=== PATIENT | male | born 1955 | race Caucasian/White ===

== ENCOUNTER 2016-10-01 12:36 | Inpatient (IN) | payer SELFPAY ==
--- NOTE | 2016-10-01 13:09 | ER Document Report ---
ED Medical Screen (RME) - General Stated Complaint: DIFFICULTY BREATHING Notes: 60 yo male c/o shortness of breath and weakness x 4-5 days. + cough, cold s/s. denies any PMHx. former smoker, quit last week. 1ppd x 30 years. Sat 90%. HR 120. + chest pain, anterior chest hurts with breathing - Related Data Allergies/Adverse Reactions: No Known Allergies Allergy (Verified 02/04/14 21:56) Past Medical History Past Surgical History: Comment Only: Hx Cholecystectomy - gallstone - Immunizations Hx Diphtheria, Pertussis, Tetanus Vaccination: - unknown
[2016-10-01 13:49] LABS: ABSOLUTE BASOPHILS # (AUTO) 0.1 10^3/uL (0.0-0.2); ABSOLUTE EOSINOPHILS # (AUTO) 0.2 10^3/uL (0.0-0.6); ABSOLUTE MONOCYTES (AUTO) 0.7 10^3/uL (0.1-1.4); ABSOLUTE NEUT (AUTO) 9.8 10^3/uL (1.7-8.2); BASOPHILS % (AUTO) 0.6 % (0-2); EOSINOPHILS % (AUTO) 1.7 % (0-6); HEMATOCRIT 47.9 % (37.9-51.0); HGB HCT DIFFERENCE 0.1; LYMPHOCYTES % (AUTO) 15.5 % (13-45); MEAN CORPUSCULAR HEMOGLOBIN 29.1 pg (27.0-33.4); MEAN CORPUSCULAR HGB CONC 33.5 g/dL (32.0-36.0); MEAN CORPUSCULAR VOLUME 87 fl (80-97); MONOCYTES % (AUTO) 5.3 % (3-13); RED BLOOD COUNT 5.51 10^6/uL (4.35-5.55); RED CELL DISTRIBUTION WIDTH 13.5 % (11.5-14.0); SEGMENTED NEUTROPHILS % (AUTO) 76.9 % (42-78); WHITE BLOOD COUNT 12.7 10^3/uL (4.0-10.5)
[2016-10-01 14:04] LABS: ALANINE AMINOTRANSFERASE 35 U/L (21-72); ALBUMIN 3.8 g/dL (3.5-5.0); ALKALINE PHOSPHATASE 148 U/L (38-126); ANION GAP 13 (5-19); ASPARTATE AMINO TRANSFERASE 27 U/L (17-59); BILIRUBIN,TOTAL 1.3 mg/dL (0.2-1.3); BLOOD UREA NITROGEN 25 mg/dL (7-20); CALCIUM 9.4 mg/dL (8.4-10.2); CARBON DIOXIDE 28 mmol/L (22-30); CHLORIDE 97 mmol/L (98-107); CREATINE KINASE 181 U/L (55-170); CREATININE RESULT 1.17 mg/dL (0.52-1.25); GLUCOSE 109 mg/dL (75-110); POTASSIUM 4.1 mmol/L (3.6-5.0); SODIUM 137.6 mmol/L (137-145); TOTAL PROTEIN 7.1 g/dL (6.3-8.2)
[2016-10-01 14:16] LABS: CREATINE KINASE MB 3.82 ng/mL (<4.55)
[2016-10-01 14:18] LABS: TROPONIN I 0.074 ng/mL
[2016-10-01] MEDS ORDERED: IPRATROPIUM/ALBUTEROL 0.5-2.5 MG/3 ML AMPUL NEB ONE ×3 (14:20→15:03)
[2016-10-01] MEDS ORDERED: NORMAL SALINE 1000 ML 1,000 ML IV ONE (14:21)
[2016-10-01] MEDS ORDERED: LEVOFLOXACIN 750 MG/D5W RTU 150 ML IV ONE (14:21)
--- NOTE | 2016-10-01 14:58 | EKG REPORT ---
SEVERITY:- ABNORMAL ECG - SINUS TACHYCARDIA PROBABLE LEFT ATRIAL ABNORMALITY ABNORMAL T, CONSIDER ISCHEMIA, DIFFUSE LEADS : Confirmed by: Batool Hawley MD 01-Oct-2016 14:56:49
--- NOTE | 2016-10-01 15:09 | ER Document Report ---
ED General - General Chief Complaint: Shortness Of Breath Stated Complaint: DIFFICULTY BREATHING Mode of Arrival: Ambulatory Information source: Patient Notes: 60-year-old male presents with complaints of productive cough shortness of breath of one week duration associated with fevers. Patient admits that he has not seen a PCP in many years. TRAVEL OUTSIDE OF THE [place] IN LAST 30 DAYS: No - HPI Onset: Last week Onset/Duration: Persistent Quality of pain: No pain Severity: Mild Pain Level: Denies Associated symptoms: Shortness of breath Exacerbated by: Denies Relieved by: Denies - Related Data Allergies/Adverse Reactions: No Known Allergies Allergy (Verified 10/01/16 13:05) Past Medical History - Social History Smoking Status: Former Smoker Cigarette use (# per day): No Chew tobacco use (# tins/day): No Smoking Education Provided: No Frequency of alcohol use: None Drug Abuse: None Family History: Reviewed & Not Pertinent Patient has suicidal ideation: No Patient has homicidal ideation: No Renal/ Medical History: Denies: Hx Peritoneal Dialysis Past Surgical History: Comment Only: Hx Cholecystectomy - gallstone - Immunizations Hx Diphtheria, Pertussis, Tetanus Vaccination: - unknown Review of Systems - Review of Systems Notes: REVIEW OF SYSTEMS: CONSTITUTIONAL : Denies fever, chills, or sweats. Denies recent illness. EENT: Denies eye, ear, throat, or mouth pain or symptoms. Denies nasal or sinus congestion or discharge. Denies throat, tongue, or mouth swelling or difficulty swallowing. CARDIOVASCULAR: Denies chest pain. Denies palpitations or racing or irregular heart beat. Denies ankle edema. RESPIRATORY: Admits shortness breath difficult to breathing productive cough GASTROINTESTINAL: Denies abdominal pain or distention. Denies nausea, vomiting , or diarrhea. Denies blood in vomitus, stools, or per rectum. Denies black, tarry stools. Denies constipation. GENITOURINARY: Denies difficulty urinating, painful urination, burning, frequency, blood in urine, or discharge. MUSCULOSKELETAL: Denies back or neck pain or stiffness. Denies joint pain or swelling. SKIN: Denies rash, lesions or sores. HEMATOLOGIC : Denies easy bruising or bleeding. LYMPHATIC: Denies swollen, enlarged glands. NEUROLOGICAL: Denies confusion or altered mental status. Denies passing out or loss of consciousness. Denies dizziness or lightheadedness. Denies headache. Denies weakness or paralysis or loss of use of either side. Denies problems with gait or speech. Denies sensory loss, numbness, or tingling. Denies seizures. PSYCHIATRIC: Denies anxiety or stress. Denies depression, suicidal ideation, or homicidal ideation. ALL OTHER SYSTEMS REVIEWED AND NEGATIVE. Dictation was performed using [email or web address] voice recognition software PHYSICAL EXAMINATION: GENERAL: Well-appearing, well-nourished and in moderate respiratory distress. HEAD: Atraumatic, normocephalic. EYES: Pupils equal round and reactive to light, extraocular movements intact, sclera anicteric, conjunctiva are normal. ENT: Nares patent, oropharynx clear without exudates. Moist mucous membranes. NECK: Normal range of motion, supple without lymphadenopathy LUNGS: Crackles at the bases bilateral tachypneic HEART: Tachycardic ABDOMEN: Soft, nontender, nondistended abdomen. No guarding, no rebound. No masses appreciated. Musculoskeletal: Normal range of motion, no pitting or edema. No cyanosis. NEUROLOGICAL: Cranial nerves grossly intact. Normal speech, normal gait. Normal sensory, motor exams PSYCH: Normal mood, normal affect. SKIN: Warm, Dry, normal turgor, no rashes or lesions noted. Physical Exam - Vital signs Vitals: Temp Pulse Resp BP Pulse Ox 97.8 F 119 H 16 167/116 H 96 10/01/16 13:10 10/01/16 13:10 10/01/16 13:10 10/01/16 13:10 10/01/16 13:10 Course - Re-evaluation Re-evalutation: 10/01/16 16:52 Obvious concerns for sepsis on arrival, antibiotics ordered immediately when x- ray was consistent with pneumonia. Patient was given IV fluids. Venous blood gas and lactic acid pending, patient was admitted to hospital service for further evaluation and care - Vital Signs Vital signs: Temp Pulse Resp BP Pulse Ox 98.2 F 119 H 18 162/119 H 97 10/01/16 14:00 10/01/16 13:10 10/01/16 15:01 10/01/16 15:00 10/01/16 15:01 - Laboratory Result Diagrams: 10/01/16 13:25 10/01/16 13:25 Laboratory results interpreted by me: 10/01/16 10/01/16 13:25 13:25 WBC 12.7 H Absolute Neutrophils 9.8 H Chloride 97 L BUN 25 H Alkaline Phosphatase 148 H Creatine Kinase 181 H - Diagnostic Test Radiology reviewed: Image reviewed, Reports reviewed Critical Care Note - Critical Care Note Total time excluding time spent on procedures (mins): 37 Comments: 37 minutes of critical care time spent in direct contact evaluating and reevaluating the patient, treating symptoms, reviewing labs and studies and speaking with family and consultants excluding any procedures Discharge - Discharge Clinical Impression: Tachycardia, Tachypnea Pneumonia Qualifiers: Pneumonia type: due to unspecified organism Laterality: bilateral Lung location : lower lobe of lung Qualified Code(s): J18.9 - Pneumonia, unspecified organism Sepsis Qualifiers: Sepsis type: sepsis due to unspecified organism Qualified Code(s): A41.9 - Sepsis, unspecified organism Condition: Stable Disposition: ADMITTED INPATIENT Admitting Provider: Hospitalist Unit Admitted: Telemetry
[2016-10-01 16:59] LABS: VENOUS BLOOD BASE EXCESS 2.4 mmol/L; VENOUS BLOOD HCO3 27.4 mmol/L (20-32); VENOUS BLOOD PCO2 43.3 mmHg (35-63); VENOUS BLOOD PH 7.42 (7.30-7.42)
--- NOTE | 2016-10-01 17:12 | PDOC H&P ---
History of Present Illness Admission Date/PCP: None Patient complains of: shortness of breath History of Present Illness: TEVIN SPENCER is a 60 year old male with one-week history of cough, shortness of breath, sinus symptoms. Patient denies definite fevers or chills. He is a former smoker but has no diagnosed chronic lung disease. His blood pressure is very elevated the emergency department be has never been formally diagnosed with hypertension. Past Medical History Cardiac Medical History: Reports: None Pulmonary Medical History: Reports: None Endocrine Medical History: Reports: None Malignancy Medical History: Reports: None GI Medical History: Reports: None Psychiatric Medical History: Reports: None Past Surgical History Past Surgical History: Reports: None Comment Only: Cholecystectomy - gallstone Social History Information Source: Patient Lives with: Alone Smoking Status: Former Smoker Frequency of Alcohol Use: None Hx Recreational Drug Use: No Hx Prescription Drug Abuse: No - Advance Directive Resuscitation Status: Full Code Family History Family History: Malignancy - Father with unknown cancer. Parental Family History Reviewed: Yes Children Family History Reviewed: Yes Sibling(s) Family History Reviewed.: Yes Medication/Allergy Home Medications: Hydrocodone/Acetaminophen [Vicodin 5-300 mg Tablet] 1 - 2 tab PO ASDIR PRN #30 tab 02/04/14 Allergies/Adverse Reactions: No Known Allergies Allergy (Verified 10/01/16 13:05) Review of Systems Constitutional: ABSENT: chills, fever(s), headache(s), weight gain, weight loss Eyes: ABSENT: visual disturbances Ears: ABSENT: hearing changes Cardiovascular: ABSENT: chest pain, dyspnea on exertion, edema, orthropnea, palpitations Respiratory: PRESENT: cough, dyspnea, sputum. ABSENT: hemoptysis Gastrointestinal: ABSENT: abdominal pain, constipation, diarrhea, hematemesis, hematochezia, nausea, vomiting Genitourinary: ABSENT: dysuria, hematuria Musculoskeletal: ABSENT: joint swelling Integumentary: ABSENT: rash, wounds Neurological: ABSENT: abnormal gait, abnormal speech, confusion, dizziness, focal weakness, syncope Psychiatric: ABSENT: anxiety, depression, homidical ideation, suicidal ideation Endocrine: ABSENT: cold intolerance, heat intolerance, polydipsia, polyuria Hematologic/Lymphatic: ABSENT: easy bleeding, easy bruising Physical Exam Vital Signs: Temp Pulse Resp BP Pulse Ox 98.2 F 119 H 18 162/119 H 97 10/01/16 14:00 10/01/16 13:10 10/01/16 15:01 10/01/16 15:00 10/01/16 15:01 Intake & Output 09/30/16 10/01/16 10/02/16 06:59 06:59 06:59 Intake Total 1000 Balance 1000 PHYSICAL EXAM: GENERAL: Appears well, no acute distress HEENT: Normocephalic, no scleral icterus, conjunctiva clear, EOEM intact, PERRLA , dry mucous membranes NECK: trachea midline, no thyromegally RESPIRATORY: Bilateral rhonchi, good air movement, normal respiratory rate, no accessory muscle use CARDIAC: Regular rate and rhythm, no murmur/asif/rub ABDOMEN: Soft, no distension, no tenderness, no guarding, normal bowel sounds, negative Sandoval sign RECTAL: deferred : deferred EXTREMITIES: No edema, cyanosis, clubbing MUSCULOSKELETAL: No joint swelling or deformity VASCULAR: normal peripheral pulses NEUROLOGIC: Alert, oriented to person/place/time, normal speech, cranial nerves grossly intact, 5/5 strength in all extremities, tactile sensation intact in all extremities SKIN: No rash, no wounds, no worrisome skin lesions PSYCHIATRIC: Normal mood, normal affect Results Laboratory Results: 10/01/16 13:25 10/01/16 13:25 10/01/16 10/01/16 10/01/16 13:25 13:25 15:30 WBC 12.7 H RBC 5.51 Hgb 16.0 Hct 47.9 MCV 87 MCH 29.1 MCHC 33.5 RDW 13.5 Plt Count 311 Seg Neutrophils % 76.9 Lymphocytes % 15.5 Monocytes % 5.3 Eosinophils % 1.7 Basophils % 0.6 Absolute Neutrophils 9.8 H Absolute Lymphocytes 2.0 Absolute Monocytes 0.7 Absolute Eosinophils 0.2 Absolute Basophils 0.1 VBG pH VBG pCO2 VBG HCO3 VBG Base Excess Sodium 137.6 Potassium 4.1 Chloride 97 L Carbon Dioxide 28 Anion Gap 13 BUN 25 H Creatinine 1.17 Est GFR ( Amer) > 60 Est GFR (Non-Af Amer) > 60 Glucose 109 Lactic Acid 0.9 Calcium 9.4 Total Bilirubin 1.3 AST 27 ALT 35 Alkaline Phosphatase 148 H Total Protein 7.1 Albumin 3.8 10/01/16 16:33 WBC RBC Hgb Hct MCV MCH MCHC RDW Plt Count Seg Neutrophils % Lymphocytes % Monocytes % Eosinophils % Basophils % Absolute Neutrophils Absolute Lymphocytes Absolute Monocytes Absolute Eosinophils Absolute Basophils VBG pH 7.42 VBG pCO2 43.3 VBG HCO3 27.4 VBG Base Excess 2.4 Sodium Potassium Chloride Carbon Dioxide Anion Gap BUN Creatinine Est GFR ( Amer) Est GFR (Non-Af Amer) Glucose Lactic Acid Calcium Total Bilirubin AST ALT Alkaline Phosphatase Total Protein Albumin 10/01/16 10/01/16 13:25 13:25 Creatine Kinase 181 H CK-MB (CK-2) 3.82 Troponin I 0.074 EKG Comments: Sinus tachycardia, left atrial abnormality Impressions: Chest X-Ray 10/01/16 13:09 IMPRESSION: Diffuse prominence of the pulmonary vasculature and interstitium which could be suggestive underlying edema or atypical infection. There is a hazy opacities noted both lung bases, right greater the left could represent edema and/or infiltrate. Small bilateral pleural effusions. Assessment & Plan - Diagnosis (1) Systemic inflammatory response syndrome (SIRS) Is this a current diagnosis for this admission?: YesPlan: Secondary to pneumonia. (2) Pneumonia Qualifiers: Pneumonia type: due to unspecified organism Laterality: bilateral Lung location: lower lobe of lung Qualified Code(s): J18.9 - Pneumonia, unspecified organism Is this a current diagnosis for this admission?: YesPlan: Patient has bilateral pneumonia on imaging. Likely bacterial. Start patient on IV Rocephin and IV Levaquin pending blood and sputum cultures. (3) Elevated blood pressure reading Is this a current diagnosis for this admission?: YesPlan: Patient has no formal diagnosis of hypertension. I will order when necessary IV Lopressor for now. If patient has consistently elevated blood pressures we will start chronic antihypertensive medication. (4) Sinus tachycardia Is this a current diagnosis for this admission?: YesPlan: Treat infection and mild dehydration. - Time Time Spent: Greater than 70 Minutes Anticipated discharge: Home Within: within 72 hours - Inpatient Certification Medical Necessity: Need For Continuous Telemetry Monitoring, Need for IV Antibiotics
[2016-10-01] MEDS: ALBUTEROL SULFATE 0.083% NEB 2.5 MG/3 ML AMPUL NEB PRN (20:22)
[2016-10-01] MEDS ORDERED: ENOXAPARIN SODIUM INJ 40 MG/0.4 ML DISP.SYRIN SUBCUT ONE (21:00)
[2016-10-01] MEDS: METOPROLOL TARTRATE PF/INJ 5 MG/5 ML SDV IV PRN (21:25)
[2016-10-01] MEDS: CEFTRIAXONE 1 GM/D5W RTU 1 GM/50 ML RTUPB IV SCH (22:31)
[2016-10-01] MEDS: GUAIFENESIN 600 MG TABLET.SA PO SCH (22:35)
[2016-10-01] MEDS: NORMAL SALINE 1000 ML 1,000 ML IV PRN (23:58)
[2016-10-02] MEDS: ALBUTEROL SULFATE 0.083% NEB 2.5 MG/3 ML AMPUL NEB PRN ×3 (00:26→21:23)
[2016-10-02] MEDS: ENALAPRILAT DIHYDRATE INJ/PF 1.25 MG/1 ML SDV IV PRN ×2 (02:23→08:36)
[2016-10-02] MEDS: NORMAL SALINE 1000 ML 1,000 ML IV PRN (05:36)
[2016-10-02 05:56] LABS: ABSOLUTE LYMPHOCYTES (AUTO) 1.4 10^3/uL (0.5-4.7); ABSOLUTE MONOCYTES (AUTO) 0.5 10^3/uL (0.1-1.4); ABSOLUTE NEUT (AUTO) 8.6 10^3/uL (1.7-8.2); BASOPHILS % (AUTO) 0.4 % (0-2); EOSINOPHILS % (AUTO) 0.2 % (0-6); HEMATOCRIT 43.5 % (37.9-51.0); HGB HCT DIFFERENCE -0.9; MEAN CORPUSCULAR HEMOGLOBIN 28.9 pg (27.0-33.4); MEAN CORPUSCULAR HGB CONC 32.6 g/dL (32.0-36.0); MEAN CORPUSCULAR VOLUME 89 fl (80-97); MONOCYTES % (AUTO) 4.9 % (3-13); RED CELL DISTRIBUTION WIDTH 13.3 % (11.5-14.0); SEGMENTED NEUTROPHILS % (AUTO) 81.5 % (42-78); WHITE BLOOD COUNT 10.6 10^3/uL (4.0-10.5)
[2016-10-02 06:00] LABS: HEMOGLOBIN 14.2 g/dL (13.5-17.0)
[2016-10-02 06:03] LABS: ANION GAP 11 (5-19); BLOOD UREA NITROGEN 27 mg/dL (7-20); CALCIUM 8.7 mg/dL (8.4-10.2); CARBON DIOXIDE 25 mmol/L (22-30); CHLORIDE 100 mmol/L (98-107); CREATININE RESULT 1.39 mg/dL (0.52-1.25); GLUCOSE 88 mg/dL (75-110); POTASSIUM 3.8 mmol/L (3.6-5.0); SODIUM 135.9 mmol/L (137-145)
[2016-10-02] MEDS: ENOXAPARIN SODIUM INJ 40 MG/0.4 ML DISP.SYRIN SUBCUT SCH (08:36)
[2016-10-02] MEDS: LEVOFLOXACIN 750 MG/D5W RTU 150 ML IV SCH (09:38)
[2016-10-02] MEDS: GUAIFENESIN 600 MG TABLET.SA PO SCH ×2 (09:39→23:22)
[2016-10-02] MEDS: CEFTRIAXONE 1 GM/D5W RTU 1 GM/50 ML RTUPB IV SCH (17:14)
--- NOTE | 2016-10-02 18:09 | PDOC PROGRESS REPORT ---
Subjective Progress Note for:: 10/02/16 Subjective:: Patient's generalized weakness and shortness of breath has improved. Patient denies fever, chills, headache, new focal weakness, chest pain, abdominal pain, nausea, vomiting, diarrhea, constipation. Physical Exam Vital Signs: Temp Pulse Resp BP Pulse Ox 98.3 F 115 H 20 143/98 H 99 10/02/16 12:24 10/02/16 14:00 10/02/16 12:24 10/02/16 12:24 10/02/16 12:24 Intake & Output 10/01/16 10/02/16 10/03/16 06:59 06:59 06:59 Intake Total 1047 360 Balance 1047 360 Weight 59.8 kg GENERAL: No acute distress HEENT: Conjunctiva clear, nonicteric, moist mucous membranes, no JVD, midline trachea RESPIRATORY: Clear to auscultation bilaterally, no wheezes, no rhonchi CARDIAC: Regular rate and rhythm, no murmurs/gallops/rubs ABDOMEN: Soft, nondistended, nontender, positive bowel sounds, no rebound, no guarding EXTREMETIES: No edema, cyanosis, clubbing NEUROLOGIC: Alert, oriented to person/place/time, CN's grossly intact, no focal deficits SKIN: No rash, wounds PSYCH: Normal mood, normal affect Results Laboratory Results: 10/02/16 04:52 10/02/16 04:52 10/02/16 10/02/16 04:52 04:52 WBC 10.6 H RBC 4.90 Hgb 14.2 Hct 43.5 MCV 89 MCH 28.9 MCHC 32.6 RDW 13.3 Plt Count 242 Seg Neutrophils % 81.5 H Lymphocytes % 13.0 Monocytes % 4.9 Eosinophils % 0.2 Basophils % 0.4 Absolute Neutrophils 8.6 H Absolute Lymphocytes 1.4 Absolute Monocytes 0.5 Absolute Eosinophils 0.0 Absolute Basophils 0.0 Sodium 135.9 L Potassium 3.8 Chloride 100 Carbon Dioxide 25 Anion Gap 11 BUN 27 H Creatinine 1.39 H Est GFR ( Amer) > 60 Est GFR (Non-Af Amer) 52 L Glucose 88 Calcium 8.7 Impressions: Chest X-Ray 10/02/16 07:46 IMPRESSION: Interstitial edema or atypical pneumonia. No significant change. Assessment & Plan - Diagnosis (1) Systemic inflammatory response syndrome (SIRS) Is this a current diagnosis for this admission?: YesPlan: Secondary to pneumonia. (2) Pneumonia Qualifiers: Pneumonia type: due to unspecified organism Laterality: bilateral Lung location: lower lobe of lung Qualified Code(s): J18.9 - Pneumonia, unspecified organism Is this a current diagnosis for this admission?: YesPlan: Patient has bilateral pneumonia on imaging. Likely bacterial. Continue IV Rocephin and IV Levaquin pending blood and sputum cultures. (3) Sinus tachycardia Is this a current diagnosis for this admission?: Yes (4) Hypertension Is this a current diagnosis for this admission?: YesPlan: Untreated. Start Toprol-XL 25 mg twice a day. Continue when necessary IV hydralazine. (5) Elevated brain natriuretic peptide (BNP) level Is this a current diagnosis for this admission?: YesPlan: Check echocardiogram. Possibly related to acute pulmonary process and acute kidney injury. Symptoms and chest x-ray findings more consistent with pneumonia rather than CHF. (6) Acute kidney injury Is this a current diagnosis for this admission?: YesPlan: Discontinue when necessary Vasotec. Repeat labs in the morning. - Time Time Spent with patient: 35 or more minutes Anticipated discharge: Home Within: within 48 hours
--- NOTE | 2016-10-02 20:57 | XCELERA REPORT ---
[address] [address] Transthoracic Echocardiogram Report Name: TEVIN SPENCER Age: 60 yrs Gender: Male : 1955 Patient Status: Inpatient Patient Location: 5\[id number]\535\[id number]\A Study Date: 10/02/2016 09:14 AM Height: 61 in Weight: 131 lb BSA: 1.6 m2 Procedure: A complete two-dimensional transthoracic echocardiogram was performed (2D, M-mode, spectral and color flow Doppler). The study was technically adequate with some images being suboptimal in quality. Reason For Study: dyspnea, abn cxr Ordering Physician: CLEMENTINA RIOS Performed By: Willow Forbes Interpretation Summary The Ejection Fraction estimate is 50-55% Left ventricular systolic function is low normal. Doppler measurements suggest pseudonormalized left ventricular relaxation, which is associated with grade II/IV or mild to moderate diastolic dysfunction There is borderline concentric left ventricular hypertrophy. The left ventricle is grossly normal size. Wall motion cannot be accurately commented on, but no definite regional wall motion abnormalities noted. The right ventricle is borderline dilated. The right ventricular systolic function is normal. The right ventricle appears to be hypertrophied The left atrium is mildly dilated. The right atrium is mildly dilated. There is a trace amount of mitral regurgitation There is no mitral valve stenosis. There is no aortic valve stenosis No aortic regurgitation is present. There is a trace to mild amount of tricuspid regurgitation There is mild pulmonary hypertension by echo Right ventricular systolic pressure is estimated to be elevated at 35- 45mmHg. The pulmonic valve is not well visualized. The aortic root is not well visualized but is probably normal size. The inferior vena cava appeared normal and decreased < 50% with respiration (RAP 10-15 mmHg) There is no pericardial effusion. MMode/2D Measurements \T\ Calculations RVDd: 1.5 cm LVIDd: 4.5 cm FS: 26.1 % Ao root diam: 2.7 cm IVSd: 0.92 cm LVIDs: 3.3 cm EDV(Teich): 93.7 ml LVPWd: 0.92 cm ESV(Teich): 45.5 ml Ao root area: 5.7 cm2 EF(Teich): 51.4 % LA dimension: 3.9 cm Doppler Measurements \T\ Calculations MV E max ney: MV P1/2t max ney: Ao V2 max: LV V1 max P.8 cm/sec 88.4 cm/sec 100.3 cm/sec 3.8 mmHg MV A max ney: MV P1/2t: 44.3 msec Ao max PG: LV V1 max: 37.5 cm/sec 4.0 mmHg 97.7 cm/sec MV E/A: 2.4 MVA(P1/2t): 5.0 cm2 MV dec slope: 584.1 cm/sec2 MV dec time: 0.16 sec PA V2 max: TR max ney: 81.4 cm/sec 285.6 cm/sec PA max PG: TR max P.6 mmHg 2.7 mmHg Left Ventricle The left ventricle is grossly normal size. There is borderline concentric left ventricular hypertrophy. Left ventricular systolic function is low normal. The Ejection Fraction estimate is 50-55%. Doppler measurements suggest pseudonormalized left ventricular relaxation, which is associated with grade II/IV or mild to moderate diastolic dysfunction. Wall motion cannot be accurately commented on, but no definite regional wall motion abnormalities noted. Right Ventricle The right ventricle is borderline dilated. The right ventricle appears to be hypertrophied. The right ventricular systolic function is normal. Atria The right atrium is mildly dilated. The left atrium is mildly dilated. Mitral Valve The mitral valve is grossly normal. There is no mitral valve stenosis. There is a trace amount of mitral regurgitation. Aortic Valve The aortic valve is grossly normal. There is no aortic valve stenosis. No aortic regurgitation is present. Tricuspid Valve The tricuspid valve is not well visualized, but is grossly normal. There is no tricuspid stenosis. There is a trace to mild amount of tricuspid regurgitation. There is mild pulmonary hypertension by echo. Right ventricular systolic pressure is estimated to be elevated at 30-40mmHg. Pulmonic Valve The pulmonic valve is not well visualized. Great Vessels The aortic root is not well visualized but is probably normal size. The inferior vena cava appeared normal and decreased < 50% with respiration (RAP 10-15 mmHg). Effusions There is no pericardial effusion. : CLEMENTINA RIOS > Kinza Meza
[2016-10-02] MEDS: METOPROLOL TARTRATE PF/INJ 5 MG/5 ML SDV IV PRN (21:15)
[2016-10-02] MEDS: METOPROLOL SUCCINATE 25 MG TAB.SR.24H PO SCH (23:21)
[2016-10-03] MEDS: HYDRALAZINE HCL INJ/PF 20 MG/1 ML SDV IV PRN ×3 (02:45→21:10)
[2016-10-03] MEDS: ALBUTEROL SULFATE 0.083% NEB 2.5 MG/3 ML AMPUL NEB PRN ×4 (03:34→20:29)
[2016-10-03] MEDS: METOPROLOL TARTRATE PF/INJ 5 MG/5 ML SDV IV PRN ×2 (03:52→13:18)
[2016-10-03] MEDS: ACETAMINOPHEN 325 MG TABLET PO PRN ×2 (04:09→12:28)
[2016-10-03] MEDS ORDERED: NITROGLYCERIN 2% OINTMENT 1 GM PACKET TP ONE (04:47)
[2016-10-03 05:48] LABS: ABSOLUTE EOSINOPHILS # (AUTO) 0.1 10^3/uL (0.0-0.6); ABSOLUTE LYMPHOCYTES (AUTO) 1.2 10^3/uL (0.5-4.7); ABSOLUTE MONOCYTES (AUTO) 0.7 10^3/uL (0.1-1.4); ABSOLUTE NEUT (AUTO) 8.8 10^3/uL (1.7-8.2); BASOPHILS % (AUTO) 0.4 % (0-2); EOSINOPHILS % (AUTO) 0.9 % (0-6); HEMATOCRIT 44.9 % (37.9-51.0); HGB HCT DIFFERENCE 0.1; LYMPHOCYTES % (AUTO) 11.3 % (13-45); MEAN CORPUSCULAR HEMOGLOBIN 29.4 pg (27.0-33.4); MEAN CORPUSCULAR HGB CONC 33.5 g/dL (32.0-36.0); MEAN CORPUSCULAR VOLUME 88 fl (80-97); MONOCYTES % (AUTO) 6.1 % (3-13); RED BLOOD COUNT 5.11 10^6/uL (4.35-5.55); RED CELL DISTRIBUTION WIDTH 13.6 % (11.5-14.0); SEGMENTED NEUTROPHILS % (AUTO) 81.3 % (42-78); WHITE BLOOD COUNT 10.8 10^3/uL (4.0-10.5)
[2016-10-03 06:07] LABS: ANION GAP 14 (5-19); BLOOD UREA NITROGEN 27 mg/dL (7-20); CALCIUM 9.4 mg/dL (8.4-10.2); CARBON DIOXIDE 26 mmol/L (22-30); CHLORIDE 100 mmol/L (98-107); CREATININE RESULT 1.57 mg/dL (0.52-1.25); GLUCOSE 86 mg/dL (75-110); POTASSIUM 3.9 mmol/L (3.6-5.0); SODIUM 139.8 mmol/L (137-145)
[2016-10-03] MEDS: ENOXAPARIN SODIUM INJ 40 MG/0.4 ML DISP.SYRIN SUBCUT SCH (08:27)
[2016-10-03] MEDS: LEVOFLOXACIN 750 MG/D5W RTU 150 ML IV SCH (10:26)
[2016-10-03] MEDS: METOPROLOL SUCCINATE 25 MG TAB.SR.24H PO SCH (10:27)
[2016-10-03] MEDS: GUAIFENESIN 600 MG TABLET.SA PO SCH ×2 (10:27→21:10)
[2016-10-03] MEDS ORDERED: METOPROLOL SUCCINATE 25 MG TAB.SR.24H PO SCH (14:40)
--- NOTE | 2016-10-03 14:43 | PDOC PROGRESS REPORT ---
Subjective Progress Note for:: 10/03/16 Subjective:: Patient's generalized weakness and shortness of breath has improved. He complains of pain in his left hand where his IV site is. Patient denies fever, chills, headache, new focal weakness, chest pain, abdominal pain, nausea, vomiting, diarrhea, constipation. Physical Exam Vital Signs: Temp Pulse Resp BP Pulse Ox 98.0 F 95 20 150/108 H 94 10/03/16 04:15 10/03/16 12:09 10/03/16 12:09 10/03/16 04:15 10/03/16 12:09 Intake & Output 10/02/16 10/03/16 10/04/16 06:59 06:59 06:59 Intake Total 1047 1410 Balance 1047 1410 Weight 59.8 kg 59.8 kg GENERAL: No acute distress HEENT: Conjunctiva clear, nonicteric, moist mucous membranes, no JVD, midline trachea RESPIRATORY: Clear to auscultation bilaterally, no wheezes, no rhonchi CARDIAC: Regular rate and rhythm, no murmurs/gallops/rubs ABDOMEN: Soft, nondistended, nontender, positive bowel sounds, no rebound, no guarding EXTREMETIES: No edema, cyanosis, clubbing NEUROLOGIC: Alert, oriented to person/place/time, CN's grossly intact, no focal deficits SKIN: No rash, wounds PSYCH: Normal mood, normal affect Results Laboratory Results: 10/03/16 05:05 10/03/16 05:05 10/03/16 10/03/16 05:05 05:05 WBC 10.8 H RBC 5.11 Hgb 15.0 Hct 44.9 MCV 88 MCH 29.4 MCHC 33.5 RDW 13.6 Plt Count 249 Seg Neutrophils % 81.3 H Lymphocytes % 11.3 L Monocytes % 6.1 Eosinophils % 0.9 Basophils % 0.4 Absolute Neutrophils 8.8 H Absolute Lymphocytes 1.2 Absolute Monocytes 0.7 Absolute Eosinophils 0.1 Absolute Basophils 0.0 Sodium 139.8 Potassium 3.9 Chloride 100 Carbon Dioxide 26 Anion Gap 14 BUN 27 H Creatinine 1.57 H Est GFR ( Amer) 54 L Est GFR (Non-Af Amer) 45 L Glucose 86 Calcium 9.4 10/01/16 17:30 Sputum Gram Stain - Final 10/01/16 17:30 Sputum Sputum Culture - Final NORMAL DYAN Impressions: Chest X-Ray 10/03/16 06:00 IMPRESSION: Findings are consistent with vascular congestion there has been slight progression since yesterday. Assessment & Plan - Diagnosis (1) Systemic inflammatory response syndrome (SIRS) Is this a current diagnosis for this admission?: YesPlan: Secondary to pneumonia. (2) Pneumonia Qualifiers: Pneumonia type: due to unspecified organism Laterality: bilateral Lung location: lower lobe of lung Qualified Code(s): J18.9 - Pneumonia, unspecified organism Is this a current diagnosis for this admission?: YesPlan: Likely bacterial. Culture workup negative. Discontinue IV antibiotics. Start Levaquin 750 mg by mouth daily. (3) Sinus tachycardia Is this a current diagnosis for this admission?: YesPlan: Treat infection and mild dehydration. (4) Hypertension Is this a current diagnosis for this admission?: YesPlan: Increase Toprol-XL to 50 mg twice daily. (5) Elevated brain natriuretic peptide (BNP) level Is this a current diagnosis for this admission?: YesPlan: Check echocardiogram. Possibly related to acute pulmonary process and acute kidney injury. Symptoms and chest x-ray findings more consistent with pneumonia rather than CHF. (6) Acute kidney injury Is this a current diagnosis for this admission?: YesPlan: Repeat labs in the morning. - Time Time Spent with patient: 35 or more minutes Anticipated discharge: Home Within: within 48 hours
[2016-10-03] MEDS: METOPROLOL SUCCINATE 50 MG TAB.SR.24H PO SCH (21:09)
[2016-10-04 06:30] LABS: ABSOLUTE BASOPHILS # (AUTO) 0.1 10^3/uL (0.0-0.2); ABSOLUTE EOSINOPHILS # (AUTO) 0.1 10^3/uL (0.0-0.6); ABSOLUTE LYMPHOCYTES (AUTO) 1.4 10^3/uL (0.5-4.7); ABSOLUTE MONOCYTES (AUTO) 0.7 10^3/uL (0.1-1.4); ABSOLUTE NEUT (AUTO) 7.2 10^3/uL (1.7-8.2); BASOPHILS % (AUTO) 0.7 % (0-2); EOSINOPHILS % (AUTO) 1.3 % (0-6); HEMATOCRIT 42.3 % (37.9-51.0); HEMOGLOBIN 14.4 g/dL (13.5-17.0); HGB HCT DIFFERENCE 0.9; LYMPHOCYTES % (AUTO) 14.5 % (13-45); MEAN CORPUSCULAR HEMOGLOBIN 29.6 pg (27.0-33.4); MEAN CORPUSCULAR HGB CONC 33.9 g/dL (32.0-36.0); MEAN CORPUSCULAR VOLUME 87 fl (80-97); MONOCYTES % (AUTO) 7.8 % (3-13); RED BLOOD COUNT 4.85 10^6/uL (4.35-5.55); RED CELL DISTRIBUTION WIDTH 13.5 % (11.5-14.0); SEGMENTED NEUTROPHILS % (AUTO) 75.7 % (42-78); WHITE BLOOD COUNT 9.5 10^3/uL (4.0-10.5)
[2016-10-04 06:49] LABS: ANION GAP 13 (5-19); BLOOD UREA NITROGEN 28 mg/dL (7-20); CARBON DIOXIDE 24 mmol/L (22-30); CHLORIDE 102 mmol/L (98-107); CREATININE RESULT 1.46 mg/dL (0.52-1.25); GLUCOSE 105 mg/dL (75-110); POTASSIUM 3.6 mmol/L (3.6-5.0); SODIUM 138.6 mmol/L (137-145)
[2016-10-04] MEDS: METOPROLOL SUCCINATE 50 MG TAB.SR.24H PO SCH (09:59)
[2016-10-04] MEDS: GUAIFENESIN 600 MG TABLET.SA PO SCH (10:00)
[2016-10-04] MEDS ORDERED: LEVOFLOXACIN 750 MG TABLET PO SCH (10:00)
--- NOTE | 2016-10-04 12:48 | DISCHARGE SUMMARY E ---
Discharge Summary NAME: TEVIN SPENCER : 1955 AGE: 60Y ADMITTED: 10/01/2016 DISCHARGED: ADMISSION DIAGNOSES: 1. Systemic inflammatory response. 2. Pneumonia. 3. Elevated blood pressure. 4. Tachycardia. DISCHARGE DIAGNOSES: 1. Bilateral pneumonia. 2. Sinus tachycardia. 3. Hypertension. 4. Acute respiratory failure and hypoxemia due to probably pneumonia and underlying COPD. IMAGING: Chest x-ray which showed diffuse bilateral airspace disease. Echocardiogram which showed normal ejection fraction. HOSPITAL COURSE: The patient is a pleasant 60-year-old male who has been healthy and history of former smoker. He came to the emergency room with a chief complaint of cough, shortness of breath. He has also sinus tachycardia and he was hypertensive. Blood pressure was elevated in the emergency room. The patient had chest x-ray which showed bilateral pneumonia and EKG showed sinus tachycardia. He had a blood culture which did not grow anything. His sputum also was unremarkable. Culture did not reveal any bacteria. He had leukocytosis on admission, 12.7. He was afebrile also on admission. The patient started on IV Levaquin and he started to improve. His blood pressure was elevated and the patient started on Toprol which controlled both his blood pressure as well as tachycardia. The patient is qualified for oxygen today. He is saturating 88% when he walked like for 2 minutes. He is saturating in mid 90s on 2 L. planner internship was consulted to arrange home oxygen. The patient is stable to be discharged home today. PHYSICAL EXAMINATION UPON DISCHARGE: GENERAL: The patient is lying in bed, comfortable. Not in distress. Well nourished. VITALS SIGNS: Temperature 97.9, heart rate 102, blood pressure 148/97, saturation 99% on 2 L. HEENT: Normocephalic, atraumatic. Pupils round. Conjunctivae is normal. No icterus. NECK: No lymphadenopathy. No thyromegaly. CARDIOVASCULAR: Normal S1, S2. Regular rate. Tachycardiac. RESPIRATORY: Decreased air entry bilaterally. ABDOMEN: Soft. Bowel sounds active. MUSCULOSKELETAL: No edema. NEUROLOGIC: Awake, alert. SKIN: No rash. LABORATORY: White blood count 9.5, hemoglobin 14.4. Potassium 3.6, sodium 138, creatinine 1.4. Echo showed diastolic congestive heart failure. DISCHARGE INSTRUCTIONS: Discharged patient home. MEDICATIONS: 1. Toprol XL 50 mg p.o. daily. 2. Oxygen 2 L 24 hours. 3. Levaquin 750 mg p.o. daily. FOLLOWUP: With primary care physician in 1 week. DIET: Cardiac diet, low salt diet. ACTIVITY: As tolerated. OTHER INSTRUCTIONS: Come to the emergency room for any difficulty breathing. TIME SPENT: More than 35 minutes. DICTATING PHYSICIAN: JONNY GONZALES M.D. [id number] PHY#: [id number] ID: [id number] JOB#: [id number] ACCT: [id number] cc:CLEMENTINA RIOS ABDELAZIZ M.D. >
[2016-10-04 16:47] VITALS: BP 160/117
[2016-10-04] MEDS: ALBUTEROL SULFATE 0.083% NEB 2.5 MG/3 ML AMPUL NEB PRN (18:15)
== END 2016-10-04 18:39 | disposition home or self-care (01) | DRG 194 ==
LOC: ER 12:36 → EH 16:40 → UNDOADMIN 17:06 → 5 20:57
PROVIDERS: ADMIT Family Medicine; ATTEND Family Medicine
PROC: 3E0F73Z Introduction of Anti-inflammatory into Respiratory Tract, Via Natural or Artificial Opening (ICD-10-PCS; principal; 2016-10-01)
DX: J18.9 Pneumonia, unspecified organism (principal); I47.1 Supraventricular tachycardia; N17.9 Acute kidney failure, unspecified; I10 Essential (primary) hypertension; E86.0 Dehydration; Z60.2 Problems related to living alone; Z87.891 Personal history of nicotine dependence; Z90.49 Acquired absence of other specified parts of digestive tract; Z80.9 Family history of malignant neoplasm, unspecified; Z79.891 Long term (current) use of opiate analgesic
CPT/HCPCS: 36415; 71010; 71020; 80048; 80053; 82550; 82553; 82803; 83605; 83880; 84484; 85025; 87040; 87070; 87205; 87804; 93005; 93010; 93306; 94640; 96365; 99291; J0360; J0696; J1650; J1956; J3490; J7030; J7620

== ENCOUNTER 2017-02-26 18:53 | Emergency (ER) | payer SELFPAY ==
[2017-02-26] MEDS ORDERED: IPRATROPIUM/ALBUTEROL 0.5-2.5 MG/3 ML AMPUL NEB ONE ×3 (19:34→20:28)
--- NOTE | 2017-02-26 19:38 | ER Document Report ---
ED Medical Screen (RME) - General Chief Complaint: Shortness Of Breath Stated Complaint: DIFFICULTY BREATHING Time Seen by Provider: 02/26/17 19:33 Notes: Patient with a history of COPD who is having increased difficulty breathing and shortness of breath. He has had a productive cough with yellow phlegm being produced. He used to have home oxygen, but it was taken away a couple of months ago. He does have a home nebulizer and inhalers, but they are almost empty. He says his breathing difficulty worsened about a week ago. Not running a fever. No vomiting or diarrhea. Patient used to smoke cigarettes, but stopped about 5 or 6 months ago. Oxygen sat here in the ER is 92% on room air. Patient is very tachypneic and appears significantly short of breath. TRAVEL OUTSIDE OF THE [place] IN LAST 30 DAYS: No - Related Data Allergies/Adverse Reactions: No Known Allergies Allergy (Verified 02/26/17 19:16) Past Medical History - Social History Chew tobacco use (# tins/day): No Frequency of alcohol use: None Drug Abuse: None - Past Medical History Cardiac Medical History: Reports: Hx Hypertension Pulmonary Medical History: Reports: Hx COPD Renal/ Medical History: Denies: Hx Peritoneal Dialysis Psychiatric Medical History: Denies: Hx Depression Past Surgical History: Reports: Hx Cholecystectomy - gallstone - Immunizations Hx Diphtheria, Pertussis, Tetanus Vaccination: - unknown Physical Exam - Vital signs Vitals: Temp Pulse Resp BP Pulse Ox 98.2 F 111 H 40 H 155/127 H 92 02/26/17 19:09 02/26/17 19:09 02/26/17 19:09 02/26/17 19:09 02/26/17 19:09 Course - Vital Signs Vital signs: Temp Pulse Resp BP Pulse Ox 98.2 F 111 H 40 H 155/127 H 92 02/26/17 19:09 02/26/17 19:09 02/26/17 19:09 02/26/17 19:09 02/26/17 19:09
[2017-02-26 20:15] LABS: ABSOLUTE BASOPHILS # (AUTO) 0.1 10^3/uL (0.0-0.2); ABSOLUTE EOSINOPHILS # (AUTO) 0.2 10^3/uL (0.0-0.6); ABSOLUTE LYMPHOCYTES (AUTO) 1.8 10^3/uL (0.5-4.7); ABSOLUTE MONOCYTES (AUTO) 0.6 10^3/uL (0.1-1.4); ABSOLUTE NEUT (AUTO) 12.1 10^3/uL (1.7-8.2); BASOPHILS % (AUTO) 0.4 % (0-2); EOSINOPHILS % (AUTO) 1.1 % (0-6); HEMATOCRIT 45.1 % (37.9-51.0); HEMOGLOBIN 14.7 g/dL (13.5-17.0); LYMPHOCYTES % (AUTO) 12.2 % (13-45); MEAN CORPUSCULAR HEMOGLOBIN 27.9 pg (27.0-33.4); MEAN CORPUSCULAR HGB CONC 32.6 g/dL (32.0-36.0); MEAN CORPUSCULAR VOLUME 86 fl (80-97); RED BLOOD COUNT 5.26 10^6/uL (4.35-5.55); RED CELL DISTRIBUTION WIDTH 13.4 % (11.5-14.0); SEGMENTED NEUTROPHILS % (AUTO) 82.3 % (42-78); WHITE BLOOD COUNT 14.8 10^3/uL (4.0-10.5)
--- NOTE | 2017-02-26 20:30 | ER Document Report ---
ED General - General Chief Complaint: Shortness Of Breath Stated Complaint: DIFFICULTY BREATHING Time Seen by Provider: 02/26/17 19:33 Mode of Arrival: Ambulatory Information source: Patient Notes: This is a 61-year-old man with a history of COPD that presents to the emergency room with shortness of breath. Does have a history of pneumonia and was hospitalized earlier this year. He states he had oxygen up until about 2 months ago when they "took it away". Denies any fever or chills. TRAVEL OUTSIDE OF THE [place] IN LAST 30 DAYS: No - HPI Onset: Last week Onset/Duration: Gradual Quality of pain: No pain Severity: None Pain Level: Denies Associated symptoms: Shortness of breath. denies: Chest pain, Fever Exacerbated by: Denies Relieved by: Denies Similar symptoms previously: Yes Recently seen / treated by doctor: Yes - Related Data Allergies/Adverse Reactions: No Known Allergies Allergy (Verified 02/26/17 19:16) Home Medications: Current Home Medications Budesonide/Formoterol Fumarate [Symbicort HFA 160-4.5 mcg Inhaler 6 gm] 2 puff IH BID 02/26/17 [History] Dextromethorphan HBr/Chlor-Mal [Coricidin Hbp Cough & Cold Tab] 1 each PO DAILY PRN 02/26/17 [History] Ipratropium/Albuterol Sulfate [Combivent Respimat 4 gm Mdi] 2 puff IH Q4 PRN [History] Past Medical History - General Information source: Patient - Social History Smoking Status: Former Smoker Cigarette use (# per day): Yes - Half a pack a day Chew tobacco use (# tins/day): No Frequency of alcohol use: None Drug Abuse: None Lives with: Spouse/Significant other Family History: Reviewed & Not Pertinent, Malignancy - Father with unknown cancer. Patient has suicidal ideation: No Patient has homicidal ideation: No - Past Medical History Cardiac Medical History: Reports: Hx Hypertension Pulmonary Medical History: Reports: Hx COPD Renal/ Medical History: Reports: Other - Chronic Kidney disease. Denies: Hx Peritoneal Dialysis GI Medical History: Reports: None Musculoskeltal Medical History: Reports None Psychiatric Medical History: Denies: Hx Depression Traumatic Medical History: Reports: None Infectious Medical History: Reports: None Past Surgical History: Reports: Hx Cholecystectomy - gallstone - Immunizations Hx Diphtheria, Pertussis, Tetanus Vaccination: - unknown Review of Systems - Review of Systems Constitutional: denies: Chills, Fever EENT: No symptoms reported Cardiovascular: No symptoms reported Respiratory: See HPI Gastrointestinal: No symptoms reported Genitourinary: No symptoms reported Male Genitourinary: No symptoms reported Musculoskeletal: No symptoms reported Skin: No symptoms reported Hematologic/Lymphatic: No symptoms reported Neurological/Psychological: No symptoms reported Physical Exam - Vital signs Vitals: Temp Pulse Resp BP Pulse Ox 98.2 F 111 H 40 H 155/127 H 92 02/26/17 19:09 02/26/17 19:09 02/26/17 19:09 02/26/17 19:09 02/26/17 19:09 Notes: Physical exam: GENERAL: 61-year-old man, alert and oriented 3, wheezing in the room HEAD: Atraumatic, normocephalic. EYES: Pupils equal round and reactive to light, extraocular movements intact, sclera anicteric, conjunctiva are normal. ENT: TMs normal, nares patent, oropharynx clear without exudates. Moist mucous membranes. NECK: Normal range of motion, supple without lymphadenopathy. LUNGS: Diffuse wheezes bilaterally HEART: Regular rate and rhythm without murmurs, rubs or gallops. ABDOMEN: Soft, normoactive bowel sounds. No tenderness to palpation. No guarding, no rebound. No masses appreciated. EXTREMITIES: Normal range of motion, no pitting or edema. No clubbing or cyanosis. NEUROLOGICAL: Cranial nerves II through XII grossly intact. Normal speech, normal gait. PSYCH: Normal mood, normal affect. SKIN: Warm, Dry, normal turgor, no rashes or lesions noted. Course - Re-evaluation Re-evalutation: 02/26/17 23:56 Note: Patient's issues are as follows: 1. COPD the patient feels significantly better after nebulizer treatments. He had any evidence of pneumonia on the x-ray. There is a lot of chronic changes. And his lungs sound much better after the nebulizer. I started him on steroids and I will send him home with some antibiotics just in case. He has not had any fever or productive cough. He feels better and wants to go home. 2. Hypertension; the patient is hypertensive and he currently takes metoprolol 50 mg twice a day but he states he does not like this medicine because it does not make him feel good. It took some time but the patient initially refused any changes in his blood pressure medicine but I was able to get him to try Norvasc. I will write him a prescription. 3. Chronic kidney disease: Baseline. He did have a mildly elevated troponin but this is felt to be due to the chronic kidney disease. I performed a serial troponin level and there is been no change. Additionally, review of previous labs from 6 months ago shows a similar troponin. The patient has not had any chest pain. She shows sinus tachycardia without any significant ST changes compared to previous EKG 02/27/17 00:01 - Vital Signs Vital signs: Temp Pulse Resp BP Pulse Ox 98.2 F 111 H 17 191/113 H 96 02/26/17 19:09 02/26/17 19:09 02/26/17 23:16 02/26/17 23:16 02/26/17 23:16 - Laboratory Result Diagrams: 02/26/17 20:00 02/26/17 20:00 Laboratory results interpreted by me: 02/26/17 02/26/17 02/26/17 20:00 20:00 20:00 WBC 14.8 H Seg Neutrophils % 82.3 H Lymphocytes % 12.2 L Absolute Neutrophils 12.1 H Sodium 136.2 L BUN 27 H Creatinine 1.76 H Est GFR ( Amer) 48 L Est GFR (Non-Af Amer) 39 L Glucose 128 H Direct Bilirubin 0.5 H AST 61 H Alkaline Phosphatase 229 H Creatine Kinase CK-MB (CK-2) 6.03 H Urine Protein 02/26/17 02/26/17 02/26/17 21:42 22:27 22:27 WBC Seg Neutrophils % Lymphocytes % Absolute Neutrophils Sodium BUN Creatinine Est GFR ( Amer) Est GFR (Non-Af Amer) Glucose Direct Bilirubin AST Alkaline Phosphatase Creatine Kinase 186 H CK-MB (CK-2) 5.72 H Urine Protein 100 H - Diagnostic Test Radiology reviewed: Image reviewed, Reports reviewed - X-ray shows chronic changes without any acute obvious pneumonia - EKG Interpretation by Me Rate: Tachycardia Rhythm: NSR - The EKG shows sinus tachycardia with no acute ST-T wave changes Discharge - Discharge Clinical Impression: COPD exacerbation Hypertension Qualifiers: Hypertension type: essential hypertension Qualified Code(s): I10 - Essential ( primary) hypertension Condition: Stable Disposition: HOME, SELF-CARE Instructions: Chronic Obstructive Lung Disease ([facility]), High Blood Pressure ([facility]) Additional Instructions: Recommendations: Drink plenty of fluids, start the steroids tomorrow (this is the prednisone) Take the azithromycin as prescribed. Take the inhalers as needed. Amlodipine for your blood pressure. Her primary care doctor tomorrow for follow-up appointment. Emergency room for worsening shortness of breath Prescriptions: Amlodipine Besylate 10 mg PO DAILY #30 tab Azithromycin [Zithromax 250 mg Tablet] 250 mg PO ASDIR PRN #6 tablet PRN Reason: Prednisone [Deltasone 20 mg Tablet] 3 tab PO DAILY 5 Days Forms: Elevated Blood Pressure
[2017-02-26 20:43] LABS: ALANINE AMINOTRANSFERASE 70 U/L (21-72); ALBUMIN 3.7 g/dL (3.5-5.0); ALKALINE PHOSPHATASE 229 U/L (38-126); ANION GAP 11 (5-19); ASPARTATE AMINO TRANSFERASE 61 U/L (17-59); BILIRUBIN,DIRECT 0.5 mg/dL (0.0-0.4); BLOOD UREA NITROGEN 27 mg/dL (7-20); CALCIUM 8.9 mg/dL (8.4-10.2); CARBON DIOXIDE 27 mmol/L (22-30); CHLORIDE 98 mmol/L (98-107); CREATININE RESULT 1.76 mg/dL (0.52-1.25); GLUCOSE 128 mg/dL (75-110); POTASSIUM 4.3 mmol/L (3.6-5.0); SODIUM 136.2 mmol/L (137-145); TOTAL PROTEIN 7.7 g/dL (6.3-8.2)
--- NOTE | 2017-02-26 20:50 | RADIOLOGY REPORT (SQ) ---
EXAM DESCRIPTION: CHEST SINGLE VIEW COMPLETED DATE/TIME: 02/26/2017 8:41 pm REASON FOR STUDY: Short of breath, COPD COMPARISON: September 2016 EXAM PARAMETERS: NUMBER OF VIEWS: One view. TECHNIQUE: Single frontal radiographic view of the chest acquired. RADIATION DOSE: NA LIMITATIONS: None. FINDINGS: LUNGS AND PLEURA: Fairly diffuse chronic appearing changes are identified especially in th e lung bases. There is some minimal confluence in the lung bases which I cannot exclude as an acute process superimposed on the more chronic changes. MEDIASTINUM AND HILAR STRUCTURES: No masses. Contour normal. HEART AND VASCULAR STRUCTURES: The configuration of the heart and mediastinal structures is unchanged . BONES: No acute findings. HARDWARE: None in the chest. OTHER: No other significant finding. IMPRESSION: Fairly diffuse chronic appearing changes as noted above. There is some minimal confluen ce in the lung bases which I cannot exclude as an acute process superimposed on the more chronic rodriguez ges. Other findings as noted above TECHNICAL DOCUMENTATION: JOB ID: [id number]
[2017-02-26 20:54] LABS: CREATINE KINASE MB 6.03 ng/mL (<4.55)
[2017-02-26 20:57] LABS: TROPONIN I 0.068 ng/mL
[2017-02-26] MEDS ORDERED: NORMAL SALINE 500 ML IV PRN (22:09)
[2017-02-26 22:10] LABS: APPEARANCE,URINE CLEAR; BILIRUBIN,URINE NEGATIVE (NEGATIVE); GLUCOSE, URINE NEGATIVE (NEGATIVE); KETONES,URINE NEGATIVE (NEGATIVE); LEUKOCYTE ESTERASE,URINE NEGATIVE (NEGATIVE); NITRITE,URINE NEGATIVE (NEGATIVE); PROTEIN,URINE 100 mg/dL (NEGATIVE); URINE SPECIFIC GRAVITY 1.011; UROBILINOGEN,URINE NEGATIVE mg/dL (<2.0)
[2017-02-26 23:12] LABS: CREATINE KINASE MB 5.72 ng/mL (<4.55); TROPONIN I 0.069 ng/mL
[2017-02-26 23:52] VITALS: BP 191/113
--- NOTE | 2017-02-27 03:57 | EKG REPORT ---
SEVERITY:- ABNORMAL ECG - SINUS TACHYCARDIA NONSPECIFIC T ABNORMALITIES, LATERAL LEADS : Confirmed by: Batool Hawley MD 27-Feb-2017 03:56:26
== END 2017-02-26 23:52 | disposition home or self-care (01) ==
LOC: ER 18:53
DX: J44.1 Chronic obstructive pulmonary disease with (acute) exacerbation (principal); I12.9 Hypertensive chronic kidney disease with stage 1 through stage 4 chronic kidney disease, or unspecified chronic kidney disease; N18.9 Chronic kidney disease, unspecified; R74.8 Abnormal levels of other serum enzymes; R06.02 Shortness of breath; R00.0 Tachycardia, unspecified; Z87.01 Personal history of pneumonia (recurrent); Z72.0 Tobacco use
CPT/HCPCS: 93005; 94640 ×2; 99285; 96360; 36415; 82553; 82550; 83735; 85025; 80053; 81001; 84484; 71010; 93010; J7040; J7620

== ENCOUNTER 2017-03-01 11:10 | Emergency (ER) | payer SELFPAY ==
[2017-03-01] MEDS ORDERED: SULFAMETHOXAZOLE/TRIMETHOPRIM 800-160 MG TABLET PO ONE (11:48)
[2017-03-01] MEDS ORDERED: LIDOCAINE 4%/TETRACAINE 0.5%/EPI 0.18% 5 ML TOPICAL SOLN TOP ONE (11:48)
--- NOTE | 2017-03-01 11:50 | ER Document Report ---
ED Hand/Wrist Injury - General Chief Complaint: Hand Swelling Stated Complaint: FINGER SWELLING Time Seen by Provider: 03/01/17 11:29 Mode of Arrival: Ambulatory Information source: Patient Notes: Patient is a 61-year-old male who presents to the ER today for a right swollen, red finger and 3 days ago. Patient states that it started swelling with increased pain yesterday and then it started draining pus. He denies fevers or chills. He denies any history of MRSA, abscesses. TRAVEL OUTSIDE OF THE [place] IN LAST 30 DAYS: No - Related Data Allergies/Adverse Reactions: No Known Allergies Allergy (Verified 03/01/17 11:18) Past Medical History - General Information source: Patient - Social History Smoking Status: Current Every Day Smoker Family History: Reviewed & Not Pertinent, Malignancy - Father with unknown cancer. Patient has suicidal ideation: No Patient has homicidal ideation: No - Past Medical History Cardiac Medical History: Reports: Hx Hypertension Pulmonary Medical History: Reports: Hx COPD Renal/ Medical History: Denies: Hx Peritoneal Dialysis Psychiatric Medical History: Denies: Hx Depression Past Surgical History: Reports: Hx Cholecystectomy - gallstone - Immunizations Hx Diphtheria, Pertussis, Tetanus Vaccination: - unknown Review of Systems - Review of Systems Constitutional: No symptoms reported EENT: No symptoms reported Cardiovascular: No symptoms reported Respiratory: No symptoms reported Gastrointestinal: No symptoms reported Genitourinary: No symptoms reported Male Genitourinary: No symptoms reported Musculoskeletal: No symptoms reported Skin: See HPI Hematologic/Lymphatic: No symptoms reported Neurological/Psychological: No symptoms reported Physical Exam - Vital signs Vitals: Temp Pulse Resp BP Pulse Ox 97.8 F 114 H 20 158/104 H 94 03/01/17 11:19 03/01/17 11:19 03/01/17 11:19 03/01/17 11:19 03/01/17 11:19 - Notes Notes: PHYSICAL EXAMINATION: GENERAL: Well-appearing and in no acute distress. HEAD: Atraumatic, normocephalic. EYES: Pupils equal round and reactive to light, extraocular movements intact, sclera anicteric, conjunctiva are normal. NECK: Normal range of motion, supple without lymphadenopathy LUNGS: CTAB and equal. No wheezes rales or rhonchi. HEART: Regular rate and rhythm without murmurs EXTREMITIES: Normal range of motion, no pitting edema. No cyanosis. NEUROLOGICAL: Cranial nerves grossly intact. Normal sensory/motor exams. PSYCH: Normal mood, normal affect. SKIN: Warm, Dry, normal turgor, right 3rd digit with erythema and edema noted distal to PIP joint, some purulent drainage coming from three small holes, warm to touch, tender Course - Re-evaluation Re-evalutation: 03/01/17 13:05 i and d was successful with thick purulent fluid, elipitical incision was made and culture is pending. - Vital Signs Vital signs: Temp Pulse Resp BP Pulse Ox 97.8 F 114 H 20 158/104 H 94 03/01/17 11:19 03/01/17 11:19 03/01/17 11:19 03/01/17 11:19 03/01/17 11:19 Discharge - Discharge Clinical Impression: Abscess of finger Qualifiers: Laterality: right Qualified Code(s): L02.511 - Cutaneous abscess of right hand Condition: Stable Disposition: HOME, SELF-CARE Instructions: Post Incision and Drainage, Abscess ([facility]) Additional Instructions: Return immediately for any new or worsening symptoms. Follow up with primary care provider, call tomorrow to make followup appointment. Prescriptions: Sulfamethoxazole/Trimethoprim [Bactrim Ds Tablet] 1 each PO BID #20 tablet
--- NOTE | 2017-03-01 12:28 | RADIOLOGY REPORT (SQ) ---
EXAM DESCRIPTION: FINGER RIGHT COMPLETED DATE/TIME: 03/01/2017 12:19 pm REASON FOR STUDY: finger infection COMPARISON: None. NUMBER OF VIEWS: Three views. TECHNIQUE: AP, lateral, and oblique images acquired of the right third finger. LIMITATIONS: None. FINDINGS: MINERALIZATION: Normal. BONES: No acute fracture or dislocation. No worrisome bone lesions. SOFT TISSUES: Generalized soft tissue swelling. No foreign body. OTHER: No other significant finding. IMPRESSION: Generalized soft tissue swelling of the 3rd digit. No bony abnormality. COMMENT: SITE OF TRAUMA/COMPLAINT MARKED/STAMP COMPLETED: Yes TECHNICAL DOCUMENTATION: JOB ID: [id number] [email or web address] Rights Reserved
[2017-03-01 13:46] VITALS: BP 143/97
== END 2017-03-01 13:47 | disposition home or self-care (01) ==
LOC: ER 11:10
PROC: 0H9FXZZ Drainage of Right Hand Skin, External Approach (ICD-10-PCS; principal; 2017-03-01)
DX: L02.511 Cutaneous abscess of right hand (principal); F17.200 Nicotine dependence, unspecified, uncomplicated; I10 Essential (primary) hypertension; J44.9 Chronic obstructive pulmonary disease, unspecified
CPT/HCPCS: 26010; 99283; 87070; 87205; 87075; 87077; 87186; 73140; J3490

== ENCOUNTER 2017-03-05 09:42 | Emergency (ER) | payer SELFPAY ==
[2017-03-05] MEDS ORDERED: MUPIROCIN 2% OINTMENT 22 GM TP ONE (10:10)
--- NOTE | 2017-03-05 10:14 | ER Document Report ---
ED Skin Rash/Insect Bite/Abscs - General Chief Complaint: Wound Infection Stated Complaint: WOUND RECHECK Time Seen by Provider: 03/05/17 09:57 Mode of Arrival: Ambulatory Information source: Patient Notes: 1-year-old man presents to ED for complaint of wound to his right middle finger that was I indeed and treated with antibiotics on Thursday. He states that starting to look better but his left elbow is now swollen with a large tender sore to it. Patient was diagnosed with MRSA with the wound culture last week. The abscess to the left elbow was I&D and a culture since that it. States she is also short of breath but he has a long history of COPD his O2 sat is 95% when I assessed him he states he is usually 90% at home. He is not on oxygen at home and gets very short of breath and has a hard time walking across the room due to his COPD. TRAVEL OUTSIDE OF THE [place] IN LAST 30 DAYS: No - HPI Patient complains to provider of: Tender/swollen area Onset: Other - Couple days Onset/Duration: Gradual Quality of pain: Pressure, Sharp Severity: Moderate Pain Level: 3 Skin Character: Abscess - left elbow, Erythema, Swelling, Tenderness, Thickening Identify cause: No Exacerbated by: Movement Relieved by: Denies Similar symptoms previously: Yes Recently seen / treated by doctor: Yes - Related Data Allergies/Adverse Reactions: No Known Allergies Allergy (Verified 03/05/17 09:45) Past Medical History - General Information source: Patient - Social History Smoking Status: Current Every Day Smoker Cigarette use (# per day): Yes Smoking Education Provided: Yes - Plan 2 minutes Lives with: Family Family History: Malignancy - Father with unknown cancer. Patient has suicidal ideation: No Patient has homicidal ideation: No - Past Medical History Cardiac Medical History: Reports: Hx Hypertension Pulmonary Medical History: Reports: Hx COPD EENT Medical History: Reports: None Neurological Medical History: Reports: None Endocrine Medical History: Reports: None Renal/ Medical History: Reports: None Malignancy Medical History: Reports None GI Medical History: Reports: None Musculoskeltal Medical History: Reports None Skin Medical History: Reports Hx Cellulitis, Reports Hx MRSA Psychiatric Medical History: Reports: None Traumatic Medical History: Reports: None Infectious Medical History: Reports: Hx MRSA Past Surgical History: Reports: Hx Cholecystectomy - gallstone - Immunizations Hx Diphtheria, Pertussis, Tetanus Vaccination: - unknown Review of Systems - Review of Systems Constitutional: No symptoms reported EENT: No symptoms reported Cardiovascular: No symptoms reported Respiratory: Cough, Short of breath - COPD O2 sat 95% when assessed Gastrointestinal: No symptoms reported Genitourinary: No symptoms reported Male Genitourinary: No symptoms reported Musculoskeletal: No symptoms reported Skin: Other - Tender red area to the left elbow, right finger healing well. Hematologic/Lymphatic: No symptoms reported Neurological/Psychological: No symptoms reported Physical Exam - Vital signs Vitals: Temp Pulse Resp BP Pulse Ox 97.9 F 116 H 26 H 165/93 H 93 03/05/17 09:45 03/05/17 09:45 03/05/17 09:45 03/05/17 09:45 03/05/17 09:45 Interpretation: Normal - General General appearance: Appears well, Alert - HEENT Head: Normocephalic, Atraumatic Eyes: Normal Pupils: PERRL - Respiratory Respiratory status: No respiratory distress Chest status: Nontender Breath sounds: Normal Chest palpation: Normal - Cardiovascular Rhythm: Regular Heart sounds: Normal auscultation Murmur: No - Abdominal Inspection: Normal Distension: No distension Bowel sounds: Normal Tenderness: Nontender Organomegaly: No organomegaly - Back Back: Normal, Nontender - Extremities General upper extremity: Normal ROM General lower extremity: Normal inspection, Nontender, Normal color, Normal ROM , Normal temperature, Normal weight bearing. No: Amrit's sign Elbow: Tender, Other - Cyst to left elbow red swollen patient has been picking at the area and has a little scab with fluctuant area beneath it Hand: Tender - Right finger abscess healing some redness still notes, no fluctuance noted at this time., No evidence of FB, Swelling - Neurological Neuro grossly intact: Yes Cognition: Normal Orientation: AAOx4 [place] Coma Scale Eye Opening: Spontaneous Marguerite Coma Scale Verbal: Oriented Marguerite Coma Scale Motor: Obeys Commands Marguerite Coma Scale Total: 15 Speech: Normal Motor strength normal: LUE, RUE, LLE, RLE Sensory: Normal - Psychological Associated symptoms: Normal affect, Normal mood - Skin Skin Temperature: Warm Skin Moisture: Dry Skin Color: Normal Course - Re-evaluation Re-evalutation: 03/05/17 11:18 Negative for any kind of bony involvement and his infection of his elbow. His I &D was completed and the new wound culture sent patient was treated with cleaning the site with Betadine abscess opened and drained irrigated and Bactroban applied with a Band-Aid. Patient given instructions on MRSA. And care for any future wounds. [facility] - Vital Signs Vital signs: Temp Pulse Resp BP Pulse Ox 97.6 F 100 18 144/90 H 93 03/05/17 11:04 03/05/17 11:04 03/05/17 11:04 03/05/17 11:04 03/05/17 11:04 - Diagnostic Test Radiology reviewed: Image reviewed, Reports reviewed Procedures - Incision and Drainage Left Elbow Time completed: :19 Type: Simple Anesthetic type: Other - none mL's of anesthetic: 0 Blade size: Other I&D procedure: Betadine prep applied Incision Method: Incision made with needle Amount/type of drainage: large amount of purulent drainage Discharge - Discharge Clinical Impression: Superficial abscess left elbow, MRSA (methicillin resistant staph aureus) culture positive Condition: Stable Disposition: HOME, SELF-CARE Additional Instructions: ABSCESS: You have an abscess (boil). This a pus-forming infection, usually due to staph. Some boils may be left to drain on their own, but most require lancing. From the time the tender lump first appears, it may be three or four days before the abscess is ready to bharath. Local heat and rest help at this stage of treatment. An antibiotic may prevent spread of the infection. Once the abscess is opened, packing may be placed into it. This is done so pus is not sealed inside by premature closure of the cavity. The packing will be removed at your follow-up visit or you may be advised to remove it yourself at home. Sometimes this packing must be replaced a few times during healing. The wound will heal with surprisingly little scar. Depending on the size and location of an abscess, healing can take one to four weeks. You may shower and wash the area around the incision site two or three times a day. Antibiotics may be prescribed, but are usually not necessary after an abscess has been drained. If you develop fever, chills, worsening pain, or increasing swelling in the area, call the doctor or return immediately. POST INCISION AND DRAINAGE: You have had an incision made to allow drainage of an abscess. The incision must remain open so that pus and debris can drain from the wound. If the abscess cavity is large, packing is placed. This keeps the tissues from collapsing and trapping pus inside, while the body shrinks the cavity. The packing may need to be replaced every day or two. The physician will instruct you on the packing. Keep a bulky dressing over the area. Replace it if it becomes saturated with blood or pus. Do not disturb the packing (if present). You may shower and cleanse the area with gentle soap and warm water two or three times a day. Local warmth may be soothing, and may promote faster healing. Return if you develop high fever or chills, or if you note spreading redness, increasing swelling, or increasing tenderness. Epsom Salt Soaks Soak the wound area in a container of warm epsom salt water. If you can't get the wound area into a bucket or chester, use a folded towel soaked in the epsom salt solution and apply to the area. Use clean hot tap water (about the temperature of a very warm bath), mixing in about one (1) teaspoon for every pint of water. Two gallon --> 16 teaspoons Epsom Salts One gallon --> 8 teaspoons Epsom Salts Two quarts --> 4 teaspoons Epsom Salts One quart --> 2 teaspoons Epsom Salts Soak the wound for about 20 minutes while gently moving it around in the water. Repeat this four (4) times a day. Soap Cleansing Gently wash the wound daily using a mild soap (like Ivory, Phisoderm, Neutrogena). Use warm water, rubbing gently until all debris, ooze, and crusting have been washed from the wound. Allow to dry briefly (about 10 minutes) after cleaning. Repeat this cleansing at least three times a day for the first two days and then once or twice a day. MRSA CELLULITIS: You have an infection of your skin and underlying soft tissues called cellulitis. This is due to bacteria, which can enter through any break in the skin, or even through an irritated hair follicle. Untreated, cellulitis will usually worsen and may form an abscess which requires draining. Although many bacterial organisms can cause cellulitis and abscess formations, the most likely bacteria is Methicillin-Resistant Staph Aureus, or MRSA for short. Antibiotics are required. Usually, warm packs or warm soaks, and elevation of the infected area are recommended. You should start getting better within 24 to 36 hours. Most infections respond quickly to the right medication. Follow-up care is important, however, to check for abscess (boil) formation, unsuspected foreign body, or resistant infection. If you develop fever, chills, or if the area of infection is becoming rapidly more swollen or painful, call the doctor at once. TRIMETHOPRIM-SULFA: Continue your Septra prescription as ordered until completed. You have been given a prescription for trimethoprim-sulfa (TMS, Septra, Bactrim). This is a combination antibiotic of the sulfa class, often used for urinary tract infections, middle ear infections, bronchitis, shigella intestinal infection, and Pneumocystis pneumonia. TMS is usually well-tolerated. Occasional side effects include nausea and decreased appetite. Septra is not recommended for infants less than two months of age. Do not take this medication if you have experienced severe side effects or allergy to sulfa medicine. You should stop this medicine at once and contact your physician if you develop any rash, joint pain, shortness of breath, bruising, or jaundice ( yellow color in the skin), or if you develop any other new or unusual symptoms. Bactroban Ointment Bactroban is very effective against the germs that cause infection within the skin. It's useful for impetigo and other superficial infections. Deeper infections require antibiotics by mouth or by shot. Apply the medicine three times a day for one week, or longer if your doctor has advised it. Stop the medicine and call your doctor if you develop large blisters, severe itching, increasing pain, swelling, fever, or spreading redness. Do not squeeze pick, pinch or cut any sores, your body has MRSA on the skin. Each time you break the surface of your skin they will get infected with these MRSA sores. If you have a sore please clean it good with soap and water then apply Bactroban. If it forms an abscess get it seen by a professional do not pick it or treated your self. FOLLOW-UP CARE: Most simple abscesses will not require a follow up visit. If you had packing placed in the abscess, remove it as instructed by the physician. If you have been referred to a physician for follow-up care, call the physicians office for an appointment as you were instructed or within the next two days. If you experience worsening or a significant change in your symptoms, return to the Emergency Department at any time for re-evaluation. Prescriptions: Mupirocin [Bactroban 2% Ointment 22 gm] 1 applic TP TID #1 tube Forms: Smoking Cessation Education
--- NOTE | 2017-03-05 10:39 | RADIOLOGY REPORT (SQ) ---
EXAM DESCRIPTION: ELBOW LEFT OVER 2 VIEWS COMPLETED DATE/TIME: 03/05/2017 10:24 am REASON FOR STUDY: infection COMPARISON: None. NUMBER OF VIEWS: Four views. TECHNIQUE: AP, lateral, and both oblique radiographic images acquired of the left elbow. LIMITATIONS: None. FINDINGS: MINERALIZATION: Normal. BONES: No acute fracture or dislocation. No worrisome bone lesions. JOINT: Mild prominence of the anterior fat pad which could suggest small joint effusion. SOFT TISSUES: Mild soft tissue swelling along the dorsal aspect elbow. No radiopaque foreign body. OTHER: No other significant finding. IMPRESSION: Mild soft tissue swelling the dorsal aspect of the elbow. No radiopaque foreign body. Prominence of the anterior fat pad which could be due to small effusion versus positioning. TECHNICAL DOCUMENTATION: JOB ID: [id number] [employer]- All Rights Reserved
[2017-03-05 11:10] VITALS: BP 165/93
== END 2017-03-05 11:20 | disposition home or self-care (01) ==
LOC: ER 09:42
PROC: 0H9EXZZ Drainage of Left Lower Arm Skin, External Approach (ICD-10-PCS; principal; 2017-03-05)
DX: L02.414 Cutaneous abscess of left upper limb (principal); L02.511 Cutaneous abscess of right hand; B95.62 Methicillin resistant Staphylococcus aureus infection as the cause of diseases classified elsewhere; Z98.890 Other specified postprocedural states; J44.9 Chronic obstructive pulmonary disease, unspecified; I10 Essential (primary) hypertension; R06.02 Shortness of breath; R05 Cough; F17.210 Nicotine dependence, cigarettes, uncomplicated; Z71.6 Tobacco abuse counseling
CPT/HCPCS: 99283; 87070; 87205; 87075; 87077; 87186; 73080; 10060; J3490

== ENCOUNTER 2017-04-07 13:15 | Inpatient (IN) | payer OTHER ==
[2017-04-07] MEDS ORDERED: IPRATROPIUM/ALBUTEROL 0.5-2.5 MG/3 ML AMPUL NEB ONE (13:26)
[2017-04-07] MEDS ORDERED: ALBUTEROL SULFATE 0.083% NEB 2.5 MG/3 ML AMPUL NEB ONE (13:26)
[2017-04-07] MEDS ORDERED: ASPIRIN 81 MG TABLET, CHEWABLE PO ONE (13:27)
--- NOTE | 2017-04-07 13:31 | ER Document Report ---
ED Medical Screen (RME) - General Chief Complaint: Respiratory Distress Stated Complaint: SHORTNESS OF BREATH Time Seen by Provider: 04/07/17 13:25 Mode of Arrival: Stretcher Information source: Patient Notes: 61-year-old male with a history of COPD, CHF, right-sided heart failure has increased shortness of breath for 3 days. [facility] and the pulse ox was 84% with peripheral edema. They sent him to the emergency room to be treated. His pulse ox was 88-89% on room air at triage and he has been placed on 2 L nasal cannula and the pulse ox is 98%. He has a long expiratory phase with scattered wheezing throughout and pitting edema both lower legs. TRAVEL OUTSIDE OF THE [place] IN LAST 30 DAYS: No - Related Data Allergies/Adverse Reactions: No Known Allergies Allergy (Verified 04/07/17 13:17) Past Medical History - Past Medical History Cardiac Medical History: Reports: Hx Hypertension Pulmonary Medical History: Reports: Hx COPD Renal/ Medical History: Denies: Hx Peritoneal Dialysis Skin Medical History: Reports Hx Cellulitis, Reports Hx MRSA Psychiatric Medical History: Denies: Hx Depression Infectious Medical History: Reports: Hx MRSA Past Surgical History: Reports: Hx Cholecystectomy - gallstone - Immunizations Hx Diphtheria, Pertussis, Tetanus Vaccination: - unknown
[2017-04-07 14:16] LABS: ABSOLUTE BASOPHILS # (AUTO) 0.1 10^3/uL (0.0-0.2); ABSOLUTE LYMPHOCYTES (AUTO) 1.2 10^3/uL (0.5-4.7); ABSOLUTE MONOCYTES (AUTO) 0.8 10^3/uL (0.1-1.4); ABSOLUTE NEUT (AUTO) 10.2 10^3/uL (1.7-8.2); ARTERIAL BLOOD BASE EXCESS 3.7 mmol/L; ARTERIAL BLOOD O2 SATURATION 97.4 % (94-98); BASOPHILS % (AUTO) 0.5 % (0-2); EOSINOPHILS % (AUTO) 0.1 % (0-6); HEMATOCRIT 37.9 % (37.9-51.0); HEMOGLOBIN 12.9 g/dL (13.5-17.0); HGB HCT DIFFERENCE 0.8; LYMPHOCYTES % (AUTO) 9.5 % (13-45); MEAN CORPUSCULAR HEMOGLOBIN 28.8 pg (27.0-33.4); MEAN CORPUSCULAR HGB CONC 33.9 g/dL (32.0-36.0); MEAN CORPUSCULAR VOLUME 85 fl (80-97); MONOCYTES % (AUTO) 6.5 % (3-13); RED BLOOD COUNT 4.46 10^6/uL (4.35-5.55); SEGMENTED NEUTROPHILS % (AUTO) 83.4 % (42-78); WHITE BLOOD COUNT 12.3 10^3/uL (4.0-10.5)
--- NOTE | 2017-04-07 14:28 | RADIOLOGY REPORT (SQ) ---
EXAM DESCRIPTION: CHEST SINGLE VIEW COMPLETED DATE/TIME: 04/07/2017 2:18 pm REASON FOR STUDY: shortness of breath COMPARISON: 02/26/2017 EXAM PARAMETERS: NUMBER OF VIEWS: One view. TECHNIQUE: Single frontal radiographic view of the chest acquired. RADIATION DOSE: NA LIMITATIONS: None. FINDINGS: LUNGS AND PLEURA: There are mild chronic interstitial changes. There is opacification in the left upper lobe the represents a change from the prior study. There is improvement in the appear ance of the lower lobes. MEDIASTINUM AND HILAR STRUCTURES: No masses. Contour normal. HEART AND VASCULAR STRUCTURES: Heart normal in size. Normal vasculature. BONES: No acute findings. HARDWARE: None in the chest. OTHER: No other significant finding. IMPRESSION: Chronic lung changes with suggestion of a limited left upper lobe pneumonia. TECHNICAL DOCUMENTATION: JOB ID: [id number]
[2017-04-07 14:30] LABS: ALANINE AMINOTRANSFERASE 212 U/L (21-72); ALBUMIN 3.4 g/dL (3.5-5.0); ALKALINE PHOSPHATASE 267 U/L (38-126); ANION GAP 13 (5-19); ASPARTATE AMINO TRANSFERASE 116 U/L (17-59); BILIRUBIN,DIRECT 0.8 mg/dL (0.0-0.4); BILIRUBIN,TOTAL 2.4 mg/dL (0.2-1.3); BLOOD UREA NITROGEN 24 mg/dL (7-20); CALCIUM 8.6 mg/dL (8.4-10.2); CARBON DIOXIDE 26 mmol/L (22-30); CHLORIDE 93 mmol/L (98-107); CREATINE KINASE 545 U/L (55-170); CREATININE RESULT 1.48 mg/dL (0.52-1.25); GLUCOSE 110 mg/dL (75-110); POTASSIUM 3.6 mmol/L (3.6-5.0); TOTAL PROTEIN 7.1 g/dL (6.3-8.2)
[2017-04-07 14:41] LABS: CREATINE KINASE MB 16.2 ng/mL (<4.55)
[2017-04-07 14:45] LABS: TROPONIN I 0.056 ng/mL
--- NOTE | 2017-04-07 14:56 | ER Document Report ---
ED Respiratory Problem - General Mode of Arrival: Stretcher Information source: Patient TRAVEL OUTSIDE OF THE [place] IN LAST 30 DAYS: No - HPI Patient complains to provider of: Short of breath Onset: Last week Duration: Worse/persistent Cough: Productive Sputum color: Brown, Yellow Associated symptoms: Other - see above <KEMI PEARCE - Last Filed: 04/07/17 15:44> <DORI SALAZAR - Last Filed: 04/07/17 15:59> - General Chief Complaint: Respiratory Distress Stated Complaint: SHORTNESS OF BREATH Time Seen by Provider: 04/07/17 13:25 Notes: Patient is a 61 year old male with a history of COPD and CHF presents to the ED with complaints of worsening shortness of breath over the course of the past week. Patient states his SOB began when he was discharged from the hospital with pneumonia in September. Patients SOB is worse with exertion and laying flat. Patient also states he has a productive cough with yellow and brown sputum that causes chest pain. Patient is a former smoker but his daughter at home still smokes. Patient is not on any fluid pills. Patient use to wear home O2 but states it was taken away from him 4-5 months ago and he is working to get it back. Patient denies a fever. On 03/20/17 patients lab work showed: Creatinine: 1.42 BUN: 23 Echocardiogram in September 2016 showed left ventricular diastolic disfunction, mild pulmonary hypertension, and ejection fraction 50-55% PCP: GIL[facility] (KEMI PEARCE) - Related Data Allergies/Adverse Reactions: No Known Allergies Allergy (Verified 04/07/17 13:17) Home Medications: Current Home Medications Levothyroxine Sodium [Synthroid 0.025 mg Tablet] 0.025 mg PO DAILY 04/07/17 [ History] Past Medical History - General Information source: Patient - Social History Smoking Status: Former Smoker Chew tobacco use (# tins/day): No Frequency of alcohol use: None Drug Abuse: None Family History: Malignancy - Father with unknown cancer. Patient has suicidal ideation: No Patient has homicidal ideation: No - Past Medical History Cardiac Medical History: Reports: Hx Congestive Heart Failure, Hx Hypertension Pulmonary Medical History: Reports: Hx COPD, Hx Pneumonia Renal/ Medical History: Denies: Hx Peritoneal Dialysis Skin Medical History: Reports Hx Cellulitis, Reports Hx MRSA Psychiatric Medical History: Denies: Hx Depression Infectious Medical History: Reports: Hx MRSA Past Surgical History: Reports: Hx Cholecystectomy - gallstone - Immunizations Hx Diphtheria, Pertussis, Tetanus Vaccination: - unknown <KEMI PEARCE - Last Filed: 04/07/17 15:44> Review of Systems - Review of Systems Constitutional: No symptoms reported. denies: Fever EENT: No symptoms reported Cardiovascular: See HPI, Chest pain - with cough Respiratory: See HPI, Cough, Short of breath, Sputum Gastrointestinal: No symptoms reported Genitourinary: No symptoms reported Male Genitourinary: No symptoms reported Musculoskeletal: No symptoms reported Skin: No symptoms reported Hematologic/Lymphatic: No symptoms reported Neurological/Psychological: No symptoms reported <KEMI PEARCE - Last Filed: 04/07/17 15:44> Physical Exam <KEMI PEARCE - Last Filed: 04/07/17 15:44> <DORI SALAZAR - Last Filed: 04/07/17 15:59> - Vital signs Vitals: Temp Pulse Resp BP Pulse Ox 97.8 F 103 H 44 H 167/101 H 90 L 04/07/17 13:19 04/07/17 13:19 04/07/17 13:19 04/07/17 13:19 04/07/17 13:19 - Notes Notes: GENERAL: Alert, interacts well. Appears short of breath. HEAD: Normocephalic, atraumatic. EYES: Pupils equal, round, and reactive to light. Extraocular movements intact. ENT: Oral mucosa moist, tongue midline NECK: Full range of motion. Supple. Trachea midline. LUNGS: Appears short of breath. Inspiratory crackles, expiratory wheezing. Patient is wearing O2. HEART: Regular rate and rhythm. No murmurs, gallops, or rubs. ABDOMEN: Soft, non-tender. Non-distended. Bowel sounds present in all 4 quadrants. EXTREMITIES: Moves all 4 extremities spontaneously. 3 plus pitting edema to level of knees bilaterally, dorsalis pedis pulses 2/4 bilaterally. No cyanosis. NEUROLOGICAL: Alert and oriented x3. Normal speech. PSYCH: Normal affect, normal mood. SKIN: Warm, dry, normal turgor. No rashes or lesions noted. (KEMI PEARCE) Course - Laboratory Result Diagrams: 04/07/17 13:35 04/07/17 13:35 - Consults Dr. Zee, Hospitalist Time consulted: 15:23 Dr. Jaeger Time consulted: 15:26 <KEMI PEARCE - Last Filed: 04/07/17 15:44> - Laboratory Result Diagrams: 04/07/17 13:35 04/07/17 13:35 <DORI SALAZAR - Last Filed: 04/07/17 15:59> - Re-evaluation Re-evalutation: 04/07/17 15:54 CBC shows leukocytosis 12.3, mild anemia with hemoglobin 12.9, arterial blood gas shows respiratory alkalosis with a PCO2 of 33.7 and a pH of 7.51, chemistries show slightly low sodium 132, kidney disease with a BUN of 24 and creatinine of 1.48, total bilirubin elevated at 2.4, AST, ALT and alkaline phosphatase all slightly elevated. Cardiac enzymes all somewhat elevated troponin is indeterminate 0.056. ProBNP significantly elevated at 11,400. Chest x-ray shows left upper lobe pneumonia. Patient appears to have 3 discrete problems including acute exacerbation of COPD with hypoxia, acute decompensated congestive heart failure and left upper lobe pneumonia. Patient is treated with breathing treatments, Lasix, steroids and Levaquin. Blood cultures are obtained. Patient was discussed with Dr. downs who agrees to admit the patient to his service inpatient status full admission to the [facility]. Discussed with this patient and daughter, agree with treatment plan. (DORI SALAZAR) - Vital Signs Vital signs: Temp Pulse Resp BP Pulse Ox 97.8 F 103 H 32 H 155/104 H 95 04/07/17 13:19 04/07/17 13:19 04/07/17 15:00 04/07/17 15:00 04/07/17 15:01 - Laboratory Laboratory results interpreted by me: 04/07/17 04/07/17 04/07/17 13:35 13:35 13:35 WBC 12.3 H Hgb 12.9 L RDW 16.0 H Seg Neutrophils % 83.4 H Lymphocytes % 9.5 L Absolute Neutrophils 10.2 H Carbonic Acid ABG pH ABG pCO2 ABG HCO3 ABG Total CO2 Sodium 132.0 L Chloride 93 L BUN 24 H Creatinine 1.48 H Est GFR ( Amer) 58 L Est GFR (Non-Af Amer) 48 L Total Bilirubin 2.4 H Direct Bilirubin 0.8 H AST 116 H ALT 212 H Alkaline Phosphatase 267 H Creatine Kinase 545 H CK-MB (CK-2) 16.20 H NT-Pro-B Natriuret Pep 11516 H Albumin 3.4 L 04/07/17 13:35 WBC Hgb RDW Seg Neutrophils % Lymphocytes % Absolute Neutrophils Carbonic Acid 1.01 L ABG pH 7.51 H ABG pCO2 33.7 L ABG HCO3 26.4 H ABG Total CO2 27.4 H Sodium Chloride BUN Creatinine Est GFR ( Amer) Est GFR (Non-Af Amer) Total Bilirubin Direct Bilirubin AST ALT Alkaline Phosphatase Creatine Kinase CK-MB (CK-2) NT-Pro-B Natriuret Pep Albumin - EKG Interpretation by Me Additional EKG results interpreted by me: 04/07/17 15:56 EKG shows sinus tachycardia at a rate of 100, normal axis, slightly prolonged QT interval QTC corrected is 480, no ST segment elevations or depressions, no T- wave inversions although there is T-wave flattening in 1, aVL, V2 per my interpretation. (DORI SALAZAR) - Consults Dr. Zee, Hospitalist Reason for consultation: 04/07/17 15:[address] Zee requested to call Dr. Jaeger for admission. (KEMI PEARCE) Dr. Jaeger Reason for consultation: 04/07/17 15:26 Discussed patient. He accepts admission for the patient to [facility]. (KEMI PEARCE) Discharge <KEMI PEARCE - Last Filed: 04/07/17 15:44> - Discharge Admitting Provider: Hospitalist - [facility] Admitted: [facility] <DORI SALAZAR - Last Filed: 04/07/17 15:59> - Discharge Clinical Impression: Acute diastolic congestive heart failure, Chronic obstructive pulmonary disease with acute exacerbation, Acute kidney injury Left upper lobe pneumonia Qualifiers: Pneumonia type: due to unspecified organism Qualified Code(s): J18.1 - Lobar pneumonia, unspecified organism Condition: Fair Disposition: ADMITTED INPATIENT Scribe Attestation: 04/07/17 15:59 I personally performed the services described in the documentation, reviewed and edited the documentation which was dictated to the scribe in my presence, and it accurately records my words and actions. (DORI SALAZAR) Scribe Documentation - Scribe Written by Carlin:: carlin Caal, 04/07/2017, 1500 acting as scribe for :: Sean <KEMI PEARCE - Last Filed: 04/07/17 15:44>
[2017-04-07] MEDS ORDERED: FUROSEMIDE INJ/PF 40 MG/4 ML SDV IV ONE ×2 (15:02→22:00)
[2017-04-07] MEDS ORDERED: LEVOFLOXACIN 750 MG/D5W RTU 150 ML IV ONE (15:21)
[2017-04-07] MEDS ORDERED: METHYLPREDNISOLONE INJ 125 MG/2 ML SDV IV ONE (15:21)
[2017-04-07] MEDS ORDERED: ONDANSETRON HCL INJ/PF 4 MG/2 ML SDV IV PRN (16:25)
[2017-04-07] MEDS ORDERED: ACETAMINOPHEN 325 MG TABLET PO PRN (16:25)
[2017-04-07] MEDS ORDERED: ONDANSETRON 4 MG TAB.RAPDIS PO PRN (16:25)
[2017-04-07] MEDS ORDERED: LEVALBUTEROL HCL NEB 0.63 MG/3 ML AMPUL NEB PRN (16:25)
[2017-04-07] MEDS ORDERED: IPRATROPIUM/ALBUTEROL 120 PUFF/4 GM MDI IH PRN (16:30)
--- NOTE | 2017-04-07 16:43 | PDOC H&P ---
History of Present Illness Admission Date/PCP: 04/07/17 16:04 Patient complains of: Shortness of breath for the last 4 days History of Present Illness: TVEIN SPENCER is a 61 year old male with a history of CHF, COPD who presents with a four-day history of a productive cough with green sputum. He also has had some left-sided chest pain that he describes as a pressure made worse by exertion. The patient also was having orthopnea PND and lower extremity edema. He also had palpitations. He also has had expiratory wheezes. He has a diagnosis of COPD and has been on oxygen previously but had not qualified for this recently. The patient does have any orthopnea and PND is noted to have evidence for volume overload. The patient has no history of coronary artery disease but has had some chest pain. Reports made worse with exertion and is relieved with rest. Patient reports that it is 6 or 7 out of 10 when he exerts himself but goes to 0 he stops. He denies any radiation of the pain. He does have lower extremity edema and has reported some weight gain. Past Medical History Cardiac Medical History: Reports: Congestive Heart Failure, Hypertension Pulmonary Medical History: Reports: Chronic Obstructive Pulmonary Disease (COPD) , Pneumonia EENT Medical History: Reports: None Neurological Medical History: Reports: None Endocrine Medical History: Reports: Hypothyroidism Renal/ Medical History: Reports: Chronic Kidney Disease - Elevated creatinine in September of this year. Malignancy Medical History: Reports: None GI Medical History: Reports: None Musculoskeltal Medical History: Reports: None Skin Medical History: Reports: None Psychiatric Medical History: Denies: Depression Infectious Medical History: Reports: Methicillin-Resistant Staph Aureus Past Surgical History Past Surgical History: Reports: Cholecystectomy - gallstone. Patient describes what sounds like an ERCP Social History Information Source: Patient Lives with: Family Smoking Status: Former Smoker Frequency of Alcohol Use: None Hx Recreational Drug Use: No Drugs: None Hx Prescription Drug Abuse: No - Advance Directive Resuscitation Status: Full Code Surrogate healthcare decision maker:: Daughter is at the bedside Family History Family History: Malignancy - Father with unknown cancer. Family History: Father at age 66 with cancer and had coronary artery disease. Mother at age 86 and had congestive heart failure. Parental Family History Reviewed: Yes Children Family History Reviewed: No Sibling(s) Family History Reviewed.: No Medication/Allergy Home Medications: Metoprolol Succinate [Toprol Xl 50 mg Tab.sr] 50 mg PO Q12 #30 tab.sr.24h Budesonide/Formoterol Fumarate [Symbicort HFA 160-4.5 mcg Inhaler 6 gm] 2 puff IH BID 02/26/17 Ipratropium/Albuterol Sulfate [Combivent Respimat 4 gm Mdi] 2 puff IH Q4 PRN Levothyroxine Sodium [Synthroid 0.025 mg Tablet] 0.025 mg PO DAILY 04/07/17 Allergies/Adverse Reactions: No Known Allergies Allergy (Verified 04/07/17 13:17) Review of Systems Constitutional: PRESENT: fatigue, weight gain. ABSENT: chills, fever(s), headache(s), night sweats, weight loss Eyes: ABSENT: visual disturbances Ears: ABSENT: hearing changes Cardiovascular: PRESENT: chest pain, dyspnea on exertion, edema, orthropnea. ABSENT: palpitations Respiratory: PRESENT: cough, dyspnea, sputum. ABSENT: hemoptysis Gastrointestinal: ABSENT: abdominal pain, constipation, diarrhea, hematemesis, hematochezia, nausea, vomiting Genitourinary: ABSENT: dysuria, hematuria Musculoskeletal: ABSENT: joint swelling Integumentary: ABSENT: rash, wounds Neurological: ABSENT: abnormal gait, abnormal speech, confusion, dizziness, focal weakness, syncope Psychiatric: ABSENT: anxiety, depression Endocrine: ABSENT: cold intolerance, heat intolerance, polydipsia, polyuria Hematologic/Lymphatic: ABSENT: easy bleeding, easy bruising Physical Exam Vital Signs: Temp Pulse Resp BP Pulse Ox 97.8 F 103 H 32 H 155/104 H 95 04/07/17 13:19 04/07/17 13:19 04/07/17 15:00 04/07/17 15:00 04/07/17 15:01 General appearance: PRESENT: mild distress Head exam: PRESENT: atraumatic, normocephalic Eye exam: PRESENT: conjunctiva pink, EOMI, PERRLA. ABSENT: scleral icterus Ear exam: PRESENT: normal external ear exam Mouth exam: PRESENT: moist, tongue midline Neck exam: PRESENT: JVD. ABSENT: carotid bruit, lymphadenopathy, thyromegaly Respiratory exam: PRESENT: decreased breath sounds - Decreased breath sounds in the bases, rales. ABSENT: rhonchi, wheezes Cardiovascular exam: PRESENT: RRR. ABSENT: diastolic murmur, rubs, systolic murmur Vascular exam: PRESENT: normal capillary refill GI/Abdominal exam: PRESENT: normal bowel sounds, soft. ABSENT: distended, guarding, mass, organolmegaly, rebound, tenderness Rectal exam: PRESENT: deferred Extremities exam: PRESENT: pedal edema, +2 edema. ABSENT: calf tenderness, clubbing Neurological exam: PRESENT: alert, awake, oriented to person, oriented to place , oriented to time, oriented to situation, CN II-XII grossly intact. ABSENT: motor sensory deficit Psychiatric exam: PRESENT: appropriate affect, normal mood. ABSENT: homicidal ideation, suicidal ideation Skin exam: PRESENT: dry, intact, warm. ABSENT: cyanosis, rash Results Impressions: Chest X-Ray 04/07/17 13:27 IMPRESSION: Chronic lung changes with suggestion of a limited left upper lobe pneumonia. Assessment & Plan - Diagnosis (1) Pneumonia Qualifiers: Pneumonia type: due to unspecified organism Laterality: bilateral Lung location: lower lobe of lung Qualified Code(s): J18.9 - Pneumonia, unspecified organism Is this a current diagnosis for this admission?: YesPlan: Patient will be started on Levaquin. We will continue with oxygen and nebulizers. (2) Acute diastolic CHF (congestive heart failure) Is this a current diagnosis for this admission?: YesPlan: Patient has had lower extremity edema, orthopnea, PND and an elevated BNP. Will give IV Lasix. Check serial cardiac enzymes to make certain he does not have an acute cardiac event. (3) Acute exacerbation of chronic obstructive pulmonary disease Is this a current diagnosis for this admission?: YesPlan: We will give IV Solu-Medrol and nebulizers. (4) Acute kidney injury Is this a current diagnosis for this admission?: YesPlan: An elevated creatinine in September of this year. Is not clear whether this is truly acute kidney injury or whether this is acute on chronic. Most likely made worse with the congestive heart failure. Will give IV Lasix and follow the creatinine. If the creatinine increases with Lasix we will consult nephrology tomorrow. (5) Hypertension Is this a current diagnosis for this admission?: YesPlan: Continue with the metoprolol. (6) Hypothyroidism Is this a current diagnosis for this admission?: YesPlan: Continue with Synthroid. - Time Time Spent: 50 to 70 Minutes - Inpatient Certification Medical Necessity: Need Close Monitoring Due to Risk of Patient Decompensation
[2017-04-07] MEDS ORDERED: ENOXAPARIN SODIUM INJ 40 MG/0.4 ML DISP.SYRIN SUBCUT ONE ×2 (18:00→22:00)
--- NOTE | 2017-04-07 18:23 | EKG REPORT ---
SEVERITY:- ABNORMAL ECG - SINUS TACHYCARDIA PROBABLE LEFT ATRIAL ABNORMALITY NONSPECIFIC T ABNORMALITIES, LATERAL LEADS BORDERLINE PROLONGED QT INTERVAL : Confirmed by: Luis Angel Dawkins MD 07-Apr-2017 18:22:58
[2017-04-07 20:11] LABS: TROPONIN I 0.061 ng/mL
[2017-04-07] MEDS: IPRATROPIUM/ALBUTEROL 0.5-2.5 MG/3 ML AMPUL NEB SCH (20:34)
[2017-04-07] MEDS: FAMOTIDINE 20 MG TABLET PO SCH (21:20)
[2017-04-07] MEDS: METHYLPREDNISOLONE INJ 40 MG/1 ML SDV IV SCH (21:20)
[2017-04-07] MEDS ORDERED: BUDESONIDE/FORMOTEROL 160-4.5 MCG 60 PUFF/6 GM MDI IH SCH (22:00)
[2017-04-07] MEDS ORDERED: IPRATROPIUM/ALBUTEROL 120 PUFF/4 GM MDI IH SCH (22:00)
[2017-04-07] MEDS ORDERED: METOPROLOL SUCCINATE 50 MG TAB.SR.24H PO SCH (22:00)
[2017-04-07] MEDS: FUROSEMIDE INJ/PF 40 MG/4 ML SDV IV SCH (22:53)
[2017-04-08] MEDS ORDERED: METOPROLOL TARTRATE 25 MG TABLET PO ONE (00:15)
[2017-04-08] MEDS ORDERED: BUDESONIDE/FORMOTEROL 160-4.5 MCG 60 PUFF/6 GM MDI IH ONE (00:29)
[2017-04-08] MEDS: BUDESONIDE/FORMOTEROL 160-4.5 MCG 60 PUFF/6 GM MDI IH SCH ×3 (00:40→21:20)
[2017-04-08 02:12] LABS: CREATINE KINASE MB 17.8 ng/mL (<4.55); TROPONIN I 0.063 ng/mL
[2017-04-08] MEDS: IPRATROPIUM/ALBUTEROL 0.5-2.5 MG/3 ML AMPUL NEB SCH ×4 (02:30→20:06)
[2017-04-08] MEDS: METHYLPREDNISOLONE INJ 40 MG/1 ML SDV IV SCH ×3 (06:03→21:19)
[2017-04-08] MEDS: FUROSEMIDE INJ/PF 40 MG/4 ML SDV IV SCH ×2 (06:04→17:15)
[2017-04-08 08:08] LABS: ABSOLUTE BASOPHILS # (AUTO) 0.1 10^3/uL (0.0-0.2); ABSOLUTE LYMPHOCYTES (AUTO) 0.4 10^3/uL (0.5-4.7); ABSOLUTE MONOCYTES (AUTO) 0.2 10^3/uL (0.1-1.4); ABSOLUTE NEUT (AUTO) 5.9 10^3/uL (1.7-8.2); BASOPHILS % (AUTO) 0.9 % (0-2); EOSINOPHILS % (AUTO) 0.1 % (0-6); HEMATOCRIT 37.3 % (37.9-51.0); HEMOGLOBIN 12.4 g/dL (13.5-17.0); HGB HCT DIFFERENCE -0.1; MEAN CORPUSCULAR HEMOGLOBIN 28.6 pg (27.0-33.4); MEAN CORPUSCULAR HGB CONC 33.3 g/dL (32.0-36.0); MEAN CORPUSCULAR VOLUME 86 fl (80-97); MONOCYTES % (AUTO) 2.9 % (3-13); RED BLOOD COUNT 4.34 10^6/uL (4.35-5.55); RED CELL DISTRIBUTION WIDTH 15.9 % (11.5-14.0); SEGMENTED NEUTROPHILS % (AUTO) 90.1 % (42-78); WHITE BLOOD COUNT 6.6 10^3/uL (4.0-10.5)
[2017-04-08 08:25] LABS: ANION GAP 14 (5-19); BLOOD UREA NITROGEN 31 mg/dL (7-20); CALCIUM 8.6 mg/dL (8.4-10.2); CARBON DIOXIDE 31 mmol/L (22-30); CHLORIDE 94 mmol/L (98-107); CREATINE KINASE 458 U/L (55-170); CREATININE RESULT 1.56 mg/dL (0.52-1.25); GLUCOSE 141 mg/dL (75-110); MAGNESIUM 1.9 mg/dL (1.6-2.3)
[2017-04-08 08:31] LABS: POTASSIUM 2.9 mmol/L (3.6-5.0)
[2017-04-08 08:35] LABS: CREATINE KINASE MB 13.4 ng/mL (<4.55); TROPONIN I 0.055 ng/mL
[2017-04-08] MEDS ORDERED: POTASSI CL 20 MEQ/50 ML RIDER 50 ML IV SCH (09:00)
[2017-04-08] MEDS ORDERED: LEVOTHYROXINE SODIUM 0.025 MG TABLET PO SCH (10:00)
[2017-04-08] MEDS: ENOXAPARIN SODIUM INJ 40 MG/0.4 ML DISP.SYRIN SUBCUT SCH (10:48)
[2017-04-08] MEDS: METOPROLOL TARTRATE 50 MG TABLET PO SCH (10:48)
[2017-04-08] MEDS: FAMOTIDINE 20 MG TABLET PO SCH ×2 (10:49→21:19)
[2017-04-08] MEDS: ASPIRIN 81 MG TABLET, ENT COATED PO SCH (10:49)
[2017-04-08] MEDS: LEVOTHYROXINE SODIUM 0.05 MG TABLET PO SCH (10:49)
[2017-04-08] MEDS: POTASSIUM CHLORIDE 10 MEQ TABLET.SA PO SCH ×2 (10:50→21:19)
--- NOTE | 2017-04-08 12:12 | PDOC PROGRESS REPORT ---
Subjective Progress Note for:: 04/08/17 Subjective:: Patient reports his breathing is doing much better. Physical Exam Vital Signs: Temp Pulse Resp BP Pulse Ox 98.0 F 51 L 16 142/72 H 97 04/08/17 08:41 04/08/17 08:41 04/08/17 08:41 04/08/17 08:41 04/08/17 08:41 Intake & Output 04/07/17 04/08/17 04/09/17 06:59 06:59 06:59 Intake Total 324 Output Total 1775 Balance -1451 Weight 60.3 kg General appearance: PRESENT: no acute distress Eye exam: PRESENT: conjunctiva pink. ABSENT: scleral icterus Mouth exam: PRESENT: moist, tongue midline Neck exam: ABSENT: JVD Respiratory exam: PRESENT: clear to auscultation yasir. ABSENT: rales, rhonchi, wheezes Cardiovascular exam: PRESENT: RRR. ABSENT: diastolic murmur, rubs, systolic murmur GI/Abdominal exam: PRESENT: normal bowel sounds, soft. ABSENT: distended, guarding, mass, organolmegaly, rebound, tenderness Extremities exam: ABSENT: calf tenderness, clubbing, pedal edema Neurological exam: PRESENT: alert, awake, oriented to person, oriented to place , oriented to time, oriented to situation, CN II-XII grossly intact. ABSENT: motor sensory deficit Psychiatric exam: PRESENT: appropriate affect Skin exam: PRESENT: dry, intact, warm. ABSENT: cyanosis, rash Results Laboratory Results: 04/08/17 07:30 04/08/17 07:30 04/08/17 04/08/17 07:30 07:30 WBC 6.6 RBC 4.34 L Hgb 12.4 L Hct 37.3 L MCV 86 MCH 28.6 MCHC 33.3 RDW 15.9 H Plt Count 274 Seg Neutrophils % 90.1 H Lymphocytes % 6.0 L Monocytes % 2.9 L Eosinophils % 0.1 Basophils % 0.9 Absolute Neutrophils 5.9 Absolute Lymphocytes 0.4 L Absolute Monocytes 0.2 Absolute Eosinophils 0.0 Absolute Basophils 0.1 Sodium 139.0 Potassium 2.9 L* Chloride 94 L Carbon Dioxide 31 H Anion Gap 14 BUN 31 H Creatinine 1.56 H Est GFR ( Amer) 55 L Est GFR (Non-Af Amer) 45 L Glucose 141 H Calcium 8.6 Magnesium 1.9 04/07/17 04/07/17 04/08/17 19:30 19:30 01:32 Creatine Kinase 545 H 571 H CK-MB (CK-2) 17.00 H Troponin I 0.061 04/08/17 04/08/17 04/08/17 01:32 07:30 07:30 Creatine Kinase 458 H CK-MB (CK-2) 17.80 H 13.40 H Troponin I 0.063 0.055 Impressions: Chest X-Ray 04/07/17 13:27 IMPRESSION: Chronic lung changes with suggestion of a limited left upper lobe pneumonia. Assessment & Plan - Diagnosis (1) Pneumonia Qualifiers: Pneumonia type: due to unspecified organism Laterality: bilateral Lung location: lower lobe of lung Qualified Code(s): J18.9 - Pneumonia, unspecified organism Is this a current diagnosis for this admission?: YesPlan: Patient is on Levaquin. We will continue with oxygen and nebulizers. (2) Acute diastolic CHF (congestive heart failure) Is this a current diagnosis for this admission?: YesPlan: Patient has had lower extremity edema, orthopnea, PND and an elevated BNP. Will give IV Lasix. Has had improvement. (3) Acute exacerbation of chronic obstructive pulmonary disease Is this a current diagnosis for this admission?: YesPlan: We will continue IV Solu-Medrol and nebulizers. (4) Acute kidney injury Is this a current diagnosis for this admission?: YesPlan: An elevated creatinine in September of this year. Is not clear whether this is truly acute kidney injury or whether this is acute on chronic. Most likely made worse with the congestive heart failure. Creatinine is up slightly and will continue to monitor. (5) Hypertension Is this a current diagnosis for this admission?: YesPlan: Continue with the metoprolol. (6) Hypothyroidism Is this a current diagnosis for this admission?: YesPlan: Continue with Synthroid. - Time Time Spent with patient: 25-34 minutes - Inpatient Certification Medical Necessity: Need for IV Antibiotics
[2017-04-08] MEDS ORDERED: POTASSIUM CHLORIDE 20 MEQ/50 ML RTU IV ONE (13:00)
[2017-04-09] MEDS ORDERED: ZOLPIDEM TARTRATE 5 MG TABLET PO ONE (01:00)
[2017-04-09] MEDS: IPRATROPIUM/ALBUTEROL 0.5-2.5 MG/3 ML AMPUL NEB SCH ×4 (02:02→19:49)
[2017-04-09] MEDS: FUROSEMIDE INJ/PF 40 MG/4 ML SDV IV SCH ×2 (05:55→17:08)
[2017-04-09] MEDS: METHYLPREDNISOLONE INJ 40 MG/1 ML SDV IV SCH ×3 (05:58→22:46)
[2017-04-09 06:11] LABS: HEMATOCRIT 33.7 % (37.9-51.0); HEMOGLOBIN 11.2 g/dL (13.5-17.0); HGB HCT DIFFERENCE -0.1; MEAN CORPUSCULAR HEMOGLOBIN 28.4 pg (27.0-33.4); MEAN CORPUSCULAR HGB CONC 33.2 g/dL (32.0-36.0); MEAN CORPUSCULAR VOLUME 86 fl (80-97); RED BLOOD COUNT 3.94 10^6/uL (4.35-5.55); RED CELL DISTRIBUTION WIDTH 16.4 % (11.5-14.0)
[2017-04-09 06:27] LABS: BASOPHILS % (MANUAL) 0 % (0-2); EOSINOPHILS % (MANUAL) 0 % (0-6); LYMPHOCYTES % (MANUAL) 3 % (13-45); TOTAL CELLS COUNTED 100
[2017-04-09 06:29] LABS: ANION GAP 11 (5-19); ANISOCYTOSIS 1+; BLOOD UREA NITROGEN 35 mg/dL (7-20); CALCIUM 8.5 mg/dL (8.4-10.2); CARBON DIOXIDE 28 mmol/L (22-30); CHLORIDE 99 mmol/L (98-107); CREATININE RESULT 1.52 mg/dL (0.52-1.25); GLUCOSE 164 mg/dL (75-110); OVALOCYTES SLIGHT; POIKILOCYTOSIS SLIGHT; POLYCHROMASIA SLIGHT; POTASSIUM 3.6 mmol/L (3.6-5.0); SODIUM 137.8 mmol/L (137-145); TOXIC GRANULATION 1+; TOXIC VACUOLATION PRESENT
[2017-04-09 06:30] LABS: ROULEAUX SLIGHT; TEAR DROP CELLS SLIGHT; WHITE BLOOD COUNT 15.9 10^3/uL (4.0-10.5)
[2017-04-09] MEDS ORDERED: ONDANSETRON 4 MG TAB.RAPDIS PO PRN (07:46)
[2017-04-09] MEDS ORDERED: ONDANSETRON HCL INJ/PF 4 MG/2 ML SDV IV PRN (07:46)
[2017-04-09] MEDS: METOPROLOL TARTRATE 50 MG TABLET PO SCH (09:31)
[2017-04-09] MEDS: ASPIRIN 81 MG TABLET, ENT COATED PO SCH (09:31)
[2017-04-09] MEDS: ENOXAPARIN SODIUM INJ 40 MG/0.4 ML DISP.SYRIN SUBCUT SCH (09:31)
[2017-04-09] MEDS: POTASSIUM CHLORIDE 10 MEQ TABLET.SA PO SCH ×2 (09:31→22:47)
[2017-04-09] MEDS: LEVOTHYROXINE SODIUM 0.05 MG TABLET PO SCH (09:31)
[2017-04-09] MEDS: FAMOTIDINE 20 MG TABLET PO SCH ×2 (09:31→22:47)
[2017-04-09] MEDS: BUDESONIDE/FORMOTEROL 160-4.5 MCG 60 PUFF/6 GM MDI IH SCH ×2 (09:32→22:46)
[2017-04-09] MEDS ORDERED: LEVOFLOXACIN 750 MG/D5W RTU 750 MG/150 ML RTUPB IV SCH ×2 (10:00)
--- NOTE | 2017-04-09 12:39 | PDOC PROGRESS REPORT ---
Subjective Progress Note for:: 04/09/17 Subjective:: Patient reports his breathing is doing much better. Physical Exam Vital Signs: Temp Pulse Resp BP Pulse Ox 98.7 F 95 20 141/99 H 96 04/09/17 06:58 04/09/17 08:33 04/09/17 08:33 04/09/17 06:58 04/09/17 08:33 Intake & Output 04/08/17 04/09/17 04/10/17 06:59 06:59 06:59 Intake Total 324 3487 Output Total 1775 2100 Balance -1451 1387 Weight 60.3 kg 62.7 kg General appearance: PRESENT: no acute distress Eye exam: PRESENT: conjunctiva pink. ABSENT: scleral icterus Mouth exam: PRESENT: moist, tongue midline Neck exam: ABSENT: JVD Respiratory exam: PRESENT: clear to auscultation yasir. ABSENT: rales, rhonchi, wheezes Cardiovascular exam: PRESENT: RRR. ABSENT: diastolic murmur, rubs, systolic murmur GI/Abdominal exam: PRESENT: normal bowel sounds, soft. ABSENT: distended, guarding, mass, organolmegaly, rebound, tenderness Extremities exam: ABSENT: calf tenderness, clubbing, pedal edema Neurological exam: PRESENT: alert, awake, oriented to person, oriented to place , oriented to time, oriented to situation, CN II-XII grossly intact. ABSENT: motor sensory deficit Psychiatric exam: PRESENT: appropriate affect Skin exam: PRESENT: dry, intact, warm. ABSENT: cyanosis, rash Results Laboratory Results: 04/09/17 05:42 04/09/17 05:42 04/09/17 04/09/17 05:42 05:42 WBC 15.9 H D RBC 3.94 L Hgb 11.2 L Hct 33.7 L MCV 86 MCH 28.4 MCHC 33.2 RDW 16.4 H Plt Count 251 Seg Neutrophils % Not Reportable Lymphocytes % Not Reportable Monocytes % Not Reportable Eosinophils % Not Reportable Basophils % Not Reportable Absolute Neutrophils Not Reportable Absolute Lymphocytes Not Reportable Absolute Monocytes Not Reportable Absolute Eosinophils Not Reportable Absolute Basophils Not Reportable Sodium 137.8 Potassium 3.6 Chloride 99 Carbon Dioxide 28 Anion Gap 11 BUN 35 H Creatinine 1.52 H Est GFR ( Amer) 56 L Est GFR (Non-Af Amer) 47 L Glucose 164 H Calcium 8.5 04/07/17 04/07/17 04/08/17 19:30 19:30 01:32 Creatine Kinase 545 H 571 H CK-MB (CK-2) 17.00 H Troponin I 0.061 04/08/17 04/08/17 04/08/17 01:32 07:30 07:30 Creatine Kinase 458 H CK-MB (CK-2) 17.80 H 13.40 H Troponin I 0.063 0.055 Impressions: Chest X-Ray 04/07/17 13:27 IMPRESSION: Chronic lung changes with suggestion of a limited left upper lobe pneumonia. Assessment & Plan - Diagnosis (1) Pneumonia Qualifiers: Pneumonia type: due to unspecified organism Laterality: bilateral Lung location: lower lobe of lung Qualified Code(s): J18.9 - Pneumonia, unspecified organism Is this a current diagnosis for this admission?: YesPlan: Patient is on Levaquin. We will continue with oxygen and nebulizers. (2) Acute diastolic CHF (congestive heart failure) Is this a current diagnosis for this admission?: YesPlan: Patient has had lower extremity edema, orthopnea, PND and an elevated BNP. Continue IV Lasix. Has had improvement. (3) Acute exacerbation of chronic obstructive pulmonary disease Is this a current diagnosis for this admission?: YesPlan: We will continue IV Solu-Medrol and nebulizers. (4) Acute kidney injury Is this a current diagnosis for this admission?: YesPlan: An elevated creatinine in September of this year. His chronic kidney disease. Patient's creatinine has remained stable overnight. (5) Hypertension Is this a current diagnosis for this admission?: YesPlan: Continue with the metoprolol. (6) Hypothyroidism Is this a current diagnosis for this admission?: YesPlan: Continue with Synthroid. - Time Time Spent with patient: 25-34 minutes - Inpatient Certification Medical Necessity: Need Close Monitoring Due to Risk of Patient Decompensation
[2017-04-10] MEDS: IPRATROPIUM/ALBUTEROL 0.5-2.5 MG/3 ML AMPUL NEB SCH ×2 (02:14→08:14)
[2017-04-10 05:01] LABS: HEMATOCRIT 35.5 % (37.9-51.0); HEMOGLOBIN 11.8 g/dL (13.5-17.0); HGB HCT DIFFERENCE -0.1; MEAN CORPUSCULAR HEMOGLOBIN 28.7 pg (27.0-33.4); MEAN CORPUSCULAR HGB CONC 33.3 g/dL (32.0-36.0); MEAN CORPUSCULAR VOLUME 86 fl (80-97); RED BLOOD COUNT 4.12 10^6/uL (4.35-5.55); RED CELL DISTRIBUTION WIDTH 16.3 % (11.5-14.0); WHITE BLOOD COUNT 13.1 10^3/uL (4.0-10.5)
[2017-04-10 05:20] LABS: BASOPHILS % (MANUAL) 0 % (0-2); EOSINOPHILS % (MANUAL) 0 % (0-6); LYMPHOCYTES % (MANUAL) 8 % (13-45); TOTAL CELLS COUNTED 100
[2017-04-10 05:22] LABS: ANISOCYTOSIS 1+; POLYCHROMASIA 1+; ROULEAUX 2+; TOXIC GRANULATION 1+
[2017-04-10] MEDS: FUROSEMIDE INJ/PF 40 MG/4 ML SDV IV SCH (06:01)
[2017-04-10] MEDS: METHYLPREDNISOLONE INJ 40 MG/1 ML SDV IV SCH (06:01)
[2017-04-10 08:28] VITALS: BP 143/86
[2017-04-10] MEDS: POTASSIUM CHLORIDE 10 MEQ TABLET.SA PO SCH (09:07)
[2017-04-10] MEDS: BUDESONIDE/FORMOTEROL 160-4.5 MCG 60 PUFF/6 GM MDI IH SCH (09:07)
[2017-04-10] MEDS: ENOXAPARIN SODIUM INJ 40 MG/0.4 ML DISP.SYRIN SUBCUT SCH (09:08)
[2017-04-10] MEDS: LEVOTHYROXINE SODIUM 0.05 MG TABLET PO SCH (09:08)
[2017-04-10] MEDS: ASPIRIN 81 MG TABLET, ENT COATED PO SCH (09:08)
[2017-04-10] MEDS: FAMOTIDINE 20 MG TABLET PO SCH (09:08)
[2017-04-10] MEDS: METOPROLOL TARTRATE 50 MG TABLET PO SCH (09:08)
--- NOTE | 2017-04-10 13:25 | PDOC DISCHARGE SUMMARY ---
General - Admit/Disc Date/PCP Admission Date/Primary Care Provider: 04/07/17 16:25 Discharge Date: 04/10/17 - Discharge Diagnosis (1) Pneumonia Is this a current diagnosis for this admission?: Yes (2) Acute diastolic CHF (congestive heart failure) Is this a current diagnosis for this admission?: Yes (3) Acute exacerbation of chronic obstructive pulmonary disease Is this a current diagnosis for this admission?: Yes (4) Acute kidney injury Is this a current diagnosis for this admission?: Yes (5) Hypertension Is this a current diagnosis for this admission?: Yes (6) Hypothyroidism Is this a current diagnosis for this admission?: Yes - Additional Information Resuscitation Status: Full Code Discharge Diet: Cardiac Discharge Activity: Activity As Tolerated Home Medications: Budesonide/Formoterol Fumarate [Symbicort HFA 160-4.5 mcg Inhaler 6 gm] 2 puff IH Q12 04/07/17 Ipratropium/Albuterol Sulfate [Combivent Respimat 4 gm Mdi] 1 puff IH QID Levothyroxine Sodium [Synthroid] 75 mcg PO DAILY 04/07/17 Metoprolol Tartrate [Lopressor 50 mg Tablet] 50 mg PO DAILY 04/07/17 Aspirin [Ecotrin 81 mg EC Tablet] 81 mg PO DAILY tabec 04/10/17 Furosemide [Lasix 20 mg Tablet] 20 mg PO BID #60 tablet 04/10/17 Levofloxacin [Levaquin 750 mg Tablet] 750 mg PO DAILY #7 tablet 04/10/17 Prednisone 10 mg PO DAILY #39 tablet 04/10/17 History of Present Illness History of Present Illness: TEVIN SPENCER is a 61 year old male with a history of CHF, COPD who presents with a four-day history of a productive cough with green sputum. He also has had some left-sided chest pain that he describes as a pressure made worse by exertion. The patient also was having orthopnea PND and lower extremity edema. He also had palpitations. He also has had expiratory wheezes. He has a diagnosis of COPD and has been on oxygen previously but had not qualified for this recently. The patient does have any orthopnea and PND is noted to have evidence for volume overload. The patient has no history of coronary artery disease but has had some chest pain. Reports made worse with exertion and is relieved with rest. Patient reports that it is 6 or 7 out of 10 when he exerts himself but goes to 0 he stops. He denies any radiation of the pain. He does have lower extremity edema and has reported some weight gain. Hospital Course Hospital Course: 61-year-old gentleman who presented with shortness of breath. Patient was found to have a combination of congestive heart failure exacerbation, COPD exacerbation, pneumonia. Patient was treated with Levaquin for the pneumonia and IV steroids and nebulizers for the COPD. Patient's Lasix was given IV and he had improvement in his respiratory status. On the day of discharge he was back to his usual respiratory status. He was concerned that he may need oxygen long-term. He was ambulated on room air and he did not have any oxygen desaturations. His family member was insistent that he have oxygen and he is normally followed at the [place] and she was instructed to discuss this with the [place] physicians. the patient's other medical problems were stable during this hospitalization. Physical Exam Vital Signs: Temp Pulse Resp BP Pulse Ox 97.9 F 107 H 18 143/86 H 98 04/10/17 09:57 04/10/17 09:57 04/10/17 09:57 04/10/17 09:57 04/10/17 09:57 Intake & Output 04/09/17 04/10/17 04/11/17 06:59 06:59 06:59 Intake Total 3487 4050 Output Total 2100 1500 Balance 1387 2550 Weight 62.7 kg 60.6 kg General appearance: PRESENT: no acute distress Eye exam: PRESENT: conjunctiva pink. ABSENT: scleral icterus Mouth exam: PRESENT: moist, tongue midline Neck exam: ABSENT: JVD Respiratory exam: PRESENT: clear to auscultation yasir. ABSENT: rales, rhonchi, wheezes Cardiovascular exam: PRESENT: RRR. ABSENT: diastolic murmur, rubs, systolic murmur GI/Abdominal exam: PRESENT: normal bowel sounds, soft. ABSENT: distended, guarding, mass, organolmegaly, rebound, tenderness Extremities exam: ABSENT: calf tenderness, clubbing, pedal edema Neurological exam: PRESENT: alert, awake, oriented to person, oriented to place , oriented to time, oriented to situation, CN II-XII grossly intact. ABSENT: motor sensory deficit Psychiatric exam: PRESENT: appropriate affect Skin exam: PRESENT: dry, intact, warm. ABSENT: cyanosis, rash Results Laboratory Results: 04/10/17 04:51 04/09/17 05:42 04/10/17 04:51 WBC 13.1 H RBC 4.12 L Hgb 11.8 L Hct 35.5 L MCV 86 MCH 28.7 MCHC 33.3 RDW 16.3 H Plt Count 263 Seg Neutrophils % Not Reportable Lymphocytes % Not Reportable Monocytes % Not Reportable Eosinophils % Not Reportable Basophils % Not Reportable Absolute Neutrophils Not Reportable Absolute Lymphocytes Not Reportable Absolute Monocytes Not Reportable Absolute Eosinophils Not Reportable Absolute Basophils Not Reportable 04/07/17 04/07/17 04/08/17 19:30 19:30 01:32 Creatine Kinase 545 H 571 H CK-MB (CK-2) 17.00 H Troponin I 0.061 04/08/17 04/08/17 04/08/17 01:32 07:30 07:30 Creatine Kinase 458 H CK-MB (CK-2) 17.80 H 13.40 H Troponin I 0.063 0.055 Impressions: Chest X-Ray 04/07/17 13:27 IMPRESSION: Chronic lung changes with suggestion of a limited left upper lobe pneumonia. Qualifiers PATEINT BEING DISCHARGED WITH ANY OF THE FOLLOWING DIAGNOSIS?: No Plan Discharge Plan: Patient discharged home in stable condition. Primary care in 1-2 weeks. Time Spent: Greater than 30 Minutes
[2017-04-11] MEDS ORDERED: LEVOTHYROXINE SODIUM 0.075 MG TABLET PO SCH (10:00)
== END 2017-04-10 10:42 | disposition home or self-care (01) | DRG 190 ==
LOC: ER 13:15 → UNDOADMIN 16:04 → EH 16:04 → 3S 21:28
PROVIDERS: ADMIT Family Medicine; ATTEND Family Medicine
DX: J44.0 Chronic obstructive pulmonary disease with (acute) lower respiratory infection (principal); J18.9 Pneumonia, unspecified organism; I50.31 Acute diastolic (congestive) heart failure; N17.9 Acute kidney failure, unspecified; J44.1 Chronic obstructive pulmonary disease with (acute) exacerbation; I10 Essential (primary) hypertension; E03.9 Hypothyroidism, unspecified; Z79.82 Long term (current) use of aspirin; Z79.899 Other long term (current) drug therapy; Z86.14 Personal history of Methicillin resistant Staphylococcus aureus infection; Z90.49 Acquired absence of other specified parts of digestive tract; Z87.891 Personal history of nicotine dependence
CPT/HCPCS: 36415; 71010; 80048; 80053; 82550; 82553; 82803; 83735; 83880; 84484; 85025; 87040; 93005; 93010; 94640; 96374; 96375; 99285; J1650; J1940; J1956; J2920; J2930; J3480; J3490; J7620

== ENCOUNTER 2017-04-17 16:58 | Emergency (ER) | payer OTHER ==
[2017-04-17] MEDS ORDERED: METHYLPREDNISOLONE INJ 125 MG/2 ML SDV IV ONE (17:19)
[2017-04-17] MEDS ORDERED: IPRATROPIUM/ALBUTEROL 0.5-2.5 MG/3 ML AMPUL NEB ONE (17:19)
[2017-04-17] MEDS ORDERED: ASPIRIN 81 MG TABLET, CHEWABLE PO ONE (17:19)
[2017-04-17] MEDS ORDERED: NITROGLYCERIN 2% OINTMENT 1 GM PACKET TP ONE ×2 (17:20→20:18)
[2017-04-17] MEDS ORDERED: NORMAL SALINE 500 ML IV ONE (17:22)
--- NOTE | 2017-04-17 17:22 | ER Document Report ---
ED Medical Screen (RME) - General Chief Complaint: Chest Pain Stated Complaint: CHEST PAIN Time Seen by Provider: 04/17/17 17:13 TRAVEL OUTSIDE OF THE [place] IN LAST 30 DAYS: No - Related Data Allergies/Adverse Reactions: No Known Allergies Allergy (Verified 04/17/17 17:15) Past Medical History - Past Medical History Cardiac Medical History: Reports: Hx Congestive Heart Failure, Hx Hypertension Pulmonary Medical History: Reports: Hx COPD, Hx Pneumonia Endocrine Medical History: Reports: Hx Hypothyroidism Renal/ Medical History: Denies: Hx Peritoneal Dialysis Skin Medical History: Reports Hx Cellulitis, Reports Hx MRSA Psychiatric Medical History: Denies: Hx Depression Infectious Medical History: Reports: Hx MRSA Past Surgical History: Reports: Hx Cholecystectomy - gallstone. Patient describes what sounds like an ERCP - Immunizations Hx Diphtheria, Pertussis, Tetanus Vaccination: - unknown Physical Exam - Vital signs Vitals: Temp Pulse Resp BP Pulse Ox 98.9 F 118 H 22 H 169/119 H 96 04/17/17 17:06 04/17/17 17:06 04/17/17 17:06 04/17/17 17:06 04/17/17 17:06 Course - Re-evaluation Re-evalutation: 04/17/17 17:22 Patient for left-sided chest pain recent diagnosis of pneumonia CHF acute on chronic COPD exacerbation chest pain left side today. Patient received a breathing treatment just prior to arrival more likely explains tachycardia. We will give steroids DuoNeb will give the patient nitroglycerin and aspirin for chest pain. - Vital Signs Vital signs: Temp Pulse Resp BP Pulse Ox 98.9 F 118 H 22 H 169/119 H 96 04/17/17 17:06 04/17/17 17:06 04/17/17 17:06 04/17/17 17:06 04/17/17 17:06
[2017-04-17 17:43] LABS: ABSOLUTE BASOPHILS # (AUTO) 0.1 10^3/uL (0.0-0.2); ABSOLUTE LYMPHOCYTES (AUTO) 0.5 10^3/uL (0.5-4.7); ABSOLUTE MONOCYTES (AUTO) 0.5 10^3/uL (0.1-1.4); ABSOLUTE NEUT (AUTO) 7.2 10^3/uL (1.7-8.2); BASOPHILS % (AUTO) 0.8 % (0-2); EOSINOPHILS % (AUTO) 0.1 % (0-6); HEMATOCRIT 40.7 % (37.9-51.0); HEMOGLOBIN 13.8 g/dL (13.5-17.0); HGB HCT DIFFERENCE 0.7; LYMPHOCYTES % (AUTO) 5.8 % (13-45); MEAN CORPUSCULAR HEMOGLOBIN 28.7 pg (27.0-33.4); MEAN CORPUSCULAR VOLUME 84 fl (80-97); MONOCYTES % (AUTO) 5.5 % (3-13); RED BLOOD COUNT 4.83 10^6/uL (4.35-5.55); RED CELL DISTRIBUTION WIDTH 16.9 % (11.5-14.0); SEGMENTED NEUTROPHILS % (AUTO) 87.8 % (42-78); WHITE BLOOD COUNT 8.2 10^3/uL (4.0-10.5)
--- NOTE | 2017-04-17 17:47 | RADIOLOGY REPORT (SQ) ---
EXAM DESCRIPTION: CHEST SINGLE VIEW COMPLETED DATE/TIME: 04/17/2017 5:39 pm REASON FOR STUDY: cp COMPARISON: 10/03/2016 NUMBER OF VIEWS: One view. TECHNIQUE: Single frontal radiographic view of the chest acquired. LIMITATIONS: None. FINDINGS: LUNGS AND PLEURA: No opacities, masses or pneumothorax. No pleural effusion. Calcified no jalyn. MEDIASTINUM AND HILAR STRUCTURES: No masses or contour abnormality. HEART AND VASCULATURE: Cardiac enlargement. Vascular congestion. Inge B lines. BONES: No acute findings. HARDWARE: None in the chest. OTHER: No other significant finding. IMPRESSION: CARDIAC ENLARGEMENT. VASCULAR CONGESTION. TECHNICAL DOCUMENTATION: JOB ID: [id number] [employer]- All Rights Reserved
[2017-04-17 17:51] LABS: PROTHROMBIN TIME 14.4 SEC (11.4-15.4)
[2017-04-17 18:04] LABS: ALANINE AMINOTRANSFERASE 54 U/L (21-72); ALBUMIN 3.6 g/dL (3.5-5.0); ALKALINE PHOSPHATASE 190 U/L (38-126); ANION GAP 14 (5-19); ASPARTATE AMINO TRANSFERASE 25 U/L (17-59); BILIRUBIN,DIRECT 0.6 mg/dL (0.0-0.4); BILIRUBIN,TOTAL 0.8 mg/dL (0.2-1.3); BLOOD UREA NITROGEN 21 mg/dL (7-20); CALCIUM 8.7 mg/dL (8.4-10.2); CARBON DIOXIDE 28 mmol/L (22-30); CHLORIDE 96 mmol/L (98-107); CREATINE KINASE 151 U/L (55-170); CREATININE RESULT 1.44 mg/dL (0.52-1.25); GLUCOSE 168 mg/dL (75-110); MAGNESIUM 1.9 mg/dL (1.6-2.3); POTASSIUM 3.8 mmol/L (3.6-5.0); SODIUM 137.9 mmol/L (137-145); TOTAL PROTEIN 6.8 g/dL (6.3-8.2)
[2017-04-17 18:15] LABS: CREATINE KINASE MB 8.05 ng/mL (<4.55)
[2017-04-17 18:16] LABS: TROPONIN I 0.077 ng/mL
[2017-04-17] MEDS ORDERED: FUROSEMIDE INJ/PF 100 MG/10 ML SDV IV ONE (18:47)
[2017-04-17 20:08] LABS: VENOUS BLOOD BASE EXCESS 6.8 mmol/L; VENOUS BLOOD HCO3 32.9 mmol/L (20-32); VENOUS BLOOD PCO2 52.8 mmHg (35-63); VENOUS BLOOD PH 7.41 (7.30-7.42)
[2017-04-18 02:53] VITALS: BP 139/102
--- NOTE | 2017-04-18 03:01 | ER Document Report ---
ED Cardiac - General Chief Complaint: Chest Pain Stated Complaint: CHEST PAIN Time Seen by Provider: 04/17/17 17:13 Mode of Arrival: Medic Information source: Patient, Relative TRAVEL OUTSIDE OF THE [place] IN LAST 30 DAYS: No - HPI Patient complains to provider of: Chest pain, Shortness of breath Quality of pain: Sharp, Stabbing. denies: Heaviness Chest pain radiation location: Left arm Severity now: None Severity at worst: Mild Pain level currently: 0 Cardiac risk factors: Hypertension Associated symptoms: Shortness of breath - Related Data Allergies/Adverse Reactions: No Known Allergies Allergy (Verified 04/17/17 17:15) Home Medications: Current Home Medications Aspirin [Aspirin EC] 81 mg PO DAILY 04/17/17 [History] Budesonide/Formoterol Fumarate [Symbicort Hfa 160-4.5 Mcg Inhaler 6 gm] 2 puff IH Q12 04/17/17 [History] Furosemide [Lasix 20 mg Tablet] 20 mg PO Q12 04/17/17 [History] Ipratropium/Albuterol Sulfate [Combivent Respimat Inhal Prim] 1 puff IH QID 07/24 [History] Levofloxacin [Levaquin 750 mg Tablet] 750 mg PO DAILY 04/17/17 [History] Metoprolol Tartrate [Lopressor] 50 mg PO DAILY 04/17/17 [History] Prednisone [Deltasone 20 mg Tablet] 20 mg PO DAILY 04/17/17 [History] Past Medical History - Social History Smoking Status: Former Smoker Chew tobacco use (# tins/day): No Frequency of alcohol use: None Drug Abuse: None Family History: Reviewed & Not Pertinent, Malignancy - Father with unknown cancer. - Past Medical History Cardiac Medical History: Reports: Hx Congestive Heart Failure, Hx Hypertension Pulmonary Medical History: Reports: Hx COPD, Hx Pneumonia Endocrine Medical History: Reports: Hx Hypothyroidism Renal/ Medical History: Denies: Hx Peritoneal Dialysis Skin Medical History: Reports Hx Cellulitis, Reports Hx MRSA Psychiatric Medical History: Denies: Hx Depression Infectious Medical History: Reports: Hx MRSA Past Surgical History: Reports: Hx Cholecystectomy - gallstone. Patient describes what sounds like an ERCP - Immunizations Hx Diphtheria, Pertussis, Tetanus Vaccination: - unknown Review of Systems - Review of Systems Constitutional: No symptoms reported EENT: No symptoms reported Cardiovascular: Chest pain, Dyspnea. denies: Palpitations, Orthopnea, Syncope, Dizziness, Edema Respiratory: Short of breath Gastrointestinal: No symptoms reported Genitourinary: No symptoms reported Musculoskeletal: No symptoms reported Skin: No symptoms reported Hematologic/Lymphatic: No symptoms reported Neurological/Psychological: No symptoms reported Physical Exam - Vital signs Vitals: Temp Pulse Resp BP Pulse Ox 98.9 F 118 H 22 H 169/119 H 96 04/17/17 17:06 04/17/17 17:06 04/17/17 17:06 04/17/17 17:06 04/17/17 17:06 - General General appearance: Appears well, Alert In distress: None - Respiratory Respiratory status: No respiratory distress Chest status: Nontender, No pleuritic chest pain, Pain with cough, Pain with deep breathing Breath sounds: Decreased air movement Chest palpation: Normal - Cardiovascular Rhythm: Tachycardia Friction rub: No Pulses: Normal: Brachial, Radial, Carotid, Femoral, Popliteal, Posterior tibial , Dorsalis pedis - Abdominal Inspection: Normal - Back Back: Normal - Extremities General upper extremity: Normal inspection Course - Re-evaluation Re-evalutation: 04/18/17 03:02 Patient with history of pneumonia CHF COPD presents emergency department with difficulty breathing and left-sided chest pain. Patient states he did not have any medical problems until he was recently seen and evaluated in November diagnosed with COPD. He was admitted earlier this month for CHF COPD exacerbation and sent home on steroids Lasix and Levaquin. He was supposed to get home oxygen but they said he did not qualify for it. He presents now he says he was at home walking in his living room when he developed left-sided chest pain associated with mild shortness of breath radiation to left arm. It was not associated with nausea vomiting or diaphoresis. He said that when he was discharged from here he was sent to [place] back of the echocardiogram done it sounds according to the family that he had pulmonary hypertension and left heart strain. He followed up with the [facility] who has an appointment for him with a customer service representative teller in [place] on the . He denies any chest pain right now. And we gave him 4 baby aspirin. His blood pressure is elevated with a history of elevated blood pressure. Patient vehemently denies any chest pain while in the emergency department. Was given aspirin and nitro. EKG showed sinus tachycardia with left ventricular hypertrophy but no acute ST segment elevation or depression. Spoke with Dr. Nielsen who asked that we get a second set of cardiac enzymes. The second set was elevated more than the first set concerning for non-STEMI. Spoke with cardiology in [place] who accepted the transfer under Dr. Pitts and patella form is filled out. Patient reassessed until transfer chest pain-free still with mildly elevated blood pressure but otherwise hemodynamically stable with no acute respiratory distress or chest pain. 04/18/17 03:06 - Vital Signs Vital signs: Temp Pulse Resp BP Pulse Ox 98.6 F 118 H 13 139/102 H 94 04/18/17 02:50 04/17/17 17:06 04/18/17 02:50 04/18/17 02:50 04/18/17 02:50 - Laboratory Result Diagrams: 04/17/17 17:31 04/17/17 17:31 Laboratory results interpreted by me: 04/17/17 04/17/17 04/17/17 17:31 17:31 17:31 RDW 16.9 H Seg Neutrophils % 87.8 H Lymphocytes % 5.8 L VBG HCO3 Chloride 96 L BUN 21 H Creatinine 1.44 H Est GFR (Non-Af Amer) 50 L Glucose 168 H Direct Bilirubin 0.6 H Alkaline Phosphatase 190 H CK-MB (CK-2) 8.05 H NT-Pro-B Natriuret Pep 9920 H 04/17/17 19:55 RDW Seg Neutrophils % Lymphocytes % VBG HCO3 32.9 H Chloride BUN Creatinine Est GFR (Non-Af Amer) Glucose Direct Bilirubin Alkaline Phosphatase CK-MB (CK-2) NT-Pro-B Natriuret Pep - EKG Interpretation by Me Additional EKG results interpreted by me: 04/18/17 03:06 EKG sinus tachycardia 113 bpm left ventricular hypertrophy no acute ST segment elevation or depression Critical Care Note - Critical Care Note Total time excluding time spent on procedures (mins): 65 Discharge - Discharge Clinical Impression: Non-STEMI (non-ST elevated myocardial infarction) Acute on chronic congestive heart failure Qualifiers: Congestive heart failure type: diastolic Qualified Code(s): I50.33 - Acute on chronic diastolic (congestive) heart failure Condition: Stable Disposition: [facility]
--- NOTE | 2017-04-18 03:06 | ER Document Report ---
Doctor's Note Notes: 04/18/17 03:05 [facility] is here to transport the patient I saw and evaluated him at the bedside he is awake alert not complaining of any chest pain or shortness of breath M 12 form is completed and he is transferred with an accepting physician to [facility]
--- NOTE | 2017-04-18 16:37 | EKG REPORT ---
SEVERITY:- ABNORMAL ECG - SINUS TACHYCARDIA PROBABLE LEFT ATRIAL ABNORMALITY PROBABLE LEFT VENTRICULAR HYPERTROPHY BORDERLINE PROLONGED QT INTERVAL : Confirmed by: Kinza Meza 18-Apr-2017 16:36:08
== END 2017-04-18 03:18 | disposition short-term general hospital (02) ==
LOC: ER 16:58
DX: I21.4 Non-ST elevation (NSTEMI) myocardial infarction (principal); I50.33 Acute on chronic diastolic (congestive) heart failure; R07.9 Chest pain, unspecified; R06.02 Shortness of breath; Z79.899 Other long term (current) drug therapy; Z87.891 Personal history of nicotine dependence
CPT/HCPCS: 93005; 94640; 99285; 96374; 96375; 36415; 82553; 82550; 83735; 85025; 85610; 80053; 84484; 82803; 83605; 83880; 71010; 93010; J1940; J2930; J7040; J7620

== ENCOUNTER 2017-05-30 02:05 | Inpatient (IN) | payer OTHER ==
--- NOTE | 2017-05-30 03:35 | ER Document Report ---
ED General - General Chief Complaint: High Blood Pressure Stated Complaint: BREATHING DIFFICULTY,BLOOD PRESSURE PROBLEM Time Seen by Provider: 05/30/17 03:21 Notes: Patient is a 61-year-old male who comes emergency department for chief complaint of erratic blood pressure and shortness of breath on exertion. He states that about 5 PM he began developing symptoms while he was cooking, he states that he has no chest pain, if he is resting he feels fine, but if he gets up and performs activities he becomes short of breath more than usual. He denies weight gain, increased swelling in his lower extremities, fever, cough, abdominal pain, dizziness. He states his blood pressures are ranging from 140s- 160s systolic [facility] he follows with Dr. Frank cardiology, he also has history of CHF, on Lasix, COPD, no longer smokes. He is finishing a course of amiodarone after which he is supposed to stop in 1 week. TRAVEL OUTSIDE OF THE [place] IN LAST 30 DAYS: No - Related Data Allergies/Adverse Reactions: No Known Allergies Allergy (Verified 05/30/17 02:28) Past Medical History - General Information source: Patient - Social History Smoking Status: Former Smoker Frequency of alcohol use: None Drug Abuse: None Lives with: Family Family History: Reviewed & Not Pertinent, Malignancy - Father with unknown cancer. - Past Medical History Cardiac Medical History: Reports: Hx Congestive Heart Failure, Hx Hypertension Pulmonary Medical History: Reports: Hx COPD, Hx Pneumonia Endocrine Medical History: Reports: Hx Hypothyroidism Renal/ Medical History: Denies: Hx Peritoneal Dialysis Skin Medical History: Reports Hx Cellulitis, Reports Hx MRSA Psychiatric Medical History: Denies: Hx Depression Infectious Medical History: Reports: Hx MRSA Past Surgical History: Reports: Hx Cholecystectomy - gallstone. Patient describes what sounds like an ERCP - Immunizations Hx Diphtheria, Pertussis, Tetanus Vaccination: - unknown Review of Systems - Review of Systems Constitutional: No symptoms reported EENT: No symptoms reported Cardiovascular: See HPI Respiratory: See HPI Gastrointestinal: No symptoms reported Genitourinary: No symptoms reported Male Genitourinary: No symptoms reported Musculoskeletal: No symptoms reported Skin: No symptoms reported Hematologic/Lymphatic: No symptoms reported Neurological/Psychological: No symptoms reported Physical Exam - Vital signs Vitals: Resp Pulse Ox 30 H 99 05/30/17 03:32 05/30/17 03:32 Interpretation: Normal - General General appearance: Appears well, Alert In distress: None - HEENT Head: Normocephalic, Atraumatic Eyes: Normal Pupils: PERRL - Respiratory Respiratory status: No respiratory distress Chest status: Nontender, Other - Recent CABG postsurgical wound Breath sounds: Normal Chest palpation: Normal - Cardiovascular Rhythm: Regular. No: Tachycardia Heart sounds: Normal auscultation, S1 appreciated, S2 appreciated - Abdominal Inspection: Normal Distension: No distension Bowel sounds: Normal Tenderness: Nontender. No: Tender Organomegaly: No organomegaly - Back Back: Normal, Nontender. No: Tender - Extremities General upper extremity: Normal inspection, Nontender, Normal ROM, Normal strength General lower extremity: Normal inspection, Nontender, Normal ROM, Normal strength, Other - Wearing Blane socks on both sides - Neurological Neuro grossly intact: Yes Cognition: Normal Orientation: AAOx4 [place] Coma Scale Eye Opening: Spontaneous Marguerite Coma Scale Verbal: Oriented Marguerite Coma Scale Motor: Obeys Commands Marguerite Coma Scale Total: 15 Speech: Normal Motor strength normal: LUE, RUE, LLE, RLE Sensory: Normal - Psychological Associated symptoms: Normal affect, Normal mood - Skin Skin Temperature: Warm Skin Moisture: Dry Skin Color: Normal Course - Re-evaluation Re-evalutation: EKG shows sinus rhythm at a rate of 73 no T-wave inversions or ST segment abnormalities in consecutive leads. Normal axis. QTc of 512. Chest x-ray is read as normal but there does appear to be some cephalization per my read and compared to prior. Evidence of recent CABG. CBC shows mild leukocytosis with no shift, nonspecific. No fever, no tachycardia, no hypotension. Chemistry shows mild hyponatremia, shows renal insufficiency but this is similar compared to prior. Troponin indeterminate 0.04, BNP greater than 10,000. Patient wearing Blane socks, difficult to tell if he had edema, I do not appreciate any abnormal lung sounds, patient is comfortable and asymptomatic at rest, states he only gets short of breath when he is ambulating or exerting. He is hypertensive but this is trending downwards. Discussed with Dr. Estrada about potential CTA to rule out PE postop, however this is patient's only risk factor, he is not tachycardic, he is not having chest pain or shortness of breath at rest, and he has borderline kidney functioning with recent heavy contrast load. She recommends IV lasix and admission instead with monitoring for improvement of dyspnea on exertion with diuresis. Discussed with patient, he is very agreeable with this plan. Patient blood pressure was trending down, however it is trending upwards, patient is restless and keeps getting out of bed to urinate, he will be due for his morning medications soon. 05/30/17 07:[address] Elizondo, patient will be admitted to telemetry. - Vital Signs Vital signs: Temp Pulse Resp BP Pulse Ox 98 F 23 H 172/110 H 99 05/30/17 07:01 05/30/17 07:01 05/30/17 07:03 05/30/17 07:01 - Laboratory Result Diagrams: 05/30/17 03:31 05/30/17 03:31 Laboratory results interpreted by me: 05/30/17 05/30/17 05/30/17 03:31 03:31 03:31 WBC 10.8 H Hgb 12.1 L Hct 36.5 L MCH 26.9 L RDW 17.6 H Sodium 133.8 L Chloride 95 L BUN 21 H Creatinine 1.55 H Est GFR ( Amer) 55 L Est GFR (Non-Af Amer) 46 L Direct Bilirubin 0.5 H Alkaline Phosphatase 251 H NT-Pro-B Natriuret Pep 51097 H Albumin 3.4 L Discharge - Discharge Clinical Impression: Dyspnea on exertion CHF exacerbation Qualifiers: Congestive heart failure type: unspecified congestive heart failure type Qualified Code(s): I50.9 - Heart failure, unspecified Condition: Stable Disposition: ADMITTED INPATIENT Admitting Provider: Hospitalist Unit Admitted: Telemetry
[2017-05-30 03:47] LABS: ABSOLUTE BASOPHILS # (AUTO) 0.1 10^3/uL (0.0-0.2); ABSOLUTE EOSINOPHILS # (AUTO) 0.2 10^3/uL (0.0-0.6); ABSOLUTE LYMPHOCYTES (AUTO) 1.8 10^3/uL (0.5-4.7); ABSOLUTE MONOCYTES (AUTO) 0.7 10^3/uL (0.1-1.4); BASOPHILS % (AUTO) 0.6 % (0-2); EOSINOPHILS % (AUTO) 2.2 % (0-6); HEMATOCRIT 36.5 % (37.9-51.0); HEMOGLOBIN 12.1 g/dL (13.5-17.0); HGB HCT DIFFERENCE -0.2; LYMPHOCYTES % (AUTO) 16.8 % (13-45); MEAN CORPUSCULAR HEMOGLOBIN 26.9 pg (27.0-33.4); MEAN CORPUSCULAR HGB CONC 33.1 g/dL (32.0-36.0); MEAN CORPUSCULAR VOLUME 81 fl (80-97); MONOCYTES % (AUTO) 6.6 % (3-13); RED BLOOD COUNT 4.49 10^6/uL (4.35-5.55); RED CELL DISTRIBUTION WIDTH 17.6 % (11.5-14.0); SEGMENTED NEUTROPHILS % (AUTO) 73.8 % (42-78); WHITE BLOOD COUNT 10.8 10^3/uL (4.0-10.5)
[2017-05-30 03:54] LABS: ALANINE AMINOTRANSFERASE 41 U/L (21-72); ALBUMIN 3.4 g/dL (3.5-5.0); ALKALINE PHOSPHATASE 251 U/L (38-126); ANION GAP 11 (5-19); ASPARTATE AMINO TRANSFERASE 23 U/L (17-59); BILIRUBIN,DIRECT 0.5 mg/dL (0.0-0.4); BILIRUBIN,TOTAL 0.7 mg/dL (0.2-1.3); BLOOD UREA NITROGEN 21 mg/dL (7-20); CALCIUM 9.1 mg/dL (8.4-10.2); CARBON DIOXIDE 28 mmol/L (22-30); CHLORIDE 95 mmol/L (98-107); CREATINE KINASE 89 U/L (55-170); CREATININE RESULT 1.55 mg/dL (0.52-1.25); GLUCOSE 108 mg/dL (75-110); POTASSIUM 3.8 mmol/L (3.6-5.0); SODIUM 133.8 mmol/L (137-145); TOTAL PROTEIN 6.5 g/dL (6.3-8.2)
[2017-05-30 04:08] LABS: TROPONIN I 0.048 ng/mL
--- NOTE | 2017-05-30 04:51 | RADIOLOGY REPORT (SQ) ---
EXAM DESCRIPTION: CHEST SINGLE VIEW COMPLETED DATE/TIME: 05/30/2017 4:03 am REASON FOR STUDY: dyspnea on exertion COMPARISON: 8.. EXAM PARAMETERS: NUMBER OF VIEWS: One view. TECHNIQUE: Single frontal radiographic view of the chest acquired. RADIATION DOSE: NA LIMITATIONS: None. FINDINGS: LUNGS AND PLEURA: No opacities, masses or pneumothorax. No pleural effusion. MEDIASTINUM AND HILAR STRUCTURES: No masses. Contour normal. HEART AND VASCULAR STRUCTURES: Heart normal in size. Normal vasculature. BONES: No acute findings. HARDWARE: Sternal wires. OTHER: No other significant finding. IMPRESSION: NO ACUTE RADIOGRAPHIC FINDING IN THE CHEST. TECHNICAL DOCUMENTATION: JOB ID: [id number]
[2017-05-30] MEDS ORDERED: FUROSEMIDE INJ/PF 40 MG/4 ML SDV IV ONE ×2 (05:08→11:00)
--- NOTE | 2017-05-30 06:17 | EKG REPORT ---
SEVERITY:- ABNORMAL ECG - SINUS RHYTHM PROBABLE LEFT ATRIAL ABNORMALITY BORDERLINE IVCD WITH LAD PROLONGED QT INTERVAL : Confirmed by: Luis Angel Dawkins MD 30-May-2017 06:16:28
[2017-05-30] MEDS ORDERED: ONDANSETRON HCL INJ/PF 4 MG/2 ML SDV IV PRN (09:53)
[2017-05-30] MEDS ORDERED: ACETAMINOPHEN 325 MG TABLET PO PRN (09:53)
--- NOTE | 2017-05-30 10:13 | PDOC H&P ---
History of Present Illness Admission Date/PCP: 05/30/17 07:48 Patient complains of: Shortness of breath on exertion History of Present Illness: TEVIN SPENCER is a 61 year old male, with coronary artery disease status post recent coronary artery bypass grafting, CHF diastolic dysfunction, COPD started to develop shortness of breath on exertion. It started yesterday. No associated chest pain, nausea or vomiting, chills or fever, no chest congestion. No paroxysmal nocturnal dyspnea nor orthopnea as well. There is noted increasing lower extremity swelling. He tried to measure his blood pressure and they were uncontrolled reportedly the highest was 170. He has a little cough but no phlegm. No noted wheezing as well. Symptoms persisted therefore the patient presented to the hospital for evaluation. Chest x-ray revealed cephalization. Brain natruretic peptide was elevated. Since particle board supervisor was called in [place] and recommended diuresis. Patient was then referred for admission. No lower extremity pain however. Patient has been active even after bypass surgery, able to walk half a mile every day. No symptoms up until yesterday. Past Medical History Cardiac Medical History: Reports: Congestive Heart Failure, Hypertension Pulmonary Medical History: Reports: Chronic Obstructive Pulmonary Disease (COPD) , Pneumonia Endocrine Medical History: Reports: Hypothyroidism Renal/ Medical History: Reports: Chronic Kidney Disease Psychiatric Medical History: Denies: Depression Infectious Medical History: Reports: Methicillin-Resistant Staph Aureus Past Surgical History Past Surgical History: Reports: Cholecystectomy - gallstone. Patient describes what sounds like an ERCP, Coronary Artery Bypass Graft Social History Information Source: Patient Lives with: Family Smoking Status: Former Smoker Frequency of Alcohol Use: None Hx Recreational Drug Use: No Drugs: None Hx Prescription Drug Abuse: No Family History Family History: Malignancy - Father with unknown cancer. Parental Family History Reviewed: Yes Children Family History Reviewed: Yes Sibling(s) Family History Reviewed.: Yes Medication/Allergy Home Medications: Aspirin [Aspirin EC] 81 mg PO DAILY 05/30/17 Budesonide/Formoterol Fumarate [Symbicort HFA 160-4.5 mcg Inhaler 6 gm] 2 puff IH Q12 05/30/17 Furosemide [Lasix 20 mg Tablet] 20 mg PO Q12 05/30/17 Ipratropium/Albuterol Sulfate [Combivent Respimat 4 gm Mdi] 1 puff IH QID Metoprolol Tartrate [Lopressor 50 mg Tablet] 50 mg PO DAILY 05/30/17 Prednisone [Deltasone 20 mg Tablet] 20 mg PO DAILY 05/30/17 Allergies/Adverse Reactions: No Known Allergies Allergy (Verified 05/30/17 02:28) Review of Systems Constitutional: ABSENT: chills, fever(s), headache(s), weakness, weight gain, weight loss Eyes: ABSENT: visual disturbances Ears: ABSENT: hearing changes Nose, Mouth, and Throat: ABSENT: mouth pain, sore throat Cardiovascular: PRESENT: dyspnea on exertion, edema - Both lower extremities. ABSENT: chest pain, orthropnea, palpitations Respiratory: PRESENT: cough, dyspnea. ABSENT: hemoptysis, sputum Gastrointestinal: ABSENT: abdominal pain, bloating, constipation, diarrhea, hematemesis, hematochezia, melena, nausea, vomiting Genitourinary: ABSENT: dysuria, hematuria Musculoskeletal: ABSENT: joint swelling Integumentary: ABSENT: pruritus, rash, wounds Neurological: ABSENT: abnormal gait, abnormal speech, confusion, dizziness, focal weakness, syncope Psychiatric: ABSENT: anxiety, depression, homidical ideation, suicidal ideation Endocrine: ABSENT: cold intolerance, heat intolerance, polydipsia, polyuria Hematologic/Lymphatic: ABSENT: easy bleeding, easy bruising Physical Exam Vital Signs: Temp Pulse Resp BP Pulse Ox 98.0 F 82 17 150/94 H 96 05/30/17 08:56 05/30/17 08:56 05/30/17 08:56 05/30/17 08:56 05/30/17 08:56 Intake & Output 05/29/17 05/30/17 05/31/17 06:59 06:59 06:59 Output Total 600 Balance -600 Weight 58.6 kg General appearance: PRESENT: no acute distress, well-developed, well-nourished Head exam: PRESENT: atraumatic, normocephalic Eye exam: PRESENT: conjunctiva pink, EOMI, PERRLA. ABSENT: scleral icterus Ear exam: PRESENT: normal external ear exam Mouth exam: PRESENT: moist, tongue midline. ABSENT: neck supple Neck exam: ABSENT: carotid bruit, JVD, lymphadenopathy, thyromegaly Respiratory exam: PRESENT: clear to auscultation yasir - Anteriorly bilateral, rales - Minimal lower lung romeo, unlabored. ABSENT: rhonchi, wheezes Cardiovascular exam: PRESENT: RRR. ABSENT: diastolic murmur, rubs, systolic murmur Pulses: PRESENT: normal dorsalis pedis pul Vascular exam: PRESENT: normal capillary refill GI/Abdominal exam: PRESENT: normal bowel sounds, soft. ABSENT: distended, guarding, mass, organolmegaly, rebound, tenderness Rectal exam: PRESENT: deferred Extremities exam: PRESENT: full ROM. ABSENT: calf tenderness, clubbing, pedal edema Neurological exam: PRESENT: alert, awake, oriented to person, oriented to place , oriented to time, oriented to situation, CN II-XII grossly intact. ABSENT: motor sensory deficit Psychiatric exam: PRESENT: appropriate affect, normal mood. ABSENT: homicidal ideation, suicidal ideation Skin exam: PRESENT: dry, intact, warm, other - Surgical scar anterior chest wall. ABSENT: cyanosis, rash Results Laboratory Results: 05/30/17 08:00 Troponin I 0.043 Impressions: Chest X-Ray 05/30/17 03:33 IMPRESSION: NO ACUTE RADIOGRAPHIC FINDING IN THE CHEST. Assessment & Plan - Diagnosis (1) Acute diastolic CHF (congestive heart failure) Is this a current diagnosis for this admission?: Yes (2) Hypertensive urgency Is this a current diagnosis for this admission?: Yes (3) Chronic kidney disease Qualifiers: Chronic kidney disease stage: stage 3 (moderate) Qualified Code(s): N18.3 - Chronic kidney disease, stage 3 (moderate) (4) Hypothyroidism Qualifiers: Hypothyroidism type: acquired Qualified Code(s): E03.9 - Hypothyroidism, unspecified Is this a current diagnosis for this admission?: Yes (5) COPD (chronic obstructive pulmonary disease) Qualifiers: COPD type: unspecified COPD Qualified Code(s): J44.9 - Chronic obstructive pulmonary disease, unspecified Is this a current diagnosis for this admission?: Yes - Time Time Spent: 50 to 70 Minutes - Plan Summary Plan Summary: Patient will be admitted to telemetry. I am going to increase the patient's beta-alvin. In the meantime we will give intravenous diuretic with Lasix twice daily. He had a recent echocardiogram showing an ejection fraction of 50- 55%. Supplemental oxygen will be given. DVT prophylaxis with Lovenox will be placed. We will cycle cardiac enzymes 3. Further testing depends on the initial evaluations outlined above.
[2017-05-30] MEDS ORDERED: ASPIRIN 81 MG TABLET, ENT COATED PO ONE (11:00)
[2017-05-30] MEDS ORDERED: METOPROLOL TARTRATE 50 MG TABLET PO ONE (11:00)
[2017-05-30] MEDS ORDERED: ENOXAPARIN SODIUM INJ 40 MG/0.4 ML DISP.SYRIN SUBCUT ONE (11:00)
[2017-05-30] MEDS ORDERED: PREDNISONE 20 MG TABLET PO ONE (11:00)
[2017-05-30] MEDS ORDERED: DOCUSATE SODIUM 100 MG CAPSULE PO ONE (11:00)
[2017-05-30] MEDS ORDERED: BUDESONIDE/FORMOTEROL 160-4.5 MCG 60 PUFF/6 GM MDI IH ONE (11:30)
[2017-05-30] MEDS ORDERED: IPRATROPIUM/ALBUTEROL 120 PUFF/4 GM MDI IH ONE (11:30)
[2017-05-30 11:52] LABS: CREATINE KINASE MB 4.05 ng/mL (<4.55); TROPONIN I 0.036 ng/mL
[2017-05-30 12:10] LABS: THYROID STIMULATING HORMONE 2.08 uIU/mL (0.47-4.68)
[2017-05-30] MEDS: IPRATROPIUM/ALBUTEROL 120 PUFF/4 GM MDI IH SCH ×3 (14:04→21:25)
[2017-05-30 16:43] LABS: CREATINE KINASE MB 3.76 ng/mL (<4.55); TROPONIN I 0.033 ng/mL
[2017-05-30] MEDS: LANSOPRAZOLE 30 MG TAB.RAP.DR PO SCH (17:28)
[2017-05-30] MEDS: METOPROLOL TARTRATE 50 MG TABLET PO SCH (21:24)
[2017-05-30] MEDS: FUROSEMIDE INJ/PF 40 MG/4 ML SDV IV SCH (21:26)
[2017-05-30] MEDS: BUDESONIDE/FORMOTEROL 160-4.5 MCG 60 PUFF/6 GM MDI IH SCH (21:26)
[2017-05-30 22:19] LABS: CREATINE KINASE MB 4.42 ng/mL (<4.55); TROPONIN I 0.034 ng/mL
[2017-05-31] MEDS: LANSOPRAZOLE 30 MG TAB.RAP.DR PO SCH (05:14)
[2017-05-31 05:40] LABS: ABSOLUTE BASOPHILS # (AUTO) 0.1 10^3/uL (0.0-0.2); ABSOLUTE LYMPHOCYTES (AUTO) 1.3 10^3/uL (0.5-4.7); ABSOLUTE NEUT (AUTO) 8.6 10^3/uL (1.7-8.2); BASOPHILS % (AUTO) 0.8 % (0-2); EOSINOPHILS % (AUTO) 0.1 % (0-6); HEMATOCRIT 35.4 % (37.9-51.0); HEMOGLOBIN 11.9 g/dL (13.5-17.0); HGB HCT DIFFERENCE 0.3; LYMPHOCYTES % (AUTO) 11.6 % (13-45); MEAN CORPUSCULAR HEMOGLOBIN 26.9 pg (27.0-33.4); MEAN CORPUSCULAR HGB CONC 33.6 g/dL (32.0-36.0); MEAN CORPUSCULAR VOLUME 80 fl (80-97); MONOCYTES % (AUTO) 9.1 % (3-13); RED BLOOD COUNT 4.42 10^6/uL (4.35-5.55); RED CELL DISTRIBUTION WIDTH 17.2 % (11.5-14.0); SEGMENTED NEUTROPHILS % (AUTO) 78.4 % (42-78); WHITE BLOOD COUNT 10.9 10^3/uL (4.0-10.5)
[2017-05-31 06:02] LABS: ANION GAP 12 (5-19); BLOOD UREA NITROGEN 28 mg/dL (7-20); CALCIUM 9.2 mg/dL (8.4-10.2); CARBON DIOXIDE 28 mmol/L (22-30); CHLORIDE 96 mmol/L (98-107); CREATININE RESULT 1.73 mg/dL (0.52-1.25); GLUCOSE 119 mg/dL (75-110); MAGNESIUM 1.9 mg/dL (1.6-2.3); POTASSIUM 3.3 mmol/L (3.6-5.0); SODIUM 136.2 mmol/L (137-145)
[2017-05-31] MEDS ORDERED: ASPIRIN 81 MG TABLET, ENT COATED PO SCH (10:00)
[2017-05-31] MEDS ORDERED: PREDNISONE 20 MG TABLET PO SCH (10:00)
[2017-05-31] MEDS ORDERED: ENOXAPARIN SODIUM INJ 40 MG/0.4 ML DISP.SYRIN SUBCUT SCH (10:00)
[2017-05-31] MEDS ORDERED: DOCUSATE SODIUM 100 MG CAPSULE PO SCH (10:00)
[2017-05-31] MEDS: METOPROLOL TARTRATE 50 MG TABLET PO SCH (10:26)
[2017-05-31] MEDS: FUROSEMIDE INJ/PF 40 MG/4 ML SDV IV SCH (10:27)
[2017-05-31] MEDS: BUDESONIDE/FORMOTEROL 160-4.5 MCG 60 PUFF/6 GM MDI IH SCH (10:27)
[2017-05-31] MEDS: IPRATROPIUM/ALBUTEROL 120 PUFF/4 GM MDI IH SCH ×2 (10:28→14:14)
[2017-05-31] MEDS ORDERED: POTASSIUM CHLORIDE 10 MEQ TABLET.SA PO ONE (12:45)
[2017-05-31 15:44] VITALS: BP 150/94
--- NOTE | 2017-05-31 17:20 | PDOC DISCHARGE SUMMARY ---
General - Admit/Disc Date/PCP Admission Date/Primary Care Provider: 05/30/17 09:54 Discharge Date: 05/31/17 - Discharge Diagnosis (1) Acute diastolic CHF (congestive heart failure) Is this a current diagnosis for this admission?: Yes (2) Hypertensive urgency Is this a current diagnosis for this admission?: Yes (4) Hypothyroidism Is this a current diagnosis for this admission?: Yes (5) COPD (chronic obstructive pulmonary disease) Is this a current diagnosis for this admission?: Yes - Additional Information Discharge Diet: Cardiac Discharge Activity: Activity As Tolerated, Balance Activity w/Rest, Slowly Increase Activity Home Medications: Aspirin [Aspirin EC] 81 mg PO DAILY 05/30/17 Budesonide/Formoterol Fumarate [Symbicort HFA 160-4.5 mcg Inhaler 6 gm] 2 puff IH Q12 05/30/17 Ipratropium/Albuterol Sulfate [Combivent Respimat 4 gm Mdi] 1 puff IH QID Prednisone [Deltasone 20 mg Tablet] 20 mg PO DAILY 05/30/17 Furosemide [Lasix 20 mg Tablet] 40 mg PO Q12 #120 05/31/17 Metoprolol Tartrate [Lopressor 50 mg Tablet] 50 mg PO Q12 #60 tablet 05/31/17 Potassium Chloride 10 meq PO DAILY #30 tablet.er 05/31/17 Additional Information: Basic metabolic panel outpatient with primary care physician in 3-5 days. History of Present Illness Patient complains of: Shortness of breath on exertion History of Present Illness: TEVIN SPENCER is a 61 year old male, with coronary artery disease status post recent coronary artery bypass grafting, CHF diastolic dysfunction, COPD started to develop shortness of breath on exertion. It started yesterday. No associated chest pain, nausea or vomiting, chills or fever, no chest congestion. No paroxysmal nocturnal dyspnea nor orthopnea as well. There is noted increasing lower extremity swelling. He tried to measure his blood pressure and they were uncontrolled reportedly the highest was 170. He has a little cough but no phlegm. No noted wheezing as well. Symptoms persisted therefore the patient presented to the hospital for evaluation. Chest x-ray revealed cephalization. Brain natruretic peptide was elevated. Since strap stitcher was called in [place] and recommended diuresis. Patient was then referred for admission. No lower extremity pain however. Patient has been active even after bypass surgery, able to walk half a mile every day. No symptoms up until yesterday. Hospital Course Hospital Course: The patient was admitted to telemetry. The patient was started on intravenous Lasix. His beta-tierra was increased. He had a recent echocardiogram performed earlier this year showing a normal ejection fraction. DVT prophylaxis was placed. Plan mental oxygen was given. Patient significantly improved following morning. Patient requesting to be discharged. Patient reports that he does not have any chest pain at all. Cardiac enzymes were all obtained and were negative for myocardial infarction. Patient has been chest pain-free all throughout. No paroxysmal nocturnal dyspnea nor orthopnea. No increasing lower extremity edema. His oxygen saturation is greater than 90% on room air. Patient was eventually discharged home with instructions to follow- up with his primary care physician in 3-5 days and with his strap stitcher in [facility] in 3-5 days. Physical Exam Vital Signs: Temp Pulse Resp BP Pulse Ox 97.7 F 63 16 150/94 H 97 05/31/17 15:42 05/31/17 15:42 05/31/17 15:42 05/31/17 15:42 05/31/17 15:42 Pulse Oximeter Continuous Start: 05/30/17 09: 55 Freq: RTQ4 Status: Discharge Document 05/31/17 17:15 GIA (Rec: 05/31/17 17:15 GIA [id number]) Pulse Oximetry Assessment Equipment Usage Equipment Discontinued Continuous SpO2 Machine # 14 Intake & Output 05/30/17 05/31/17 06/01/17 06:59 06:59 06:59 Intake Total 760 880 Output Total 1850 Balance -1090 880 Weight 58.6 kg General appearance: PRESENT: no acute distress, cooperative Head exam: PRESENT: normocephalic Eye exam: PRESENT: EOMI Mouth exam: PRESENT: moist, neck supple Neck exam: ABSENT: JVD Respiratory exam: PRESENT: clear to auscultation yasir. ABSENT: rhonchi, wheezes Cardiovascular exam: PRESENT: RRR. ABSENT: gallop GI/Abdominal exam: PRESENT: soft. ABSENT: distended, tenderness Extremities exam: ABSENT: pedal edema Neurological exam: PRESENT: alert, awake, oriented to person, oriented to place , oriented to time, oriented to situation Skin exam: PRESENT: dry, warm. ABSENT: cyanosis Results Laboratory Results: 05/31/17 05:00 05/31/17 05:00 05/31/17 05/31/17 05:00 05:00 WBC 10.9 H RBC 4.42 Hgb 11.9 L Hct 35.4 L MCV 80 MCH 26.9 L MCHC 33.6 RDW 17.2 H Plt Count 299 Seg Neutrophils % 78.4 H Lymphocytes % 11.6 L Monocytes % 9.1 Eosinophils % 0.1 Basophils % 0.8 Absolute Neutrophils 8.6 H Absolute Lymphocytes 1.3 Absolute Monocytes 1.0 Absolute Eosinophils 0.0 Absolute Basophils 0.1 Sodium 136.2 L Potassium 3.3 L Chloride 96 L Carbon Dioxide 28 Anion Gap 12 BUN 28 H Creatinine 1.73 H Est GFR ( Amer) 49 L Est GFR (Non-Af Amer) 40 L Glucose 119 H Calcium 9.2 Magnesium 1.9 05/30/17 05/30/17 05/30/17 10:51 10:51 15:57 Creatine Kinase 87 82 CK-MB (CK-2) 4.05 Troponin I 0.036 05/30/17 05/30/17 05/30/17 15:57 21:30 21:40 Creatine Kinase 79 CK-MB (CK-2) 3.76 4.42 Troponin I 0.033 0.034 Impressions: Chest X-Ray 05/30/17 03:33 IMPRESSION: NO ACUTE RADIOGRAPHIC FINDING IN THE CHEST. Qualifiers PATEINT BEING DISCHARGED WITH ANY OF THE FOLLOWING DIAGNOSIS?: Heart Failure HF Pt being discharged on ACEI for LVEF less than 40%?: No Reason(s) for not prescribing ACEI:: Not indicated - Normal ejection fraction HF Pt being discharged on ARBS for LVEF less than 40%?: No Reason(s) for not prescribing ARBS:: Not indicated - Normal ejection fraction HF Pt with Afib discharged with Warfarin?: No Reason(s) for not prescribing Warfarin:: Not indicated - No atrial fibrillation HF Pt discharged on evidence-based Beta Tierra:: Yes
== END 2017-05-31 16:35 | disposition home or self-care (01) | DRG 291 ==
LOC: ER 02:05 → EH 07:48 → UNDOADMIN 07:48 → 4N 08:38 → EH 08:38 → 4N 09:54
DX: I13.0 Hypertensive heart and chronic kidney disease with heart failure and stage 1 through stage 4 chronic kidney disease, or unspecified chronic kidney disease (principal); I50.31 Acute diastolic (congestive) heart failure; N18.3 Chronic kidney disease, stage 3 (moderate); I16.0 Hypertensive urgency; J44.9 Chronic obstructive pulmonary disease, unspecified; I25.10 Atherosclerotic heart disease of native coronary artery without angina pectoris; E03.9 Hypothyroidism, unspecified; Z79.82 Long term (current) use of aspirin; Z79.899 Other long term (current) drug therapy; Z95.1 Presence of aortocoronary bypass graft; Z86.14 Personal history of Methicillin resistant Staphylococcus aureus infection; Z90.49 Acquired absence of other specified parts of digestive tract; Z87.891 Personal history of nicotine dependence
CPT/HCPCS: 36415; 71010; 80048; 80053; 82550; 82553; 83735; 83880; 84439; 84443; 84484; 85025; 93005; 93010; 94762; 96374; 99285; J1650; J1940; J3490; J7512

== ENCOUNTER 2017-06-24 00:03 | Emergency (ER) | payer OTHER, MEDICAID ==
--- NOTE | 2017-06-24 01:05 | ER Document Report ---
ED General - General Chief Complaint: CHF Exacerbation Stated Complaint: DIFFICULTY BREATHING, SWOLLEN LEGS Time Seen by Provider: 06/24/17 01:02 Notes: Patient is a 61-year-old male who presents with complaint of increased edema. He says approximately 2-3 weeks his edema complaints more and he is to come to the hospital to get further diuresis. He admitted for same thing last month. He says he came in early this time so that he would not be as bad. He says his breathing is just slightly worse when he lays flat. He says most of his edema is in his lower extremities. Takes Lasix 20 mg twice a day. He does have a normal ejection fraction on the echo that was performed earlier in the year. He denies any chest pain. He has no other complaints at this time. TRAVEL OUTSIDE OF THE [place] IN LAST 30 DAYS: No - Related Data Allergies/Adverse Reactions: No Known Allergies Allergy (Verified 05/30/17 02:28) Past Medical History - Social History Smoking Status: Never Smoker Frequency of alcohol use: None Drug Abuse: None Family History: Malignancy - Father with unknown cancer. Patient has suicidal ideation: No Patient has homicidal ideation: No - Past Medical History Cardiac Medical History: Reports: Hx Congestive Heart Failure, Hx Hypertension Pulmonary Medical History: Reports: Hx COPD, Hx Pneumonia Endocrine Medical History: Reports: Hx Hypothyroidism Renal/ Medical History: Denies: Hx Peritoneal Dialysis Skin Medical History: Reports Hx Cellulitis, Reports Hx MRSA Psychiatric Medical History: Denies: Hx Depression Infectious Medical History: Reports: Hx MRSA Past Surgical History: Reports: Hx Cardiac Surgery - cabag, Hx Cholecystectomy - gallstone. Patient describes what sounds like an ERCP, Hx Coronary Artery Bypass Graft - Immunizations Hx Diphtheria, Pertussis, Tetanus Vaccination: - unknown Review of Systems - Review of Systems Notes: My Normal Review Basic REVIEW OF SYSTEMS: CONSTITUTIONAL : Denies fever, chills, or sweats. Denies recent illness. EENT: Denies eye, ear, throat, or mouth pain or symptoms. Denies nasal or sinus congestion. CARDIOVASCULAR: Denies chest pain. RESPIRATORY: Some orthopnea. GASTROINTESTINAL: Denies abdominal pain. Denies nausea, vomiting, or diarrhea. Denies constipation. Last BM: MUSCULOSKELETAL: Lower extremity edema. SKIN: Denies rash or skin lesions. NEUROLOGICAL: Denies altered mental status or loss of consciousness. Denies headache. Denies weakness or paralysis or loss of use of either side. Denies problems with gait or speech. Denies sensory or motor loss. PSYCHIATRIC: Denies anxiety or stress or depression. ALL OTHER SYSTEMS REVIEWED AND NEGATIVE. Physical Exam - Vital signs Vitals: Temp Pulse Resp BP Pulse Ox 98.5 F 95 24 H 154/95 H 95 06/24/17 00:24 06/24/17 00:24 06/24/17 00:24 06/24/17 00:24 06/24/17 00:24 - Notes Notes: General Appearance: Well nourished, alert, cooperative, no acute distress, no obvious discomfort. Vitals: reviewed, See vital signs table. Head: no swelling or tenderness to the head Eyes: PERRL, EOMI, Conjuctiva clear Mouth: No decreasd moisture Lungs: No wheezing, few basilar rales., No rhonci, No accessory muscle use, good air exchange bilaterally. Heart: Normal rate, Regular rythm, No murmur, no rub Abdomen: Normal BS, soft, No rigidity, No abdominal tenderness, No guarding, no rebound, no abdominal masses, no organomegaly Extremities: strength 5/5 in all extremities, good pulses in all extremities, no swelling or tenderness in the extremities, 2+ bilateral equal lower extremity edema. Skin: warm, dry, appropriate color, no rash Neuro: speech clear, oriented x 3, normal affect, responds appropriately to questions. Course - Re-evaluation Re-evalutation: 06/24/17 02:05 Patient's laboratory evaluation shows a troponin of 0.064. I did trend this through his previous records. His troponin usually ranges anywhere from 0.03- 1. He has no chest pain and this is within his normal trend. Feel this is appropriate. His creatinine is 1.64 which is improved in comparison to his previous creatinine from his last admission. His BNP is 13,000 which is slightly elevated comparison to his last few BMPs of 10,000 and 11,000. Likely the patient looks very well. His chest x-ray is normal. His lung romeo just have very mild basilar rales on auscultation. He has no increased work of breathing. His vital signs are stable. I talked him at length about admission versus going home. I offered him inpatient admission versus outpatient treatment with increasing his morning dosage of Lasix to 40 mg. I did give him an IV dose of Lasix here. Patient says he prefers to try outpatient therapy. He says he will increase his morning dosage of Lasix to 40 mg and continue taking 20 mg afternoon. I encouraged him to return to ER immediately if he feels that his breathing is worsening, he has increased edema in his legs, or if he has any chest pain. Patient agrees with plan and will be discharged home. Dictation of this chart was performed using voice recognition software; therefore, there may be some unintended grammatical errors. - Vital Signs Vital signs: Temp Pulse Resp BP Pulse Ox 98.5 F 95 26 H 130/108 H 98 06/24/17 00:24 06/24/17 00:24 06/24/17 02:01 06/24/17 02:01 06/24/17 02:01 - Laboratory Result Diagrams: 06/24/17 00:57 06/24/17 00:57 Laboratory results interpreted by me: 06/24/17 06/24/17 06/24/17 00:57 00:57 00:57 Hgb 11.4 L Hct 33.9 L MCV 77 L MCH 25.7 L RDW 18.6 H Chloride 97 L BUN 23 H Creatinine 1.64 H Est GFR ( Amer) 52 L Est GFR (Non-Af Amer) 43 L Total Bilirubin 1.6 H Direct Bilirubin 0.7 H Alkaline Phosphatase 186 H Creatine Kinase 222 H CK-MB (CK-2) 7.21 H NT-Pro-B Natriuret Pep 74893 H Albumin 3.4 L - EKG Interpretation by Me Additional EKG results interpreted by me: 06/24/17 01:05 EKG is reviewed and interpreted by me. EKG shows normal sinus rhythm with a rate of [address] segment elevation or depression. No ischemic T-wave inversions. OR interval, QRS duration are within normal range. QT interval is prolonged. Old EKG for comparison is from May 30, 2017. Discharge - Discharge Clinical Impression: Lower extremity edema CHF exacerbation Qualifiers: Congestive heart failure type: unspecified congestive heart failure type Qualified Code(s): I50.9 - Heart failure, unspecified Condition: Good Disposition: HOME, SELF-CARE Additional Instructions: Your chest x-ray shows no evidence of fluid on your lungs. As discussed with you I want you to take 40 mg of Lasix in the morning and 20 mg in afternoon. Please follow-up with your doctor this Thursday for reevaluation. Return to the ER immediately if you have increasing edema in your legs, difficulty breathing, chest pain, or feel that you are worsening in any way. Forms: Return to Work
[2017-06-24] MEDS ORDERED: FUROSEMIDE INJ/PF 40 MG/4 ML SDV IV ONE (01:10)
[2017-06-24 01:17] LABS: ABSOLUTE BASOPHILS # (AUTO) 0.1 10^3/uL (0.0-0.2); ABSOLUTE EOSINOPHILS # (AUTO) 0.2 10^3/uL (0.0-0.6); ABSOLUTE LYMPHOCYTES (AUTO) 1.3 10^3/uL (0.5-4.7); ABSOLUTE MONOCYTES (AUTO) 0.7 10^3/uL (0.1-1.4); ABSOLUTE NEUT (AUTO) 6.3 10^3/uL (1.7-8.2); BASOPHILS % (AUTO) 1.1 % (0-2); EOSINOPHILS % (AUTO) 2.3 % (0-6); HEMATOCRIT 33.9 % (37.9-51.0); HEMOGLOBIN 11.4 g/dL (13.5-17.0); HGB HCT DIFFERENCE 0.3; LYMPHOCYTES % (AUTO) 15.1 % (13-45); MEAN CORPUSCULAR HEMOGLOBIN 25.7 pg (27.0-33.4); MEAN CORPUSCULAR HGB CONC 33.5 g/dL (32.0-36.0); MEAN CORPUSCULAR VOLUME 77 fl (80-97); RED BLOOD COUNT 4.41 10^6/uL (4.35-5.55); RED CELL DISTRIBUTION WIDTH 18.6 % (11.5-14.0); SEGMENTED NEUTROPHILS % (AUTO) 73.5 % (42-78); WHITE BLOOD COUNT 8.6 10^3/uL (4.0-10.5)
[2017-06-24 01:27] LABS: ALANINE AMINOTRANSFERASE 44 U/L (21-72); ALBUMIN 3.4 g/dL (3.5-5.0); ALKALINE PHOSPHATASE 186 U/L (38-126); ANION GAP 11 (5-19); ASPARTATE AMINO TRANSFERASE 30 U/L (17-59); BILIRUBIN,DIRECT 0.7 mg/dL (0.0-0.4); BILIRUBIN,TOTAL 1.6 mg/dL (0.2-1.3); BLOOD UREA NITROGEN 23 mg/dL (7-20); CALCIUM 8.8 mg/dL (8.4-10.2); CARBON DIOXIDE 30 mmol/L (22-30); CHLORIDE 97 mmol/L (98-107); CREATINE KINASE 222 U/L (55-170); CREATININE RESULT 1.64 mg/dL (0.52-1.25); GLUCOSE 110 mg/dL (75-110); POTASSIUM 3.7 mmol/L (3.6-5.0); SODIUM 137.5 mmol/L (137-145); TOTAL PROTEIN 6.5 g/dL (6.3-8.2)
--- NOTE | 2017-06-24 01:31 | RADIOLOGY REPORT (SQ) ---
EXAM DESCRIPTION: CHEST SINGLE VIEW COMPLETED DATE/TIME: 06/24/2017 1:15 am REASON FOR STUDY: CHF COMPARISON: Chest x-ray 05/30/2017. EXAM PARAMETERS: NUMBER OF VIEWS: One view. TECHNIQUE: Single frontal radiographic view of the chest acquired. RADIATION DOSE: NA LIMITATIONS: None. FINDINGS: LUNGS AND PLEURA: No consolidation, pneumothorax or pleural effusion. MEDIASTINUM AND HILAR STRUCTURES: Contour normal. Calcified lymph node at the mediastinum. HEART AND VASCULAR STRUCTURES: Heart upper normal limit in size. Normal vasculature. BONES: No acute findings. HARDWARE: Sternotomy wires are present. IMPRESSION: No acute radiographic finding in the chest. TECHNICAL DOCUMENTATION: JOB ID: [id number]
[2017-06-24 01:39] LABS: CREATINE KINASE MB 7.21 ng/mL (<4.55)
[2017-06-24 01:41] LABS: TROPONIN I 0.064 ng/mL
[2017-06-24 03:23] VITALS: BP 197/90
--- NOTE | 2017-06-24 17:36 | EKG REPORT ---
SEVERITY:- ABNORMAL ECG - SINUS RHYTHM LEFT ATRIAL ABNORMALITY LEFT AXIS DEVIATION PROLONGED QT INTERVAL : Confirmed by: Batool Hawley MD 24-Jun-2017 17:35:46
== END 2017-06-24 03:20 | disposition home or self-care (01) ==
LOC: ER 00:03
DX: R60.0 Localized edema (principal); I50.9 Heart failure, unspecified; R06.02 Shortness of breath; M79.89 Other specified soft tissue disorders
CPT/HCPCS: 93005; 99285; 96374; 36415; 82553; 82550; 85025; 80053; 84484; 83880; 71010; 93010; J1940

== ENCOUNTER 2017-09-30 05:25 | Emergency (ER) | payer OTHER, MEDICAID ==
[2017-09-30] MEDS ORDERED: IPRATROPIUM/ALBUTEROL 0.5-2.5 MG/3 ML AMPUL NEB ONE (05:57)
[2017-09-30] MEDS ORDERED: MAGNESIUM SULFATE/D5W 1 GM/100 ML RTUPB IV ONE ×2 (06:00→06:16)
[2017-09-30] MEDS ORDERED: ALBUTEROL SULFATE 0.083% NEB 2.5 MG/3 ML AMPUL NEB ONE ×2 (06:00→06:16)
[2017-09-30] MEDS ORDERED: METHYLPREDNISOLONE INJ 125 MG/2 ML SDV ONE (06:00)
[2017-09-30] MEDS ORDERED: METHYLPREDNISOLONE INJ 125 MG/2 ML SDV IV ONE (06:16)
[2017-09-30] MEDS ORDERED: FUROSEMIDE INJ/PF 40 MG/4 ML SDV IV ONE (06:16)
[2017-09-30 06:21] LABS: VENOUS BLOOD BASE EXCESS 1.7 mmol/L; VENOUS BLOOD HCO3 27.7 mmol/L (20-32); VENOUS BLOOD PCO2 49.6 mmHg (35-63); VENOUS BLOOD PH 7.37 (7.30-7.42)
[2017-09-30 06:24] LABS: ABSOLUTE BASOPHILS # (AUTO) 0.1 10^3/uL (0.0-0.2); ABSOLUTE EOSINOPHILS # (AUTO) 0.2 10^3/uL (0.0-0.6); ABSOLUTE MONOCYTES (AUTO) 0.9 10^3/uL (0.1-1.4); ABSOLUTE NEUT (AUTO) 10.7 10^3/uL (1.7-8.2); BASOPHILS % (AUTO) 0.7 % (0-2); EOSINOPHILS % (AUTO) 1.6 % (0-6); HEMATOCRIT 39.4 % (37.9-51.0); HEMOGLOBIN 12.7 g/dL (13.5-17.0); LYMPHOCYTES % (AUTO) 14.6 % (13-45); MEAN CORPUSCULAR HGB CONC 32.3 g/dL (32.0-36.0); MEAN CORPUSCULAR VOLUME 71 fl (80-97); MONOCYTES % (AUTO) 6.8 % (3-13); PLATELET COUNT 297 10^3/uL (150-450); RED BLOOD COUNT 5.54 10^6/uL (4.35-5.55); RED CELL DISTRIBUTION WIDTH 19.9 % (11.5-14.0); SEGMENTED NEUTROPHILS % (AUTO) 76.3 % (42-78); TOTAL CELLS COUNTED % (AUTO) 100 %
[2017-09-30 06:32] LABS: ALANINE AMINOTRANSFERASE 48 U/L (21-72); ALBUMIN 3.9 g/dL (3.5-5.0); ALKALINE PHOSPHATASE 217 U/L (38-126); ANION GAP 12 (5-19); ASPARTATE AMINO TRANSFERASE 50 U/L (17-59); BILIRUBIN,DIRECT 0.4 mg/dL (0.0-0.4); BILIRUBIN,TOTAL 0.8 mg/dL (0.2-1.3); BLOOD UREA NITROGEN 23 mg/dL (7-20); CALCIUM 9.7 mg/dL (8.4-10.2); CARBON DIOXIDE 28 mmol/L (22-30); CHLORIDE 96 mmol/L (98-107); CREATINE KINASE 98 U/L (55-170); GLUCOSE 117 mg/dL (75-110); LIPASE 105.3 U/L (23-300); MAGNESIUM 1.9 mg/dL (1.6-2.3); POTASSIUM 4.3 mmol/L (3.6-5.0); TOTAL PROTEIN 7.3 g/dL (6.3-8.2)
[2017-09-30 06:44] LABS: CREATINE KINASE MB 4.04 ng/mL (<4.55); TROPONIN I 0.033 ng/mL
--- NOTE | 2017-09-30 07:00 | RADIOLOGY REPORT (SQ) ---
EXAM DESCRIPTION: CHEST SINGLE VIEW CLINICAL HISTORY: difficulty breathing, chest pain COMPARISON: 06/24/2017 FINDINGS: Single frontal view of the chest. Prior median sternotomy. Cardiomegaly. Leads overlie the chest. Calcified right mediastinal lymph node. Mild pulmonary vascular congestion and interstitial edema. No pneumothorax or pleural effusion. Leads overlie the chest. No new osseous abnormalities. Upper abdominal soft tissues are unremarkable. IMPRESSION: 1. Cardiomegaly with interstitial edema.
--- NOTE | 2017-09-30 08:50 | EKG REPORT ---
SEVERITY:- ABNORMAL ECG - SINUS RHYTHM BIATRIAL ABNORMALITIES NONSPECIFIC INTRAVENTRICULAR CONDUCTION DELAY CONSIDER ANTERIOR INFARCT : Confirmed by: Batool Hawley MD 30-Sep-2017 08:50:36
[2017-09-30] MEDS ORDERED: FUROSEMIDE 40 MG TABLET PO ONE (09:50)
[2017-09-30] MEDS ORDERED: PREDNISONE 20 MG TABLET PO ONE (09:52)
--- NOTE | 2017-09-30 09:52 | ER Document Report ---
ED General - General Chief Complaint: Chest Congestion Stated Complaint: CHEST PAIN Time Seen by Provider: 09/30/17 06:15 TRAVEL OUTSIDE OF THE [place] IN LAST 30 DAYS: No - HPI Patient complains to provider of: Shortness of breath Notes: Patient has a history of shortness of breath COPD and CHF. Patient states shortness of breath ongoing for the last 3 days. Patient upon my evaluation speaking short choppy sentences approximately 5-6 word. Patient states he has been out of his Lasix states he receives medications from the [facility] and they have not shipped his medication yet. Patient denies any chest pain upon my evaluation denies any fevers chills nausea vomiting states he always has a productive cough. Patient denies any recent travel. - Related Data Allergies/Adverse Reactions: No Known Allergies Allergy (Verified 05/30/17 02:28) Past Medical History - Social History Smoking Status: Former Smoker Chew tobacco use (# tins/day): No Frequency of alcohol use: None Drug Abuse: None Family History: Malignancy - Father with unknown cancer. Patient has suicidal ideation: No Patient has homicidal ideation: No - Past Medical History Cardiac Medical History: Reports: Hx Congestive Heart Failure, Hx Heart Attack, Hx Hypertension Pulmonary Medical History: Reports: Hx COPD, Hx Pneumonia Endocrine Medical History: Reports: Hx Hypothyroidism Renal/ Medical History: Denies: Hx Peritoneal Dialysis Skin Medical History: Reports Hx Cellulitis, Reports Hx MRSA Psychiatric Medical History: Denies: Hx Depression Infectious Medical History: Reports: Hx MRSA Past Surgical History: Reports: Hx Cardiac Surgery - cabag, Hx Cholecystectomy - gallstone. Patient describes what sounds like an ERCP, Hx Coronary Artery Bypass Graft - Immunizations Hx Diphtheria, Pertussis, Tetanus Vaccination: - unknown Review of Systems - Review of Systems Constitutional: No symptoms reported EENT: No symptoms reported Cardiovascular: No symptoms reported Respiratory: Short of breath Gastrointestinal: No symptoms reported Genitourinary: No symptoms reported Male Genitourinary: No symptoms reported Musculoskeletal: No symptoms reported Skin: No symptoms reported Hematologic/Lymphatic: No symptoms reported Neurological/Psychological: No symptoms reported -: Yes All other systems reviewed and negative Physical Exam - Vital signs Vitals: Pulse Resp BP Pulse Ox 93 28 H 130/113 H 98 09/30/17 05:38 09/30/17 05:38 09/30/17 05:38 09/30/17 05:38 Interpretation: Normal - General General appearance: Appears well, Alert - HEENT Head: Normocephalic, Atraumatic Eyes: Normal Pupils: PERRL - Respiratory Respiratory status: No respiratory distress Chest status: Nontender Breath sounds: Rales, Rhonchi, Wheezing Chest palpation: Normal - Cardiovascular Rhythm: Regular Heart sounds: Normal auscultation Murmur: No - Abdominal Inspection: Normal Distension: No distension Bowel sounds: Normal Tenderness: Nontender Organomegaly: No organomegaly - Back Back: Normal, Nontender - Extremities General upper extremity: Normal inspection, Nontender, Normal color, Normal ROM , Normal temperature General lower extremity: Normal inspection, Nontender, Normal color, Normal ROM , Normal temperature, Normal weight bearing. No: Amrit's sign - Neurological Neuro grossly intact: Yes Cognition: Normal Orientation: AAOx4 [place] Coma Scale Eye Opening: Spontaneous [place] Coma Scale Verbal: Oriented Marg[place] Coma Scale Motor: Obeys Commands Marguerite Coma Scale Total: 15 Speech: Normal Motor strength normal: LUE, RUE, LLE, RLE Sensory: Normal - Psychological Associated symptoms: Normal affect, Normal mood - Skin Skin Temperature: Warm Skin Moisture: Dry Skin Color: Normal Course - Re-evaluation Re-evalutation: 09/30/17 15:20 Patient with dramatic improvement after breathing treatments and dose of Lasix. Patient was able to ambulate around the ER with no signs of hypoxia. Reevaluation patient sounded much better requesting be discharged home. Upon my evaluation the last evaluation family members at bedside smelling of smoke I did warn them to stop smoking around the patient. Patient with a mixture of CHF and COPD exacerbation was discharged home with steroids patient is continue his albuterol inhalers at home. Patient will also be given a prescription for Lasix we will increase the patient's Lasix to 3 times a day today patient will go back to twice daily dosing tomorrow. - Vital Signs Vital signs: Temp Pulse Resp BP Pulse Ox 98.8 F 100 20 134/98 H 95 09/30/17 11:36 09/30/17 11:36 09/30/17 11:36 09/30/17 11:36 09/30/17 11:36 - Laboratory Result Diagrams: 09/30/17 06:05 09/30/17 06:05 Laboratory results interpreted by me: 09/30/17 09/30/17 09/30/17 06:05 06:05 06:05 WBC 14.0 H Hgb 12.7 L MCV 71 L MCH 23.0 L RDW 19.9 H Absolute Neutrophils 10.7 H Sodium 136.0 L Chloride 96 L BUN 23 H Creatinine 1.67 H Est GFR ( Amer) 51 L Est GFR (Non-Af Amer) 42 L Glucose 117 H Alkaline Phosphatase 217 H NT-Pro-B Natriuret Pep 9110 H Discharge - Discharge Clinical Impression: CHF exacerbation Qualifiers: Congestive heart failure type: unspecified Qualified Code(s): I50.9 - Heart failure, unspecified COPD (chronic obstructive pulmonary disease) Qualifiers: COPD type: unspecified COPD Qualified Code(s): J44.9 - Chronic obstructive pulmonary disease, unspecified Condition: Good Disposition: HOME, SELF-CARE Instructions: Chronic Obstructive Lung Disease ([facility]), Congestive Heart Failure ([facility]), Stop Smoking ([facility]) Additional Instructions: Your evaluation today is consistent with a CHF and COPD exacerbation. Please take steroids as prescribed. Please make sure that you are taking your lasix as prescribed. Please take an extra dose of Lasix today at noon and to take her nighttime dose of Lasix. Please avoid smoking or any by that does smoke. Uses her inhalers as prescribed return to the ER symptoms worsen Prescriptions: Furosemide [Lasix 40 mg Tablet] 40 mg PO BID #20 tablet Prednisone [Deltasone 20 mg Tablet] 2 tab PO DAILY 5 Days tablet
[2017-09-30 11:37] VITALS: BP 134/98
--- NOTE | 2017-10-01 12:02 | EKG REPORT ---
SEVERITY:- ABNORMAL ECG - SINUS TACHYCARDIA ATRIAL PREMATURE COMPLEX PROBABLE LEFT ATRIAL ABNORMALITY ABNRM R PROG, CONSIDER ASMI OR LEAD PLACEMENT NONSPECIFIC T ABNORMALITIES, LATERAL LEADS BORDERLINE PROLONGED QT INTERVAL : Confirmed by: Kinza Meza 01-Oct-2017 12:01:07
== END 2017-09-30 11:38 | disposition home or self-care (01) ==
LOC: ER 05:25
DX: I11.0 Hypertensive heart disease with heart failure (principal); I50.9 Heart failure, unspecified; T50.1X6A Underdosing of loop [high-ceiling] diuretics, initial encounter; Z91.128 Patient's intentional underdosing of medication regimen for other reason; Z91.14 Patient's other noncompliance with medication regimen; J44.9 Chronic obstructive pulmonary disease, unspecified; R05 Cough; I25.2 Old myocardial infarction; Z87.891 Personal history of nicotine dependence; Z95.1 Presence of aortocoronary bypass graft; Z87.01 Personal history of pneumonia (recurrent)
CPT/HCPCS: 93005; 99284; 96375; 96365; 36415; 82553; 82550; 83690; 83735; 85025; 80053; 84484; 82803; 83880; 71045; 93010; J1940; J2930; J3475; J7512

== ENCOUNTER 2017-11-16 13:39 | Emergency (ER) | payer MEDICAID, OTHER ==
--- NOTE | 2017-11-16 15:12 | ER Document Report ---
ED Medical Screen (RME) - General Chief Complaint: Fall Injury Stated Complaint: FALL/RIB PAIN Time Seen by Provider: 11/16/17 15:07 TRAVEL OUTSIDE OF THE [place] IN LAST 30 DAYS: No - HPI Notes: 11/16/17 15:08 Patient is a 62-year-old male with a history of COPD and hypertension who presents to the ED complaining of left lower rib pain status post fall into his night stand last night. Patient states he is getting up when he lost his balance and fell into the nightstand. Patient states that he has had pain to that area since then. Patient also has noticed some bruising to his left lower abdomen. Patient is not currently on any blood thinners. Patient states that he is otherwise eating and drinking without difficulties. He is urinating normally and having normal bowel movements. Patient states that he does have pain to the left lower rib area with deep inspiration but otherwise is able to ambulate without any difficulties or dyspnea on exertion or chest pain. Denies any drug allergies. Denies any headache, fever, neck pain, URI, sore throat, chest pain, palpitations, syncope, cough, shortness of breath, wheeze, dyspnea, nausea/vomiting/diarrhea, urinary retention, dysuria, hematuria, loss of control of bowel or bladder, numbness/tingling, saddle anesthesia, muscle paralysis/weakness, or rash. I have treated and performed a rapid initial assessment of this patient. A comprehensive ED assessment and evaluation of the patient, analysis of test results and completion of medical decision making process will be conducted by additional ED providers. PHYSICAL EXAMINATION: GENERAL: Well-appearing, well-nourished and in no acute distress. A&Ox4. Answers questions appropriately. Chest: + tenderness to the left lower ribs w/o obvious step-off, deformity, or ecchymosis. No flail chest. Equal rise/fall otherwise. LUNGS: Breath sounds clear to auscultation bilaterally and equal. No wheezes rales or rhonchi. HEART: Regular rate and rhythm without murmurs, rubs, gallops. ABDOMEN: Soft, nondistended abdomen. No guarding, no rebound. No masses appreciated. Normal bowel sounds present. No CVA tenderness bilaterally. + ecchymosis left lateral lower abd. + tenderness to the left lateral lower quadrant in the area of ecchymosis (cannot elicit thorough abd exam w/o table, however). Extremities: No cyanosis, clubbing, or edema b/l. NEUROLOGICAL: Normal speech, normal gait. PSYCH: Normal mood, normal affect. - Related Data Allergies/Adverse Reactions: No Known Allergies Allergy (Verified 11/16/17 13:41) Past Medical History - Social History Chew tobacco use (# tins/day): No Frequency of alcohol use: None Drug Abuse: None - Past Medical History Cardiac Medical History: Reports: Hx Congestive Heart Failure, Hx Heart Attack, Hx Hypertension Pulmonary Medical History: Reports: Hx COPD, Hx Pneumonia Endocrine Medical History: Reports: Hx Hypothyroidism Renal/ Medical History: Denies: Hx Peritoneal Dialysis Skin Medical History: Reports Hx Cellulitis, Reports Hx MRSA Psychiatric Medical History: Denies: Hx Depression Infectious Medical History: Reports: Hx MRSA Past Surgical History: Reports: Hx Cardiac Surgery - cabag, Hx Cholecystectomy - gallstone. Patient describes what sounds like an ERCP, Hx Coronary Artery Bypass Graft - Immunizations Hx Diphtheria, Pertussis, Tetanus Vaccination: - unknown Physical Exam - Vital signs Vitals: Temp Pulse Resp BP Pulse Ox 98.4 F 103 H 17 141/87 H 97 11/16/17 14:06 11/16/17 14:06 11/16/17 14:06 11/16/17 14:06 11/16/17 14:06 Course - Vital Signs Vital signs: Temp Pulse Resp BP Pulse Ox 98.4 F 103 H 17 141/87 H 97 11/16/17 14:06 11/16/17 14:06 11/16/17 14:06 11/16/17 14:06 11/16/17 14:06
[2017-11-16 15:49] LABS: APPEARANCE,URINE CLEAR; BILIRUBIN,URINE NEGATIVE (NEGATIVE); COLOR,URINE STRAW; GLUCOSE, URINE NEGATIVE (NEGATIVE); KETONES,URINE NEGATIVE (NEGATIVE); LEUKOCYTE ESTERASE,URINE NEGATIVE (NEGATIVE); NITRITE,URINE NEGATIVE (NEGATIVE); PROTEIN,URINE NEGATIVE (NEGATIVE); URINE SPECIFIC GRAVITY 1.003; UROBILINOGEN,URINE NEGATIVE mg/dL (<2.0)
--- NOTE | 2017-11-16 16:06 | RADIOLOGY REPORT (SQ) ---
EXAM DESCRIPTION: RIBS LEFT W/PA CHEST COMPLETED DATE/TIME: 11/16/2017 3:48 pm REASON FOR STUDY: left lower rib pain s/p fall COMPARISON: None. TECHNIQUE: Frontal view of the chest and additional views of the left ribs acquired. NUMBER OF VIEWS: Three views LIMITATIONS: None. FINDINGS: FRONTAL CXR: No pneumothorax. No pleural effusion. No atelectasis or infiltrates. RIBS: No displaced rib fractures. No lytic or blastic bony lesions. OTHER: No other significant finding. IMPRESSION: NO PNEUMOTHORAX. NO DISPLACED RIB FRACTURES. COMMENT: SITE OF TRAUMA/COMPLAINT MARKED/STAMP COMPLETED: No TECHNICAL DOCUMENTATION: JOB ID: [id number] [employer]- All Rights Reserved Reading location - IP/workstation name: [email or web address]
[2017-11-16] MEDS ORDERED: ONDANSETRON 4 MG TAB.RAPDIS PO ONE (18:13)
[2017-11-16] MEDS ORDERED: LIDOCAINE 5% (700 MG) TRANSDERMAL ADH..PATCH TP ONE ×2 (18:13→19:15)
[2017-11-16] MEDS ORDERED: DOXYCYCLINE HYCLATE 100 MG TABLET PO ONE (18:13)
[2017-11-16] MEDS ORDERED: ACETAMINOPHEN WITH CODEINE #3 TABLET PO ONE (18:14)
--- NOTE | 2017-11-16 18:16 | ER Document Report ---
ED Fall - General Mode of Arrival: Ambulatory Information source: Patient TRAVEL OUTSIDE OF THE [place] IN LAST 30 DAYS: No <CYRIL OLIVEIRA - Last Filed: 11/16/17 18:51> <SALLY ANDERSON - Last Filed: 11/16/17 22:13> - General Chief Complaint: Fall Injury Stated Complaint: FALL/RIB PAIN Time Seen by Provider: 11/16/17 15:07 Notes: Patient is a 62 year old male presenting to the emergency department complaining of left rib pain secondary to a mechanical fall onset today. Patient also complains of swelling to his left arm stating he believes it is MRSA due to the swelling appearing similar to a previous MRSA infection. Patient denies any other symptoms. (CYRIL OLIVEIRA) - Related data Allergies/Adverse Reactions: No Known Allergies Allergy (Verified 11/16/17 13:41) Past Medical History - General Information source: Patient - Social History Smoking Status: Former Smoker Chew tobacco use (# tins/day): No Frequency of alcohol use: None Drug Abuse: None Family History: Malignancy - Father with unknown cancer. Patient has suicidal ideation: No Patient has homicidal ideation: No - Past Medical History Cardiac Medical History: Reports: Hx Congestive Heart Failure, Hx Heart Attack, Hx Hypertension Pulmonary Medical History: Reports: Hx COPD, Hx Pneumonia Endocrine Medical History: Reports: Hx Hypothyroidism Skin Medical History: Reports Hx Cellulitis, Reports Hx MRSA Infectious Medical History: Reports: Hx MRSA Past Surgical History: Reports: Hx Cardiac Surgery - cabag, Hx Cholecystectomy - gallstone. Patient describes what sounds like an ERCP, Hx Coronary Artery Bypass Graft - Immunizations Hx Diphtheria, Pertussis, Tetanus Vaccination: - unknown <CYRIL OLIVEIRA - Last Filed: 11/16/17 18:51> Review of Systems - Review of Systems Constitutional: No symptoms reported EENT: No symptoms reported Cardiovascular: No symptoms reported Respiratory: No symptoms reported Gastrointestinal: No symptoms reported Genitourinary: No symptoms reported Male Genitourinary: No symptoms reported Musculoskeletal: See HPI Skin: No symptoms reported Hematologic/Lymphatic: No symptoms reported Neurological/Psychological: No symptoms reported -: Yes All other systems reviewed and negative <CYRIL OLIVEIRA - Last Filed: 11/16/17 18:51> Physical Exam <CYRIL OLIVEIRA - Last Filed: 11/16/17 18:51> <SALLY ANDERSON - Last Filed: 11/16/17 22:13> - Vital signs Vitals: Temp Pulse Resp BP Pulse Ox 98.4 F 103 H 17 141/87 H 97 11/16/17 14:06 11/16/17 14:06 11/16/17 14:06 11/16/17 14:06 11/16/17 14:06 - Notes Notes: GENERAL: Alert, interacts well. No acute distress. HEAD: Normocephalic, atraumatic. EYES: Pupils equal, round, and reactive to light. Extraocular movements intact. ENT: Oral mucosa moist, tongue midline. NECK: Full range of motion. Supple. Trachea midline. LUNGS: Clear to auscultation bilaterally, no wheezes, rales, or rhonchi. No respiratory distress. HEART: Regular rate and rhythm. No murmurs, gallops, or rubs. ABDOMEN: Soft, non-tender. Non-distended. Bowel sounds present in all 4 quadrants. EXTREMITIES: Moves all 4 extremities spontaneously. Area of swelling which is raised, erythmeatous and warm, no fluctuance. NEUROLOGICAL: Alert and oriented x3. Normal speech. PSYCH: Normal affect, normal mood. SKIN: Warm, dry, normal turgor. No rashes or lesions noted. (CYRIL OLIVEIRA) Course <CYRIL OLIVEIRA - Last Filed: 11/16/17 18:51> - Diagnostic Test Radiology reviewed: Reports reviewed <SALLY ANDERSON - Last Filed: 11/16/17 22:13> - Re-evaluation Re-evalutation: 11/16/17 Patient with recent fall. mild reproducible chest wall tenderness on exam. Breathing well. Vitals stable. Patient requests to go home. He also has an area concern on his left forearm that is red and raised. No fluctuance or drainable abscess. Patient will be given doxycycline for this. Will be given Lidoderm patches and Tylenol with codeine for pain. He is to follow-up with his doctor and return if he has worsening symptoms. He is to use incentive spirometer at home. Understands and agrees with plan. Stable for discharge. (SALLY ANDERSON) - Vital Signs Vital signs: Temp Pulse Resp BP Pulse Ox 98.3 F 104 H 18 148/94 H 100 11/16/17 19:06 11/16/17 19:06 11/16/17 19:06 11/16/17 19:06 11/16/17 19:06 Discharge <CYRIL OLIVEIRA - Last Filed: 11/16/17 18:51> <SALLY ANDERSON - Last Filed: 11/16/17 22:13> - Discharge Clinical Impression: Early abscess Chest wall injury Qualifiers: Encounter type: initial encounter Qualified Code(s): S29.9XXA - Unspecified injury of thorax, initial encounter Condition: Stable Disposition: HOME, SELF-CARE Instructions: Abscess ([facility]), Chest Wall Pain ([facility]) Additional Instructions: Please return for wound reevaluation within 48 hours. Please return sooner if you have any further concerns. Make sure you are taking deep breaths so that you do not get pneumonia. Please follow-up with your doctor as scheduled. Prescriptions: Acetaminophen with Codeine [Tylenol with Codeine #3 Tablet] 1 tab PO Q4 PRN #14 tab PRN Reason: Doxycycline Hyclate 100 mg PO BID #20 capsule Lidocaine [Lidoderm 5% (700 mg) Transdermal Patch] 1 patch TP DAILY #30 adh..patch Scribe Attestation: 11/16/17 22:13 I personally performed the services described in the documentation, reviewed and edited the documentation which was dictated to the scribe in my presence, and it accurately records my words and actions. (SALLY ANDERSON) Scribe Documentation - Scribe Written by Jesseniae:: Sanjana Huitron, 11/16/2017 18:52 acting as scribe for :: Lazarsu <CYRIL OLIVEIRA - Last Filed: 11/16/17 18:51>
[2017-11-16 19:23] VITALS: BP 148/94
== END 2017-11-16 19:23 | disposition home or self-care (01) ==
LOC: ER 13:39
DX: S29.9XXA Unspecified injury of thorax, initial encounter (principal); W19.XXXA Unspecified fall, initial encounter; L02.91 Cutaneous abscess, unspecified; I10 Essential (primary) hypertension; I25.2 Old myocardial infarction; J44.9 Chronic obstructive pulmonary disease, unspecified; Z86.14 Personal history of Methicillin resistant Staphylococcus aureus infection; Z87.891 Personal history of nicotine dependence; Z95.1 Presence of aortocoronary bypass graft
CPT/HCPCS: 99283; 81001; 71101; S0119

== ENCOUNTER 2017-11-18 13:09 | Emergency (ER) | payer MEDICAID, OTHER ==
[2017-11-18] MEDS ORDERED: DOXYCYCLINE HYCLATE 100 MG TABLET PO ONE (14:19)
[2017-11-18] MEDS ORDERED: LIDOCAINE 1% INJ-PF (10 MG/ML) 30 ML SDV INJ ONE (14:19)
--- NOTE | 2017-11-18 14:23 | ER Document Report ---
ED Skin Rash/Insect Bite/Abscs - General Chief Complaint: Abscess Stated Complaint: SKIN ISSUES Time Seen by Provider: 11/18/17 14:11 Mode of Arrival: Ambulatory Information source: Patient TRAVEL OUTSIDE OF THE [place] IN LAST 30 DAYS: No - HPI Patient complains to provider of: Tender/swollen area Notes: Patient is here with complaints of left forearm abscess. He was seen here 2 days ago for left rib injury as well as some redness to the left forearm. He has a prior history of MRSA. He was written prescriptions for doxycycline, lidocaine patches, Tylenol with codeine, but states that he only received the Tylenol with codeine prescription and has not been taking any antibiotics. The redness to the arm has not improved over the last 2 days. It is not significantly worsened. He has had no fevers. He denies any numbness, tingling , weakness. He denies any nausea, vomiting, diarrhea. He denies any shortness of breath. States that his rib pain is improving. He denies any other complaints at this time. - Related Data Allergies/Adverse Reactions: No Known Allergies Allergy (Verified 11/16/17 13:41) Past Medical History - Social History Smoking Status: Former Smoker Family History: Malignancy - Father with unknown cancer. Patient has suicidal ideation: No Patient has homicidal ideation: No - Past Medical History Cardiac Medical History: Reports: Hx Congestive Heart Failure, Hx Heart Attack, Hx Hypertension Pulmonary Medical History: Reports: Hx COPD, Hx Pneumonia Endocrine Medical History: Reports: Hx Hypothyroidism Renal/ Medical History: Denies: Hx Peritoneal Dialysis Skin Medical History: Reports Hx Cellulitis, Reports Hx MRSA Psychiatric Medical History: Denies: Hx Depression Infectious Medical History: Reports: Hx MRSA Past Surgical History: Reports: Hx Cardiac Surgery - cabag, Hx Cholecystectomy - gallstone. Patient describes what sounds like an ERCP, Hx Coronary Artery Bypass Graft - Immunizations Hx Diphtheria, Pertussis, Tetanus Vaccination: - unknown Review of Systems - Review of Systems -: Yes All other systems reviewed and negative Physical Exam - Vital signs Vitals: Temp Pulse Resp BP Pulse Ox 97.6 F 103 H 22 H 137/94 H 94 11/18/17 13:23 11/18/17 13:23 11/18/17 13:23 11/18/17 13:23 11/18/17 13:23 - Notes Notes: GENERAL: alert, cooperative, nontoxic, no distress. HEAD: normocephalic, atraumatic EYES: conjunctiva pink without discharge, no external redness or swelling. EARS: no external swelling, no external redness NOSE: atraumatic, no external swelling MOUTH/THROAT: mucous membranes moist and pink NECK: soft, supple, full range of motion, no meningismus. CHEST: no distress, lungs clear and equal throughout. No wheezing, rales, rhonchi. CARDIAC: regular rate and rhythm, no murmur, normal capillary refill, normal pulses. BACK: full range of motion, no CVA tenderness. EXTREMITIES: full range of motion of all extremities. No redness, no swelling. NEURO: alert and oriented 3, no focal deficits, full range of motion of all extremities. PYSCH: appropriate mood, affect. Patient is cooperative. SKIN: pink, warm, dry, no rash. Patient is noted to have a slightly fluctuant area to the dorsum of the left forearm with some mild surrounding erythema and mild tenderness. No significant cellulitis. It is not circumferential. Compartments are soft. Normal neurovascular exam distally. Course - Re-evaluation Re-evalutation: 11/18/17 15:14 The patient is nontoxic appearing with stable vitals. The patient was seen here 2 days ago for an abscess to the left forearm. He was written a prescription for doxycycline, but for some reason was not actually given the prescription and has not been taking antibiotics over the last 2 days. He continues to have the redness and swelling. He is noted to be fluctuant today. I was able to perform an I&D and expressed purulent material from the abscess. The patient was given a dose of doxycycline here in the ED and will be discharged home with another prescription for the doxycycline. He was instructed to apply warm compresses to the sore area. Follow-up if it does not seem to be improving in the next 2 days, sooner for increasing pain, high fever , persistent vomiting, increased redness, or for any further concerns. The patient is noted to have elevated blood pressure during today's emergency department visit. The patient was informed of this finding. The patient was instructed that this may be related to pre-hypertension and requires further evaluation with a primary care provider. The patient has no hypertensive symptoms at this time. The patient's emergency department workup and current diagnosis were explained to the patient and or family. Follow-up instructions were provided. Medications if prescribed were discussed. Instructions for when to return to the emergency department including specific worrisome symptoms were discussed with the patient and/or family. - Vital Signs Vital signs: Temp Pulse Resp BP Pulse Ox 97.6 F 103 H 22 H 137/94 H 94 11/18/17 13:23 11/18/17 13:23 11/18/17 13:23 11/18/17 13:23 11/18/17 13:23 Procedures - Incision and Drainage Left forearm Type: Simple Anesthetic type: 1% Lidocaine mL's of anesthetic: 5 Blade size: 11 I&D procedure: Shurclens applied, Other - Probe with hemostats to break up loculations Incision Method: Incision made by scalpel Amount/type of drainage: Small amount of purulent and bloody drainage. Notes: 11/18/17 15:16 Patient tolerated procedure well with no immediate complications. Sterile dressing was applied. Discharge - Discharge Clinical Impression: Abscess of left forearm Condition: Stable Disposition: HOME, SELF-CARE Instructions: Abscess ([facility]), Post Incision and Drainage Additional Instructions: Take medications as prescribed. Apply warm compresses to the sore area. Follow -up if not better in the next 2-3 days, sooner for increasing pain, high fever, increased redness, persistent vomiting, or for any further concerns. Your blood pressure was elevated during today's visit. Have this rechecked with your doctor. Prescriptions: Doxycycline Hyclate 100 mg PO BID #14 capsule Forms: Elevated Blood Pressure, Smoking Cessation Education Referrals: SANTOSH FLEMING MD [Primary Care Provider] - Follow up as needed
[2017-11-18 15:31] VITALS: BP 161/101
== END 2017-11-18 15:47 | disposition home or self-care (01) ==
LOC: ER 13:09
PROC: 0H9EXZZ Drainage of Left Lower Arm Skin, External Approach (ICD-10-PCS; principal; 2017-11-18)
DX: L02.414 Cutaneous abscess of left upper limb (principal); I50.9 Heart failure, unspecified; I10 Essential (primary) hypertension; J44.9 Chronic obstructive pulmonary disease, unspecified; E03.9 Hypothyroidism, unspecified; Z86.14 Personal history of Methicillin resistant Staphylococcus aureus infection; I25.2 Old myocardial infarction; Z90.49 Acquired absence of other specified parts of digestive tract; Z95.2 Presence of prosthetic heart valve
CPT/HCPCS: 99283

== ENCOUNTER 2017-12-04 03:28 | Observation (INO) | payer OTHER ==
--- NOTE | 2017-12-04 03:52 | RADIOLOGY REPORT (SQ) ---
EXAM DESCRIPTION: CHEST SINGLE VIEW CLINICAL HISTORY: 62 years Male, stroke SXs COMPARISON: 09.30.18, 10. NUMBER OF VIEWS/TECHNIQUE: 1/AP LIMITATIONS: None. FINDINGS: Hazy patchiness of the right lower hemithorax centrally. 0.6 cm nodular opacity of the right upper hemithorax overlies the right third anterior rib. Pulmonary vascular congestion. Calcified granuloma at the right paracentral upper mediastinum. Normal cardiac silhouette. Intact bony thorax. IMPRESSION: Possible right lower lobar pneumonia; differential diagnosis includes mild pulmonary edema. Indeterminate 0.6 mm nodularity of the right upper lobe. Recommend CR/CT surveillance including at 7-12 weeks following initiation of clinically warranted therapy.
--- NOTE | 2017-12-04 04:13 | ER Document Report ---
ED NIH Stroke Scale - NIH Stroke Scale *: 1. NIH scale should be completed with appropriate accompanying assessment tools. *: 2. The NIH should reflect what the patient is capable of doing and should not be coached by the clinician. 1a. Level of Consciousness: 0=Alert;keenly responsive -: 1=Drowsy -: 2=Obtunded -: 3=Coma/unresponsive or reflex to noxious stimuli. 1a. Responses: 0 1b. Orientation Questions: a. What month is it? -: b. How old are you? -: 0=Answers both questions correctly. -: 1=Answers one question correctly or patient is intubated or has orotracheal trauma. -: 2=Answers neither question correctly. 1b. Responses: 0 1c. Response to commands: a. Open and close eyes? -: b. Coffee Brewer and release hand? -: Credit is given despite weakness. Demonstration of task is permitted. Substitute command if hands cannot be used. -: 0=Performs both tasks correctly -: 1=Performs one task correctly -: 2=Performs neither task correctly 1c. Responses: 0 2. Gaze: Establish eye contact and instruct patient to "Follow my finger" -: 0=Normal -: 1=Partial gaze palsy. Gaze is abnormal in one or both eyes, but where forced deviation or total gaze paresis is not present. -: 2=Forced deviation or total gaze paresis. 2. Responses: 0 3. Visual Grimm: Sees fingers in all four quadrants. -: 0=No visual loss. -: 1=Partial hemianopsia. -: 2=Complete hemianopsia. -: 3=Bilateral hemianopsia (including Cortical blindness) 3. Responses: 0 4. Facial Movement: Instruct patient to: -: a. Show me your teeth -: b. Raise your eyebrows -: c. Close your eyes -: d. Smile -: 0=Normal symmetrical movement -: 1=Minor paralysis (flattened nasolabial fold, asymmetry on smiling). -: 2=Partial paralysis (total or near total paralysis of lower face). -: 3=Complete paralysis of upper and lower face 4. Responses: 0 5. Motor functions (left arm): Alternate sides and extend each arm with palms down (90 degrees if sitting or 45 degrees for supine). -: 0=No drift;limb holds for full 10 seconds. -: 1=Drift; limb holds but drifts down before full 10 seconds, but does not hit bed. -: 2=Some effort against gravity; limb cannot get to or maintain position. -: 3=No effort against gravity; limb falls. -: 4=No movement. -: UN=Amputation, joint fusion, explain in comments. 5. Responses (left arm): 0 5. Motor Functions (right arm): Alternate sides and extend each arm with palms down (90 degrees if sitting or 45 degrees for supine). -: 0=No drift;limb holds for full 10 seconds. -: 1=Drift; limb holds but drifts down before full 10 seconds, but does not hit bed. -: 2=Some effort against gravity; limb cannot get to or maintain position. -: 3=No effort against gravity; limb falls. -: 4=No movement. -: UN=Amputation, joint fusion, explain in comments. 5. Responses (right arm): 0 6. Motor Functions (left leg): With patient lying supine, alternate sides and extend each leg (30 degrees always while supine). -: 0=No drift, leg holds position for full 5 seconds -: 1=Drift; leg falls before full 5 seconds but does not hit bed. -: 2=Some effort against gravity, leg falls to bed but some effort against gravity. -: 3=No effort against gravity, leg falls to bed immediately. -: 4=No movement. -: UN=Amputation, joint fusion; explain in comments. 6. Responses (left leg): 0 6. Motor Functions (right leg): With patient lying supine, alternate sides and extend each leg (30 degrees always while supine). -: 0=No drift, leg holds position for full 5 seconds -: 1=Drift; leg falls before full 5 seconds but does not hit bed. -: 2=Some effort against gravity, leg falls to bed but some effort against gravity. -: 3=No effort against gravity, leg falls to bed immediately. -: 4=No movement. -: UN=Amputation, joint fusion; explain in comments. 6. Responses (right leg): 0 7. Limb Ataxia: With eyes open instruct patient to: -: a. "Touch your finger to your nose". -: b. "Touch your heel to your frederick" -: 0=Absent -: 1=Present in one limb. -: 2=Present in two limbs. -: UN=Amputation or joint fusion; explain in comments. 7. Responses: 0 8. Sensory: Test sensation using pinprick or noxious stimuli. Test as many body parts as possible. -: 0=Normal;no sensory loss -: 1=Mile to moderate sensory loss (patient feels pin prick but is less sharp on affected side). -: 2=Severe or total sensory loss. 8. Responses: 1 9. Best Language: Instruct patient to: -: a. "Describe what you see in this picture." -: b. "Name the items in this picture." -: c. "Read these sentences." -: 0=No aphasia, normal -: 1=Mild to moderate aphasia. -: 2=Severe aphasia -: 3=Mute, global aphasia, no usable speech or auditory comprehension. 9. Responses: 0 10. Articulation, Dysarthia: Instruct patient to: -: "Read these words" or "Repeat these words" -: 0=Normal -: 1=Mild to moderate; patient may slur some words but can be understood without difficulty. -: 2=Severe; patients speech so slurred as to be unintelligible in the absence of dysphasia. -: UN=Intubated or other physical barrier, explain in comments. 10. Responses: 0 11. Extinction or inattention: 0=No abnormality -: 1= Visual, tactile, auditory, spatial, or personal inattention or extinction to bilateral simulation in one or the sensory modalities. -: 2=Profound nabila-inattention or nabila-inattention to more than one modality; does not recognize own hand. 11. Responses: 0 Total Score: 1 Notes: some numbness left arm. some ataxia.
--- NOTE | 2017-12-04 04:17 | RADIOLOGY REPORT (SQ) ---
EXAM DESCRIPTION: CT HEAD WITHOUT CLINICAL HISTORY: 62 years Male, stroke SXs COMPARISON: None. TECHNIQUE: No contrast. Coronal and sagittal reformat. This exam was performed according to our departmental dose-optimization program, which includes automated exposure control, adjustment of the mA and/or kV according to patient size and/or use of iterative reconstruction technique. FINDINGS: No hemorrhage. No mass, mass effect, or midline shift. Small focal encephalomalacia of the left parietal lobe may indicate chronic small infarct versus summation artifact. Mild to moderate white matter microangiopathy pattern. Mild cerebral volume loss. Moderate left inferior maxillary mucosal thickening and 1.1 cm left maxillary retention cyst-mucocele.Brain and extra-axial structures appear otherwise intact. IMPRESSION: No acute findings. If there is suspicion for acute ischemia, consider CT/MR surveillance within 48 to 72 hours.
--- NOTE | 2017-12-04 04:17 | ER Document Report ---
ED General - General Chief Complaint: S/S of Possible Stroke Stated Complaint: POSSIBLE STROKE Time Seen by Provider: 12/04/17 03:44 Notes: Patient is a 62-year-old male who presents with complaint of ataxia for 1 day. Says it feels very shuffled at times very hard to walk. Says he feels off balance. He says it was worse earlier in the day but has improved some. Tonight he started to notice around 9 PM he has had some numbness in the right side of his face and also down his right arm. Triage note says that he had some weakness to right side of face, but he denies this. He denies any facial droop. He also notes around this time that he started having some hoarseness of his voice. He denies previous history of stroke. The only blood thinner he takes is aspirin. Denies any recent fevers or infections. He has no other complaints this time. Recent trauma or injuries. TRAVEL OUTSIDE OF THE [place] IN LAST 30 DAYS: No - Related Data Allergies/Adverse Reactions: No Known Allergies Allergy (Verified 11/16/17 13:41) Past Medical History - Social History Smoking Status: Unknown if Ever Smoked Frequency of alcohol use: None Drug Abuse: None Family History: Malignancy - Father with unknown cancer. - Past Medical History Cardiac Medical History: Reports: Hx Congestive Heart Failure, Hx Heart Attack, Hx Hypertension Pulmonary Medical History: Reports: Hx COPD, Hx Pneumonia Endocrine Medical History: Reports: Hx Hypothyroidism Renal/ Medical History: Denies: Hx Peritoneal Dialysis Skin Medical History: Reports Hx Cellulitis, Reports Hx MRSA Psychiatric Medical History: Denies: Hx Depression Infectious Medical History: Reports: Hx MRSA Past Surgical History: Reports: Hx Cardiac Surgery - cabag, Hx Cholecystectomy - gallstone. Patient describes what sounds like an ERCP, Hx Coronary Artery Bypass Graft - Immunizations Hx Diphtheria, Pertussis, Tetanus Vaccination: - unknown Review of Systems - Review of Systems Notes: My Normal Review Basic REVIEW OF SYSTEMS: CONSTITUTIONAL : Denies fever, chills, or sweats. Denies recent illness. EENT: Denies eye, ear, throat, or mouth pain or symptoms. Denies nasal or sinus congestion. RESPIRATORY: Denies cough, cold, or chest congestion. Denies shortness of breath, difficulty breathing, or wheezing. GASTROINTESTINAL: Denies abdominal pain. Denies nausea, vomiting, or diarrhea. Denies constipation. Last BM: GENITOURINARY: Denies difficulty urinating, painful urination, burning, frequency, or blood in urine. MUSCULOSKELETAL: Denies neck or back pain or joint pain or swelling. SKIN: Denies rash or skin lesions. NEUROLOGICAL: Denies altered mental status or loss of consciousness. Denies headache. Denies weakness or paralysis or loss of use of either side. Difficulty ambulating. Denies sensory or motor loss. ALL OTHER SYSTEMS REVIEWED AND NEGATIVE. Physical Exam - Vital signs Vitals: Temp Pulse Resp BP Pulse Ox 97.6 F 106 H 20 154/102 H 98 12/04/17 03:36 12/04/17 03:36 12/04/17 03:36 12/04/17 03:36 12/04/17 03:36 - Notes Notes: General Appearance: Well nourished, alert, cooperative, no acute distress, no obvious discomfort. Vitals: reviewed, See vital signs table. Head: no swelling or tenderness to the head Eyes: PERRL, EOMI, Conjuctiva clear Mouth: No decreasd moisture Throat: No tonsillar inflammation, No airway obstruction, No lymphadenopathy Neck: Supple, No no neck swelling Lungs: No wheezing, No rales, No rhonci, No accessory muscle use, good air exchange bilaterally. Heart: Normal rate, Regular rythm, No murmur, no rub Abdomen: Normal BS, soft, No rigidity, No abdominal tenderness, No guarding, no rebound, no abdominal masses, no organomegaly Extremities: strength 5/5 in all extremities, good pulses in all extremities, no swelling or tenderness in the extremities, no edema. Skin: warm, dry, appropriate color, no rash Neuro: speech clear, oriented x 3, normal affect, responds appropriately to questions. Cranial nerves II through XII are intact exception of some mild decreased sensation psoriasis of the face as well as little bit of hoarseness of voice. Good strength in all 4 extremities. Patient is able to keep extremities elevated against gravity without difficulty. Patient does have an ataxic gait. When he walks he occasionally will stumble little bit. Course - Re-evaluation Re-evalutation: 12/04/17 06:13 The exact cause of the patient's symptoms 100% clear. Some of this appears to be more like a TIA or stroke and that he initially had some numbness to the right side of his body as well as with some ataxia. Ataxia seems to have improved the numbness is also improving. He is tachycardic. Patient's is not usually tachycardic however his last visit to the ER he was tachycardic. Does have hypertension which does not appear to be well-controlled. He has no pain and no headache. I spoke with the hospitalist, Dr. Aguilera, who agrees to admit the patient for further workup and treatment of possible TIA. Chest x- ray is read as possible pneumonia. Patient has no fevers, no recent cough. Patient has no leukocytosis and therefore I think pneumonia is unlikely. He is also not had a recent coughing or infectious type symptoms. Dictation of this chart was performed using voice recognition software; therefore, there may be some unintended grammatical errors. - Vital Signs Vital signs: Temp Pulse Resp BP Pulse Ox 97.6 F 106 H 24 H 173/93 H 98 12/04/17 03:36 12/04/17 03:36 12/04/17 04:01 12/04/17 04:00 12/04/17 05:06 - Laboratory Result Diagrams: 12/04/17 04:08 12/04/17 04:08 Laboratory results interpreted by me: 12/04/17 12/04/17 12/04/17 04:08 04:08 04:08 Hgb 11.2 L Hct 35.1 L MCV 71 L MCH 22.6 L RDW 18.3 H VBG pH 7.43 H Potassium 3.0 L* Chloride 96 L Carbon Dioxide 34 H Creatinine 1.55 H Est GFR ( Amer) 55 L Est GFR (Non-Af Amer) 45 L Glucose 113 H POC Glucose Alkaline Phosphatase 170 H Albumin 3.4 L 12/04/17 04:09 Hgb Hct MCV MCH RDW VBG pH Potassium Chloride Carbon Dioxide Creatinine Est GFR ( Amer) Est GFR (Non-Af Amer) Glucose POC Glucose 136 H Alkaline Phosphatase Albumin - EKG Interpretation by Me Additional EKG results interpreted by me: 12/04/17 04:29 EKG is reviewed and interpreted by me. EKG shows sinus tachycardia with rate of 107 bpm. Occasional PVC. MA interval, QRS duration, QTc intervals are within normal range. No ST segment elevation or depression. Old EKG for comparison is from September 30, 2017. Discharge - Discharge Clinical Impression: Tachycardia, Hypokalemia TIA (transient ischemic attack) Qualifiers: Transient cerebral ischemia type: unspecified Qualified Code(s): G45.9 - Transient cerebral ischemic attack, unspecified Hypertension Qualifiers: Hypertension type: unspecified Qualified Code(s): I10 - Essential (primary) hypertension Condition: Stable Disposition: ADMITTED OBSERVATION Admitting Provider: Hospitalist Unit Admitted: Telemetry Referrals: SANTOSH FLEMING MD [Primary Care Provider] - Follow up as needed
[2017-12-04 04:28] LABS: ABSOLUTE BASOPHILS # (AUTO) 0.1 10^3/uL (0.0-0.2); ABSOLUTE EOSINOPHILS # (AUTO) 0.2 10^3/uL (0.0-0.6); ABSOLUTE LYMPHOCYTES (AUTO) 1.4 10^3/uL (0.5-4.7); ABSOLUTE MONOCYTES (AUTO) 0.8 10^3/uL (0.1-1.4); ABSOLUTE NEUT (AUTO) 6.8 10^3/uL (1.7-8.2); BASOPHILS % (AUTO) 1.3 % (0-2); EOSINOPHILS % (AUTO) 2.5 % (0-6); HEMATOCRIT 35.1 % (37.9-51.0); HEMOGLOBIN 11.2 g/dL (13.5-17.0); LYMPHOCYTES % (AUTO) 15.3 % (13-45); MEAN CORPUSCULAR HEMOGLOBIN 22.6 pg (27.0-33.4); MEAN CORPUSCULAR VOLUME 71 fl (80-97); MONOCYTES % (AUTO) 8.2 % (3-13); PLATELET COUNT 327 10^3/uL (150-450); RED BLOOD COUNT 4.96 10^6/uL (4.35-5.55); RED CELL DISTRIBUTION WIDTH 18.3 % (11.5-14.0); SEGMENTED NEUTROPHILS % (AUTO) 72.7 % (42-78); TOTAL CELLS COUNTED % (AUTO) 100 %; WHITE BLOOD COUNT 9.4 10^3/uL (4.0-10.5)
[2017-12-04 04:41] LABS: ALANINE AMINOTRANSFERASE 34 U/L (21-72); ALBUMIN 3.4 g/dL (3.5-5.0); ALKALINE PHOSPHATASE 170 U/L (38-126); ANION GAP 9 (5-19); ASPARTATE AMINO TRANSFERASE 39 U/L (17-59); BILIRUBIN,DIRECT 0.4 mg/dL (0.0-0.4); BILIRUBIN,TOTAL 0.8 mg/dL (0.2-1.3); BLOOD UREA NITROGEN 19 mg/dL (7-20); CALCIUM 8.5 mg/dL (8.4-10.2); CARBON DIOXIDE 34 mmol/L (22-30); CHLORIDE 96 mmol/L (98-107); GLUCOSE 113 mg/dL (75-110); SODIUM 138.5 mmol/L (137-145); TOTAL PROTEIN 6.7 g/dL (6.3-8.2)
[2017-12-04 04:43] LABS: INTERNATIONAL RATION (INR) 1.06; PROTHROMBIN TIME 14.5 SEC (11.4-15.4)
[2017-12-04 04:44] LABS: PARTIAL THROMBOPLASTIN TIME 35.8 SEC (23.5-35.8)
[2017-12-04] MEDS ORDERED: ASPIRIN 325 MG TABLET PO ONE (05:34)
[2017-12-04] MEDS ORDERED: POTASSIUM CHLORIDE 10 MEQ TABLET.SA PO ONE ×2 (05:34→20:00)
[2017-12-04 05:55] LABS: VENOUS BLOOD BASE EXCESS 4.3 mmol/L; VENOUS BLOOD HCO3 29.2 mmol/L (20-32); VENOUS BLOOD PH 7.43 (7.30-7.42)
[2017-12-04] MEDS ORDERED: HYDRALAZINE HCL INJ/PF 20 MG/1 ML SDV IV PRN (06:16)
[2017-12-04] MEDS ORDERED: ACETAMINOPHEN 325 MG TABLET PO PRN (06:17)
[2017-12-04] MEDS ORDERED: DOCUSATE SODIUM 100 MG CAPSULE PO PRN (06:17)
[2017-12-04] MEDS ORDERED: MAGNESIUM HYDROXIDE SUSP 30 ML UDCUP PO PRN (06:17)
--- NOTE | 2017-12-04 06:30 | PDOC H&P ---
History of Present Illness Admission Date/PCP: SANTOSH FLEMING Patient complains of: Possible stroke History of Present Illness: TEVIN SPENCER is a 62 year old male with a past medical history of COPD, coronary artery disease status post coronary artery bypass graft one year ago, diastolic heart failure and chronic pain. Patient gives 3 different history as of the present illness 2 different providers. Patient initially complains of feeling off balance for 24 hours improving over that time currently at baseline and hoarseness of the voice. 30 minutes of abrupt onset of numbness behind the right ear denied to emergency physician but admits this was his only complaint. He denies previous history he denies any medications he admits medication noncompliance of the last 2 weeks. Patient denies recreational drug use stating he only gives [facility], he is unable to tell me what the [facility] prescrib[facility]. Patient has fluent speech and ambulates quickly about the emergency room. Past Medical History Cardiac Medical History: Reports: Congestive Heart Failure, Myocardial Infarction, Hypertension Pulmonary Medical History: Reports: Chronic Obstructive Pulmonary Disease (COPD) , Pneumonia Endocrine Medical History: Reports: Hypothyroidism Psychiatric Medical History: Reports: Alcohol Dependency, Tobacco Dependency Denies: Depression Infectious Medical History: Reports: Methicillin-Resistant Staph Aureus Past Surgical History Past Surgical History: Reports: Cholecystectomy - gallstone. Patient describes what sounds like an ERCP, Coronary Artery Bypass Graft Social History Information Source: Patient, [facility] Records Lives with: Family Smoking Status: Unknown if Ever Smoked Frequency of Alcohol Use: None Hx Recreational Drug Use: No Drugs: None Hx Prescription Drug Abuse: No - Advance Directive Resuscitation Status: Full Code Family History Family History: Malignancy - Father with unknown cancer. Parental Family History Reviewed: Yes Children Family History Reviewed: Yes Sibling(s) Family History Reviewed.: Yes Medication/Allergy Home Medications: Aspirin [Aspirin EC] 81 mg PO DAILY 05/30/17 Budesonide/Formoterol Fumarate [Symbicort HFA 160-4.5 mcg Inhaler 6 gm] 2 puff IH Q12 05/30/17 Ipratropium/Albuterol Sulfate [Combivent Respimat 4 gm Mdi] 1 puff IH QID Prednisone [Deltasone 20 mg Tablet] 20 mg PO DAILY 05/30/17 Furosemide [Lasix 20 mg Tablet] 40 mg PO Q12 #120 05/31/17 Metoprolol Tartrate [Lopressor 50 mg Tablet] 50 mg PO Q12 #60 tablet 05/31/17 Potassium Chloride 10 meq PO DAILY #30 tablet.er 05/31/17 Furosemide [Lasix 40 mg Tablet] 40 mg PO BID #20 tablet 09/30/17 Prednisone [Deltasone 20 mg Tablet] 2 tab PO DAILY 5 Days tablet 09/30/17 Acetaminophen with Codeine [Tylenol with Codeine #3 Tablet] 1 tab PO Q4 PRN #14 tab 11/16/17 Doxycycline Hyclate 100 mg PO BID #20 capsule 11/16/17 Lidocaine [Lidoderm 5% (700 mg) Transdermal Patch] 1 patch TP DAILY #30 adh..patch 11/16/17 Doxycycline Hyclate 100 mg PO BID #14 capsule 11/18/17 Allergies/Adverse Reactions: No Known Allergies Allergy (Verified 11/16/17 13:41) Review of Systems Constitutional: ABSENT: chills, fever(s), headache(s), weight gain, weight loss Eyes: ABSENT: visual disturbances Ears: ABSENT: hearing changes Cardiovascular: ABSENT: chest pain, dyspnea on exertion, edema, orthropnea, palpitations Respiratory: ABSENT: cough, hemoptysis Gastrointestinal: ABSENT: abdominal pain, constipation, diarrhea, hematemesis, hematochezia, nausea, vomiting Genitourinary: ABSENT: dysuria, hematuria Musculoskeletal: ABSENT: joint swelling Integumentary: ABSENT: rash, wounds Neurological: ABSENT: abnormal gait, abnormal speech, confusion, dizziness, focal weakness, syncope Psychiatric: ABSENT: anxiety, depression, homidical ideation, suicidal ideation Endocrine: ABSENT: cold intolerance, heat intolerance, polydipsia, polyuria Hematologic/Lymphatic: ABSENT: easy bleeding, easy bruising Physical Exam Vital Signs: Temp Pulse Resp BP Pulse Ox 97.6 F 106 H 24 H 173/93 H 98 12/04/17 03:36 12/04/17 03:36 12/04/17 04:01 12/04/17 04:00 12/04/17 05:06 Intake & Output 12/02/17 12/03/17 12/04/17 11:59 11:59 11:59 Weight 58.967 kg General appearance: PRESENT: no acute distress, well-developed, well-nourished Head exam: PRESENT: atraumatic, normocephalic Eye exam: PRESENT: conjunctiva pink, EOMI, PERRLA. ABSENT: scleral icterus Ear exam: PRESENT: normal external ear exam Mouth exam: PRESENT: moist, tongue midline Neck exam: ABSENT: carotid bruit, JVD, lymphadenopathy, thyromegaly Respiratory exam: PRESENT: clear to auscultation yasir. ABSENT: rales, rhonchi, wheezes Cardiovascular exam: PRESENT: RRR. ABSENT: diastolic murmur, rubs, systolic murmur Pulses: PRESENT: normal dorsalis pedis pul Vascular exam: PRESENT: normal capillary refill GI/Abdominal exam: PRESENT: normal bowel sounds, soft. ABSENT: distended, guarding, mass, organolmegaly, rebound, tenderness Rectal exam: PRESENT: deferred Extremities exam: PRESENT: full ROM. ABSENT: calf tenderness, clubbing, pedal edema Neurological exam: PRESENT: alert, awake, oriented to person, oriented to place , oriented to time, oriented to situation, CN II-XII grossly intact. ABSENT: motor sensory deficit Psychiatric exam: PRESENT: appropriate affect, normal mood. ABSENT: homicidal ideation, suicidal ideation Skin exam: PRESENT: dry, intact, warm. ABSENT: cyanosis, rash Results Laboratory Results: 12/04/17 04:08 12/04/17 04:08 12/04/17 12/04/17 12/04/17 04:08 04:08 04:08 WBC 9.4 RBC 4.96 Hgb 11.2 L Hct 35.1 L MCV 71 L MCH 22.6 L MCHC 32.0 RDW 18.3 H Plt Count 327 Seg Neutrophils % 72.7 Lymphocytes % 15.3 Monocytes % 8.2 Eosinophils % 2.5 Basophils % 1.3 Absolute Neutrophils 6.8 Absolute Lymphocytes 1.4 Absolute Monocytes 0.8 Absolute Eosinophils 0.2 Absolute Basophils 0.1 VBG pH 7.43 H VBG pCO2 45.0 VBG HCO3 29.2 VBG Base Excess 4.3 Sodium 138.5 Potassium 3.0 L* Chloride 96 L Carbon Dioxide 34 H Anion Gap 9 BUN 19 Creatinine 1.55 H Est GFR ( Amer) 55 L Est GFR (Non-Af Amer) 45 L Glucose 113 H Calcium 8.5 Total Bilirubin 0.8 AST 39 ALT 34 Alkaline Phosphatase 170 H Total Protein 6.7 Albumin 3.4 L Impressions: Chest X-Ray 12/04/17 03:34 IMPRESSION: Possible right lower lobar pneumonia; differential diagnosis includes mild pulmonary edema. Indeterminate 0.6 mm nodularity of the right upper lobe. Recommend CR/CT surveillance including at 7-12 weeks following initiation of clinically warranted therapy. Head CT 12/04/17 03:34 IMPRESSION: No acute findings. If there is suspicion for acute ischemia, consider CT/MR surveillance within 48 to 72 hours. Assessment & Plan - Diagnosis (1) Hypertension Qualifiers: Hypertension type: unspecified Qualified Code(s): I10 - Essential (primary ) hypertension Is this a current diagnosis for this admission?: Yes Plan: Lopressor, (2) Hypokalemia Is this a current diagnosis for this admission?: Yes Plan: Check magnesium and replace both as needed (3) TIA (transient ischemic attack) Qualifiers: Transient cerebral ischemia type: unspecified Qualified Code(s): G45.9 - Transient cerebral ischemic attack, unspecified Is this a current diagnosis for this admission?: Yes Plan: TIA care set, permissive hypertension. Given the vagueness of complaints and conflicting histories will obtain urine drug screen. - Time Time Spent: 30 to 50 Minutes
[2017-12-04 07:15] LABS: URINE AMPHETAMINES SCREEN NEGATIVE; URINE BARBITURATES SCREEN NEGATIVE; URINE BENZODIAZEPINES SCREEN NEGATIVE; URINE COCAINE SCREEN NEGATIVE; URINE MARIJUANA (THC) SCREEN NEGATIVE; URINE METHADONE SCREEN NEGATIVE; URINE PHENCYCLIDINE SCREEN NEGATIVE
[2017-12-04 07:22] LABS: APPEARANCE,URINE CLEAR; BILIRUBIN,URINE NEGATIVE (NEGATIVE); COLOR,URINE YELLOW; GLUCOSE, URINE 50 mg/dL (NEGATIVE); KETONES,URINE NEGATIVE (NEGATIVE); LEUKOCYTE ESTERASE,URINE NEGATIVE (NEGATIVE); NITRITE,URINE NEGATIVE (NEGATIVE); PROTEIN,URINE 30 mg/dL (NEGATIVE); URINE SPECIFIC GRAVITY 1.018
[2017-12-04 07:35] LABS: CREATINE KINASE MB 4.42 ng/mL (<4.55)
[2017-12-04 07:38] LABS: TROPONIN I 0.057 ng/mL
--- NOTE | 2017-12-04 07:46 | EKG REPORT ---
SEVERITY:- ABNORMAL ECG - SINUS TACHYCARDIA ATRIAL PREMATURE COMPLEX PROBABLE LEFT ATRIAL ABNORMALITY BORDERLINE LEFT AXIS DEVIATION NONSPECIFIC T ABNORMALITIES, LATERAL LEADS : Confirmed by: Luis Angel Dawkins MD 04-Dec-2017 07:45:49
[2017-12-04] MEDS: CLOPIDOGREL BISULFATE 75 MG TABLET PO SCH (10:31)
[2017-12-04] MEDS: METOPROLOL TARTRATE 50 MG TABLET PO SCH ×2 (10:38→22:12)
[2017-12-04] MEDS: HEPARIN SOD (PORCINE) 5,000 UNIT/ML 1 ML SYRINGE SUBCUT SCH ×2 (13:14→22:12)
--- NOTE | 2017-12-04 13:56 | PDOC CONSULTATION ---
Consultation Consult Date: 12/04/17 Attending physician:: CRYSTAL PABLO Consult reason:: Coronary artery disease, tachycardia History of Present Illness Admission Date/PCP: 12/04/17 06:27 SANTOSH FLEMING Patient complains of: Shortness of breath and tachycardia History of Present Illness: TEVIN SPENCER is a 62 year old male with a past medical history of COPD, coronary artery disease status post coronary artery bypass graft one year ago, diastolic heart failure and chronic pain. Patient gives 3 different history as of the present illness 2 different providers. Patient initially complains of feeling off balance for 24 hours improving over that time currently at baseline and hoarseness of the voice. 30 minutes of abrupt onset of numbness behind the right ear denied to emergency physician but admits this was his only complaint. He denies previous history he denies any medications he admits medication noncompliance of the last 2 weeks. Patient denies recreational drug use stating [facility] only gives [facility], he is unable to tell me what the [facility] prescribes him. Patient has fluent speech and ambulates quickly about the emergency room. This history was reviewed and confirmed. Patient today complained of shortness of breath and feeling occasional palpitations. Patient has history of coronary artery disease and is status post coronary artery bypass graft surgery. He also describes history of COPD and some chronic lung problems. Past Medical History Cardiac Medical History: Reports: Congestive Heart Failure, Myocardial Infarction, Hypertension Pulmonary Medical History: Reports: Chronic Obstructive Pulmonary Disease (COPD) , Pneumonia Endocrine Medical History: Reports: Hypothyroidism Psychiatric Medical History: Reports: Alcohol Dependency, Tobacco Dependency Denies: Depression Infectious Medical History: Reports: Methicillin-Resistant Staph Aureus Past Surgical History Past Surgical History: Reports: Cholecystectomy - gallstone. Patient describes what sounds like an ERCP, Coronary Artery Bypass Graft Social History Information Source: Patient Lives with: Family Smoking Status: Unknown if Ever Smoked Frequency of Alcohol Use: None Hx Recreational Drug Use: No Drugs: None Hx Prescription Drug Abuse: No - Advance Directive Resuscitation Status: Full Code Surrogate healthcare decision maker:: Patient's son is the surrogate decision-maker Family History Family History: Hypertension, Malignancy - Father with unknown cancer. Parental Family History Reviewed: Yes Children Family History Reviewed: Yes Sibling(s) Family History Reviewed.: Yes Medication/Allergy Home Medications: Atorvastatin Calcium 40 mg PO QHS 12/04/17 Budesonide/Formoterol Fumarate [Symbicort 160-4.5 Mcg Inhaler] 10.2 gm IH BID Carvedilol 3.125 mg PO BID 12/04/17 Famotidine 20 mg PO BID 12/04/17 Furosemide [Lasix] 40 mg PO DAILY 12/04/17 Ipratropium/Albuterol Sulfate [Combivent Respimat Inhal [place]] 4 gm IH DAILY Levothyroxine Sodium 125 mcg PO QAM 12/04/17 Potassium Chloride [Klor-Con 10] 10 meq PO BID 12/04/17 Clopidogrel Bisulfate [Plavix 75 mg Tablet] 75 mg PO DAILY 30 Days #30 tablet Lisinopril 5 mg PO DAILY 30 Days #30 tablet 12/07/17 Allergies/Adverse Reactions: No Known Allergies Allergy (Verified 11/16/17 13:41) Review of Systems Review of Systems: Please see history of present illness and past medical history as wall. Constitutional: No fever or chills reported. Head : No recent chronic headaches, recent head injury. Eyes: No recent eye pain, diplopia, redness, discharge, acute visual changes. Ears: No recent chronic ear pain, acute hearing loss, ear discharge. Oral cavity: No recent ulcerations, bleeding, oral cavity discomfort. Neck: No recent acute neck pain reported. Hematologic: No recent easy bruising or bleeding or hematologic malignancy reported. Lymphatic: No recent lymphatic malignancy, chronic lymphadenopathy reported yet Cardiovascular system review: See history of present illness. Respiratory system review: No recent chronic cough, hemoptysis, blood clots in the lungs reported. Shortness of breath on exertion Gastrointestinal system review: Negative for any recent acute or chronic abdominal pain, hematemesis, melena, recent change in bowel habits. Genitourinary system review: No recent acute or chronic hematuria, flank pain, UTI etc. reported. Skin system review: Negative for any recent abnormal bruising, no rash, no pruritus reported. Neurologic: No prior history of strokes, mini strokes, seizure disorder. Describes dizziness. Psychologic: No history of major psychosis or major depression reported. Musculoskeletal: Minor aches and pains reported. No acute joint swelling reported. Endocrine: No recent polyuria, polydipsia, recent heat or cold intolerance. Physical Exam Vital Signs: Temp Pulse Resp BP Pulse Ox 97.6 F 106 H 25 H 143/110 H 99 03/30/18 03:36 12/04/17 03:36 12/04/17 08:00 12/04/17 07:03 12/04/17 08:00 Exam: GENERAL: well-nourished and in no acute distress. Alert and oriented x3 HEAD: Atraumatic, normocephalic. EYES: Pupils equal round and reactive to light, extraocular movements intact, sclera anicteric, conjunctiva are normal. ENT: TMs normal, nares patent, oropharynx clear without exudates. Moist mucous membranes. No oral ulcerations or bleeding gums noted NECK: supple without lymphadenopathy. Trachea is central. No cervical or axillary lymphadenopathy noted. Carotids are 2+, JVD 8-10 cm LUNGS: Respiration seems nonlabored, no significant accessory muscle action noted. Bibasilar fine crackles and coarse wheezes rales or rhonchi noted. No significant dullness noted on percussion. CHEST: Palpation of the chest wall shows no significant chest wall tenderness. No other significant abnormalities noted. 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 ABDOMEN: Soft, no significant tenderness appreciated, normoactive bowel sounds. No guarding, no rebound. No rigidity noted . No masses appreciated. EXTREMITIES: Pedal pulses are 1-2+, no calf tenderness noted. No clubbing or cyanosis. 1+ pedal edema noted NEUROLOGICAL: Focused neurological exam showed no significant neurologic deficit. Normal speech, no focal weakness appreciated. PSYCH: Normal mood, normal affect. Judgment and insight within normal limits. SKIN: No significant ecchymosis, skin is noted to be warm. MUSCULOSKELETAL EXAM: No significant acute joint swelling noted. Results Laboratory Results: 12/04/17 12/04/17 06:44 06:53 Magnesium 1.8 Urine Color YELLOW Urine Appearance CLEAR Urine pH 6.0 Ur Specific [place] 1.018 Urine Protein 30 H Urine Glucose (UA) 50 H Urine Ketones NEGATIVE Urine Blood SMALL H Urine Nitrite NEGATIVE Ur Leukocyte Esterase NEGATIVE Urine WBC (Auto) 1 Urine RBC (Auto) 0 12/04/17 12/04/17 06:53 06:53 Creatine Kinase 145 CK-MB (CK-2) 4.42 Troponin I 0.057 EKG Comments: Sinus tachycardia with APCs being noted. No acute ST-T wave changes noted. Impressions: Chest X-Ray 12/04/17 03:34 IMPRESSION: Possible right lower lobar pneumonia; differential diagnosis includes mild pulmonary edema. Indeterminate 0.6 mm nodularity of the right upper lobe. Recommend CR/CT surveillance including at 7-12 weeks following initiation of clinically warranted therapy. Head CT 12/04/17 03:34 IMPRESSION: No acute findings. If there is suspicion for acute ischemia, consider CT/MR surveillance within 48 to 72 hours. Assessment & Plan - Diagnosis (1) TIA (transient ischemic attack) Qualifiers: Transient cerebral ischemia type: unspecified Qualified Code(s): G45.9 - Transient cerebral ischemic attack, unspecified Is this a current diagnosis for this admission?: Yes (2) Coronary artery disease Qualifiers: Coronary Disease-Associated Artery/Lesion type: unspecified vessel or lesion type [place] vs. transplanted heart: [place] heart Associated angina: angina presence unspecified Qualified Code(s): I25.10 - Atherosclerotic heart disease of [place] coronary artery without angina pectoris Is this a current diagnosis for this admission?: Yes (3) Dyspnea Qualifiers: Dyspnea type: unspecified Qualified Code(s): R06.00 - Dyspnea, unspecified Is this a current diagnosis for this admission?: Yes (4) COPD (chronic obstructive pulmonary disease) Qualifiers: COPD type: unspecified COPD Qualified Code(s): J44.9 - Chronic obstructive pulmonary disease, unspecified Is this a current diagnosis for this admission?: Yes (5) Hypertension Qualifiers: Hypertension type: essential hypertension Qualified Code(s): I10 - Essential (primary) hypertension Is this a current diagnosis for this admission?: Yes (6) Hypokalemia Is this a current diagnosis for this admission?: Yes (7) Hyperlipidemia Qualifiers: Hyperlipidemia type: unspecified Qualified Code(s): E78.5 - Hyperlipidemia , unspecified Is this a current diagnosis for this admission?: Yes (8) Chronic kidney disease Qualifiers: Chronic kidney disease stage: stage 3 (moderate) Qualified Code(s): N18.3 - Chronic kidney disease, stage 3 (moderate) Is this a current diagnosis for this admission?: Yes (9) CHF (congestive heart failure) Qualifiers: Heart failure type: unspecified Heart failure chronicity: chronic Qualified Code(s): I50.9 - Heart failure, unspecified Is this a current diagnosis for this admission?: Yes (10) Troponin level elevated Is this a current diagnosis for this admission?: Yes - Notes Notes: Transient ischemic attack: Patient is a vague historian. Currently no symptoms indicative of ongoing TIA. Agree with cardiac monitoring to rule out transient atrial fibrillation. Agree with 2D echo and carotid duplex. Agree with statin and antiplatelet therapy. Coronary artery disease: Patient is status post coronary artery bypass graft surgery. Initial troponin I obtained in the ER is mildly abnormal. Will get another troponin I to look at the trend. Troponin I elevation: Initial troponin I elevated. Will trend this. Dyspnea: Possibly related to COPD. May be ischemic equivalent symptoms. Possible CHF. CHF: Suspected since patient has dyspnea. Also felt to be clinically present on clinical exam. Currently etiology not clear. Possibly systolic dysfunction in view of known CAD. Possibly acute on chronic. A 2D echo has been ordered will be reviewed. BNP ordered. COPD: Currently stable. Continue baseline therapy. Hypertension: Reasonably well controlled. Blood pressure goal in this patient is 135/85 or less. This was discussed with the patient. Currently blood pressure under reasonable control. Better medication for this patient are AYE inhibitor/ARB/beta alvin etc. discussed side effects of uncontrolled hypertension and also severe hypotension. Hypokalemia: Currently stable agree with replacement. Chronic kidney disease: Stable. Hyperlipidemia: LDL goal is less than 70. Recommend statin therapy at least intermediate or high dose, of high potency status. Periodic lipid panel and liver panel is indicated. Patient to report any significant muscle discomfort or other side effects. - Time Time Spent: 30 to 50 Minutes - CODE STATUS was discussed, patient remains full code. Surrogate decision-maker unchanged. Multiple medical problems were addressed. More than 50% of the time spent coordinating care, discussing management plans with involved caregivers. Management plans discussed with involved personnels. Medical decision making was of moderate to high complexity , patient's has multiple comorbidities. Medications reviewed and adjusted accordingly: Yes
[2017-12-04 14:21] LABS: CREATINE KINASE MB 4.65 ng/mL (<4.55); TROPONIN I 0.06 ng/mL
[2017-12-04] MEDS: FUROSEMIDE 40 MG TABLET PO SCH (18:50)
--- NOTE | 2017-12-04 20:54 | Progress Note ---
Provider Note Provider Note: Patient without complaint, neuro symptoms have resolved, denies weakness or slurred speech. No chest pain or shortness of breath or palpitations. My exam reveals no focal weakness at this time. Cardiology evaluation appreciated. MRI pending. We will continue to monitor patient on telemetry. Also, correct hypokalemia with additional KCl 40 M EQ p.o. in addition to the one he received this morning for a potassium of 3.0, as patient also on Lasix. Follow-up Chem- 7 in a.m.
[2017-12-04 20:59] LABS: CREATINE KINASE MB 4.74 ng/mL (<4.55); TROPONIN I 0.05 ng/mL
[2017-12-04] MEDS: LISINOPRIL 10 MG TABLET PO SCH (22:12)
[2017-12-04] MEDS: ATORVASTATIN CALCIUM 80 MG TABLET PO SCH (22:12)
[2017-12-05] MEDS: ONDANSETRON HCL INJ/PF 4 MG/2 ML SDV IV PRN ×3 (01:04→22:08)
[2017-12-05] MEDS: HEPARIN SOD (PORCINE) 5,000 UNIT/ML 1 ML SYRINGE SUBCUT SCH ×3 (05:22→22:08)
[2017-12-05 06:15] LABS: ABSOLUTE BASOPHILS # (AUTO) 0.1 10^3/uL (0.0-0.2); ABSOLUTE EOSINOPHILS # (AUTO) 0.1 10^3/uL (0.0-0.6); ABSOLUTE LYMPHOCYTES (AUTO) 1.4 10^3/uL (0.5-4.7); ABSOLUTE MONOCYTES (AUTO) 0.7 10^3/uL (0.1-1.4); ABSOLUTE NEUT (AUTO) 6.2 10^3/uL (1.7-8.2); BASOPHILS % (AUTO) 1.2 % (0-2); EOSINOPHILS % (AUTO) 1.4 % (0-6); HEMATOCRIT 33.6 % (37.9-51.0); HEMOGLOBIN 10.8 g/dL (13.5-17.0); LYMPHOCYTES % (AUTO) 16.8 % (13-45); MEAN CORPUSCULAR HEMOGLOBIN 22.5 pg (27.0-33.4); MEAN CORPUSCULAR HGB CONC 32.2 g/dL (32.0-36.0); MEAN CORPUSCULAR VOLUME 70 fl (80-97); MONOCYTES % (AUTO) 8.5 % (3-13); PLATELET COUNT 286 10^3/uL (150-450); RED CELL DISTRIBUTION WIDTH 17.9 % (11.5-14.0); SEGMENTED NEUTROPHILS % (AUTO) 72.1 % (42-78); TOTAL CELLS COUNTED % (AUTO) 100 %; WHITE BLOOD COUNT 8.6 10^3/uL (4.0-10.5)
[2017-12-05 06:37] LABS: ANION GAP 7 (5-19); BLOOD UREA NITROGEN 29 mg/dL (7-20); CALCIUM 8.6 mg/dL (8.4-10.2); CARBON DIOXIDE 32 mmol/L (22-30); CHLORIDE 99 mmol/L (98-107); CHOLESTEROL 101.61 mg/dL (0-200); GLUCOSE 80 mg/dL (75-110); POTASSIUM 4.6 mmol/L (3.6-5.0); SODIUM 137.7 mmol/L (137-145); TRIGLYCERIDES 63 mg/dL (<150)
[2017-12-05 06:48] LABS: DIRECT LDL 53 mg/dL (<100)
[2017-12-05] MEDS: METOPROLOL TARTRATE 50 MG TABLET PO SCH ×2 (09:36→22:01)
[2017-12-05] MEDS: FUROSEMIDE 40 MG TABLET PO SCH ×2 (09:36→17:30)
[2017-12-05] MEDS: CLOPIDOGREL BISULFATE 75 MG TABLET PO SCH (09:37)
[2017-12-05] MEDS: LISINOPRIL 10 MG TABLET PO SCH ×2 (09:37→22:08)
--- NOTE | 2017-12-05 13:22 | PDOC PROGRESS REPORT ---
Subjective Progress Note for:: 12/05/17 Subjective:: Patient seems to be doing better with gradual improvement. Denies any recurrence of neurological symptoms. Pt is denying any chest arm or neck discomfort. Patient denying any PND, orthopnea. Patient denied any sustained palpitations, dizziness, syncope, near syncope. Patient denying any fever chills. Patient denying any other significant discomfort. Patient is maintaining sinus rhythm. Review of systems: Rest review of systems negative. Medications: Medications have been reviewed. Reason For Visit: TIA CHF CAD TACHYCARDIA Physical Exam Vital Signs: Temp Pulse Resp BP Pulse Ox 98.0 F 81 15 125/83 100 12/05/17 11:44 12/05/17 12:11 12/05/17 11:50 12/05/17 12:11 12/05/17 12:11 Intake & Output 12/04/17 12/05/17 12/06/17 06:59 06:59 06:59 Intake Total 915 215 Balance 915 215 Weight 61.5 kg Exam: GENERAL: well-nourished and in no acute distress. Alert and oriented x3 HEAD: Atraumatic, normocephalic. EYES: Pupils equal round and reactive to light, extraocular movements intact, sclera anicteric, conjunctiva are normal. ENT: TMs normal, nares patent, oropharynx clear without exudates. Moist mucous membranes. No oral ulcerations or bleeding gums noted NECK: supple without lymphadenopathy. Trachea is central. No cervical or axillary lymphadenopathy noted. Carotids are 2+, JVD WNL LUNGS: Respiration seems nonlabored, no significant accessory muscle action noted. Breath sounds clear to auscultation bilaterally and equal noted. No wheezes rales or rhonchi noted. No significant dullness noted on percussion. CHEST: Palpation of the chest wall shows no significant chest wall tenderness. No other significant abnormalities noted. 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 ABDOMEN: Soft, no significant tenderness appreciated, normoactive bowel sounds. No guarding, no rebound. No rigidity noted . No masses appreciated. EXTREMITIES: Pedal pulses are 1-2+, no calf tenderness noted. No clubbing or cyanosis.trace to 1+ pedal edema noted NEUROLOGICAL: Focused neurological exam showed no significant neurologic deficit. Normal speech, no focal weakness appreciated. PSYCH: Normal mood, normal affect. Judgment and insight within normal limits. SKIN: No significant ecchymosis, skin is noted to be warm. MUSCULOSKELETAL EXAM: No significant acute joint swelling noted. Results Laboratory Results: 12/05/17 05:47 12/05/17 05:47 12/05/17 12/05/17 05:47 05:47 WBC 8.6 RBC 4.80 Hgb 10.8 L Hct 33.6 L MCV 70 L MCH 22.5 L MCHC 32.2 RDW 17.9 H Plt Count 286 Seg Neutrophils % 72.1 Lymphocytes % 16.8 Monocytes % 8.5 Eosinophils % 1.4 Basophils % 1.2 Absolute Neutrophils 6.2 Absolute Lymphocytes 1.4 Absolute Monocytes 0.7 Absolute Eosinophils 0.1 Absolute Basophils 0.1 Sodium 137.7 Potassium 4.6 Chloride 99 Carbon Dioxide 32 H Anion Gap 7 BUN 29 H Creatinine 1.70 H Est GFR ( Amer) 49 L Est GFR (Non-Af Amer) 41 L Glucose 80 Calcium 8.6 Triglycerides 63 Cholesterol 101.61 LDL Cholesterol Direct 53 VLDL Cholesterol 13.0 HDL Cholesterol 32 L 12/04/17 12/04/17 12/04/17 06:53 06:53 13:44 Creatine Kinase 145 146 CK-MB (CK-2) 4.42 Troponin I 0.057 NT-Pro-B Natriuret Pep 12/04/17 12/04/17 12/04/17 13:44 13:44 20:20 Creatine Kinase 137 CK-MB (CK-2) 4.65 H Troponin I 0.060 Cancelled NT-Pro-B Natriuret Pep 9660 H 12/04/17 12/05/17 20:20 09:56 Creatine Kinase CK-MB (CK-2) 4.74 H Troponin I 0.050 0.054 NT-Pro-B Natriuret Pep EKG Comments: Telemetry shows sinus rhythm without any sustained tachycardia or bradycardia. Impressions: Chest X-Ray 12/04/17 03:34 IMPRESSION: Possible right lower lobar pneumonia; differential diagnosis includes mild pulmonary edema. Indeterminate 0.6 mm nodularity of the right upper lobe. Recommend CR/CT surveillance including at 7-12 weeks following initiation of clinically warranted therapy. Head CT 12/04/17 03:34 IMPRESSION: No acute findings. If there is suspicion for acute ischemia, consider CT/MR surveillance within 48 to 72 hours. Assessment & Plan - Diagnosis (1) TIA (transient ischemic attack) Qualifiers: Transient cerebral ischemia type: unspecified Qualified Code(s): G45.9 - Transient cerebral ischemic attack, unspecified Is this a current diagnosis for this admission?: Yes (2) Coronary artery disease Qualifiers: Coronary Disease-Associated Artery/Lesion type: unspecified vessel or lesion type [place] vs. transplanted heart: [place] heart Associated angina: angina presence unspecified Qualified Code(s): I25.10 - Atherosclerotic heart disease of [place] coronary artery without angina pectoris Is this a current diagnosis for this admission?: Yes (3) Dyspnea Qualifiers: Dyspnea type: unspecified Qualified Code(s): R06.00 - Dyspnea, unspecified Is this a current diagnosis for this admission?: Yes (4) COPD (chronic obstructive pulmonary disease) Qualifiers: COPD type: unspecified COPD Qualified Code(s): J44.9 - Chronic obstructive pulmonary disease, unspecified Is this a current diagnosis for this admission?: Yes (5) Hypertension Qualifiers: Hypertension type: essential hypertension Qualified Code(s): I10 - Essential (primary) hypertension Is this a current diagnosis for this admission?: Yes (6) Hypokalemia Is this a current diagnosis for this admission?: Yes (7) Hyperlipidemia Qualifiers: Hyperlipidemia type: unspecified Qualified Code(s): E78.5 - Hyperlipidemia , unspecified Is this a current diagnosis for this admission?: Yes (8) Chronic kidney disease Qualifiers: Chronic kidney disease stage: stage 3 (moderate) Qualified Code(s): N18.3 - Chronic kidney disease, stage 3 (moderate) Is this a current diagnosis for this admission?: Yes (9) CHF (congestive heart failure) Qualifiers: Heart failure type: combined systolic and diastolic Heart failure chronicity: acute on chronic Qualified Code(s): I50.43 - Acute on chronic combined systolic (congestive) and diastolic (congestive) heart failure Is this a current diagnosis for this admission?: Yes (10) Troponin level elevated Is this a current diagnosis for this admission?: Yes - Notes Notes: Patient is generally improved. No further TIA spells. Have scheduled patient for a nuclear stress test. 2D echocardiogram still pending. Transient ischemic attack: Patient is a vague historian. Currently no symptoms indicative of ongoing TIA. Agree with cardiac monitoring to rule out transient atrial fibrillation. Agree with 2D echo and carotid duplex. Agree with statin and antiplatelet therapy. Coronary artery disease: Patient is status post coronary artery bypass graft surgery. Initial troponin I obtained in the ER is mildly abnormal. Will get another troponin I to look at the trend. Troponin I elevation: Initial troponin I elevated. Will schedule patient for a pharmacologic nuclear stress test. Dyspnea: Possibly related to COPD. May be ischemic equivalent symptoms. Possible CHF. CHF: Suspected since patient has dyspnea. A 2D echo has been ordered will be reviewed. BNP ordered. COPD: Currently stable. Continue baseline therapy. Hypertension: Reasonably well controlled. Blood pressure goal in this patient is 135/85 or less. This was discussed with the patient. Currently blood pressure under reasonable control. Better medication for this patient are AYE inhibitor/ARB/beta alvin etc. discussed side effects of uncontrolled hypertension and also severe hypotension. Hypokalemia: Currently stable agree with replacement. Chronic kidney disease: Stable. Hyperlipidemia: LDL goal is less than 70. Recommend statin therapy at least intermediate or high dose, of high potency status. Periodic lipid panel and liver panel is indicated. Patient to report any significant muscle discomfort or other side effects. - Time Time with patient: Greater than 35 minutes - CODE STATUS was discussed, patient remains full code. Surrogate decision-maker unchanged. Multiple medical problems were addressed. More than 50% of the time spent coordinating care, discussing management plans with involved caregivers. Management plans discussed with involved personnels. Medical decision making was of moderate to high complexity, patient's has multiple comorbidities. Medications reviewed and adjusted accordingly: Yes
--- NOTE | 2017-12-05 16:14 | RADIOLOGY REPORT (SQ) ---
EXAM DESCRIPTION: MRI HEAD WITHOUT COMPLETED DATE/TIME: 12/05/2017 3:43 pm REASON FOR STUDY: tia COMPARISON: CT scan 12/04/2017 TECHNIQUE: Multiplanar imaging includes non-contrasted T1, T2, FLAIR, and diffusion with ADC map seq uences. Heme avid sequence. Images stored on PACS. LIMITATIONS: Motion artifact. FINDINGS: ANATOMY: No anomalies. Normal vascular flow voids. Pituitary fossa normal. CSF SPACES: Atrophy induced prominence of ventricles and CSF spaces. CEREBRUM: High signal intensity lesions scattered throughout the white matter on FLAIR imaging with d istribution suggesting micro-vascular ischemic changes. No evidence of hemorrhage, mass, or extraaxi al fluid collection. POSTERIOR FOSSA: No signal alteration. No hemorrhage. No edema, masses or mass effect. Internal josé tory canals, cerebello-pontine angles, mastoids normal. DIFFUSION IMAGING: Negative for acute or sub-acute infarction. ORBITS: No masses. Globes normal. PARANASAL SINUSES: Chronic left maxillary sinus disease. OTHER: No other significant finding. IMPRESSION: ATROPHY AND CHRONIC MICRO-VASCULAR ISCHEMIC CHANGES. OTHERWISE NORMAL MRI OF THE BRAIN W ITHOUT INTRAVENOUS GADOLINIUM CONTRAST. EVIDENCE OF ACUTE STROKE: NO. TECHNICAL DOCUMENTATION: JOB ID: [id number] [employer]- All Rights Reserved Reading location - IP/workstation name: [email or web address]
--- NOTE | 2017-12-05 18:32 | PDOC PROGRESS REPORT ---
Subjective Progress Note for:: 12/05/17 Subjective:: Doing better, neuro symptoms resolved. No weakness or facial droop or slurred speech. Still with intermittent sob, no f/c, no cp or palpitations. Dr. Meza of cardiology following and have recommended echo. Reason For Visit: TIA CHF CAD TACHYCARDIA Physical Exam Vital Signs: Temp Pulse Resp BP Pulse Ox 97.4 F 86 20 119/85 95 12/05/17 16:13 12/05/17 16:13 12/05/17 16:13 12/05/17 16:13 12/05/17 16:13 Intake & Output 12/04/17 12/05/17 12/06/17 06:59 06:59 06:59 Intake Total 915 215 Balance 915 215 Weight 61.5 kg GEN: NAD, well-developed, well-nourished CV: RRR, NL S1S2 LUNGS: CTA bilaterally ABDOMEN Soft, NT, +BS EXTERMITIES: No e/c/c NEURO: Alert, oriented, no focal weakness Results Laboratory Results: 12/05/17 05:47 12/05/17 05:47 12/05/17 12/05/17 05:47 05:47 WBC 8.6 RBC 4.80 Hgb 10.8 L Hct 33.6 L MCV 70 L MCH 22.5 L MCHC 32.2 RDW 17.9 H Plt Count 286 Seg Neutrophils % 72.1 Lymphocytes % 16.8 Monocytes % 8.5 Eosinophils % 1.4 Basophils % 1.2 Absolute Neutrophils 6.2 Absolute Lymphocytes 1.4 Absolute Monocytes 0.7 Absolute Eosinophils 0.1 Absolute Basophils 0.1 Sodium 137.7 Potassium 4.6 Chloride 99 Carbon Dioxide 32 H Anion Gap 7 BUN 29 H Creatinine 1.70 H Est GFR ( Amer) 49 L Est GFR (Non-Af Amer) 41 L Glucose 80 Calcium 8.6 Triglycerides 63 Cholesterol 101.61 LDL Cholesterol Direct 53 VLDL Cholesterol 13.0 HDL Cholesterol 32 L 12/04/17 12/04/17 12/04/17 06:53 06:53 13:44 Creatine Kinase 145 146 CK-MB (CK-2) 4.42 Troponin I 0.057 NT-Pro-B Natriuret Pep 12/04/17 12/04/17 12/04/17 13:44 13:44 20:20 Creatine Kinase 137 CK-MB (CK-2) 4.65 H Troponin I 0.060 Cancelled NT-Pro-B Natriuret Pep 9660 H 12/04/17 12/05/17 20:20 09:56 Creatine Kinase CK-MB (CK-2) 4.74 H Troponin I 0.050 0.054 NT-Pro-B Natriuret Pep Impressions: Chest X-Ray 12/04/17 03:34 IMPRESSION: Possible right lower lobar pneumonia; differential diagnosis includes mild pulmonary edema. Indeterminate 0.6 mm nodularity of the right upper lobe. Recommend CR/CT surveillance including at 7-12 weeks following initiation of clinically warranted therapy. Head CT 12/04/17 03:34 IMPRESSION: No acute findings. If there is suspicion for acute ischemia, consider CT/MR surveillance within 48 to 72 hours. Head MRI 12/05/17 00:00 IMPRESSION: ATROPHY AND CHRONIC MICRO-VASCULAR ISCHEMIC CHANGES. OTHERWISE NORMAL MRI OF THE BRAIN WITHOUT INTRAVENOUS GADOLINIUM CONTRAST. EVIDENCE OF ACUTE STROKE: NO. Assessment & Plan - Plan Summary Plan Summary: (1) TIA (transient ischemic attack) Qualifiers: Transient cerebral ischemia type: unspecified Qualified Code(s): G45.9 - Transient cerebral ischemic attack, unspecified Is this a current diagnosis for this admission?: Yes Plan: Suspect possible TIA. Continue Plavix. MRI of the head negative. Echo, carotid Doppler pending. (2) Coronary artery disease Qualifiers: Coronary Disease-Associated Artery/Lesion type: unspecified vessel or lesion type [place] vs. transplanted heart: [place] heart Associated angina: angina presence unspecified Qualified Code(s): I25.10 - Atherosclerotic heart disease of [place] coronary artery without angina pectoris Is this a current diagnosis for this admission?: Yes (3) Dyspnea Qualifiers: Dyspnea type: unspecified Qualified Code(s): R06.00 - Dyspnea, unspecified Is this a current diagnosis for this admission?: Yes (4) COPD (chronic obstructive pulmonary disease) Qualifiers: COPD type: unspecified COPD Qualified Code(s): J44.9 - Chronic obstructive pulmonary disease, unspecified Is this a current diagnosis for this admission?: Yes (5) Chronic kidney disease Qualifiers: Chronic kidney disease stage: stage 3 (moderate) Qualified Code(s): N18.3 - Chronic kidney disease, stage 3 (moderate) Is this a current diagnosis for this admission?: Yes Creatine stable (6) CHF (congestive heart failure) Qualifiers: Heart failure type: unspecified Is this a current diagnosis for this admission?: Yes Continue lasix. Questionable pneumonia on chest x-ray. No white count. Chest x-ray PA and lateral in a.m. (7) Hypertension Qualifiers: Hypertension type: unspecified Qualified Code(s): I10 - Essential (primary ) hypertension Is this a current diagnosis for this admission?: Yes Plan: Lopressor, lisinopril (8) Hypokalemia Is this a current diagnosis for this admission?: Yes Plan: Corrected. F/u chem 7 in a.m.
[2017-12-05] MEDS: ATORVASTATIN CALCIUM 80 MG TABLET PO SCH (22:08)
[2017-12-06] MEDS: HEPARIN SOD (PORCINE) 5,000 UNIT/ML 1 ML SYRINGE SUBCUT SCH ×3 (05:34→21:22)
[2017-12-06 07:32] LABS: ABSOLUTE BASOPHILS # (AUTO) 0.1 10^3/uL (0.0-0.2); ABSOLUTE EOSINOPHILS # (AUTO) 0.3 10^3/uL (0.0-0.6); ABSOLUTE LYMPHOCYTES (AUTO) 1.5 10^3/uL (0.5-4.7); ABSOLUTE MONOCYTES (AUTO) 0.8 10^3/uL (0.1-1.4); ABSOLUTE NEUT (AUTO) 5.9 10^3/uL (1.7-8.2); BASOPHILS % (AUTO) 1.2 % (0-2); EOSINOPHILS % (AUTO) 3.1 % (0-6); HEMATOCRIT 35.5 % (37.9-51.0); HEMOGLOBIN 11.3 g/dL (13.5-17.0); LYMPHOCYTES % (AUTO) 17.6 % (13-45); MEAN CORPUSCULAR HEMOGLOBIN 22.4 pg (27.0-33.4); MEAN CORPUSCULAR HGB CONC 31.7 g/dL (32.0-36.0); MEAN CORPUSCULAR VOLUME 71 fl (80-97); MONOCYTES % (AUTO) 9.5 % (3-13); PLATELET COUNT 291 10^3/uL (150-450); RED BLOOD COUNT 5.02 10^6/uL (4.35-5.55); RED CELL DISTRIBUTION WIDTH 18.4 % (11.5-14.0); SEGMENTED NEUTROPHILS % (AUTO) 68.6 % (42-78); TOTAL CELLS COUNTED % (AUTO) 100 %; WHITE BLOOD COUNT 8.6 10^3/uL (4.0-10.5)
[2017-12-06 08:18] LABS: ANION GAP 7 (5-19); BLOOD UREA NITROGEN 38 mg/dL (7-20); CALCIUM 8.3 mg/dL (8.4-10.2); CARBON DIOXIDE 30 mmol/L (22-30); CHLORIDE 101 mmol/L (98-107); GLUCOSE 100 mg/dL (75-110); POTASSIUM 3.1 mmol/L (3.6-5.0); SODIUM 138.4 mmol/L (137-145)
--- NOTE | 2017-12-06 09:54 | RADIOLOGY REPORT (SQ) ---
EXAM DESCRIPTION: CHEST PA/LAT COMPLETED DATE/TIME: 12/06/2017 9:18 am REASON FOR STUDY: SOB COMPARISON: 12/04/2017 EXAM PARAMETERS: NUMBER OF VIEWS: two views TECHNIQUE: Digital Frontal and Lateral radiographic views of the chest acquired. RADIATION DOSE: NA LIMITATIONS: none FINDINGS: LUNGS AND PLEURA: No opacities, masses or pneumothorax. No pleural effusion. Stable right upper lobe nodule. MEDIASTINUM AND HILAR STRUCTURES: No masses or contour abnormalities. Calcified nodes. HEART AND VASCULAR STRUCTURES: Heart normal size. No evidence for failure. BONES: No acute findings. HARDWARE: Sternal wires. OTHER: No other significant finding. IMPRESSION: NO SIGNIFICANT RADIOGRAPHIC FINDING IN THE CHEST. TECHNICAL DOCUMENTATION: JOB ID: [id number] [email or web address] All Rights Reserved Reading location - IP/workstation name: [email or web address]
[2017-12-06] MEDS: CLOPIDOGREL BISULFATE 75 MG TABLET PO SCH (09:59)
[2017-12-06] MEDS: METOPROLOL TARTRATE 50 MG TABLET PO SCH ×2 (09:59→21:22)
[2017-12-06] MEDS: FUROSEMIDE 40 MG TABLET PO SCH ×2 (09:59→17:07)
[2017-12-06] MEDS: LISINOPRIL 10 MG TABLET PO SCH ×2 (10:00→21:22)
[2017-12-06] MEDS ORDERED: POTASSIUM CHLORIDE 10 MEQ TABLET.SA PO ONE (15:30)
--- NOTE | 2017-12-06 15:32 | PDOC PROGRESS REPORT ---
Subjective Progress Note for:: 12/06/17 Subjective:: The patient is a 62-year-old male with a past medical history significant for COPD, coronary artery disease status post CABG 1 year ago, he has a history of diastolic congestive heart failure and chronic pain. The patient presented to the emergency room with vague neurologic complaints. It was felt that he had a possible TIA. He also complained of shortness of breath at the time of admission. He was admitted to the hospital and a cardiology consult was obtained. MRI of the brain was unremarkable. He is scheduled to have a 2D echocardiogram, carotid Dopplers as well as a stress test in the morning. Today when I saw the patient he states that he continues to have some shortness of breath. Otherwise he states that he is feeling better and he has had no further neurologic symptoms. He denies syncopal episodes or dizziness. He has had no visual complaints. His speech is doing quite well at this point. He does not have any chest pain or heart palpitations but he does remain quite short of breath especially when he tries to ambulate. He has had no nausea vomiting or diarrhea. No abdominal pain. No urinary complaints. Reason For Visit: TIA CHF CAD TACHYCARDIA Physical Exam Vital Signs: Temp Pulse Resp BP Pulse Ox 97.8 F 89 20 121/80 100 12/06/17 12:22 12/06/17 13:59 12/06/17 12:22 12/06/17 12:22 12/06/17 12:22 Intake & Output 12/05/17 12/06/17 12/07/17 06:59 06:59 06:59 Intake Total 915 1182 337 Output Total 200 Balance 915 982 337 Weight 61.5 kg 61.4 kg General appearance: PRESENT: no acute distress, well-developed, well-nourished Head exam: PRESENT: atraumatic, normocephalic Mouth exam: PRESENT: moist, tongue midline Respiratory exam: PRESENT: crackles - He has some fine crackles in the lower bases, decreased breath sounds Cardiovascular exam: PRESENT: RRR. ABSENT: diastolic murmur, rubs, systolic murmur GI/Abdominal exam: PRESENT: normal bowel sounds, soft. ABSENT: distended, guarding, mass, organolmegaly, rebound, tenderness Rectal exam: PRESENT: deferred Extremities exam: PRESENT: full ROM. ABSENT: calf tenderness, clubbing, pedal edema Neurological exam: PRESENT: alert, awake, oriented to person, oriented to place , oriented to time, oriented to situation, CN II-XII grossly intact. ABSENT: motor sensory deficit Psychiatric exam: PRESENT: appropriate affect, normal mood. ABSENT: homicidal ideation, suicidal ideation Skin exam: PRESENT: dry, intact, warm. ABSENT: cyanosis, rash Results Laboratory Results: 12/06/17 06:56 12/06/17 06:56 12/06/17 12/06/17 12/06/17 06:56 06:56 06:56 WBC 8.6 RBC 5.02 Hgb 11.3 L Hct 35.5 L MCV 71 L MCH 22.4 L MCHC 31.7 L RDW 18.4 H Plt Count 291 Seg Neutrophils % 68.6 Lymphocytes % 17.6 Monocytes % 9.5 Eosinophils % 3.1 Basophils % 1.2 Absolute Neutrophils 5.9 Absolute Lymphocytes 1.5 Absolute Monocytes 0.8 Absolute Eosinophils 0.3 Absolute Basophils 0.1 Sodium 138.4 Potassium 3.1 L Chloride 101 Carbon Dioxide 30 Anion Gap 7 BUN 38 H Creatinine 1.88 H Est GFR ( Amer) 44 L Est GFR (Non-Af Amer) 36 L Glucose 100 Calcium 8.3 L Phosphorus 3.9 Magnesium 1.9 12/04/17 12/04/17 12/04/17 06:53 06:53 13:44 Creatine Kinase 145 146 CK-MB (CK-2) 4.42 Troponin I 0.057 NT-Pro-B Natriuret Pep 12/04/17 12/04/17 12/04/17 13:44 13:44 20:20 Creatine Kinase 137 CK-MB (CK-2) 4.65 H Troponin I 0.060 Cancelled NT-Pro-B Natriuret Pep 9660 H 12/04/17 12/05/17 20:20 09:56 Creatine Kinase CK-MB (CK-2) 4.74 H Troponin I 0.050 0.054 NT-Pro-B Natriuret Pep Impressions: Head CT 12/04/17 03:34 IMPRESSION: No acute findings. If there is suspicion for acute ischemia, consider CT/MR surveillance within 48 to 72 hours. Head MRI 12/05/17 00:00 IMPRESSION: ATROPHY AND CHRONIC MICRO-VASCULAR ISCHEMIC CHANGES. OTHERWISE NORMAL MRI OF THE BRAIN WITHOUT INTRAVENOUS GADOLINIUM CONTRAST. EVIDENCE OF ACUTE STROKE: NO. Chest X-Ray 12/06/17 07:00 IMPRESSION: NO SIGNIFICANT RADIOGRAPHIC FINDING IN THE CHEST. Assessment & Plan - Diagnosis (1) TIA (transient ischemic attack) Qualifiers: Transient cerebral ischemia type: unspecified Qualified Code(s): G45.9 - Transient cerebral ischemic attack, unspecified Is this a current diagnosis for this admission?: Yes Plan: His symptoms have totally resolved at this point. Continue Plavix as well as statin medication. He is awaiting carotid Dopplers and a 2D echocardiogram. (2) Coronary artery disease Qualifiers: Coronary Disease-Associated Artery/Lesion type: unspecified vessel or lesion type [place] vs. transplanted heart: [place] heart Associated angina: angina presence unspecified Qualified Code(s): I25.10 - Atherosclerotic heart disease of [place] coronary artery without angina pectoris Is this a current diagnosis for this admission?: Yes Plan: The patient will continue Plavix, statin medication and metoprolol. He is going to have a stress test performed in the morning. A 2D echocardiogram is pending. (3) CHF (congestive heart failure) Qualifiers: Heart failure type: unspecified Heart failure chronicity: chronic Qualified Code(s): I50.9 - Heart failure, unspecified Is this a current diagnosis for this admission?: Yes Plan: Reportedly the patient has a history of diastolic congestive heart failure. He has a 2D echocardiogram pending. Continue Lasix 40 mg twice daily. He does not appear to be acutely decompensated. Chest x-ray is concerning for some mild vascular congestion. We will add a BNP onto tomorrow's blood work. (4) COPD (chronic obstructive pulmonary disease) Qualifiers: COPD type: unspecified COPD Qualified Code(s): J44.9 - Chronic obstructive pulmonary disease, unspecified Is this a current diagnosis for this admission?: Yes Plan: No evidence of exacerbation (5) Chronic kidney disease Qualifiers: Chronic kidney disease stage: stage 3 (moderate) Qualified Code(s): N18.3 - Chronic kidney disease, stage 3 (moderate) Is this a current diagnosis for this admission?: Yes Plan: His creatinine is stable at this point. (6) Hypertension Qualifiers: Hypertension type: essential hypertension Qualified Code(s): I10 - Essential (primary) hypertension Is this a current diagnosis for this admission?: Yes Plan: Stable (7) Hyperlipidemia Qualifiers: Hyperlipidemia type: unspecified Qualified Code(s): E78.5 - Hyperlipidemia , unspecified Is this a current diagnosis for this admission?: Yes Plan: Continue statin medication (8) Anemia Is this a current diagnosis for this admission?: Yes Plan: He has a microcytic anemia which is stable. We will add an anemia panel onto tomorrow's blood work. He may benefit from some IV iron (9) Hypokalemia Is this a current diagnosis for this admission?: Yes Plan: This will be repleted today. He will have a chemistry panel drawn in the morning. (10) Full code status Is this a current diagnosis for this admission?: Yes - Time Time Spent with patient: 25-34 minutes - Inpatient Certification Medical Necessity: Other - Inpatient hospitalization remains necessary. The patient is pending further workup. He is going to have a stress test performed in the morning. I am going to get physical therapy to see the patient to make sure he can safely ambulate. If all his workup is negative he possibly could be discharged tomorrow.
--- NOTE | 2017-12-06 16:32 | PDOC PROGRESS REPORT ---
Subjective Progress Note for:: 12/06/17 Subjective:: Patient seems to be doing better with gradual improvement. Still complaining of shortness of breath on exertion but overall improved. Denies any recurrence of neurological symptoms. Pt is denying any chest arm or neck discomfort. Patient denying any PND, orthopnea. Patient denied any sustained palpitations, dizziness, syncope, near syncope. Patient denying any fever chills. Patient denying any other significant discomfort. Patient is maintaining sinus rhythm. Review of systems: Rest review of systems negative. Medications: Medications have been reviewed. Reason For Visit: TIA CHF CAD TACHYCARDIA Physical Exam Vital Signs: Temp Pulse Resp BP Pulse Ox 97.5 F 80 22 H 129/92 H 100 12/06/17 15:35 12/06/17 15:35 12/06/17 15:35 12/06/17 15:35 12/06/17 15:35 Intake & Output 12/05/17 12/06/17 12/07/17 06:59 06:59 06:59 Intake Total 915 1182 337 Output Total 200 Balance 915 982 337 Weight 61.5 kg 61.4 kg Exam: GENERAL: well-nourished and in no acute distress. Alert and oriented x3 HEAD: Atraumatic, normocephalic. EYES: Pupils equal round and reactive to light, extraocular movements intact, sclera anicteric, conjunctiva are normal. ENT: TMs normal, nares patent, oropharynx clear without exudates. Moist mucous membranes. No oral ulcerations or bleeding gums noted NECK: supple without lymphadenopathy. Trachea is central. No cervical or axillary lymphadenopathy noted. Carotids are 2+, JVD WNL LUNGS: Respiration seems nonlabored, no significant accessory muscle action noted. Breath sounds clear to auscultation bilaterally and equal noted. No wheezes rales or rhonchi noted. No significant dullness noted on percussion. CHEST: Palpation of the chest wall shows no significant chest wall tenderness. No other significant abnormalities noted. HEART: [place] [employer], No PSH, 1/6 BAI[place] aortic area, 1/6 [place] systolic murmur mitral area, no rubs, no gallops. ABDOMEN: Soft, no significant tenderness appreciated, normoactive bowel sounds. No guarding, no rebound. No rigidity noted . No masses appreciated. EXTREMITIES: Pedal pulses are 1-2+, no calf tenderness noted. No clubbing or cyanosis.trace to 1+ pedal edema noted NEUROLOGICAL: Focused neurological exam showed no significant neurologic deficit. Normal speech, no focal weakness appreciated. PSYCH: Normal mood, normal affect. Judgment and insight within normal limits. SKIN: No significant ecchymosis, skin is noted to be warm. MUSCULOSKELETAL EXAM: No significant acute joint swelling noted. Results Laboratory Results: 12/06/17 06:56 12/06/17 06:56 12/06/17 12/06/17 12/06/17 06:56 06:56 06:56 WBC 8.6 RBC 5.02 Hgb 11.3 L Hct 35.5 L MCV 71 L MCH 22.4 L MCHC 31.7 L RDW 18.4 H Plt Count 291 Seg Neutrophils % 68.6 Lymphocytes % 17.6 Monocytes % 9.5 Eosinophils % 3.1 Basophils % 1.2 Absolute Neutrophils 5.9 Absolute Lymphocytes 1.5 Absolute Monocytes 0.8 Absolute Eosinophils 0.3 Absolute Basophils 0.1 Sodium 138.4 Potassium 3.1 L Chloride 101 Carbon Dioxide 30 Anion Gap 7 BUN 38 H Creatinine 1.88 H Est GFR ( Amer) 44 L Est GFR (Non-Af Amer) 36 L Glucose 100 Calcium 8.3 L Phosphorus 3.9 Magnesium 1.9 12/04/17 12/04/17 12/04/17 06:53 06:53 13:44 Creatine Kinase 145 146 CK-MB (CK-2) 4.42 Troponin I 0.057 NT-Pro-B Natriuret Pep 12/04/17 12/04/17 12/04/17 13:44 13:44 20:20 Creatine Kinase 137 CK-MB (CK-2) 4.65 H Troponin I 0.060 Cancelled NT-Pro-B Natriuret Pep 9660 H 12/04/17 12/05/17 20:20 09:56 Creatine Kinase CK-MB (CK-2) 4.74 H Troponin I 0.050 0.054 NT-Pro-B Natriuret Pep EKG Comments: Telemetry shows sinus rhythm no sustained tachycardia or bradycardia noted. Impressions: Head CT 12/04/17 03:34 IMPRESSION: No acute findings. If there is suspicion for acute ischemia, consider CT/MR surveillance within 48 to 72 hours. Head MRI 12/05/17 00:00 IMPRESSION: ATROPHY AND CHRONIC MICRO-VASCULAR ISCHEMIC CHANGES. OTHERWISE NORMAL MRI OF THE BRAIN WITHOUT INTRAVENOUS GADOLINIUM CONTRAST. EVIDENCE OF ACUTE STROKE: NO. Chest X-Ray 12/06/17 07:00 IMPRESSION: NO SIGNIFICANT RADIOGRAPHIC FINDING IN THE CHEST. Assessment & Plan - Diagnosis (1) TIA (transient ischemic attack) Qualifiers: Transient cerebral ischemia type: unspecified Qualified Code(s): G45.9 - Transient cerebral ischemic attack, unspecified Is this a current diagnosis for this admission?: Yes (2) Coronary artery disease Qualifiers: Coronary Disease-Associated Artery/Lesion type: unspecified vessel or lesion type [place] vs. transplanted heart: [place] heart Associated angina: angina presence unspecified Qualified Code(s): I25.10 - Atherosclerotic heart disease of [place] coronary artery without angina pectoris Is this a current diagnosis for this admission?: Yes (3) Dyspnea Qualifiers: Dyspnea type: unspecified Qualified Code(s): R06.00 - Dyspnea, unspecified Is this a current diagnosis for this admission?: Yes (4) COPD (chronic obstructive pulmonary disease) Qualifiers: COPD type: unspecified COPD Qualified Code(s): J44.9 - Chronic obstructive pulmonary disease, unspecified Is this a current diagnosis for this admission?: Yes (5) Hypertension Qualifiers: Hypertension type: essential hypertension Qualified Code(s): I10 - Essential (primary) hypertension Is this a current diagnosis for this admission?: Yes (6) Hypokalemia Is this a current diagnosis for this admission?: Yes (7) Hyperlipidemia Qualifiers: Hyperlipidemia type: unspecified Qualified Code(s): E78.5 - Hyperlipidemia , unspecified Is this a current diagnosis for this admission?: Yes (8) Chronic kidney disease Qualifiers: Chronic kidney disease stage: stage 3 (moderate) Qualified Code(s): N18.3 - Chronic kidney disease, stage 3 (moderate) Is this a current diagnosis for this admission?: Yes (9) CHF (congestive heart failure) Qualifiers: Heart failure type: unspecified Heart failure chronicity: chronic Qualified Code(s): I50.9 - Heart failure, unspecified Is this a current diagnosis for this admission?: Yes (10) Troponin level elevated Is this a current diagnosis for this admission?: Yes - Notes Notes: Patient is generally improved. No further TIA spells. Nuclear stress test pending. 2D echocardiogram still pending. Carotid duplex pending. These are all scheduled for tomorrow. Transient ischemic attack: Patient is a vague historian. Currently no symptoms indicative of ongoing TIA. Agree with cardiac monitoring to rule out transient atrial fibrillation. Agree with 2D echo and carotid duplex. Agree with statin and antiplatelet therapy. Coronary artery disease: Patient is status post coronary artery bypass graft surgery. Initial troponin I obtained in the ER is mildly abnormal. Will get another troponin I to look at the trend. Troponin I elevation: Initial troponin I elevated. Will schedule patient for a pharmacologic nuclear stress test. Dyspnea: Possibly related to COPD. May be ischemic equivalent symptoms. Possible CHF. CHF: Suspected since patient has dyspnea. A 2D echo has been ordered will be reviewed. BNP ordered. COPD: Currently stable. Continue baseline therapy. Hypertension: Reasonably well controlled. Blood pressure goal in this patient is 135/85 or less. This was discussed with the patient. Currently blood pressure under reasonable control. Better medication for this patient are AYE inhibitor/ARB/beta alvin etc. discussed side effects of uncontrolled hypertension and also severe hypotension. Hypokalemia: Currently stable agree with replacement. Chronic kidney disease: Stable. Hyperlipidemia: LDL goal is less than 70. Recommend statin therapy at least intermediate or high dose, of high potency status. Periodic lipid panel and liver panel is indicated. Patient to report any significant muscle discomfort or other side effects. MRI brain results reviewed. Chest x-ray is reviewed. Patient encouraged to ambulate. We will repeat an EKG tomorrow to look for any evolving changes. - Time Time with patient: 15-25 minutes - CODE STATUS was discussed, patient remains full code. Surrogate decision-maker unchanged. Multiple medical problems were addressed. More than 50% of the time spent coordinating care, discussing management plans with involved caregivers. Management plans discussed with involved personnels. Medical decision making was of moderate to high complexity , patient's has multiple comorbidities. Medications reviewed and adjusted accordingly: Yes
[2017-12-06] MEDS: ATORVASTATIN CALCIUM 80 MG TABLET PO SCH (21:22)
[2017-12-07] MEDS: HEPARIN SOD (PORCINE) 5,000 UNIT/ML 1 ML SYRINGE SUBCUT SCH ×2 (05:18→13:39)
[2017-12-07 06:29] LABS: ABSOLUTE BASOPHILS # (AUTO) 0.1 10^3/uL (0.0-0.2); ABSOLUTE EOSINOPHILS # (AUTO) 0.2 10^3/uL (0.0-0.6); ABSOLUTE LYMPHOCYTES (AUTO) 1.6 10^3/uL (0.5-4.7); ABSOLUTE MONOCYTES (AUTO) 0.8 10^3/uL (0.1-1.4); ABSOLUTE NEUT (AUTO) 5.6 10^3/uL (1.7-8.2); ABSOLUTE RETICS # 0.126 10^6/uL (0.028-0.122); EOSINOPHILS % (AUTO) 2.6 % (0-6); HEMATOCRIT 34.5 % (37.9-51.0); HEMOGLOBIN 10.8 g/dL (13.5-17.0); LYMPHOCYTES % (AUTO) 19.6 % (13-45); MEAN CORPUSCULAR HEMOGLOBIN 22.3 pg (27.0-33.4); MEAN CORPUSCULAR HGB CONC 31.3 g/dL (32.0-36.0); MEAN CORPUSCULAR VOLUME 72 fl (80-97); MONOCYTES % (AUTO) 9.8 % (3-13); PLATELET COUNT 259 10^3/uL (150-450); RED BLOOD COUNT 4.82 10^6/uL (4.35-5.55); RED CELL DISTRIBUTION WIDTH 18.2 % (11.5-14.0); RETICULOCYTE COUNT (AUTO) 2.62 % (0.66-2.85); TOTAL CELLS COUNTED % (AUTO) 100 %; WHITE BLOOD COUNT 8.4 10^3/uL (4.0-10.5)
[2017-12-07 06:57] LABS: ANION GAP 9 (5-19); BLOOD UREA NITROGEN 37 mg/dL (7-20); CALCIUM 8.8 mg/dL (8.4-10.2); CARBON DIOXIDE 30 mmol/L (22-30); CHLORIDE 102 mmol/L (98-107); GLUCOSE 84 mg/dL (75-110); IRON(TIBC) 18.1 ug/dL (49-181); POTASSIUM 3.8 mmol/L (3.6-5.0); SODIUM 141.2 mmol/L (137-145)
--- NOTE | 2017-12-07 09:44 | EKG REPORT ---
SEVERITY:- ABNORMAL ECG - SINUS RHYTHM PROBABLE LEFT ATRIAL ABNORMALITY LEFT AXIS DEVIATION NONSPECIFIC T ABNORMALITIES, LATERAL LEADS BORDERLINE PROLONGED QT INTERVAL : Confirmed by: Kinza Meza 07-Dec-2017 09:44:06
[2017-12-07] MEDS: LISINOPRIL 10 MG TABLET PO SCH (10:06)
[2017-12-07] MEDS: CLOPIDOGREL BISULFATE 75 MG TABLET PO SCH (10:06)
[2017-12-07] MEDS: METOPROLOL TARTRATE 50 MG TABLET PO SCH (10:06)
[2017-12-07] MEDS: FUROSEMIDE 40 MG TABLET PO SCH (10:07)
--- NOTE | 2017-12-07 10:48 | Physician Advisory Note ---
Physician Advisor ProgressNote .: Pursuant to the plan for [facility], I have reviewed the medical record for this patient. Physician Advisor Statement: Please consider documenting, if you agree: 1. "Acute Kidney Injury, baseline Cr= " (If baseline Cr is thought to be 1.44, rather than 1.64+) 2. "pulmonary HTN, mild by 2017 ECHO" 3. Any attending concerns that pt not safe for d/c today, w/reasons. Status: Pt w/min sx, which have mostly resolved. Receiving po Lasix bid instead of qday, so 2x his usual. Appears to have been kept at least 1 MN extra due to ECHO/carotids not being available on holiday weekend. Approp'ly Obs so far. If there is a new clinical issue today that concerns attending, then please document - may become appropriate for Inpatient status if, for example, still needing Lasix > usual amount but worsening Cr w/this, or RAI developing & needing close monitoring due to concerns for further decompensation (pt not ok for simply cutting Lasix back to daily po & sending home w/outpt labs in a day or so b/c ). Thanks! LIS
--- NOTE | 2017-12-07 12:30 | DRAGON STRESS TEST REPORT ---
INTRAVENOUS LEXISCAN CARDIOLITE STRESS TEST USING SINGLE PHOTON EMMISION COMPUTERIZED TOMOGRAPHIC. DATE OF PROCEDURE: December 07, 2017, INDICATION : Chest pain CARDIAC RISK FACTORS: Tobacco abuse, hypertension, dyslipidemia, family history of CAD RESTING EKG: Sinus rhythm without any baseline ST-T wave changes STRESS EKG: No significant ST segment changes noted with LexiScan bolus REASON FOR TERMINATION: Protocol. PROCEDURE REPORT: Baseline heart rate 85 beats per minute with blood pressure of 128/90. Patient had no significant complaints. Patient was bolused with Lexiscan 0.4 mg intravenously followed by saline bolus. Heart rate at 2 minutes post bolus 87 with a blood pressure of 125/86. 3 minutes post bolus heart rate 75 with blood pressure of 126/86. No significant EKG changes were noted. Patient had no significant complaints during the procedure or postprocedure. Patient injected with Aminophyllin 75 mg at 3 minutes or later after Lexiscan bolus. CONCLUSIONS: Normal EKG and hemodynamic response to IV LexiScan. NUCLEAR DATA: At rest the patient was given 10.95 millicuries of technetium 99 sestamibi injected intravenously. As per protocol rest gated SPECT images were obtained. On day of stress test, the patient was given intravenous LexiScan at a dose of 0.4 mg in 5 mL intravenously, followed by flush with normal saline. Subsequently the stress dose of 32.3 millicuries of technetium 99 sestamibi was injected intravenously. As per protocol stress gated images were obtained. NUCLEAR INTERPRETATION: Both raw and processed data were used for interpretation. Visual, qualitative, computer-generated quantitative data was used. There was good myocardial uptake of technetium compound. Motion artifact and soft tissue attenuations were noted. Increased visceral uptake was noted. No definitive areas of transient perfusion defect noted, small area of mild fixed defect noted in the distal anterior wall consistent with mild scar. EKG gated imaging showed LV EF at 23 %, rest and stress gated EF similar visually. T. I D. ratio was 1.05. Lung heart ratio noted to be within normal limits 0.55. No significant extracardiac and abnormal radiotracer activities were noted. RV free wall uptake was noted to be WNL. IMPRESSION: Also refer to comments under nuclear interpretation. Also test results needs to be interpreted in the context of pretest probability. 1. No definitive areas of transient perfusion defect noted. 2. Small area of fixed defect noted in the distal anterior wall, mild severity consistent with mild scar. 3. EKG gated imaging shows left ventricular ejection fraction of approx. 23 % with severe diffuse hypokinesia and small area of distal anterior wall hypokinesia. Lung uptake was noted to be significantly increased. This is consistent with CHF versus parenchymal lung disease. 4. Clinical correlation requested as occasionally single vessel disease or balanced ischemia could be missed. In approximately 10% of the cases Lexiscan may not cause adequate vasodilatory stress. RECOMMENDATIONS: Aggressive risk factor modification and medical management. Further evaluation may be needed if continued symptoms or other high risk indicators are noted on clinical evaluation. Close cardiology follow-up is also recommended. Clinical correlation with echocardiogram derived ejection fraction. Inability to exercise by itself can lead to increased cardiovascular event risks. Consider cardiology consultation and or follow-up if clinically indicated. I am available for cardiology evaluation and consultation if requested by the cut out press operator, unless patient already has a home health nurse. MADDIE
--- NOTE | 2017-12-07 13:23 | RADIOLOGY REPORT (SQ) ---
EXAM DESCRIPTION: CAROTID DOPPLER COMPLETED DATE/TIME: 12/07/2017 1:04 pm REASON FOR STUDY: tia COMPARISON: None. TECHNIQUE: Grayscale ultrasound, Doppler velocity and spectra, and color Doppler images acquired of the extra-cranial carotid and vertebral arteries. Images stored on PACS. LIMITATIONS: None. FINDINGS: RIGHT CAROTID CCA Velocities: Within normal limits. ICA Velocities Peak systolic 0.61 m/s. End diastolic 0.19 m/s. Proximal ICA/CCA peak systolic ratio 0.7. Spectra normal. No significant plaque. LEFT CAROTID CCA Velocities: Within normal limits. ICA Velocities Peak systolic 0.72 m/s. End diastolic 0.18 m/s. Proximal ICA/CCA peak systolic ratio 0.9. Spectra normal. No significant plaque. VERTEBRAL ARTERIES: Antegrade flow. Normal waveforms. SUBCLAVIAN ARTERIES: Not evaluated OTHER: No other significant finding. IMPRESSION: NO HEMODYNAMICALLY SIGNIFICANT STENOSIS. COMMENT: Quality ID #[id number]: Velocity criteria are extrapolated from the diameter data as defined by t he Society of Radiologists in Ultrasound Consensus Conference. Radiology 2003: 229; 340-346. TECHNICAL DOCUMENTATION: JOB ID: [id number] [employer]- All Rights Reserved Reading location - IP/workstation name: [facility]
--- NOTE | 2017-12-07 13:32 | XCELERA REPORT ---
[address] [address] Transthoracic Echocardiogram Report Name: TEVIN SPENCER Age: 62 yrs Gender: Male : 1955 Patient Status: Inpatient Patient Location: [address] [place] [address] Study Date: 12/07/2017 11:01 AM Height: 62 in Weight: 130 lb BSA: 1.6 m2 Procedure: A complete two-dimensional transthoracic echocardiogram was performed (2D, M-mode, spectral and color flow Doppler). The study was technically adequate with some images being suboptimal in quality. Reason For Study: tia Ordering Physician: CRYSTAL PABLO Performed By: Renae Deluna Interpretation Summary LV EF is 35% Left ventricular systolic function is moderately reduced. There is mild concentric left ventricular hypertrophy. The left ventricle is grossly normal size. Doppler measurements suggest pseudonormalized left ventricular relaxation, which is associated with grade II/IV or mild to moderate diastolic dysfunction There is apical wall moderate hypokinesis There is distal anterior wall mild hypokinesis The right ventricular systolic function is normal. The right atrium is normal in size The left atrium is mildly dilated. There is a moderate to severe amount of mitral regurgitation There is no mitral valve stenosis. There is no aortic valve stenosis There is a trace amount of aortic regurgitation There is a moderate amount of tricuspid regurgitation There is moderate pulmonary hypertension by echo Right ventricular systolic pressure is estimated to be elevated at 50- 60mmHg. The aortic root is not well visualized but is probably normal size. The inferior vena cava appeared normal and decreased < 50% with respiration (RAP 10-15 mmHg) There is no pericardial effusion. MMode/2D Measurements & Calculations RVDd: 3.5 cm LVIDd: 4.8 cm FS: 16.6 % MV Diam: 2.5 cm IVSd: 0.96 cm LVIDs: 4.0 cm EDV(Teich): 108.7 ml LVPWd: 1.0 cm ESV(Teich): 71.0 ml EF(Teich): 34.7 % Ao root diam: 2.7 cm LVOT diam: 1.9 cm Ao root area: 5.7 [id number] area: 2.9 cm2 LA dimension: 3.8 cm Doppler Measurements & Calculations MV E max ney: MV area (1 diam): MV P1/2t max ney: Ao V2 max: 78.7 cm/sec 4.9 cm2 79.3 cm/sec 85.1 cm/sec MV A max ney: MV Flow area MV P1/2t: 45.2 msec Ao max P.8 cm/sec (1diam): 4.9 cm2 MVA(P1/2t): 4.9 cm2 2.9 mmHg MV E/A: 2.2 MV dec slope: FOUZIA(V,D): 2.7 cm2 513.5 cm/sec2 LV V1 max PG: MR max ney: PA V2 max: TR max ney: 2.5 mmHg 464.4 cm/sec 57.8 cm/sec 354.2 cm/sec LV V1 max: MR max PG: PA max P.3 mmHg TR max P.7 cm/sec 86.3 mmHg 50.2 mmHg LV dP/dt: 649.0 mmHg/s Left Ventricle The left ventricle is grossly normal size. There is mild concentric left ventricular hypertrophy. Left ventricular systolic function is moderately reduced. LV EF is 35%. Doppler measurements suggest pseudonormalized left ventricular relaxation, which is associated with grade II/IV or mild to moderate diastolic dysfunction. There is apical wall moderate hypokinesis. There is distal anterior wall mild hypokinesis. Right Ventricle The right ventricle is grossly normal size. There is normal right ventricular wall thickness. The right ventricular systolic function is normal. Atria The right atrium is normal in size. The left atrium is mildly dilated. Interarterial septum not well visualized and not well dopplered. Cannot comment on ASD/PFO presence. Mitral Valve The mitral valve is grossly normal. There is no mitral valve stenosis. There is a moderate to severe amount of mitral regurgitation. Aortic Valve The aortic valve opens well. There is no aortic valve stenosis. There is a trace amount of aortic regurgitation. Tricuspid Valve The tricuspid valve is not well visualized, but is grossly normal. There is no tricuspid stenosis. There is a moderate amount of tricuspid regurgitation. There is moderate pulmonary hypertension by echo. Right ventricular systolic pressure is estimated to be elevated at 50-60mmHg. Pulmonic Valve The pulmonic valve is not well visualized. Great Vessels The aortic root is not well visualized but is probably normal size. The inferior vena cava appeared normal and decreased < 50% with respiration (RAP 10-15 mmHg). Effusions There is no pericardial effusion. : CRYSTAL PABLO > Kinza Meza
--- NOTE | 2017-12-07 14:23 | PDOC DISCHARGE SUMMARY ---
General - Admit/Disc Date/PCP Admission Date/Primary Care Provider: 12/04/17 06:27 SANTOSH FLEMING Discharge Date: 12/07/17 - Discharge Diagnosis (1) Acute on chronic systolic (congestive) heart failure Is this a current diagnosis for this admission?: Yes Summary: Echo showing EF 35% with concentric LVH. Nuclear stress test showing EF of 23%. will need short-term close cardiology follow-up (2) Acute renal failure superimposed on stage 3 chronic kidney disease Is this a current diagnosis for this admission?: Yes Summary: slight increase in renal function since being started on entresto. This is d/c' d at discharge and started on lisinopril. He will need a BMP next week with PCP (3) Coronary artery disease Is this a current diagnosis for this admission?: Yes Summary: continue statin and aspirin (4) Hyperlipidemia Is this a current diagnosis for this admission?: Yes Summary: continue statin (5) Hypertension Is this a current diagnosis for this admission?: Yes Summary: stable, will stop amlodipine since starting lisinopril. (6) TIA (transient ischemic attack) Is this a current diagnosis for this admission?: Yes Summary: started on plavix and aspirin. Continue statin and lifestyle modifications (7) Hypothyroidism Is this a current diagnosis for this admission?: Yes Summary: continue replacement therapy - Additional Information Resuscitation Status: Full Code Discharge Diet: Cardiac Discharge Activity: Activity As Tolerated Prescriptions: Clopidogrel Bisulfate [Plavix 75 mg Tablet] 75 mg PO DAILY 30 Days #30 tablet Lisinopril 5 mg PO DAILY 30 Days #30 tablet Home Medications: Atorvastatin Calcium 40 mg PO QHS 12/04/17 Budesonide/Formoterol Fumarate [Symbicort 160-4.5 Mcg Inhaler] 10.2 gm IH BID Carvedilol 3.125 mg PO BID 12/04/17 Famotidine 20 mg PO BID 12/04/17 Furosemide [Lasix] 40 mg PO DAILY 12/04/17 Ipratropium/Albuterol Sulfate [Combivent Respimat Inhal [place]] 4 gm IH DAILY Levothyroxine Sodium 125 mcg PO QAM 12/04/17 Potassium Chloride [Klor-Con 10] 10 meq PO BID 12/04/17 Clopidogrel Bisulfate [Plavix 75 mg Tablet] 75 mg PO DAILY 30 Days #30 tablet Lisinopril 5 mg PO DAILY 30 Days #30 tablet 12/07/17 History of Present Illness Patient complains of: Denies any complaints at discharge History of Present Illness: TEVIN SPENCER is a 62 year old male admitted for vague neurological complaints which have resolved. He was also found to be fluid overloaded. His echo reveals and EF of 35% and nuclear stress test EF of 25%. He has returned to his baseline functioning. He denies any current issues. He will need close follow- up with cardiology and PCP and need a BMP next week to assess his renal function and potassium level Hospital Course Hospital Course: During his admission he has undergone a nuclear stress test, echocardiogram and carotid US. results are listed below. He has returned to his normal baseline function. 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 ABSENT: rales, rhonchi, wheezes Cardiovascular exam: PRESENT: RRR. ABSENT: diastolic murmur, rubs, systolic murmur Pulses: PRESENT: normal dorsalis pedis pul Vascular exam: PRESENT: normal capillary refill GI/Abdominal exam: PRESENT: normal bowel sounds, soft. ABSENT: distended, guarding, mass, organolmegaly, rebound, tenderness Extremities exam: PRESENT: full ROM. ABSENT: calf tenderness, clubbing, pedal edema Neurological exam: PRESENT: alert, awake, oriented to person, oriented to place , oriented to time, oriented to situation, CN II-XII grossly intact. ABSENT: motor sensory deficit Psychiatric exam: PRESENT: appropriate affect, normal mood. ABSENT: homicidal ideation, suicidal ideation Results Laboratory Results: 12/07/17 05:45 12/07/17 05:45 12/07/17 12/07/17 05:45 05:45 WBC 8.4 RBC 4.82 Hgb 10.8 L Hct 34.5 L MCV 72 L MCH 22.3 L MCHC 31.3 L RDW 18.2 H Plt Count 259 Seg Neutrophils % 67.0 Lymphocytes % 19.6 Monocytes % 9.8 Eosinophils % 2.6 Basophils % 1.0 Absolute Neutrophils 5.6 Absolute Lymphocytes 1.6 Absolute Monocytes 0.8 Absolute Eosinophils 0.2 Absolute Basophils 0.1 Retic Count (auto) 2.62 Absolute Retic 0.126 H Sodium 141.2 Potassium 3.8 Chloride 102 Carbon Dioxide 30 Anion Gap 9 BUN 37 H Creatinine 1.92 H Est GFR ( Amer) 43 L Est GFR (Non-Af Amer) 35 L Glucose 84 Calcium 8.8 Magnesium 1.9 Iron 18.1 L TIBC 362 % Saturation 5 Ferritin 27.10 Vitamin B12 388.0 Folate 19.80 12/04/17 12/04/17 12/04/17 06:53 06:53 13:44 Creatine Kinase 145 146 CK-MB (CK-2) 4.42 Troponin I 0.057 NT-Pro-B Natriuret Pep 12/04/17 12/04/17 12/04/17 13:44 13:44 20:20 Creatine Kinase 137 CK-MB (CK-2) 4.65 H Troponin I 0.060 Cancelled NT-Pro-B Natriuret Pep 9660 H 12/04/17 12/05/17 20:20 09:56 Creatine Kinase CK-MB (CK-2) 4.74 H Troponin I 0.050 0.054 NT-Pro-B Natriuret Pep Impressions: Head CT 12/04/17 03:34 IMPRESSION: No acute findings. If there is suspicion for acute ischemia, consider CT/MR surveillance within 48 to 72 hours. Head MRI 12/05/17 00:00 IMPRESSION: ATROPHY AND CHRONIC MICRO-VASCULAR ISCHEMIC CHANGES. OTHERWISE NORMAL MRI OF THE BRAIN WITHOUT INTRAVENOUS GADOLINIUM CONTRAST. EVIDENCE OF ACUTE STROKE: NO. Chest X-Ray 12/06/17 07:00 IMPRESSION: NO SIGNIFICANT RADIOGRAPHIC FINDING IN THE CHEST. Carotid Doppler Study 12/07/17 00:00 IMPRESSION: NO HEMODYNAMICALLY SIGNIFICANT STENOSIS. Qualifiers - * PATEINT BEING DISCHARGED WITH ANY OF THE FOLLOWING DIAGNOSIS?: Heart Failure HF Pt being discharged on ACEI for LVEF less than 40%?: Yes HF Pt being discharged on ARBS for LVEF less than 40%?: No Reason(s) for not prescribing ARBS:: Procedure not indicated HF Pt with Afib discharged with Warfarin?: No Reason(s) for not prescribing Warfarin:: Procedure not indicated HF Pt discharged on evidence-based Beta [place]:: Yes Plan Time Spent: Greater than 30 Minutes
[2017-12-07 14:54] VITALS: BP 154/102
[2017-12-07] MEDS ORDERED: REGADENOSON INJ 0.4 MG/5 ML DISP.SYRIN IV ONE (15:17)
[2017-12-07] MEDS ORDERED: AMINOPHYLLINE INJ/PF 250 MG/10 ML SDV IV ONE (15:17)
[2017-12-07] MEDS ORDERED: FUROSEMIDE INJ/PF 40 MG/4 ML SDV IV ONE (16:30)
[2017-12-07] MEDS ORDERED: CARVEDILOL 6.25 MG TABLET PO SCH (18:00)
--- NOTE | 2017-12-07 20:53 | PDOC PROGRESS REPORT ---
Subjective Progress Note for:: 12/07/17 Subjective:: Patient seems to be doing better with gradual improvement. Still complaining of shortness of breath on exertion but overall improved. Denies any recurrence of neurological symptoms. Pt is denying any chest arm or neck discomfort. Patient denying any PND, orthopnea. Patient denied any sustained palpitations, dizziness, syncope, near syncope. Patient denying any fever chills. Patient denying any other significant discomfort. In the morning, nuclear stress test was explained to the patient in detail. Risk benefits were discussed. Patient underwent nuclear stress test without any complications. Patient also underwent a 2D echocardiogram. Patient is maintaining sinus rhythm. Review of systems: Rest review of systems negative. Medications: Medications have been reviewed. Reason For Visit: TIA CHF CAD TACHYCARDIA Physical Exam Vital Signs: Temp Pulse Resp BP Pulse Ox 96.5 F L 84 17 154/102 H 98 12/07/17 14:53 12/07/17 14:53 12/07/17 14:53 12/07/17 14:53 12/07/17 14:53 Intake & Output 12/06/17 12/07/17 12/08/17 06:59 06:59 06:59 Intake Total 1182 992 218 Output Total 200 Balance 982 992 218 Weight 61.4 kg 62.1 kg Exam: GENERAL: well-nourished and in no acute distress. Alert and oriented x3 HEAD: Atraumatic, normocephalic. EYES: Pupils equal round and reactive to light, extraocular movements intact, sclera anicteric, conjunctiva are normal. ENT: TMs normal, nares patent, oropharynx clear without exudates. Moist mucous membranes. No oral ulcerations or bleeding gums noted NECK: supple without lymphadenopathy. Trachea is central. No cervical or axillary lymphadenopathy noted. Carotids are 2+, JVD WNL LUNGS: Respiration seems nonlabored, no significant accessory muscle action noted. Bibasilar fine crackles and few a scattered wheezes rales or rhonchi noted. No significant dullness noted on percussion. CHEST: Palpation of the chest wall shows no significant chest wall tenderness. No other significant abnormalities noted. HEART: [place] APPLE THINNER, No PSH, 1/6 BAILEE aortic area, 1/6 chester systolic murmur mitral area, no rubs, no gallops. ABDOMEN: Soft, no significant tenderness appreciated, normoactive bowel sounds. No guarding, no rebound. No rigidity noted . No masses appreciated. EXTREMITIES: Pedal pulses are 1-2+, no calf tenderness noted. No clubbing or cyanosis.trace to 1+ pedal edema noted NEUROLOGICAL: Focused neurological exam showed no significant neurologic deficit. Normal speech, no focal weakness appreciated. PSYCH: Normal mood, normal affect. Judgment and insight within normal limits. SKIN: No significant ecchymosis, skin is noted to be warm. MUSCULOSKELETAL EXAM: No significant acute joint swelling noted. Results Laboratory Results: 12/07/17 05:45 12/07/17 05:45 12/07/17 12/07/17 05:45 05:45 WBC 8.4 RBC 4.82 Hgb 10.8 L Hct 34.5 L MCV 72 L MCH 22.3 L MCHC 31.3 L RDW 18.2 H Plt Count 259 Seg Neutrophils % 67.0 Lymphocytes % 19.6 Monocytes % 9.8 Eosinophils % 2.6 Basophils % 1.0 Absolute Neutrophils 5.6 Absolute Lymphocytes 1.6 Absolute Monocytes 0.8 Absolute Eosinophils 0.2 Absolute Basophils 0.1 Retic Count (auto) 2.62 Absolute Retic 0.126 H Sodium 141.2 Potassium 3.8 Chloride 102 Carbon Dioxide 30 Anion Gap 9 BUN 37 H Creatinine 1.92 H Est GFR ( Amer) 43 L Est GFR (Non-Af Amer) 35 L Glucose 84 Calcium 8.8 Magnesium 1.9 Iron 18.1 L TIBC 362 % Saturation 5 Ferritin 27.10 Vitamin B12 388.0 Folate 19.80 12/04/17 12/04/17 12/04/17 06:53 06:53 13:44 Creatine Kinase 145 146 CK-MB (CK-2) 4.42 Troponin I 0.057 NT-Pro-B Natriuret Pep 12/04/17 12/04/17 12/04/17 13:44 13:44 20:20 Creatine Kinase 137 CK-MB (CK-2) 4.65 H Troponin I 0.060 Cancelled NT-Pro-B Natriuret Pep 9660 H 12/04/17 12/05/17 20:20 09:56 Creatine Kinase CK-MB (CK-2) 4.74 H Troponin I 0.050 0.054 NT-Pro-B Natriuret Pep EKG Comments: Twelve-lead EKG shows sinus rhythm without any acute ST-T wave changes. Telemetry strip shows sinus rhythm without any sustained tachycardia or bradycardia. Impressions: Head CT 12/04/17 03:34 IMPRESSION: No acute findings. If there is suspicion for acute ischemia, consider CT/MR surveillance within 48 to 72 hours. Head MRI 12/05/17 00:00 IMPRESSION: ATROPHY AND CHRONIC MICRO-VASCULAR ISCHEMIC CHANGES. OTHERWISE NORMAL MRI OF THE BRAIN WITHOUT INTRAVENOUS GADOLINIUM CONTRAST. EVIDENCE OF ACUTE STROKE: NO. Chest X-Ray 12/06/17 07:00 IMPRESSION: NO SIGNIFICANT RADIOGRAPHIC FINDING IN THE CHEST. Carotid Doppler Study 12/07/17 00:00 IMPRESSION: NO HEMODYNAMICALLY SIGNIFICANT STENOSIS. Assessment & Plan - Diagnosis (1) TIA (transient ischemic attack) Qualifiers: Transient cerebral ischemia type: unspecified Qualified Code(s): G45.9 - Transient cerebral ischemic attack, unspecified Is this a current diagnosis for this admission?: Yes (2) Coronary artery disease Qualifiers: Coronary Disease-Associated Artery/Lesion type: unspecified vessel or lesion type [place] vs. transplanted heart: samish heart Associated angina: angina presence unspecified Qualified Code(s): I25.10 - Atherosclerotic heart disease of samish coronary artery without angina pectoris Is this a current diagnosis for this admission?: Yes (3) Dyspnea Qualifiers: Dyspnea type: unspecified Qualified Code(s): R06.00 - Dyspnea, unspecified Is this a current diagnosis for this admission?: Yes (4) COPD (chronic obstructive pulmonary disease) Qualifiers: COPD type: unspecified COPD Qualified Code(s): J44.9 - Chronic obstructive pulmonary disease, unspecified Is this a current diagnosis for this admission?: Yes (5) Hypertension Qualifiers: Hypertension type: essential hypertension Qualified Code(s): I10 - Essential (primary) hypertension Is this a current diagnosis for this admission?: Yes (6) Hypokalemia Is this a current diagnosis for this admission?: Yes (7) Hyperlipidemia Qualifiers: Hyperlipidemia type: unspecified Qualified Code(s): E78.5 - Hyperlipidemia , unspecified Is this a current diagnosis for this admission?: Yes (8) Chronic kidney disease Qualifiers: Chronic kidney disease stage: stage 3 (moderate) Qualified Code(s): N18.3 - Chronic kidney disease, stage 3 (moderate) Is this a current diagnosis for this admission?: Yes (9) CHF (congestive heart failure) Qualifiers: Heart failure type: combined systolic and diastolic Heart failure chronicity: acute on chronic Qualified Code(s): I50.43 - Acute on chronic combined systolic (congestive) and diastolic (congestive) heart failure Is this a current diagnosis for this admission?: Yes (10) Troponin level elevated Is this a current diagnosis for this admission?: Yes - Notes Notes: Transient ischemic attack: Patient is a vague historian. Currently no symptoms indicative of ongoing TIA. Agree with cardiac monitoring to rule out transient atrial fibrillation. Agree with 2D echo and carotid duplex. Agree with statin and antiplatelet therapy. Patient is generally improved. No further TIA spells. Coronary artery disease: Patient is status post coronary artery bypass graft surgery. Troponin I levels has been stable. Patient did undergo a nuclear stress test which did not show any ischemia but lung uptake was noted to be high. This was felt to be related to CHF. Finding discussed with hospitalist and patient advised to increase diuretics. Troponin I elevation: Initial troponin I elevated. However these are in the indeterminate range. There has been no further escalation. EKGs has been so far negative. Dyspnea: Possibly related to COPD. Patient however now seems to have CHF and also mitral regurgitation. Will recommend optimizing vasodilator therapy along with entresto.. CHF: Suspected since patient has dyspnea. 2D echocardiogram shows LVEF at 35% with at least mitral regurgitation. Patient advised to get follow-up echocardiogram and also close cardiology follow-up. COPD: Currently stable. Continue baseline therapy. Hypertension: Reasonably well controlled. Blood pressure goal in this patient is 135/85 or less. This was discussed with the patient. Currently blood pressure under reasonable control. Better medication for this patient are AYE inhibitor/ARB/beta alvin etc. discussed side effects of uncontrolled hypertension and also severe hypotension. Hypokalemia: Currently stable agree with replacement. Chronic kidney disease: Stable. Hyperlipidemia: LDL goal is less than 70. Recommend statin therapy at least intermediate or high dose, of high potency status. Periodic lipid panel and liver panel is indicated. Patient to report any significant muscle discomfort or other side effects. Nuclear stress test results reviewed with the patient which showed no ischemia, a small area of mild fixed defect noted in the distal anterior wall. Echocardiogram showed apical hypokinesia and distal anterior wall hypokinesia with moderate to severe mitral regurgitation and depressed LVEF at approximately 35%. Patient advised very close cardiology follow-up and to report any sustained palpitations, syncope, near syncope. 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 - Time Time with patient: Greater than 35 minutes - More than 50% of the time spent coordinating care, discussing management plans with involved caregivers. Management plans discussed with involved personnels. Medical decision making was of moderate to high complexity, patient's has multiple comorbidities. Medications reviewed and adjusted accordingly: Yes
[2017-12-08] MEDS ORDERED: SACUBITRIL/VALSARTAN 24 MG/26 MG TABLET PO SCH (18:00)
== END 2017-12-07 16:42 | disposition home or self-care (01) ==
LOC: ER 03:28 → EH 06:27 → 3S 14:58
PROVIDERS: ADMIT Internal Medicine; ATTEND Internal Medicine
DX: G45.9 Transient cerebral ischemic attack, unspecified (principal); E87.6 Hypokalemia; R00.0 Tachycardia, unspecified; I13.0 Hypertensive heart and chronic kidney disease with heart failure and stage 1 through stage 4 chronic kidney disease, or unspecified chronic kidney disease; I50.23 Acute on chronic systolic (congestive) heart failure; N17.9 Acute kidney failure, unspecified; N18.3 Chronic kidney disease, stage 3 (moderate); J44.9 Chronic obstructive pulmonary disease, unspecified; I25.10 Atherosclerotic heart disease of native coronary artery without angina pectoris; E78.5 Hyperlipidemia, unspecified; E03.9 Hypothyroidism, unspecified; Z95.1 Presence of aortocoronary bypass graft
CPT/HCPCS: 93005 ×2; 99285; 36415 ×4; 82553; 82962; 82607; 82550; 82728; 82746; 83540; 83550; 83735 ×3; 84100; 85025 ×4; 85610; 85730; 85045; 80048 ×3; 80053; 81001; 84484 ×2; 84466; 80307; 82803; 80061; 83880; 93306; 93017; 93880; 70551; 71046; 71045; 78452; 70450; 93010 ×2; 97161; G0378 ×5; A9500; J2785; J1644 ×4; J3490 ×4; J2405; J0280; Q9969

== ENCOUNTER 2017-12-21 11:31 | Emergency (ER) | payer OTHER ==
--- NOTE | 2017-12-21 11:49 | ER Document Report ---
ED Medical Screen (RME) - General Chief Complaint: Breathing Difficulty Stated Complaint: DIFFICULTY BREATHING Time Seen by Provider: 12/21/17 11:48 Notes: Patient has had several days of shortness of breath. He states he has had a mild cough and some mild chest pain. No fevers. No congestion. States he does have inhalers at home but no other medications. States the inhalers are helping "somewhat". TRAVEL OUTSIDE OF THE [place] IN LAST 30 DAYS: No - Related Data Allergies/Adverse Reactions: No Known Allergies Allergy (Verified 12/21/17 11:33) Past Medical History - Social History Frequency of alcohol use: None Drug Abuse: None - Past Medical History Cardiac Medical History: Reports: Hx Congestive Heart Failure, Hx Heart Attack, Hx Hypertension Pulmonary Medical History: Reports: Hx COPD, Hx Pneumonia Endocrine Medical History: Reports: Hx Hypothyroidism Renal/ Medical History: Denies: Hx Peritoneal Dialysis Skin Medical History: Reports Hx Cellulitis, Reports Hx MRSA Psychiatric Medical History: Denies: Hx Depression Infectious Medical History: Reports: Hx MRSA Past Surgical History: Reports: Hx Cardiac Surgery - cabag, Hx Cholecystectomy - gallstone. Patient describes what sounds like an ERCP, Hx Coronary Artery Bypass Graft - Immunizations Hx Diphtheria, Pertussis, Tetanus Vaccination: - unknown History of Influenza Vaccine for 06/2017 - 11/2017 Season: Yes Influenza Administration Date for 06/2017 - 11/2017 Season: 07/07/17 Physical Exam - Vital signs Vitals: Temp Pulse Resp BP Pulse Ox 97.1 F 98 24 H 132/92 H 95 12/21/17 11:42 12/21/17 11:42 12/21/17 11:42 12/21/17 11:42 12/21/17 11:42 Course - Vital Signs Vital signs: Temp Pulse Resp BP Pulse Ox 97.1 F 98 24 H 132/92 H 95 12/21/17 11:42 12/21/17 11:42 12/21/17 11:42 12/21/17 11:42 12/21/17 11:42
[2017-12-21 12:32] LABS: ABSOLUTE BASOPHILS # (AUTO) 0.1 10^3/uL (0.0-0.2); ABSOLUTE EOSINOPHILS # (AUTO) 0.1 10^3/uL (0.0-0.6); ABSOLUTE LYMPHOCYTES (AUTO) 1.1 10^3/uL (0.5-4.7); ABSOLUTE MONOCYTES (AUTO) 0.7 10^3/uL (0.1-1.4); ABSOLUTE NEUT (AUTO) 7.1 10^3/uL (1.7-8.2); BASOPHILS % (AUTO) 0.9 % (0-2); EOSINOPHILS % (AUTO) 1.1 % (0-6); HEMATOCRIT 35.2 % (37.9-51.0); HEMOGLOBIN 11.2 g/dL (13.5-17.0); LYMPHOCYTES % (AUTO) 11.7 % (13-45); MEAN CORPUSCULAR HGB CONC 31.7 g/dL (32.0-36.0); MEAN CORPUSCULAR VOLUME 69 fl (80-97); MONOCYTES % (AUTO) 7.8 % (3-13); PLATELET COUNT 333 10^3/uL (150-450); RED BLOOD COUNT 5.08 10^6/uL (4.35-5.55); RED CELL DISTRIBUTION WIDTH 18.4 % (11.5-14.0); SEGMENTED NEUTROPHILS % (AUTO) 78.5 % (42-78); TOTAL CELLS COUNTED % (AUTO) 100 %
[2017-12-21 12:49] LABS: ALANINE AMINOTRANSFERASE 34 U/L (21-72); ALBUMIN 3.2 g/dL (3.5-5.0); ALKALINE PHOSPHATASE 189 U/L (38-126); ANION GAP 9 (5-19); ASPARTATE AMINO TRANSFERASE 21 U/L (17-59); BILIRUBIN,DIRECT 0.2 mg/dL (0.0-0.4); BILIRUBIN,TOTAL 0.8 mg/dL (0.2-1.3); BLOOD UREA NITROGEN 24 mg/dL (7-20); CALCIUM 9.2 mg/dL (8.4-10.2); CARBON DIOXIDE 31 mmol/L (22-30); CHLORIDE 96 mmol/L (98-107); GLUCOSE 113 mg/dL (75-110); POTASSIUM 4.1 mmol/L (3.6-5.0); SODIUM 135.9 mmol/L (137-145)
--- NOTE | 2017-12-21 12:50 | RADIOLOGY REPORT (SQ) ---
EXAM DESCRIPTION: CHEST 2 VIEWS COMPLETED DATE/TIME: 12/21/2017 12:41 pm REASON FOR STUDY: cough COMPARISON: 12/06/2017. EXAM PARAMETERS: NUMBER OF VIEWS: two views TECHNIQUE: Digital Frontal and Lateral radiographic views of the chest acquired. RADIATION DOSE: NA LIMITATIONS: none FINDINGS: LUNGS AND PLEURA: Mild interstitial prominence. Calcified granuloma. No opacities, reema s or pneumothorax. No pleural effusion. MEDIASTINUM AND HILAR STRUCTURES: No masses or contour abnormalities. Calcified lymph node. HEART AND VASCULAR STRUCTURES: Heart normal size. No evidence for failure. BONES: No acute findings. HARDWARE: Sternotomy wires. OTHER: No other significant finding. IMPRESSION: PROBABLE MILD CHRONIC INTERSTITIAL CHANGES. NO ACUTE RADIOGRAPHIC FINDING IN THE CHEST. TECHNICAL DOCUMENTATION: JOB ID: [id number] [employer]- All Rights Reserved Reading location - IP/workstation name: [email or web address]
[2017-12-21] MEDS ORDERED: IPRATROPIUM/ALBUTEROL 0.5-2.5 MG/3 ML AMPUL NEB ONE (15:01)
[2017-12-21] MEDS ORDERED: ALBUTEROL SULFATE 0.083% NEB 2.5 MG/3 ML AMPUL NEB ONE (15:01)
[2017-12-21] MEDS ORDERED: PREDNISONE 20 MG TABLET PO ONE (15:01)
--- NOTE | 2017-12-21 15:12 | EKG REPORT ---
SEVERITY:- BORDERLINE ECG - SINUS RHYTHM BORDERLINE PROLONGED QT INTERVAL : Confirmed by: Kinza Meza 21-Dec-2017 15:12:11
--- NOTE | 2017-12-21 15:35 | ER Document Report ---
ED Respiratory Problem - General Chief Complaint: Breathing Difficulty Stated Complaint: DIFFICULTY BREATHING Time Seen by Provider: 12/21/17 11:48 Mode of Arrival: Ambulatory Information source: Patient TRAVEL OUTSIDE OF THE [place] IN LAST 30 DAYS: No - HPI Patient complains to provider of: COPD, Cough, Short of breath Onset: Yesterday Duration: Worse/persistent Initiating Event: URI Quality of pain: Achy Severity: Mild Pain Level: 1 Context: Hx COPD Short of Breath: Moderate Chest pain/discomfort: Tightness Cough: Productive Sputum amount: Small Sputum color: White Sputum consistency: Mucoid At home treatment: Bronchodilators Associated symptoms: Congestion, Cough, Difficulty breathing Similar symptoms previously: Yes Recently seen / treated by doctor: No Notes: Patient is a 62-year-old male who is a former smoker who presents to the emergency room complaining of shortness of breath with cough productive of small amount of whitish colored sputum, symptoms have been going on since yesterday, he has a known history of COPD, has been using his nebulizer treatments every 4-6 hours at home, not currently on any antibiotics or steroids , denies any sick contacts but does admit that he gets this way this time a year when all of the trees and [place] start to [place], he reports chest tightness and slight discomfort when he coughs but no chest pain at rest - Related Data Allergies/Adverse Reactions: No Known Allergies Allergy (Verified 12/21/17 11:33) Past Medical History - General Information source: Patient - Social History Smoking Status: Former Smoker Frequency of alcohol use: None Drug Abuse: None Family History: Hypertension, Malignancy - Father with unknown cancer. Patient has suicidal ideation: No Patient has homicidal ideation: No - Past Medical History Cardiac Medical History: Reports: Hx Congestive Heart Failure, Hx Heart Attack, Hx Hypertension Pulmonary Medical History: Reports: Hx COPD, Hx Pneumonia Endocrine Medical History: Reports: Hx Hypothyroidism Renal/ Medical History: Denies: Hx Peritoneal Dialysis Skin Medical History: Reports Hx Cellulitis, Reports Hx MRSA Psychiatric Medical History: Denies: Hx Depression Infectious Medical History: Reports: Hx MRSA Past Surgical History: Reports: Hx Cardiac Surgery - cabag, Hx Cholecystectomy - gallstone. Patient describes what sounds like an ERCP, Hx Coronary Artery Bypass Graft - Immunizations Hx Diphtheria, Pertussis, Tetanus Vaccination: - unknown Review of Systems - Review of Systems Constitutional: No symptoms reported EENT: No symptoms reported Cardiovascular: No symptoms reported Respiratory: See HPI Gastrointestinal: No symptoms reported Genitourinary: No symptoms reported Male Genitourinary: No symptoms reported Musculoskeletal: No symptoms reported Skin: No symptoms reported Hematologic/Lymphatic: No symptoms reported Neurological/Psychological: No symptoms reported -: Yes All other systems reviewed and negative Physical Exam - Vital signs Vitals: Temp Pulse Resp BP Pulse Ox 97.1 F 98 24 H 132/92 H 95 12/21/17 11:42 12/21/17 11:42 12/21/17 11:42 12/21/17 11:42 12/21/17 11:42 Interpretation: Normal - General General appearance: Alert, Other - Chronically ill-appearing In distress: None - HEENT Head: Normocephalic, Atraumatic Eyes: Normal Pupils: PERRL - Respiratory Respiratory status: No respiratory distress Chest status: Nontender Breath sounds: Nonproductive cough, Rhonchi, Wheezing Chest palpation: Normal - Cardiovascular Rhythm: Regular Heart sounds: Normal auscultation Murmur: No - Abdominal Inspection: Normal Distension: No distension Bowel sounds: Normal Tenderness: Nontender Organomegaly: No organomegaly - Back Back: Normal, Nontender - Extremities General upper extremity: Normal inspection, Nontender, Normal color, Normal ROM , Normal temperature General lower extremity: Normal inspection, Nontender, Normal color, Normal ROM , Normal temperature, Normal weight bearing. No: Amrit's sign - Neurological Neuro grossly intact: Yes Cognition: Normal Orientation: AAOx4 [place] Coma Scale Eye Opening: Spontaneous Marguerite Coma Scale Verbal: Oriented [place] Coma Scale Motor: Obeys Commands [place] Coma Scale Total: 15 Speech: Normal Motor strength normal: LUE, RUE, LLE, RLE Sensory: Normal - Psychological Associated symptoms: Normal affect, Normal mood - Skin Skin Temperature: Warm Skin Moisture: Dry Skin Color: Normal Course - Re-evaluation Re-evalutation: 12/21/17 16:37 Patient resting comfortably, reports feeling much better after breathing treatments and steroids, imaging findings unremarkable as well as labs and were discussed with patient at bedside, patient will be discharged with prescription for steroids and instructions to continue using breathing treatments at home every 4-6 hours, follow-up with primary care or return if symptoms worsen, patient acknowledges understanding and agreement with this plan - Vital Signs Vital signs: Temp Pulse Resp BP Pulse Ox 97.1 F 98 19 137/121 H 97 12/21/17 11:42 12/21/17 11:42 12/21/17 14:02 12/21/17 14:02 12/21/17 14:02 - Laboratory Result Diagrams: 12/21/17 12:15 12/21/17 12:15 Laboratory results interpreted by me: 12/21/17 12/21/17 12:15 12:15 Hgb 11.2 L Hct 35.2 L MCV 69 L MCH 22.0 L MCHC 31.7 L RDW 18.4 H Seg Neutrophils % 78.5 H Lymphocytes % 11.7 L Sodium 135.9 L Chloride 96 L Carbon Dioxide 31 H BUN 24 H Creatinine 1.29 H Est GFR (Non-Af Amer) 56 L Glucose 113 H Alkaline Phosphatase 189 H Total Protein 6.0 L Albumin 3.2 L - Diagnostic Test Radiology reviewed: Image reviewed, Reports reviewed Discharge - Discharge Clinical Impression: COPD (chronic obstructive pulmonary disease) Qualifiers: COPD type: COPD with acute exacerbation Qualified Code(s): J44.1 - Chronic obstructive pulmonary disease with (acute) exacerbation Condition: Stable Disposition: HOME, SELF-CARE Instructions: Chronic Obstructive Lung Disease ([facility]) Additional Instructions: Follow up with your primary care provider in one to 2 days. Return to the emergency room immediately if symptoms worsen or any additional concerns. Prescriptions: Prednisone 40 mg PO DAILY #8 tablet Referrals: SANTOSH FLEMING MD [Primary Care Provider] - Follow up as needed
[2017-12-21 17:17] VITALS: BP 143/83
== END 2017-12-21 17:16 | disposition home or self-care (01) ==
LOC: ER 11:31
DX: J44.1 Chronic obstructive pulmonary disease with (acute) exacerbation (principal); I50.9 Heart failure, unspecified; I11.0 Hypertensive heart disease with heart failure; J44.9 Chronic obstructive pulmonary disease, unspecified; I25.2 Old myocardial infarction; Z86.14 Personal history of Methicillin resistant Staphylococcus aureus infection; Z95.1 Presence of aortocoronary bypass graft; Z90.49 Acquired absence of other specified parts of digestive tract
CPT/HCPCS: 93005; 94640 ×2; 99285; 36415; 85025; 80053; 84484; 71046; 93010; J7512; J7620

== ENCOUNTER 2018-02-08 09:55 | Emergency (ER) | payer OTHER ==
[2018-02-08] MEDS ORDERED: FUROSEMIDE INJ/PF 40 MG/4 ML SDV IV ONE (10:13)
--- NOTE | 2018-02-08 10:38 | RADIOLOGY REPORT (SQ) ---
EXAM DESCRIPTION: CHEST 2 VIEWS COMPLETED DATE/TIME: 02/08/2018 10:24 am REASON FOR STUDY: sob COMPARISON: 12/21/2017 EXAM PARAMETERS: NUMBER OF VIEWS: two views TECHNIQUE: Digital Frontal and Lateral radiographic views of the chest acquired. RADIATION DOSE: NA LIMITATIONS: none FINDINGS: LUNGS AND PLEURA: Mild chronic interstitial changes are present. There is no infiltrate o r effusion. MEDIASTINUM AND HILAR STRUCTURES: There is a 2 cm calcified node or granuloma in the upper mediastinu m. HEART AND VASCULAR STRUCTURES: Heart normal size. No evidence for failure. BONES: No acute findings. HARDWARE: Sternotomy wires. OTHER: No other significant finding. IMPRESSION: Mild chronic lung changes with no acute cardiopulmonary disease. TECHNICAL DOCUMENTATION: JOB ID: [id number] [employer]- All Rights Reserved Reading location - IP/workstation name: [email or web address]
[2018-02-08 11:19] LABS: ANION GAP 12 (5-19); BLOOD UREA NITROGEN 31 mg/dL (7-20); CALCIUM 8.8 mg/dL (8.4-10.2); CARBON DIOXIDE 26 mmol/L (22-30); CHLORIDE 103 mmol/L (98-107); GLUCOSE 146 mg/dL (75-110); POTASSIUM 3.9 mmol/L (3.6-5.0); SODIUM 141.3 mmol/L (137-145)
--- NOTE | 2018-02-08 11:49 | ER Document Report ---
ED General - General Chief Complaint: Breathing Difficulty Stated Complaint: BREATHING PROBLEMS Time Seen by Provider: 02/08/18 10:10 TRAVEL OUTSIDE OF THE [place] IN LAST 30 DAYS: No - HPI Patient complains to provider of: Shortness of breath Notes: Patient coming in for evaluation shortness of breath. Patient has a history of CHF states he has been off his Lasix for the last 3-4 days. Patient [facility]. Patient states orthopnea and swelling in his legs however upon evaluation patient is on monitor no signs of hypoxia minimal tachypnea. Patient denies fevers chills nausea vomiting diarrhea chest pain abdominal pain. - Related Data Allergies/Adverse Reactions: No Known Allergies Allergy (Verified 02/08/18 09:56) Past Medical History - Social History Smoking Status: Former Smoker Chew tobacco use (# tins/day): No Frequency of alcohol use: None Drug Abuse: None Family History: Hypertension, Malignancy - Father with unknown cancer. Patient has suicidal ideation: No Patient has homicidal ideation: No - Past Medical History Cardiac Medical History: Reports: Hx Congestive Heart Failure, Hx Heart Attack, Hx Hypertension Pulmonary Medical History: Reports: Hx COPD, Hx Pneumonia Endocrine Medical History: Reports: Hx Hypothyroidism Renal/ Medical History: Denies: Hx Peritoneal Dialysis Skin Medical History: Reports Hx Cellulitis, Reports Hx MRSA Psychiatric Medical History: Denies: Hx Depression Infectious Medical History: Reports: Hx MRSA Past Surgical History: Reports: Hx Cardiac Surgery - cabag, Hx Cholecystectomy - gallstone. Patient describes what sounds like an ERCP, Hx Coronary Artery Bypass Graft - Immunizations Hx Diphtheria, Pertussis, Tetanus Vaccination: - unknown Review of Systems - Review of Systems Constitutional: No symptoms reported EENT: No symptoms reported Cardiovascular: Orthopnea, Dyspnea Respiratory: No symptoms reported Gastrointestinal: No symptoms reported Genitourinary: No symptoms reported Male Genitourinary: No symptoms reported Musculoskeletal: No symptoms reported Skin: No symptoms reported Hematologic/Lymphatic: No symptoms reported Neurological/Psychological: No symptoms reported -: Yes All other systems reviewed and negative Physical Exam - Vital signs Vitals: Temp Pulse Resp BP Pulse Ox 97.5 F 93 36 H 142/90 H 98 02/08/18 09:59 02/08/18 09:59 02/08/18 09:59 02/08/18 09:59 06/04/18 09:59 Interpretation: Normal - General General appearance: Appears well, Alert - HEENT Head: Normocephalic, Atraumatic Eyes: Normal Pupils: PERRL - Respiratory Respiratory status: No respiratory distress Chest status: Nontender Breath sounds: Rales Chest palpation: Normal - Cardiovascular Rhythm: Regular Heart sounds: Normal auscultation Murmur: No - Abdominal Inspection: Normal Distension: No distension Bowel sounds: Normal Tenderness: Nontender Organomegaly: No organomegaly - Back Back: Normal, Nontender - Extremities General upper extremity: Normal inspection, Nontender, Normal color, Normal ROM , Normal temperature General lower extremity: Normal inspection, Nontender, Edema - 1+ bilateral, Normal color, Normal ROM, Normal temperature, Normal weight bearing. No: Amrit' s sign - Neurological Neuro grossly intact: Yes Cognition: Normal Orientation: AAOx4 Marguerite Coma Scale Eye Opening: Spontaneous Marguerite Coma Scale Verbal: Oriented Marguerite Coma Scale Motor: Obeys Commands Marguerite Coma Scale Total: 15 Speech: Normal Motor strength normal: LUE, RUE, LLE, RLE Sensory: Normal - Psychological Associated symptoms: Normal affect, Normal mood - Skin Skin Temperature: Warm Skin Moisture: Dry Skin Color: Normal Course - Re-evaluation Re-evalutation: 02/08/18 15:32 Did give the patient IV dose of Lasix 60 mg with good urine output. I through IV Lasix patient states feeling much better and wishing to be discharged home. Laboratory values shows mild bump in his renal function. No other critical etiology seen patient will be discharged home - Vital Signs Vital signs: Temp Pulse Resp BP Pulse Ox 97.5 F 93 22 H 136/103 H 100 02/08/18 09:59 02/08/18 09:59 02/08/18 11:49 02/08/18 11:49 02/08/18 11:49 - Laboratory Result Diagrams: 02/08/18 10:36 Laboratory results interpreted by me: 02/08/18 10:36 BUN 31 H Creatinine 1.52 H Est GFR ( Amer) 56 L Est GFR (Non-Af Amer) 46 L Glucose 146 H Discharge - Discharge Clinical Impression: CHF (congestive heart failure) Condition: Good Disposition: HOME, SELF-CARE Instructions: Congestive Heart Failure ([facility]), Lasix Additional Instructions: Your evaluation today does not show any signs of pneumonia or significant fluid back up on your chest x-ray. Would recommend that she take the Lasix as prescribed return to ER symptoms worsen follow-up with your primary care provider for further evaluation and medication Prescriptions: Furosemide [Lasix 40 mg Tablet] 40 mg PO BID #30 tablet Referrals: SANTOSH FLEMING MD [Primary Care Provider] - Follow up as needed
[2018-02-08 11:52] VITALS: BP 136/103
== END 2018-02-08 11:58 | disposition home or self-care (01) ==
LOC: ER 09:55
DX: I50.9 Heart failure, unspecified (principal); R06.02 Shortness of breath; Z79.899 Other long term (current) drug therapy; Z87.891 Personal history of nicotine dependence; I25.2 Old myocardial infarction; I10 Essential (primary) hypertension; J44.9 Chronic obstructive pulmonary disease, unspecified
CPT/HCPCS: 99285; 96374; 36415; 80048; 71046; J1940

== ENCOUNTER 2018-03-27 08:48 | Emergency (ER) | payer OTHER, MEDICAID ==
[2018-03-27] MEDS ORDERED: IPRATROPIUM/ALBUTEROL 0.5-2.5 MG/3 ML AMPUL NEB ONE (09:32)
--- NOTE | 2018-03-27 09:33 | ER Document Report ---
ED Medical Screen (RME) - General Chief Complaint: Shortness Of Breath Stated Complaint: SHORTNESS OF BREATH TRAVEL OUTSIDE OF THE [place] IN LAST 30 DAYS: No - HPI Notes: 03/27/18 09:32 Patient with a history of COPD CHF states compliance with his Lasix and medications at home comes in for shortness of breath 3 days with cough recently stopped antibiotics 2 weeks ago no chest pain recent stress test in December that was negative I have greeted and performed a rapid initial assessment of this patient. A comprehensive ED assessment and evaluation of the patient, analysis of test results and completion of the medical decision making process will be conducted by additional ED providers. - Related Data Allergies/Adverse Reactions: No Known Allergies Allergy (Verified 03/27/18 08:49) Past Medical History - Past Medical History Cardiac Medical History: Reports: Hx Congestive Heart Failure, Hx Heart Attack, Hx Hypertension Pulmonary Medical History: Reports: Hx COPD, Hx Pneumonia Endocrine Medical History: Reports: Hx Hypothyroidism Renal/ Medical History: Denies: Hx Peritoneal Dialysis Skin Medical History: Reports Hx Cellulitis, Reports Hx MRSA Psychiatric Medical History: Denies: Hx Depression Infectious Medical History: Reports: Hx MRSA Past Surgical History: Reports: Hx Cardiac Surgery - cabag, Hx Cholecystectomy - gallstone. Patient describes what sounds like an ERCP, Hx Coronary Artery Bypass Graft - Immunizations Hx Diphtheria, Pertussis, Tetanus Vaccination: - unknown History of Influenza Vaccine for 06/2017 - 11/2017 Season: Yes Influenza Administration Date for 06/2017 - 11/2017 Season: 07/07/17 Review of Systems - Review of Systems Respiratory: Cough Physical Exam - Vital signs Vitals: Temp Pulse Resp BP Pulse Ox 97.5 F 98 18 144/101 H 98 03/27/18 09:05 03/27/18 09:05 03/27/18 09:05 03/27/18 09:05 03/27/18 09:05 - Respiratory Breath sounds: Wheezing Course - Vital Signs Vital signs: Temp Pulse Resp BP Pulse Ox 97.5 F 98 18 144/101 H 98 03/27/18 09:05 03/27/18 09:05 03/27/18 09:05 03/27/18 09:05 03/27/18 09:05 Doctor's Discharge - Discharge Referrals: SANTOSH FLEMING MD [Primary Care Provider] - Follow up as needed
--- NOTE | 2018-03-27 10:23 | ER Document Report ---
ED Respiratory Problem - General Chief Complaint: Shortness Of Breath Stated Complaint: SHORTNESS OF BREATH Time Seen by Provider: 03/27/18 09:33 TRAVEL OUTSIDE OF THE [place] IN LAST 30 DAYS: No - HPI Patient complains to provider of: Cough, Short of breath Onset: Yesterday Duration: Continuous Quality of pain: No pain Severity: Mild Pain Level: 2 Context: Hx COPD Short of Breath: Mild Chest pain/discomfort: Tightness Associated symptoms: Cough, Short of breath Similar symptoms previously: Yes Notes: Patient is a 62-year-old male with a history of COPD who quit smoking approximately 2 years ago, who presents to the emergency room today complaining of cough with shortness of breath and chest tightness that started yesterday evening, states he is using his breathing treatments at home with no relief, cough is productive of yellowish phlegm at times, he denies any fever, no nausea or vomiting, no chest pain - Related Data Allergies/Adverse Reactions: No Known Allergies Allergy (Verified 03/27/18 08:49) Past Medical History - General Information source: Patient - Social History Smoking Status: Former Smoker Chew tobacco use (# tins/day): No Frequency of alcohol use: None Drug Abuse: None Family History: Hypertension, Malignancy - Father with unknown cancer. Patient has suicidal ideation: No Patient has homicidal ideation: No - Past Medical History Cardiac Medical History: Reports: Hx Congestive Heart Failure, Hx Heart Attack, Hx Hypertension Pulmonary Medical History: Reports: Hx COPD, Hx Pneumonia Endocrine Medical History: Reports: Hx Hypothyroidism Renal/ Medical History: Denies: Hx Peritoneal Dialysis Skin Medical History: Reports Hx Cellulitis, Reports Hx MRSA Psychiatric Medical History: Denies: Hx Depression Infectious Medical History: Reports: Hx MRSA Past Surgical History: Reports: Hx Cardiac Surgery - cabag, Hx Cholecystectomy - gallstone. Patient describes what sounds like an ERCP, Hx Coronary Artery Bypass Graft - Immunizations Hx Diphtheria, Pertussis, Tetanus Vaccination: - unknown Review of Systems - Review of Systems Constitutional: No symptoms reported EENT: No symptoms reported Cardiovascular: No symptoms reported Respiratory: See HPI Gastrointestinal: No symptoms reported Genitourinary: No symptoms reported Male Genitourinary: No symptoms reported Musculoskeletal: No symptoms reported Skin: No symptoms reported Hematologic/Lymphatic: No symptoms reported Neurological/Psychological: No symptoms reported -: Yes All other systems reviewed and negative Physical Exam - Vital signs Vitals: Temp Pulse Resp BP Pulse Ox 97.5 F 98 18 144/101 H 98 03/27/18 09:05 03/27/18 09:05 03/27/18 09:05 03/27/18 09:05 03/27/18 09:05 Interpretation: Normal - General General appearance: Appears well, Alert - HEENT Head: Normocephalic, Atraumatic Eyes: Normal Pupils: PERRL - Respiratory Respiratory status: No respiratory distress Chest status: Nontender Breath sounds: Normal Chest palpation: Normal - Cardiovascular Rhythm: Regular Heart sounds: Normal auscultation Murmur: No - Abdominal Inspection: Normal Distension: No distension Bowel sounds: Normal Tenderness: Nontender Organomegaly: No organomegaly - Back Back: Normal, Nontender - Extremities General upper extremity: Normal inspection, Nontender, Normal color, Normal ROM , Normal temperature General lower extremity: Normal inspection, Nontender, Normal color, Normal ROM , Normal temperature, Normal weight bearing. No: Amrit's sign - Neurological Neuro grossly intact: Yes Cognition: Normal Orientation: AAOx4 Marguerite Coma Scale Eye Opening: Spontaneous Anson Coma Scale Verbal: Oriented Anson Coma Scale Motor: Obeys Commands Anson Coma Scale Total: 15 Speech: Normal Motor strength normal: LUE, RUE, LLE, RLE Sensory: Normal - Psychological Associated symptoms: Normal affect, Normal mood - Skin Skin Temperature: Warm Skin Moisture: Dry Skin Color: Normal Course - Re-evaluation Re-evalutation: 03/27/18 11:16 Patient resting comfortably, reports feeling much better after DuoNeb treatment , lungs are clear to auscultation, vital signs are stable, lab and imaging findings discussed at bedside which are fairly unremarkable and within patient' s normal limits, he will be discharged with a short course of prednisone, as well as a refill on his albuterol nebulizer treatments and Symbicort inhaler, patient advised to follow-up with his final armature tester within the next week or return if symptoms worsen, patient acknowledges understanding and agreement with this plan - Vital Signs Vital signs: Temp Pulse Resp BP Pulse Ox 97.5 F 98 18 144/101 H 98 03/27/18 09:05 03/27/18 09:05 03/27/18 09:05 03/27/18 09:05 03/27/18 09:05 - Laboratory Result Diagrams: 03/27/18 09:52 03/27/18 09:52 Laboratory results interpreted by me: 03/27/18 03/27/18 09:52 09:52 RBC 5.75 H Hgb 11.5 L Hct 37.3 L MCV 65 L MCH 20.0 L MCHC 30.7 L RDW 21.5 H Lymphocytes % 12.8 L Chloride 95 L Creatinine 1.44 H Est GFR (Non-Af Amer) 49 L Alkaline Phosphatase 189 H - Diagnostic Test Radiology reviewed: Image reviewed, Reports reviewed - EKG Interpretation by Me EKG shows normal: Sinus rhythm Rate: Normal Rhythm: NSR When compared to previous EKG there are: No significant change Discharge - Discharge Clinical Impression: Acute exacerbation of chronic obstructive pulmonary disease Condition: Stable Disposition: HOME, SELF-CARE Instructions: Chronic Obstructive Lung Disease ([facility]) Additional Instructions: Follow up with your primary care provider and final armature tester in one to 2 days. Return to the emergency room immediately if symptoms worsen or any additional concerns. Prescriptions: Albuterol Sulfate [Albuterol Sulfate 2.5mg/3 mL] 1 vial IH Q4 PRN #30 vial PRN Reason: Budesonide/Formoterol Fumarate [Symbicort 160-4.5 Mcg Inhaler] 2 puff IH BID #1 [email or web address] Prednisone 40 mg PO DAILY #8 tablet Referrals: SANTOSH FLEMING MD [Primary Care Provider] - Follow up as needed
[2018-03-27 10:37] LABS: ALANINE AMINOTRANSFERASE 35 U/L (21-72); ALBUMIN 3.5 g/dL (3.5-5.0); ALKALINE PHOSPHATASE 189 U/L (38-126); ANION GAP 14 (5-19); ASPARTATE AMINO TRANSFERASE 24 U/L (17-59); BILIRUBIN,DIRECT 0.4 mg/dL (0.0-0.4); BLOOD UREA NITROGEN 16 mg/dL (7-20); CALCIUM 8.8 mg/dL (8.4-10.2); CARBON DIOXIDE 30 mmol/L (22-30); CHLORIDE 95 mmol/L (98-107); CREATINE KINASE 81 U/L (55-170); GLUCOSE 105 mg/dL (75-110); SODIUM 138.6 mmol/L (137-145); TOTAL PROTEIN 7.2 g/dL (6.3-8.2)
--- NOTE | 2018-03-27 10:39 | RADIOLOGY REPORT (SQ) ---
EXAM DESCRIPTION: CHEST 2 VIEWS COMPLETED DATE/TIME: 03/27/2018 10:21 am REASON FOR STUDY: sob chf copd COMPARISON: None. EXAM PARAMETERS: NUMBER OF VIEWS: two views TECHNIQUE: Digital Frontal and Lateral radiographic views of the chest acquired. RADIATION DOSE: NA LIMITATIONS: none FINDINGS: LUNGS AND PLEURA: Minimal chronic bilateral interstitial changes. No acute infiltrates or effusions. MEDIASTINUM AND HILAR STRUCTURES: Calcified right paratracheal node. HEART AND VASCULAR STRUCTURES: Heart normal size. No evidence for failure. BONES: No acute findings. HARDWARE: Status post median sternotomy and CABG. OTHER: Chest leads in place. IMPRESSION: Status post CABG. Chronic bilateral interstitial changes. TECHNICAL DOCUMENTATION: JOB ID: [id number] [id number] 2010 [employer]- All Rights Reserved Reading location - IP/workstation name: [email or web address]
[2018-03-27 10:40] LABS: ABSOLUTE BASOPHILS # (AUTO) 0.1 10^3/uL (0.0-0.2); ABSOLUTE EOSINOPHILS # (AUTO) 0.1 10^3/uL (0.0-0.6); ABSOLUTE LYMPHOCYTES (AUTO) 1.1 10^3/uL (0.5-4.7); ABSOLUTE MONOCYTES (AUTO) 0.7 10^3/uL (0.1-1.4); ABSOLUTE NEUT (AUTO) 6.4 10^3/uL (1.7-8.2); BASOPHILS % (AUTO) 0.9 % (0-2); EOSINOPHILS % (AUTO) 1.5 % (0-6); HEMATOCRIT 37.3 % (37.9-51.0); HEMOGLOBIN 11.5 g/dL (13.5-17.0); LYMPHOCYTES % (AUTO) 12.8 % (13-45); MEAN CORPUSCULAR HGB CONC 30.7 g/dL (32.0-36.0); MEAN CORPUSCULAR VOLUME 65 fl (80-97); MONOCYTES % (AUTO) 8.5 % (3-13); PLATELET COUNT 331 10^3/uL (150-450); RED BLOOD COUNT 5.75 10^6/uL (4.35-5.55); RED CELL DISTRIBUTION WIDTH 21.5 % (11.5-14.0); SEGMENTED NEUTROPHILS % (AUTO) 76.3 % (42-78); TOTAL CELLS COUNTED % (AUTO) 100 %; WHITE BLOOD COUNT 8.4 10^3/uL (4.0-10.5)
[2018-03-27 10:49] LABS: CREATINE KINASE MB 3.94 ng/mL (<4.55)
[2018-03-27 10:52] LABS: TROPONIN I 0.048 ng/mL
[2018-03-27 11:00] LABS: TOXIC GRANULATION 1+
[2018-03-27 11:01] LABS: ANISOCYTOSIS 3+; HYPOCHROMASIA 2+; OVALOCYTES SLIGHT; PLATELET COMMENT ADEQUATE; POIKILOCYTOSIS SLIGHT
[2018-03-27 11:30] VITALS: BP 137/88
--- NOTE | 2018-03-27 22:08 | EKG REPORT ---
SEVERITY:- BORDERLINE ECG - SINUS RHYTHM PROBABLE LEFT ATRIAL ABNORMALITY LEFT AXIS DEVIATION BORDERLINE PROLONGED QT INTERVAL : Confirmed by: Kinza Meza 27-Mar-2018 22:08:07
== END 2018-03-27 11:36 | disposition home or self-care (01) ==
LOC: ER 08:48
DX: J44.1 Chronic obstructive pulmonary disease with (acute) exacerbation (principal); I50.9 Heart failure, unspecified; I11.0 Hypertensive heart disease with heart failure; E03.9 Hypothyroidism, unspecified; I25.2 Old myocardial infarction; Z86.14 Personal history of Methicillin resistant Staphylococcus aureus infection; Z90.49 Acquired absence of other specified parts of digestive tract; Z95.1 Presence of aortocoronary bypass graft; Z87.891 Personal history of nicotine dependence
CPT/HCPCS: 93005; 94640; 99285; 36415; 82553; 82550; 85025; 80053; 84484; 71046; 93010; J7620

== ENCOUNTER 2018-06-26 23:02 | Emergency (ER) | payer MEDICAID, OTHER ==
[2018-06-27] MEDS ORDERED: FUROSEMIDE INJ/PF 40 MG/4 ML SDV IV ONE (00:31)
[2018-06-27] MEDS ORDERED: LIDOCAINE 5% (700 MG) TRANSDERMAL ADH..PATCH TP ONE (00:32)
[2018-06-27] MEDS ORDERED: ACETAMINOPHEN 325 MG TABLET PO ONE (00:32)
--- NOTE | 2018-06-27 00:45 | ER Document Report ---
ED General - General Chief Complaint: Swelling Stated Complaint: FALL Time Seen by Provider: 06/27/18 00:07 Notes: Patient is a 62-year-old male with past medical history of hypertension, CHF, chronic lower extremity edema who presents with multiple complaints. His chief complaint is that he fell earlier today onto his outstretched left hand and since that time is had a dull, throbbing, constant pain to the left shoulder. Notes that range of motion worsens the pain. He has not trying to improve the pain. No history of similar injuries in the past. He is also complaining about 3-4 days of progressively worsening swelling to the bilateral lower extremities. He states that this is chronic but has been worse over the last 3- 4 days. Denies dietary indiscretions or medication noncompliance. He has been taking Lasix 40 mg twice daily. He has not contacted his general doctor regarding today's concerns. He states he does regularly use compression stockings at. He does complain of some mild associated shortness of breath but states that this is relatively normal at his baseline. He denies chest pain, nausea, vomiting or diaphoresis. No exertional chest pain. TRAVEL OUTSIDE OF THE [place] IN LAST 30 DAYS: No - Related Data Allergies/Adverse Reactions: No Known Allergies Allergy (Verified 03/27/18 08:49) Past Medical History - General Information source: Patient - Social History Smoking Status: Former Smoker Chew tobacco use (# tins/day): No Frequency of alcohol use: None Drug Abuse: None Lives with: Family Family History: Hypertension, Malignancy - Father with unknown cancer. Patient has suicidal ideation: No Patient has homicidal ideation: No - Past Medical History Cardiac Medical History: Reports: Hx Congestive Heart Failure, Hx Heart Attack, Hx Hypertension Pulmonary Medical History: Reports: Hx COPD, Hx Pneumonia Endocrine Medical History: Reports: Hx Hypothyroidism Renal/ Medical History: Denies: Hx Peritoneal Dialysis Skin Medical History: Reports Hx Cellulitis, Reports Hx MRSA Psychiatric Medical History: Denies: Hx Depression Infectious Medical History: Reports: Hx MRSA Past Surgical History: Reports: Hx Cardiac Surgery - cabag, Hx Cholecystectomy - gallstone. Patient describes what sounds like an ERCP, Hx Coronary Artery Bypass Graft - Immunizations Hx Diphtheria, Pertussis, Tetanus Vaccination: - unknown Review of Systems - Review of Systems Notes: Constitutional: Negative for fever. HENT: Negative for sore throat. Eyes: Negative for visual changes. Cardiovascular: Negative for chest pain. Respiratory: Positive for shortness of breath. Gastrointestinal: Negative for abdominal pain, vomiting or diarrhea. Genitourinary: Negative for dysuria. Musculoskeletal: Positive for left shoulder pain and bilateral lower extremity edema Skin: Negative for rash. Neurological: Negative for headaches, weakness or numbness. 10 point ROS negative except as marked above and in HPI. Physical Exam - Vital signs Vitals: Resp 24 H 06/27/18 00:10 Interpretation: Normal - 6Which is actually there is an error in vital sign documentation. Vital signs in triage was a temp of 97.8, pulse of 88, respiratory rate of 20, blood pressure 125/88, pulse oximetry of 98%. There is also captured pulse oximetry of 90%. This is also inaccurate patient is consistently been 90-100% on continuous telemetry with pulse oximetry. Notes: PHYSICAL EXAMINATION: GENERAL: Well-appearing, well-nourished and in no acute distress. HEAD: Atraumatic, normocephalic. EYES: Pupils equal round and reactive to light, extraocular movements intact, sclera anicteric, conjunctiva are normal. ENT: nares patent, oropharynx clear without exudates. Moist mucous membranes. NECK: Normal range of motion, supple without lymphadenopathy LUNGS: Breath sounds clear to auscultation bilaterally and equal. Mild crackles at the bases bilaterally HEART: Regular rate and rhythm without murmurs ABDOMEN: Soft, nontender, normoactive bowel sounds. No guarding, no rebound. No masses appreciated. EXTREMITIES: Normal range of motion, 4+ pitting edema in the bilateral lower extremities that is equal and symmetric no cyanosis. NEUROLOGICAL: No focal neurological deficits. Moves all extremities spontaneously and on command. PSYCH: Normal mood, normal affect. SKIN: Warm, Dry, normal turgor, no rashes or lesions noted. Course - Re-evaluation Re-evalutation: 06/27/18 00:42 Patient presents with 2 distinct complaints: 1. Fall with left shoulder pain: The patient states that he fell earlier today onto an outstretched left hand. He denies any trauma to any other area of his body and specifically denies wrist pain. He states the only area of pain is his left shoulder denies any swelling or deformity. X-rays pending. 2. Increasing bilateral lower extremity edema: Patient reports for the past 2- 3 days he has had worsening edema in the bilateral lower extremities and has had a 3 pound weight gain. He also reports that he is more short of breath than normal. Has a diagnosis of CHF. Takes 80 mg of Lasix daily and has not had any dietary indiscretions or medication noncompliance. Lung examination does reveal crackles at the bases bilaterally although the patient is neither tachypneic nor hypoxic. He does have 4+ pitting edema in the bilateral lower extremity that is equal and symmetric. Will obtain chest x-ray, labs and reassess 06/27/18 01:26 Shoulder x-ray without any evidence of acute fracture. Patient does have a BNP elevation although it is lower than it was in February. His troponin is also 0.33 again lower than it has been on previous visits. Patient has received 80 mg of furosemide IV here in the emergency department to improve diuresis from the legs. I have recommended continuous compression stocking application. Chest x- ray is clear without evidence of pulmonary edema. At this time will discharge with return precautions and follow-up recommendations. Verbal discharge instructions given a the bedside and opportunity for questions given. Medication warnings reviewed. Patient is in agreement with this plan and has verbalized understanding of return precautions and the need for primary care follow-up in the next 24-72 hours. - Vital Signs Vital signs: Temp Pulse Resp BP Pulse Ox 25 H 125/106 H 90 L 06/27/18 00:28 06/27/18 00:28 06/27/18 00:28 - Laboratory Result Diagrams: 06/27/18 00:12 06/27/18 00:12 Laboratory results interpreted by me: 06/27/18 06/27/18 06/27/18 00:12 00:12 00:12 RBC 5.56 H Hgb 11.1 L Hct 35.8 L MCV 64 L MCH 19.9 L MCHC 30.9 L RDW 22.3 H Potassium 3.3 L Chloride 97 L Carbon Dioxide 33 H BUN 28 H Creatinine 1.48 H Est GFR ( Amer) 58 L Est GFR (Non-Af Amer) 48 L NT-Pro-B Natriuret Pep 6020 H - Diagnostic Test Radiology reviewed: Image reviewed, Reports reviewed Radiology results interpreted by me: 06/27/18 01:27 Chest x-ray: No acute infiltrate or evidence of pulmonary edema - EKG Interpretation by Me Additional EKG results interpreted by me: 06/27/18 01:30 Sinus rhythm. Rate 90. No ST elevations or depressions. QTC 500. Discharge - Discharge Clinical Impression: Bilateral lower extremity edema Fall Qualifiers: Encounter type: initial encounter Qualified Code(s): W19.XXXA - Unspecified fall, initial encounter Dyspnea Qualifiers: Dyspnea type: unspecified Qualified Code(s): R06.00 - Dyspnea, unspecified Congestive heart failure Qualifiers: Heart failure type: unspecified Heart failure chronicity: chronic Qualified Code(s): I50.9 - Heart failure, unspecified Condition: Good Disposition: HOME, SELF-CARE Additional Instructions: Your shoulder x-ray does not show any fractures. Your chest x-ray does not show any fluid in your lungs. Your labs are actually better than your previous visit. You have been given a dose of Lasix through your IV today to help reduce some of the fluid in your legs. I would advise ongoing regular use of your compression stockings. Please continue to take the Lasix as prescribed. Return if you have worsening shortness of breath, worsening of the swelling in your legs, continue to gain weight, have chest pain, or have any other symptoms that are worrisome to you. Referrals: SANTOSH FLEMING MD [ACTIVE STAFF] - Follow up tomorrow
[2018-06-27 00:47] LABS: ABSOLUTE BASOPHILS # (AUTO) 0.1 10^3/uL (0.0-0.2); ABSOLUTE EOSINOPHILS # (AUTO) 0.2 10^3/uL (0.0-0.6); ABSOLUTE LYMPHOCYTES (AUTO) 1.4 10^3/uL (0.5-4.7); ABSOLUTE NEUT (AUTO) 7.1 10^3/uL (1.7-8.2); EOSINOPHILS % (AUTO) 2.4 % (0-6); HEMATOCRIT 35.8 % (37.9-51.0); HEMOGLOBIN 11.1 g/dL (13.5-17.0); LYMPHOCYTES % (AUTO) 13.8 % (13-45); MEAN CORPUSCULAR HEMOGLOBIN 19.9 pg (27.0-33.4); MEAN CORPUSCULAR HGB CONC 30.9 g/dL (32.0-36.0); MONOCYTES % (AUTO) 10.5 % (3-13); PLATELET COUNT 281 10^3/uL (150-450); RED BLOOD COUNT 5.56 10^6/uL (4.35-5.55); RED CELL DISTRIBUTION WIDTH 22.3 % (11.5-14.0); SEGMENTED NEUTROPHILS % (AUTO) 72.3 % (42-78); TOTAL CELLS COUNTED % (AUTO) 100 %; WHITE BLOOD COUNT 9.9 10^3/uL (4.0-10.5)
[2018-06-27 00:48] LABS: ANION GAP 10 (5-19); BLOOD UREA NITROGEN 28 mg/dL (7-20); CALCIUM 8.8 mg/dL (8.4-10.2); CARBON DIOXIDE 33 mmol/L (22-30); CHLORIDE 97 mmol/L (98-107); GLUCOSE 96 mg/dL (75-110); POTASSIUM 3.3 mmol/L (3.6-5.0)
[2018-06-27 01:00] LABS: TROPONIN I 0.033 ng/mL
[2018-06-27 01:07] LABS: ANISOCYTOSIS 3+; HYPOCHROMASIA 1+; TOXIC GRANULATION 1+
[2018-06-27 01:08] LABS: MEAN CORPUSCULAR VOLUME 64 fl (80-97); PLATELET COMMENT ADEQUATE; POLYCHROMASIA 1+
--- NOTE | 2018-06-27 01:20 | RADIOLOGY REPORT (SQ) ---
CLINICAL HISTORY: sob, ?pulm edema COMPARISON: None. TECHNIQUE: XR CHEST 1 VIEW 06/27/2018 12:31 AM CDT FINDINGS: Cardiac silhouette is mildly enlarged. Sternotomy was performed. Lungs are clear without consolidation, atelectasis, mass or edema. There is no pleural effusion. There is no pneumothorax. There are no acute osseous findings. IMPRESSION: Clear lungs.
--- NOTE | 2018-06-27 01:22 | RADIOLOGY REPORT (SQ) ---
CLINICAL HISTORY: fall, shoulder pain COMPARISON: None. TECHNIQUE: XR SHOULDER 2 OR MORE VIEWS 06/27/2018 12:31 AM CDT FINDINGS: There is no fracture. Joint spaces are preserved. Soft tissues are unremarkable. IMPRESSION: No acute osseous findings.
[2018-06-27 01:32] VITALS: BP 130/82
--- NOTE | 2018-06-27 08:50 | EKG REPORT ---
SEVERITY:- BORDERLINE ECG - SINUS RHYTHM LEFT AXIS DEVIATION BORDERLINE PROLONGED QT INTERVAL : Confirmed by: Luis Angel Dawkins MD 27-Jun-2018 08:50:01
[2018-06-28 14:22] LABS: PATH REVIEW PATHOLOGIST REVIEWED
== END 2018-06-27 01:47 | disposition home or self-care (01) ==
LOC: ER 23:02
DX: R60.9 Edema, unspecified (principal); R06.00 Dyspnea, unspecified; M25.512 Pain in left shoulder; I50.9 Heart failure, unspecified; W18.30XA Fall on same level, unspecified, initial encounter; I11.0 Hypertensive heart disease with heart failure; I25.2 Old myocardial infarction; Z86.14 Personal history of Methicillin resistant Staphylococcus aureus infection; Z90.49 Acquired absence of other specified parts of digestive tract; Z95.1 Presence of aortocoronary bypass graft
CPT/HCPCS: 93005; 99285; 96374; 36415; 85025; 80048; 84484; 83880; 71045; 73030; 93010; J1940

== ENCOUNTER 2018-12-14 11:22 | Emergency (ER) | payer MEDICAID, OTHER ==
[2018-12-14 11:28] VITALS: BP 129/84
[2018-12-14] MEDS ORDERED: ASPIRIN 81 MG TABLET, CHEWABLE PO ONE (11:44)
--- NOTE | 2018-12-14 11:47 | ER Document Report ---
ED Medical Screen (RME) - General Chief Complaint: Shortness Of Breath Stated Complaint: RESPIRATORY DISTRESS Time Seen by Provider: 12/14/18 11:40 Mode of Arrival: Ambulatory Information source: Patient Notes: Patient presents emergency department with complaints of chest burning on and off for the past 3-4 days. Reports increased burning with cough. Denies radiating pain. Denies nausea vomiting diarrhea. Reports difficulty breathing shortness of breath. Has history of COPD and CAD. Patient reports he quit smoking but smells of smoke. Lives alone but does have smokers around him. Lungs clear speaks in a clear voice. I have greeted and performed a rapid initial assessment of this patient. A comprehensive ED assessment and evaluation of the patient, analysis of test resu lts and completion of the medical decision making process will be conducted by additional ED providers. TRAVEL OUTSIDE OF THE [place] IN LAST 30 DAYS: No - Related Data Allergies/Adverse Reactions: No Known Allergies Allergy (Verified 12/14/18 11:23) Past Medical History - Past Medical History Cardiac Medical History: Reports: Hx Congestive Heart Failure, Hx Heart Attack, Hx Hypertension Pulmonary Medical History: Reports: Hx COPD, Hx Pneumonia Endocrine Medical History: Reports: Hx Hypothyroidism Renal/ Medical History: Denies: Hx Peritoneal Dialysis Skin Medical History: Reports Hx Cellulitis, Reports Hx MRSA Psychiatric Medical History: Denies: Hx Depression Infectious Medical History: Reports: Hx MRSA Past Surgical History: Reports: Hx Cardiac Surgery - cabg, Hx Cholecystectomy - gallstone. Patient describes what sounds like an ERCP, Hx Coronary Artery Bypass Graft - Immunizations Hx Diphtheria, Pertussis, Tetanus Vaccination: - unknown History of Influenza Vaccine for 06/2017 - 11/2017 Season: Yes Influenza Administration Date for 06/2017 - 11/2017 Season: 07/07/17 Physical Exam - Vital signs Vitals: Temp Pulse Resp BP Pulse Ox 98.0 F 89 20 129/84 H 96 12/14/18 11:26 12/14/18 11:26 12/14/18 11:26 12/14/18 11:26 12/14/18 11:26 Course - Vital Signs Vital signs: Temp Pulse Resp BP Pulse Ox 98.0 F 89 20 129/84 H 96 12/14/18 11:26 12/14/18 11:26 12/14/18 11:26 12/14/18 11:26 12/14/18 11:26
[2018-12-14 12:21] LABS: ABSOLUTE LYMPHOCYTES (AUTO) 0.7 10^3/uL (0.5-4.7); ABSOLUTE MONOCYTES (AUTO) 0.8 10^3/uL (0.1-1.4); ABSOLUTE NEUT (AUTO) 3.5 10^3/uL (1.7-8.2); BASOPHILS % (AUTO) 0.9 % (0-2); EOSINOPHILS % (AUTO) 0.5 % (0-6); HEMATOCRIT 41.7 % (37.9-51.0); HEMOGLOBIN 13.5 g/dL (13.5-17.0); LYMPHOCYTES % (AUTO) 13.3 % (13-45); MEAN CORPUSCULAR HEMOGLOBIN 22.4 pg (27.0-33.4); MEAN CORPUSCULAR HGB CONC 32.3 g/dL (32.0-36.0); MEAN CORPUSCULAR VOLUME 69 fl (80-97); MONOCYTES % (AUTO) 16.5 % (3-13); PLATELET COUNT 222 10^3/uL (150-450); RED BLOOD COUNT 6.02 10^6/uL (4.35-5.55); RED CELL DISTRIBUTION WIDTH 21.1 % (11.5-14.0); SEGMENTED NEUTROPHILS % (AUTO) 68.8 % (42-78); TOTAL CELLS COUNTED % (AUTO) 100 %; WHITE BLOOD COUNT 5.1 10^3/uL (4.0-10.5)
[2018-12-14 12:41] LABS: ALANINE AMINOTRANSFERASE 24 U/L (21-72); ALBUMIN 3.4 g/dL (3.5-5.0); ALKALINE PHOSPHATASE 229 U/L (38-126); ANION GAP 10 (5-19); ASPARTATE AMINO TRANSFERASE 24 U/L (17-59); BILIRUBIN,DIRECT 0.4 mg/dL (0.0-0.4); BILIRUBIN,TOTAL 0.7 mg/dL (0.2-1.3); BLOOD UREA NITROGEN 25 mg/dL (7-20); CALCIUM 8.6 mg/dL (8.4-10.2); CARBON DIOXIDE 34 mmol/L (22-30); CHLORIDE 94 mmol/L (98-107); CREATINE KINASE 107 U/L (55-170); GLUCOSE 84 mg/dL (75-110); POTASSIUM 3.3 mmol/L (3.6-5.0); SODIUM 137.9 mmol/L (137-145)
[2018-12-14 12:53] LABS: CREATINE KINASE MB 3.05 ng/mL (<4.55)
[2018-12-14 12:59] LABS: TROPONIN I 0.059 ng/mL
--- NOTE | 2018-12-14 12:59 | RADIOLOGY REPORT (SQ) ---
EXAM DESCRIPTION: CHEST 2 VIEWS COMPLETED DATE/TIME: 12/14/2018 12:36 pm REASON FOR STUDY: chest burn, difficulty breathing COMPARISON: None. EXAM PARAMETERS: NUMBER OF VIEWS: two views TECHNIQUE: Digital Frontal and Lateral radiographic views of the chest acquired. RADIATION DOSE: NA LIMITATIONS: none FINDINGS: LUNGS AND PLEURA: No opacities, masses or pneumothorax. No pleural effusion. MEDIASTINUM AND HILAR STRUCTURES: Calcified mediastinal nodes. HEART AND VASCULAR STRUCTURES: Heart normal size. No evidence for failure. BONES: No acute findings. HARDWARE: Sternotomy wires. OTHER: No other significant finding. IMPRESSION: NO ACUTE RADIOGRAPHIC FINDING IN THE CHEST. TECHNICAL DOCUMENTATION: JOB ID: [id number] [employer]- All Rights Reserved Reading location - IP/workstation name: [email or web address]
--- NOTE | 2018-12-14 16:14 | ER Document Report ---
ED General - General Chief Complaint: Shortness Of Breath Stated Complaint: RESPIRATORY DISTRESS Time Seen by Provider: 12/14/18 11:40 Primary Care Provider: SINA DIANE [Primary Care Provider] - Follow up as needed Mode of Arrival: Ambulatory Notes: Patient presents emergency department with complaints of chest burning on and off for the past 3-4 days. Reports increased burning with cough. Denies radiating pain. Denies nausea vomiting diarrhea. Reports difficulty breathing shortness of breath. Has history of COPD and CAD. Patient reports he quit smoking but smells of smoke. Lives alone but does have smokers around him. Lungs clear speaks in a clear voice. TRAVEL OUTSIDE OF THE [place] IN LAST 30 DAYS: No - Related Data Allergies/Adverse Reactions: No Known Allergies Allergy (Verified 12/14/18 11:23) Past Medical History - General Information source: Patient - Social History Smoking Status: Former Smoker Family History: Hypertension, Malignancy - Father with unknown cancer. Patient has suicidal ideation: No Patient has homicidal ideation: No - Past Medical History Cardiac Medical History: Reports: Hx Congestive Heart Failure, Hx Heart Attack, Hx Hypertension Pulmonary Medical History: Reports: Hx COPD, Hx Pneumonia Endocrine Medical History: Reports: Hx Hypothyroidism Renal/ Medical History: Denies: Hx Peritoneal Dialysis Skin Medical History: Reports Hx Cellulitis, Reports Hx MRSA Psychiatric Medical History: Denies: Hx Depression Infectious Medical History: Reports: Hx MRSA Past Surgical History: Reports: Hx Cardiac Surgery - cabg, Hx Cholecystectomy - gallstone. Patient describes what sounds like an ERCP, Hx Coronary Artery Bypass Graft - Immunizations Hx Diphtheria, Pertussis, Tetanus Vaccination: - unknown Physical Exam - Vital signs Vitals: Temp Pulse Resp BP Pulse Ox 98.0 F 89 20 129/84 H 96 12/14/18 11:26 12/14/18 11:26 12/14/18 11:26 12/14/18 11:26 12/14/18 11:26 Course - Re-evaluation Re-evalutation: 12/14/18 16:22 Overall well-appearing but a little antsy. Patient with expiratory wheezing and known COPD. I advised patient that he can use a breathing treatment but he declined saying "I got all that stuff at home". Initial troponin slightly elevated similar to previous. Discussed with supervising physician, Dr. Godinez, who recommends we get a delta prior to discharge. Patient agreed. 12/14/18 16:55 KEVIN Nails went to go draw the second troponin and the patient eloped. - Vital Signs Vital signs: Temp Pulse Resp BP Pulse Ox 98.0 F 89 20 129/84 H 96 12/14/18 11:26 12/14/18 11:26 12/14/18 11:26 12/14/18 11:26 12/14/18 11:26 - Laboratory Result Diagrams: 12/14/18 11:55 12/14/18 11:55 Laboratory results interpreted by me: 12/14/18 12/14/18 11:55 11:55 RBC 6.02 H MCV 69 L MCH 22.4 L RDW 21.1 H Monocytes % 16.5 H Potassium 3.3 L Chloride 94 L Carbon Dioxide 34 H BUN 25 H Creatinine 1.71 H Est GFR ( Amer) 49 L Est GFR (Non-Af Amer) 40 L Alkaline Phosphatase 229 H Albumin 3.4 L Discharge - Discharge Clinical Impression: Shortness of breath Condition: Good Disposition: ELOPED Additional Instructions: You were seen for shortness of breath. You did not want any treatment here in the emergency department. However, it is very important that you return to the emergency department immediately if you began to have worsening difficulty breathing that does not respond to your normal home nebulizers. You are also being sent home on a five-day course of steroids that you should start taking tomorrow. Please also follow closely with your primary care physician. You should eturn to emergency department if you develop fever greater than 101, persistent cough, persistent vomiting, pass out, or any other symptoms that are concerning to you. Referrals: BENEDICTO,NO [Primary Care Provider] - Follow up as needed
--- NOTE | 2018-12-15 00:04 | EKG REPORT ---
SEVERITY:- ABNORMAL ECG - SINUS TACHYCARDIA PROBABLE LEFT ATRIAL ABNORMALITY RIGHT BUNDLE BRANCH BLOCK PROBABLE ANTEROSEPTAL INFARCT, AGE INDETERM : Confirmed by: Kinza Meza 15-Dec-2018 00:02:30
== END 2018-12-14 17:27 | disposition left against medical advice (07) ==
LOC: ER 11:22
DX: R06.02 Shortness of breath (principal); R05 Cough; I50.9 Heart failure, unspecified; I11.0 Hypertensive heart disease with heart failure; Z86.14 Personal history of Methicillin resistant Staphylococcus aureus infection; Z95.1 Presence of aortocoronary bypass graft; Z90.49 Acquired absence of other specified parts of digestive tract; I25.2 Old myocardial infarction
CPT/HCPCS: 36415; 71046; 80053; 82550; 82553; 84484; 85025; 93005; 93010; 99281

== ENCOUNTER 2019-10-29 11:42 | Emergency (ER) | payer OTHER, MEDICARE ==
[2019-10-29] MEDS ORDERED: OXYCODONE-ACETAMINOPHEN 5-325 MG TABLET PO ONE (11:53)
--- NOTE | 2019-10-29 12:32 | RADIOLOGY REPORT (SQ) ---
EXAM DESCRIPTION: SHOULDER LEFT 2 OR MORE VIEWS COMPLETED DATE/TIME: 10/29/2019 12:16 pm REASON FOR STUDY: left shoulder pain into left arm COMPARISON: None. NUMBER OF VIEWS: Three view. TECHNIQUE: Internal rotation, external rotation, and Y view images acquired of the left shoulder. LIMITATIONS: None. FINDINGS: MINERALIZATION: Normal. BONES: No acute fracture. No worrisome bone lesions. No significant osteophytes. GLENOHUMERAL JOINT: Interval development of generalized erosions involving the glenohumeral joint bot h humeral and along the glenoid. Osteophytes present as well. ACROMIOCLAVICULAR JOINT: No large osteophytes. SOFT TISSUES: Possible loose bodies in the joint. VISUALIZED RIBS, SPINE, AND LUNG: No other significant finding. OTHER: No other significant finding. IMPRESSION: Glenohumeral erosions. Osteophytes and possible loose bodies in the joint. TECHNICAL DOCUMENTATION: JOB ID: [id number] 2011 [employer]- All Rights Reserved Reading location - IP/workstation name: [email or web address]
--- NOTE | 2019-10-29 13:38 | ER Document Report ---
HPI - HPI Time Seen by Provider: 10/29/19 11:50 Pain Level: 5 Notes: 64-year-old male patient presented emergency department chief complaint of left arm pain that is been ongoing for the last few weeks. Patient reports he has tried some [id number] medications without relief. He states he [facility] and told he might have bursitis in his shoulder. He denies any direct injury to the area. - CONSTITUTIONAL Constitutional: DENIES: Fever, Chills - EENT EENT: DENIES: Sore Throat - REPRODUCTIVE Reproductive: DENIES: : Past Medical History - General Information source: Patient - Social History Smoking Status: Never Smoker Chew tobacco use (# tins/day): No Frequency of alcohol use: None Drug Abuse: None Family History: Hypertension, Malignancy - Father with unknown cancer. Patient has suicidal ideation: No Patient has homicidal ideation: No - Past Medical History Cardiac Medical History: Reports: Hx Congestive Heart Failure, Hx Heart Attack, Hx Hypertension Pulmonary Medical History: Reports: Hx COPD, Hx Pneumonia Endocrine Medical History: Reports: Hx Hypothyroidism Renal/ Medical History: Denies: Hx Peritoneal Dialysis Skin Medical History: Reports Hx Cellulitis, Reports Hx MRSA Psychiatric Medical History: Denies: Hx Depression Infectious Medical History: Reports: Hx MRSA Past Surgical History: Reports: Hx Cardiac Surgery - cabg, Hx Cholecystectomy - gallstone. Patient describes what sounds like an ERCP, Hx Coronary Artery Bypass Graft - Immunizations Hx Diphtheria, Pertussis, Tetanus Vaccination: - unknown Vertical Provider Document - CONSTITUTIONAL Notes: PHYSICAL EXAMINATION: GENERAL: Well-appearing, well-nourished and in no acute distress. HEAD: Atraumatic, normocephalic. EYES: Pupils equal round extraocular movements intact, conjunctiva are normal. ENT: Nares patent NECK: Normal range of motion LUNGS: No respiratory distress Musculoskeletal: Normal range of motion, pain over the posterior and anterior left shoulder, worse with movement. No crepitus or deformity felt. Strong radial pulse, cap refill less than 3 seconds, normal motor and sensation distal to area of pain. NEUROLOGICAL: Normal speech, normal gait. PSYCH: Normal mood, normal affect. SKIN: Warm, Dry, normal turgor, no rashes or lesions noted. - INFECTION CONTROL TRAVEL OUTSIDE OF THE [place] IN LAST 30 DAYS: No Course - Re-evaluation Re-evalutation: Shoulder X-Ray 10/29/19 11:52 IMPRESSION: Glenohumeral erosions. Osteophytes and possible loose bodies in the joint. - Vital Signs Vital signs: Temp Pulse Resp BP Pulse Ox 97.8 F 52 L 16 148/109 H 98 10/29/19 11:50 10/29/19 11:50 10/29/19 11:50 10/29/19 11:50 10/29/19 11:50 Procedures - Immobilization Left arm Immobilizer type: Sling Performed by: PCT Discharge - Discharge Clinical Impression: Shoulder pain Qualifiers: Chronicity: unspecified Laterality: left Qualified Code(s): M25.512 - Pain in left shoulder Condition: Stable Disposition: HOME, SELF-CARE Additional Instructions: Arthritis Your symptoms are due to arthritis. Arthritis is an inflammation of the joints. There are many types -- osteoarthritis (due to "wear and tear"), auto- immmune arthritis (such as rheumatoid, lupus, Beni's, and others), and crystal-induced arthritis (such as gout and pseudogout). The physician's examination, combined with laboratory tests, will determine the cause of your arthritis. All types of arthritis are treated with antiinflammatory medications. Other medication may be required for special types of arthritis, or if your problem does not respond to the antiinflammatory medicine. Local warmth may be helpful. Move the involved joints through the full range of motion daily. Mild exercise is usually still possible for most persons with arthritis (ask your physician). Swimming provides good exercise without damaging the joints. Contact the physician if you are worsening in any way. Please take medications as prescribed, follow-up with your primary care provider, bring the copy of the x-ray that I have provided for you. The shoulder pain you are experiencing is likely being caused by severe arthritis in your shoulder. Prescriptions: Diclofenac Sodium 100 gm TP BID #100 gel..gram. Meloxicam [Mobic] 7.5 mg PO BID #30 tablet Referrals: SINA IDANE [NO LOCAL MD] - Follow up as needed
[2019-10-29 13:43] VITALS: BP 143/105
--- NOTE | 2019-10-29 22:03 | EKG REPORT ---
SEVERITY:- ABNORMAL ECG - SINUS RHYTHM VENTRICULAR PREMATURE COMPLEX PROBABLE LEFT ATRIAL ABNORMALITY RIGHT BUNDLE BRANCH BLOCK : Confirmed by: Kinza Meza 29-Oct-2019 22:02:09
== END 2019-10-29 13:54 | disposition home or self-care (01) ==
LOC: ER 11:42
DX: M25.712 Osteophyte, left shoulder (principal); M25.512 Pain in left shoulder; I10 Essential (primary) hypertension; J44.9 Chronic obstructive pulmonary disease, unspecified
CPT/HCPCS: 93005; 93010; 99283

== ENCOUNTER 2019-11-07 13:06 | Observation (INO) | payer OTHER, MEDICARE ==
[2019-11-07] MEDS ORDERED: IPRATROPIUM/ALBUTEROL 0.5-2.5 MG/3 ML AMPUL NEB ONE (13:55)
--- NOTE | 2019-11-07 13:57 | ER Document Report ---
ED Medical Screen (RME) - General Chief Complaint: Shortness Of Breath Stated Complaint: BODY SWELLING,WEAKNESS Time Seen by Provider: 11/07/19 13:51 Primary Care Provider: GILA ALONZO [Primary Care Provider] - Follow up as needed Notes: Patient is a 64-year-old male who presents to the emergency department with a chief complaint of shortness of breath, bilateral leg swelling, and swelling of bilateral orbits. Patient has a history of COPD and CHF. Patient is currently on Lasix. Patient states that he is taking his medications as prescribed and making urine. Exam: Expiratory wheezes noted throughout all lung romeo. I have greeted and performed a rapid initial assessment of this patient. A comprehensive ED assessment and evaluation of the patient, analysis of test results and completion of medical decision making process will be conducted by an additional ED providers. TRAVEL OUTSIDE OF THE [place] IN LAST 30 DAYS: No - Related Data Allergies/Adverse Reactions: No Known Allergies Allergy (Verified 11/07/19 13:44) Past Medical History - Social History Frequency of alcohol use: None Drug Abuse: None - Past Medical History Cardiac Medical History: Reports: Hx Congestive Heart Failure, Hx Heart Attack, Hx Hypertension Pulmonary Medical History: Reports: Hx COPD, Hx Pneumonia Endocrine Medical History: Reports: Hx Hypothyroidism Renal/ Medical History: Denies: Hx Peritoneal Dialysis Skin Medical History: Reports Hx Cellulitis, Reports Hx MRSA Psychiatric Medical History: Denies: Hx Depression Infectious Medical History: Reports: Hx MRSA Past Surgical History: Reports: Hx Cardiac Surgery - cabg, Hx Cholecystectomy - gallstone. Patient describes what sounds like an ERCP, Hx Coronary Artery Bypass Graft - Immunizations Hx Diphtheria, Pertussis, Tetanus Vaccination: - unknown Physical Exam - Vital signs Vitals: Temp Pulse Resp BP Pulse Ox 97.8 F 98 24 H 157/128 H 94 11/07/19 13:14 11/07/19 13:14 11/07/19 13:14 11/07/19 13:14 11/07/19 13:14 Course - Vital Signs Vital signs: Temp Pulse Resp BP Pulse Ox 97.8 F 98 24 H 157/128 H 94 11/07/19 13:14 11/07/19 13:14 11/07/19 13:14 11/07/19 13:14 11/07/19 13:14 Doctor's Discharge - Discharge Referrals: GILA ALONZO [Primary Care Provider] - Follow up as needed
[2019-11-07 14:31] LABS: ABSOLUTE BASOPHILS # (AUTO) 0.1 10^3/uL (0.0-0.2); ABSOLUTE EOSINOPHILS # (AUTO) 0.4 10^3/uL (0.0-0.6); ABSOLUTE LYMPHOCYTES (AUTO) 1.2 10^3/uL (0.5-4.7); ABSOLUTE MONOCYTES (AUTO) 0.7 10^3/uL (0.1-1.4); ABSOLUTE NEUT (AUTO) 6.3 10^3/uL (1.7-8.2); EOSINOPHILS % (AUTO) 4.6 % (0-6); HEMATOCRIT 42.8 % (37.9-51.0); HEMOGLOBIN 14.5 g/dL (13.5-17.0); LYMPHOCYTES % (AUTO) 13.6 % (13-45); MEAN CORPUSCULAR HEMOGLOBIN 27.9 pg (27.0-33.4); MEAN CORPUSCULAR VOLUME 82 fl (80-97); MONOCYTES % (AUTO) 8.1 % (3-13); PLATELET COUNT 215 10^3/uL (150-450); RED BLOOD COUNT 5.22 10^6/uL (4.35-5.55); RED CELL DISTRIBUTION WIDTH 19.4 % (11.5-14.0); SEGMENTED NEUTROPHILS % (AUTO) 72.7 % (42-78); TOTAL CELLS COUNTED % (AUTO) 100 %; WHITE BLOOD COUNT 8.6 10^3/uL (4.0-10.5)
[2019-11-07 14:46] LABS: ALBUMIN 3.5 g/dL (3.5-5.0); ALKALINE PHOSPHATASE 202 U/L (38-126); ANION GAP 8 (5-19); ASPARTATE AMINO TRANSFERASE 35 U/L (17-59); BILIRUBIN,DIRECT 0.7 mg/dL (0.0-0.4); BLOOD UREA NITROGEN 31 mg/dL (7-20); CALCIUM 8.6 mg/dL (8.4-10.2); CARBON DIOXIDE 30 mmol/L (22-30); CHLORIDE 103 mmol/L (98-107); GLUCOSE 106 mg/dL (75-110); POTASSIUM 4.2 mmol/L (3.6-5.0); TOTAL PROTEIN 7.2 g/dL (6.3-8.2)
--- NOTE | 2019-11-07 14:48 | RADIOLOGY REPORT (SQ) ---
EXAM DESCRIPTION: CHEST SINGLE VIEW COMPLETED DATE/TIME: 11/07/2019 2:24 pm REASON FOR STUDY: shortness of breath COMPARISON: PA and lateral views of the chest from 12/14/2018. EXAM PARAMETERS: NUMBER OF VIEWS: One view. TECHNIQUE: An AP view of the chest was obtained. RADIATION DOSE: NA LIMITATIONS: None. FINDINGS: LUNGS AND PLEURA: No consolidation, pleural effusion or pneumothorax. MEDIASTINUM AND HILAR STRUCTURES: Stable right paratracheal nodular calcification. HEART AND VASCULAR STRUCTURES: The cardiac silhouette and pulmonary vasculature are within normal pena its. BONES: No acute findings. HARDWARE: Sternotomy wires. OTHER: No other finding. IMPRESSION: No acute cardiopulmonary process. TECHNICAL DOCUMENTATION: JOB ID: [id number] 2010 [employer]- All Rights Reserved Reading location - IP/workstation name: [email or web address]
[2019-11-07 15:08] LABS: TROPONIN I 0.034 ng/mL
--- NOTE | 2019-11-07 15:18 | ER Document Report ---
ED General - General Chief Complaint: Shortness Of Breath Stated Complaint: BODY SWELLING,WEAKNESS Time Seen by Provider: 11/07/19 13:51 Primary Care Provider: CLINTON,GILA [Primary Care Provider] - Follow up as needed Notes: HPI: 64-year-old male who presents today stating that for the last 2 to 3 days he has had some increased bilateral lower extremity swelling. He does state some mild cough and some worsening shortness of breath. Patient denies any chest pain. No calf pain or recent trips or travel. Patient does have a history of COPD. He denies runny nose sore throat or fever. ROS: See HPI All other review of systems reviewed and otherwise negative Reviewed vital signs and nursing note as charted by RN. PHYSICAL EXAM: CONSTITUTIONAL: Alert and oriented and responds appropriately to questions. W ell-appearing; well-nourished HEAD: Normocephalic; atraumatic EYES: PERRL; Conjunctivae clear, sclerae non-icteric ENT: Normal nose; no rhinorrhea; moist mucous membranes; pharynx without lesions noted NECK: Supple without meningismus; non-tender; no cervical lymphadenopathy, no masses CARD: Regular rate and rhythm; no murmurs; symmetric distal pulses RESP: Normal chest excursion without splinting or tachypnea; breath sounds clear and equal bilaterally; bilateral end expiratory wheezing without rhonchi or rales appreciated ABD/GI: Normal bowel sounds; non-distended; soft, non-tender BACK: The back appears normal and is non-tender to palpation EXT: Normal ROM in all joints; non-tender to palpation; 1+ bilateral edema without calf pain or swelling SKIN: No acute lesions noted NEURO: CN 2-12 intact; 5/5 bilateral upper and lower extremity strength with sensation intact to light touch PSYCH: The patient's mood and manner are appropriate. Grooming and personal hygiene are appropriate. TRAVEL OUTSIDE OF THE [place] IN LAST 30 DAYS: No - Related Data Allergies/Adverse Reactions: No Known Allergies Allergy (Verified 11/07/19 13:44) Past Medical History - Social History Smoking Status: Former Smoker Frequency of alcohol use: None Drug Abuse: None Family History: Hypertension, Malignancy - Father with unknown cancer. Patient has suicidal ideation: No Patient has homicidal ideation: No - Past Medical History Cardiac Medical History: Reports: Hx Congestive Heart Failure, Hx Heart Attack, Hx Hypertension Pulmonary Medical History: Reports: Hx COPD, Hx Pneumonia Endocrine Medical History: Reports: Hx Hypothyroidism Renal/ Medical History: Denies: Hx Peritoneal Dialysis Skin Medical History: Reports Hx Cellulitis, Reports Hx MRSA Psychiatric Medical History: Denies: Hx Depression Infectious Medical History: Reports: Hx MRSA Past Surgical History: Reports: Hx Cardiac Surgery - cabg, Hx Cholecystectomy - gallstone. Patient describes what sounds like an ERCP, Hx Coronary Artery Bypass Graft - Immunizations Hx Diphtheria, Pertussis, Tetanus Vaccination: - unknown Physical Exam - Vital signs Vitals: Temp Pulse Resp BP Pulse Ox 97.8 F 98 24 H 157/128 H 94 11/07/19 13:14 11/07/19 13:14 11/07/19 13:14 11/07/19 13:14 11/07/19 13:14 Course - Re-evaluation Re-evalutation: Given the above history and physical, a cardiac panel including an x-ray of the chest and BNP with an EKG has been ordered. Patient denies any and all chest pain. I do believe ACS, PE, dissection to be unlikely. Patient does have some mild wheezing so I will provide 1 nebulizer. X-ray of the chest is pending. 11/07/19 15:19 Labs as recorded. BNP is slightly elevated. Patient's creatinine is around baseline. X-ray of the chest shows no obvious pneumonia with no obvious effusions. No cardiomegaly appreciated. 11/07/19 15:22 EKG shows heart of 95, normal sinus rhythm, right bundle branch block, no ST elevation or depression. I did compare this with the previous EKG on October 29 showing no obvious appreciable change. 11/07/19 17:35 Wheezing has improved. Patient is satting around 93 to 94% on room air. Awaiting second troponin. I have provided a dose of IV Lasix. 11/07/19 18:03 Repeat troponin as recorded. Patient's breathing is improved. Lasix has been provided. Repeat troponin showing no appreciable increase. I believe that the patient will require some diuresis and possibly an echo. - Vital Signs Vital signs: Temp Pulse Resp BP Pulse Ox 97.8 F 98 12 133/94 H 97 11/07/19 13:14 11/07/19 13:14 11/07/19 17:01 11/07/19 17:00 11/07/19 17:01 - Laboratory Result Diagrams: 11/07/19 14:10 11/07/19 14:10 Laboratory results interpreted by me: 11/07/19 11/07/19 11/07/19 14:10 14:10 14:10 RDW 19.4 H BUN 31 H Creatinine 1.66 H Est GFR ( Amer) 50 L Est GFR (MDRD) Non-Af 42 L Direct Bilirubin 0.7 H ALT 51 H Alkaline Phosphatase 202 H NT-Pro-B Natriuret Pep 8420 H Discharge - Discharge Clinical Impression: SOB (shortness of breath) Acute congestive heart failure Qualifiers: Heart failure type: unspecified Qualified Code(s): I50.9 - Heart failure, unspecified Condition: Fair Disposition: ADMITTED OBSERVATION Admitting Provider: Onelia (Hospitalist) Unit Admitted: Telemetry [facility]errals: [facility] [[facility]] - Follow up as needed
[2019-11-07] MEDS ORDERED: FUROSEMIDE INJ/PF 40 MG/4 ML SDV IV ONE (17:34)
--- NOTE | 2019-11-07 17:50 | EKG REPORT ---
SEVERITY:- ABNORMAL ECG - SINUS RHYTHM ATRIAL PREMATURE COMPLEX RIGHT BUNDLE BRANCH BLOCK : Confirmed by: Luis Angel Dawkins MD 07-Nov-2019 17:49:49
[2019-11-07] MEDS ORDERED: ACETAMINOPHEN 325 MG TABLET PO PRN (18:17)
[2019-11-07] MEDS ORDERED: IPRATROPIUM/ALBUTEROL 0.5-2.5 MG/3 ML AMPUL NEB PRN (18:17)
[2019-11-07] MEDS ORDERED: ONDANSETRON HCL INJ/PF 4 MG/2 ML SDV IV PRN (18:17)
[2019-11-07] MEDS ORDERED: PROMETHAZINE HCL INJ 25 MG/1 ML VIAL IV PRN (18:17)
--- NOTE | 2019-11-07 18:30 | PDOC H&P ---
History of Present Illness Admission Date/PCP: [facility] History of Present Illness: TEVIN SPENCER is a 64 year old male with past medical history of CAD status post CABG, CHF, non-oxygen dependent COPD, hypertension, CKD, presented to ED complaining of worsening bilateral lower extremity edema for the last 2 to 3 days, associated with mild cough and shortness of breath, denies any chest pain, nausea, vomiting, diarrhea, constipation, urinary symptoms, headache, vision changes, PND, orthopnea, fever, chills. In ED noted to have elevated BNP, mildly elevated troponins and bilateral lower extremity edema. Hospitalist was consulted for admission. Past Medical History Cardiac Medical History: Reports: Congestive Heart Failure, Myocardial I nfarction, Hypertension Pulmonary Medical History: Reports: Chronic Obstructive Pulmonary Disease (COPD), Pneumonia Endocrine Medical History: Reports: Hypothyroidism Psychiatric Medical History: Denies: Depression Infectious Medical History: Reports: Methicillin-Resistant Staph Aureus Past Surgical History Past Surgical History: Reports: Cholecystectomy - gallstone. Patient describes what sounds like an ERCP, Coronary Artery Bypass Graft Social History Smoking Status: Former Smoker Frequency of Alcohol Use: None Hx Recreational Drug Use: No Drugs: None Hx Prescription Drug Abuse: No Family History Family History: Hypertension, Malignancy - Father with unknown cancer. Parental Family History Reviewed: Yes Children Family History Reviewed: Yes Sibling(s) Family History Reviewed.: Yes Medication/Allergy Home Medications: Atorvastatin Calcium 40 mg PO QHS 12/04/17 Budesonide/Formoterol Fumarate [Symbicort 160-4.5 Mcg Inhaler] 10.2 gm IH BID 12/04/17 Carvedilol 3.125 mg PO BID 12/04/17 Famotidine 20 mg PO BID 12/04/17 Furosemide [Lasix] 40 mg PO DAILY 12/04/17 Ipratropium/Albuterol Sulfate [Combivent Respimat 20-100 Mcg] 4 gm IH DAILY 12/04/17 Levothyroxine Sodium 125 mcg PO QAM 12/04/17 Potassium Chloride [Klor-Con 10] 10 meq PO BID 12/04/17 Clopidogrel Bisulfate [Plavix 75 mg Tablet] 75 mg PO DAILY 30 Days #30 tablet 12/07/17 Lisinopril 5 mg PO DAILY 30 Days #30 tablet 12/07/17 Prednisone 40 mg PO DAILY #8 tablet 12/21/17 Furosemide [Lasix 40 mg Tablet] 40 mg PO BID #30 tablet 02/08/18 Albuterol Sulfate [Albuterol Sulfate 2.5mg/3 mL] 1 vial IH Q4 PRN #30 vial 03/27/18 Budesonide/Formoterol Fumarate [Symbicort 160-4.5 Mcg Inhaler] 2 puff IH BID #1 hfa.aer.ad 03/27/18 Prednisone 40 mg PO DAILY #8 tablet 03/27/18 Diclofenac Sodium 100 gm TP BID #100 gel..gram. 10/29/19 Meloxicam [Mobic] 7.5 mg PO BID #30 tablet 10/29/19 Allergies/Adverse Reactions: No Known Allergies Allergy (Verified 11/07/19 13:44) Review of Systems Review of Systems: as per hpi Physical Exam Vital Signs: Temp Pulse Resp BP Pulse Ox 97.8 F 98 12 133/94 H 97 11/07/19 13:14 11/07/19 13:14 11/07/19 17:01 11/07/19 17:00 11/07/19 17:01 Intake & Output 11/06/19 11/07/19 11/08/19 06:59 06:59 06:59 Weight 66 kg General appearance: PRESENT: no acute distress, well-developed, well-nourished Head exam: PRESENT: atraumatic, normocephalic Respiratory exam: PRESENT: clear to auscultation yasir. ABSENT: rales, rhonchi, wheezes Cardiovascular exam: PRESENT: RRR. ABSENT: diastolic murmur, rubs, systolic murmur GI/Abdominal exam: PRESENT: normal bowel sounds, soft. ABSENT: distended, guarding, mass, organolmegaly, rebound, tenderness Extremities exam: PRESENT: full ROM, +2 edema. ABSENT: calf tenderness, clubbing, pedal edema Neurological exam: PRESENT: alert, awake, oriented to person, oriented to place, oriented to time, oriented to situation, CN II-XII grossly intact. ABSENT: motor sensory deficit Skin exam: PRESENT: dry, intact, warm. ABSENT: cyanosis, rash Results Laboratory Results: 11/07/19 14:10 11/07/19 14:10 11/07/19 11/07/19 14:10 14:10 WBC 8.6 RBC 5.22 Hgb 14.5 Hct 42.8 MCV 82 MCH 27.9 MCHC 34.0 RDW 19.4 H Plt Count 215 Seg Neutrophils % 72.7 Sodium 140.7 Potassium 4.2 Chloride 103 Carbon Dioxide 30 Anion Gap 8 BUN 31 H Creatinine 1.66 H Est GFR ( Amer) 50 L Glucose 106 Calcium 8.6 Total Bilirubin 1.0 AST 35 Alkaline Phosphatase 202 H Total Protein 7.2 Albumin 3.5 11/07/19 11/07/19 14:10 17:06 Troponin I 0.034 0.029 NT-Pro-B Natriuret Pep 8420 H Impressions: Chest X-Ray 11/07/19 13:55 IMPRESSION: No acute cardiopulmonary process. Assessment and Plan - Diagnosis (1) Acute congestive heart failure Qualifiers: Heart failure type: systolic Qualified Code(s): I50.21 - Acute systolic (congestive) heart failure Is this a current diagnosis for this admission?: Yes Plan: Acute systolic heart failure. Presented with mildly elevated troponins, elevated BNP and bilateral lower extremity edema. Admit to telemetry, strict in and out, volume restriction, IV Lasix cardiac diet. Resume beta-blockers once euvolemic. Resume AYE once kidney function stabilizes. (2) CAD (coronary artery disease) of bypass graft Qualifiers: [place] vs. transplanted heart: [place] heart Associated angina: without angina Qualified Code(s): I25.810 - Atherosclerosis of coronary artery bypass graft(s) without angina pectoris Is this a current diagnosis for this admission?: Yes Plan: Status post CABG x4 years. Denies any anginal symptoms. Mildly elevated troponin most likely due to NSTEMI type II in the setting of RAI and CKD. Restart antiplatelets, statins, beta-blockers, AYE. Adjust meds as needed. Outpatient PCP and cardiology follow-up. (3) Acute renal failure superimposed on stage 3 chronic kidney disease Qualifiers: Acute renal failure type: unspecified Qualified Code(s): N17.9 - Acute kidney failure, unspecified; N18.3 - Chronic kidney disease, stage 3 (moderate) Is this a current diagnosis for this admission?: Yes Plan: Likely prerenal. Baseline creatinine 1.5. Monitor volume status and electrolytes, replace as needed. Avoid nephrotoxic meds. (4) Hyperlipidemia Qualifiers: Is this a current diagnosis for this admission?: Yes Plan: Restart home meds. (5) Hypertension Qualifiers: Is this a current diagnosis for this admission?: Yes Plan: Hypervolemic. Normotensive. Restart home meds. Adjust meds as needed. Outpatient PCP follow-up.
[2019-11-07] MEDS: OXYCODONE-ACETAMINOPHEN 5-325 MG TABLET PO PRN (20:48)
[2019-11-07] MEDS: IPRATROPIUM/ALBUTEROL 0.5-2.5 MG/3 ML AMPUL NEB SCH (21:19)
[2019-11-07] MEDS ORDERED: INFLUENZA QUAD (6MOS+) 2019-20 VAC 0.5 ML SYR IM ONE (21:36)
[2019-11-07] MEDS ORDERED: FAMOTIDINE 20 MG TABLET PO SCH (22:00)
[2019-11-07] MEDS: FUROSEMIDE INJ/PF 40 MG/4 ML SDV IV SCH (22:19)
[2019-11-07] MEDS: HEPARIN SOD (PORCINE) 5,000 UNIT/ML 1 ML VIAL SUBCUT SCH (22:19)
[2019-11-07] MEDS: FAMOTIDINE 20 MG TABLET PO SCH (22:20)
[2019-11-08 02:41] LABS: ABSOLUTE BASOPHILS # (AUTO) 0.1 10^3/uL (0.0-0.2); ABSOLUTE EOSINOPHILS # (AUTO) 0.5 10^3/uL (0.0-0.6); ABSOLUTE LYMPHOCYTES (AUTO) 1.5 10^3/uL (0.5-4.7); ABSOLUTE MONOCYTES (AUTO) 0.7 10^3/uL (0.1-1.4); BASOPHILS % (AUTO) 1.1 % (0-2); EOSINOPHILS % (AUTO) 5.4 % (0-6); HEMATOCRIT 44.8 % (37.9-51.0); HEMOGLOBIN 14.9 g/dL (13.5-17.0); LYMPHOCYTES % (AUTO) 17.5 % (13-45); MEAN CORPUSCULAR HEMOGLOBIN 27.4 pg (27.0-33.4); MEAN CORPUSCULAR HGB CONC 33.3 g/dL (32.0-36.0); MEAN CORPUSCULAR VOLUME 82 fl (80-97); MONOCYTES % (AUTO) 7.6 % (3-13); PLATELET COUNT 199 10^3/uL (150-450); RED BLOOD COUNT 5.44 10^6/uL (4.35-5.55); RED CELL DISTRIBUTION WIDTH 19.4 % (11.5-14.0); SEGMENTED NEUTROPHILS % (AUTO) 68.4 % (42-78); TOTAL CELLS COUNTED % (AUTO) 100 %; WHITE BLOOD COUNT 8.8 10^3/uL (4.0-10.5)
[2019-11-08 03:00] LABS: ALBUMIN 3.6 g/dL (3.5-5.0); ALKALINE PHOSPHATASE 215 U/L (38-126); ANION GAP 9 (5-19); ASPARTATE AMINO TRANSFERASE 31 U/L (17-59); BILIRUBIN,DIRECT 0.2 mg/dL (0.0-0.4); BILIRUBIN,TOTAL 1.1 mg/dL (0.2-1.3); BLOOD UREA NITROGEN 26 mg/dL (7-20); CALCIUM 8.5 mg/dL (8.4-10.2); CARBON DIOXIDE 31 mmol/L (22-30); CHLORIDE 100 mmol/L (98-107); GLUCOSE 72 mg/dL (75-110); POTASSIUM 3.7 mmol/L (3.6-5.0); TOTAL PROTEIN 7.2 g/dL (6.3-8.2)
[2019-11-08] MEDS: OXYCODONE-ACETAMINOPHEN 5-325 MG TABLET PO PRN ×2 (04:33→21:24)
[2019-11-08] MEDS: HEPARIN SOD (PORCINE) 5,000 UNIT/ML 1 ML VIAL SUBCUT SCH ×3 (05:41→21:25)
[2019-11-08] MEDS: LEVOTHYROXINE SODIUM 0.025 MG TABLET PO SCH (05:42)
[2019-11-08] MEDS: LEVOTHYROXINE SODIUM 0.1 MG TABLET PO SCH (05:42)
[2019-11-08] MEDS: FUROSEMIDE INJ/PF 40 MG/4 ML SDV IV SCH ×3 (05:42→21:24)
[2019-11-08] MEDS ORDERED: LEVOTHYROXINE SODIUM 0.15 MG TABLET PO SCH (06:00)
[2019-11-08] MEDS: IPRATROPIUM/ALBUTEROL 0.5-2.5 MG/3 ML AMPUL NEB SCH ×3 (08:08→19:53)
[2019-11-08] MEDS: METHYLPREDNISOLONE INJ 125 MG/2 ML SDV IV SCH ×2 (09:05→17:58)
[2019-11-08] MEDS: CARVEDILOL 3.125 MG TABLET PO SCH ×2 (09:06→21:25)
[2019-11-08] MEDS: DOCUSATE SODIUM 100 MG CAPSULE PO SCH (09:07)
[2019-11-08] MEDS: FLUTICASONE/UMECLIDIN/VILANTER 100-62.5-25 MCG/DOSE IH SCH (09:11)
[2019-11-08] MEDS: CLOPIDOGREL BISULFATE 75 MG TABLET PO SCH (09:13)
[2019-11-08] MEDS ORDERED: PREDNISONE 20 MG TABLET PO SCH (10:00)
[2019-11-08] MEDS ORDERED: LISINOPRIL 10 MG TABLET PO SCH (10:00)
--- NOTE | 2019-11-08 14:26 | PDOC PROGRESS REPORT ---
Subjective Progress Note for:: 11/08/19 Subjective:: TEVIN SPENCER is a 64 year old male with past medical history of CAD status post CABG, CHF, non-oxygen dependent COPD, hypertension, CKD, presented to ED complaining of worsening bilateral lower extremity edema for the last 2 to 3 days, associated with mild cough and shortness of breath, denies any chest pain, nausea, vomiting, diarrhea, constipation, urinary symptoms, headache, vision changes, PND, orthopnea, fever, chills. In ED noted to have elevated BNP, mildly elevated troponins and bilateral lower extremity edema. Hospitalist was consulted for admission. 11/08/2019. No acute events overnight. Mild improvement of bilateral lower extreme edema, denies any shortness of breath however still having some expiratory wheezes on physical examination, denies any fever, chills, nausea, vomiting, diarrhea, constipation or any urinary symptoms. Reason For Visit: ACUTE CONGESTIVE HEART FAILURE,SOB Physical Exam Vital Signs: Temp Pulse Resp BP Pulse Ox 97.6 F 91 18 116/88 H 95 11/08/19 11:12 11/08/19 13:44 11/08/19 13:44 11/08/19 11:12 11/08/19 13:44 Intake & Output 11/07/19 11/08/19 11/09/19 06:59 06:59 06:59 Intake Total 1000 Output Total 1025 300 Balance -25 -300 Weight 65.6 kg General appearance: PRESENT: no acute distress, well-developed, well-nourished Head exam: PRESENT: atraumatic, normocephalic Respiratory exam: PRESENT: prolonged expiratory phas, wheezes. ABSENT: rales, rhonchi Cardiovascular exam: PRESENT: RRR. ABSENT: diastolic murmur, rubs, systolic murmur Pulses: PRESENT: normal dorsalis pedis pul GI/Abdominal exam: PRESENT: normal bowel sounds, soft. ABSENT: distended, guarding, mass, organolmegaly, rebound, tenderness Extremities exam: PRESENT: +1 edema Neurological exam: PRESENT: alert, awake, oriented to person, oriented to place, oriented to time, oriented to situation, CN II-XII grossly intact. ABSENT: motor sensory deficit Results Laboratory Results: 11/08/19 02:31 11/08/19 02:31 11/07/19 11/07/19 11/08/19 14:10 14:10 02:31 WBC 8.6 8.8 RBC 5.22 5.44 Hgb 14.5 14.9 Hct 42.8 44.8 MCV 82 82 MCH 27.9 27.4 MCHC 34.0 33.3 RDW 19.4 H 19.4 H Plt Count 215 199 Seg Neutrophils % 72.7 68.4 Sodium 140.7 Potassium 4.2 Chloride 103 Carbon Dioxide 30 Anion Gap 8 BUN 31 H Creatinine 1.66 H Est GFR ( Amer) 50 L Glucose 106 Calcium 8.6 Magnesium Total Bilirubin 1.0 AST 35 Alkaline Phosphatase 202 H Total Protein 7.2 Albumin 3.5 11/08/19 02:31 WBC RBC Hgb Hct MCV MCH MCHC RDW Plt Count Seg Neutrophils % Sodium 140.2 Potassium 3.7 Chloride 100 Carbon Dioxide 31 H Anion Gap 9 BUN 26 H Creatinine 1.53 H Est GFR ( Amer) 55 L Glucose 72 L Calcium 8.5 Magnesium 1.9 Total Bilirubin 1.1 AST 31 Alkaline Phosphatase 215 H Total Protein 7.2 Albumin 3.6 11/07/19 11/07/19 11/08/19 14:10 17:06 02:31 Troponin I 0.034 0.029 0.032 NT-Pro-B Natriuret Pep 8420 H Impressions: Chest X-Ray 11/07/19 13:55 IMPRESSION: No acute cardiopulmonary process. Assessment and Plan - Diagnosis (1) Acute congestive heart failure Qualifiers: Heart failure type: systolic Qualified Code(s): I50.21 - Acute systolic (congestive) heart failure Is this a current diagnosis for this admission?: Yes Plan: Acute systolic heart failure. Presented with mildly elevated troponins, elevated BNP and bilateral lower extremity edema. Continue telemetry, strict in and out, volume restriction, IV Lasix cardiac diet. Continue low-dose beta-blockers and AYE. Uptitrate as tolerated. (2) CAD (coronary artery disease) of bypass graft Qualifiers: [place] vs. transplanted heart: [place] heart Associated angina: without angina Qualified Code(s): I25.810 - Atherosclerosis of coronary artery bypass graft(s) without angina pectoris Is this a current diagnosis for this admission?: Yes Plan: Status post CABG x4 years. Denies any anginal symptoms. Mildly elevated troponin most likely due to NSTEMI type II in the setting of RAI and CKD. Restart antiplatelets, statins, beta-blockers, AYE. Adjust meds as needed. Outpatient PCP and cardiology follow-up. (3) Acute renal failure superimposed on stage 3 chronic kidney disease Qualifiers: Acute renal failure type: unspecified Qualified Code(s): N17.9 - Acute kidney failure, unspecified; N18.3 - Chronic kidney disease, stage 3 (moderate) Is this a current diagnosis for this admission?: Yes Plan: Mild improvement. Nonoliguric. Likely prerenal. Baseline creatinine 1.5. Monitor volume status and electrolytes, replace as needed. Avoid nephrotoxic meds. (4) Hyperlipidemia Qualifiers: Is this a current diagnosis for this admission?: Yes Plan: Restart home meds. (5) Hypertension Qualifiers: Is this a current diagnosis for this admission?: Yes Plan: Volume status improving. Normotensive. Restart home meds. Adjust meds as needed. Outpatient PCP follow-up.
[2019-11-08] MEDS: POTASSIUM CHLORIDE 10 MEQ TABLET.ER PO SCH (17:57)
[2019-11-08] MEDS: AMLODIPINE BESYLATE 5 MG TABLET PO SCH (17:57)
[2019-11-08] MEDS: ASPIRIN 81 MG TABLET, ENT COATED PO SCH (17:57)
[2019-11-08] MEDS ORDERED: PRAMOXINE HCL TP SCH (18:00)
[2019-11-08] MEDS ORDERED: POTASSIUM CHLORIDE 20 MEQ PO SCH (18:00)
[2019-11-08] MEDS: FAMOTIDINE 20 MG TABLET PO SCH (21:25)
[2019-11-08] MEDS ORDERED: ATORVASTATIN CALCIUM 80 MG TABLET PO SCH (22:00)
[2019-11-09] MEDS: METHYLPREDNISOLONE INJ 125 MG/2 ML SDV IV SCH ×2 (02:50→09:23)
[2019-11-09 04:38] LABS: ANION GAP 7 (5-19); BLOOD UREA NITROGEN 33 mg/dL (7-20); CALCIUM 8.4 mg/dL (8.4-10.2); CARBON DIOXIDE 32 mmol/L (22-30); CHLORIDE 99 mmol/L (98-107); GLUCOSE 144 mg/dL (75-110)
[2019-11-09] MEDS: FUROSEMIDE INJ/PF 40 MG/4 ML SDV IV SCH (05:21)
[2019-11-09] MEDS: LEVOTHYROXINE SODIUM 0.1 MG TABLET PO SCH (05:21)
[2019-11-09] MEDS: LEVOTHYROXINE SODIUM 0.025 MG TABLET PO SCH (05:21)
[2019-11-09] MEDS: HEPARIN SOD (PORCINE) 5,000 UNIT/ML 1 ML VIAL SUBCUT SCH (05:21)
[2019-11-09] MEDS: IPRATROPIUM/ALBUTEROL 0.5-2.5 MG/3 ML AMPUL NEB SCH (07:52)
[2019-11-09] MEDS: POTASSIUM CHLORIDE 10 MEQ TABLET.ER PO SCH (09:24)
[2019-11-09] MEDS: ASPIRIN 81 MG TABLET, ENT COATED PO SCH (09:24)
[2019-11-09] MEDS: AMLODIPINE BESYLATE 5 MG TABLET PO SCH (09:24)
[2019-11-09] MEDS: DOCUSATE SODIUM 100 MG CAPSULE PO SCH (09:24)
[2019-11-09] MEDS: CLOPIDOGREL BISULFATE 75 MG TABLET PO SCH (09:24)
[2019-11-09] MEDS: CARVEDILOL 3.125 MG TABLET PO SCH (09:24)
[2019-11-09] MEDS: FLUTICASONE/UMECLIDIN/VILANTER 100-62.5-25 MCG/DOSE IH SCH (09:28)
[2019-11-09] MEDS ORDERED: LISINOPRIL 10 MG TABLET PO SCH (10:00)
[2019-11-09 11:26] VITALS: BP 144/89
--- NOTE | 2019-11-10 13:55 | PDOC DISCHARGE SUMMARY ---
Impression - Admit/DC Date/PCP Admission Date/Primary Care Provider: 11/07/19 18:25 [facility] Discharge Date: 11/10/19 - Discharge Diagnosis (1) Acute congestive heart failure Is this a current diagnosis for this admission?: Yes (2) CAD (coronary artery disease) of bypass graft Is this a current diagnosis for this admission?: Yes (3) Acute renal failure superimposed on stage 3 chronic kidney disease Is this a current diagnosis for this admission?: Yes (4) Hyperlipidemia Is this a current diagnosis for this admission?: Yes (5) Hypertension Is this a current diagnosis for this admission?: Yes (6) Acute exacerbation of chronic obstructive pulmonary disease Is this a current diagnosis for this admission?: Yes - Additional Information Discharge Diet: Cardiac Discharge Activity: Activity As Tolerated, Balance Activity w/Rest, Weigh Daily Referrals: [facility] [Primary Care Provider] - 12/27/19 11:30 am ([facility] NURSE WILL CALL PATIENT WITH A SOONER APPT. SOMETIME TODAY.) Prescriptions: Umeclidinium Brm/Vilanterol Tr [Anoro Ellipta 62.5-25 Mcg INH] 1 each IH DAILY 30 Days #1 disk.w.dev Prednisone [Deltasone 20 mg Tablet] 40 mg PO DAILY 4 Days #8 tablet Furosemide [Lasix] 40 mg PO BID 30 Days #60 tablet Amlodipine Besylate [Norvasc 2.5 mg Tablet] 2.5 mg PO DAILY 30 Days #30 tablet Albuterol Sulfate [Ventolin Hfa 8 gm Mdi] 2 puff IH Q8 PRN 30 Days #1 inhaler PRN Reason: Home Medications: Atorvastatin Calcium 40 mg PO QHS 12/04/17 Carvedilol 3.125 mg PO BID 12/04/17 Famotidine 20 mg PO BID 12/04/17 Potassium Chloride [Klor-Con 10] 20 meq PO BID 12/04/17 Amlodipine Besylate [Norvasc 5 mg Tablet] 2.5 mg PO DAILY 11/08/19 Aspirin [Ecotrin 81 mg EC Tablet] 81 mg PO DAILY 11/08/19 Diclofenac Sodium 4 gm TP QID 11/08/19 Mupirocin [Bactroban 2% Ointment 22 gm] 1 applic TP BID 11/08/19 Pramoxine HCl [Sarna Sensitive] 1 applic TP BID 11/08/19 Albuterol Sulfate [Ventolin Hfa 8 gm Mdi] 2 puff IH Q8 PRN 30 Days #1 inhaler 11/09/19 Amlodipine Besylate [Norvasc 2.5 mg Tablet] 2.5 mg PO DAILY 30 Days #30 tablet 11/09/19 Furosemide [Lasix] 40 mg PO BID 30 Days #60 tablet 11/09/19 Prednisone [Deltasone 20 mg Tablet] 40 mg PO DAILY 4 Days #8 tablet 11/09/19 Umeclidinium Brm/Vilanterol Tr [Anoro Ellipta 62.5-25 Mcg INH] 1 each IH DAILY 30 Days #1 disk.w.dev 11/09/19 History of Present Illiness History of Present Illness: TEVIN SPENCER is a 64 year old male with past medical history of CAD status post CABG, CHF, non-oxygen dependent COPD, hypertension, CKD, presented to ED complaining of worsening bilateral lower extremity edema for the last 2 to 3 days, associated with mild cough and shortness of breath, denies any chest pain, nausea, vomiting, diarrhea, constipation, urinary symptoms, headache, vision changes, PND, orthopnea, fever, chills. In ED noted to have elevated BNP, mildly elevated troponins and bilateral lower extremity edema. Hospitalist was consulted for admission. Hospital Course Hospital Course: (1) Acute congestive heart failure Presented with acute systolic heart failure. Presented with mildly elevated troponins, elevated BNP and bilateral lower extremity edema. Admitted to telemetry, strict in and out, volume restriction, IV Lasix cardiac diet. Continued low-dose beta-blockers and AYE. Euvolemic at the time of discharge. Counseled on management of heart failure. Discharge on beta-blockers and Lasix. Not a candidate for AYE/ARB due to worsening renal function. Advised to follow-up with PCP and nephrology for possible initiation of ARB/AYE in the future. (2) CAD (coronary artery disease) of bypass graft Status post CABG x4 years. Denies any anginal symptoms. Presented with mildly elevated troponin most likely due to NSTEMI type II in the setting of RAI and CKD. Was restarted antiplatelets, statins, beta-blockers. Not on AYE/ARB candidate due to worsening renal function. Advised to follow-up with PCP and certified personal chef for possible initiation of AYE or ARB in the future. Patient voiced understanding. (3) Acute renal failure superimposed on stage 3 chronic kidney disease Creatinine at baseline. Nonoliguric. Likely prerenal. Baseline creatinine 1.5. Monitored volume status and electrolytes. Advised on avoiding nephrotoxic meds in future. Advised to follow-up with PCP and nephrology. (4) Hyperlipidemia Restart home meds. (5) Hypertension Presented with volume overload. Normotensive. Restart home meds. Start on IV Lasix. Euvolemic and normotensive at the time of discharge. (6) Acute exacerbation of chronic obstructive pulmonary disease History of non-oxygen dependent COPD. Noted to have significant wheezing on physical examination. Started on IV steroids, duo nebs, LABA, LABA and ICS. Discharged on p.o. steroids, LABA, LABA, ICS. Physical Exam Vital Signs: Temp Pulse Resp BP Pulse Ox 97.4 F 86 16 144/89 H 95 11/09/19 11:24 11/09/19 11:24 11/09/19 11:24 11/09/19 11:24 11/09/19 11:24 Intake & Output 11/09/19 11/10/19 11/11/19 06:59 06:59 06:59 Intake Total 1634 Output Total 800 Balance 834 Weight 65.6 kg General appearance: PRESENT: no acute distress, well-developed, well-nourished Head exam: PRESENT: atraumatic, normocephalic Respiratory exam: PRESENT: clear to auscultation yasir. ABSENT: rales, rhonchi, wheezes Pulses: PRESENT: normal dorsalis pedis pul GI/Abdominal exam: PRESENT: normal bowel sounds, soft. ABSENT: distended, guarding, mass, organolmegaly, rebound, tenderness Neurological exam: PRESENT: alert, awake, oriented to person, oriented to place, oriented to time, oriented to situation, CN II-XII grossly intact. ABSENT: motor sensory deficit Results Laboratory Results: WBC 8.8 10^3/uL (4.0-10.5) 11/08/19 02:31 RBC 5.44 10^6/uL (4.35-5.55) 11/08/19 02:31 Hgb 14.9 g/dL (13.5-17.0) 11/08/19 02:31 Hct 44.8 % (37.9-51.0) 11/08/19 02:31 MCV 82 fl (80-97) 11/08/19 02:31 MCH 27.4 pg (27.0-33.4) 11/08/19 02:31 MCHC 33.3 g/dL (32.0-36.0) 11/08/19 02:31 RDW 19.4 % (11.5-14.0) H 11/08/19 02:31 Plt Count 199 10^3/uL (150-450) 11/08/19 02:31 Lymph % (Auto) 17.5 % (13-45) 11/08/19 02:31 [place] % (Auto) 7.6 % (3-13) 11/08/19 02:31 Eos % (Auto) 5.4 % (0-6) 11/08/19 02:31 Baso % (Auto) 1.1 % (0-2) 11/08/19 02:31 Absolute Neuts (auto) 6.0 10^3/uL (1.7-8.2) 11/08/19 02:31 Absolute Lymphs (auto) 1.5 10^3/uL (0.5-4.7) 11/08/19 02:31 Absolute Monos (auto) 0.7 10^3/uL (0.1-1.4) 11/08/19 02:31 Absolute Eos (auto) 0.5 10^3/uL (0.0-0.6) 11/08/19 02:31 Absolute Basos (auto) 0.1 10^3/uL (0.0-0.2) 11/08/19 02:31 Seg Neutrophils % 68.4 % (42-78) 11/08/19 02:31 Sodium 137.8 mmol/L (137-145) 11/09/19 03:57 Potassium 4.0 mmol/L (3.6-5.0) 11/09/19 03:57 Chloride 99 mmol/L (98-107) 11/09/19 03:57 Carbon Dioxide 32 mmol/L (22-30) H 11/09/19 03:57 Anion Gap 7 (5-19) 11/09/19 03:57 BUN 33 mg/dL (7-20) H 11/09/19 03:57 Creatinine 1.63 mg/dL (0.52-1.25) H 11/09/19 03:57 Est GFR ( Amer) 51 (>60) L 11/09/19 03:57 Est GFR (MDRD) Non-Af 43 (>60) L 11/09/19 03:57 Glucose 144 mg/dL (75-110) H 11/09/19 03:57 Calcium 8.4 mg/dL (8.4-10.2) 11/09/19 03:57 Magnesium 1.9 mg/dL (1.6-2.3) 11/08/19 02:31 Total Bilirubin 1.1 mg/dL (0.2-1.3) 11/08/19 02:31 Direct Bilirubin 0.2 mg/dL (0.0-0.4) 11/08/19 02:31 Neonat Total Bilirubin Not Reportable 11/08/19 02:31 Neonat Direct Bilirubin Not Reportable 11/08/19 02:31 Neonat Indirect Bili Not Reportable 11/08/19 02:31 AST 31 U/L (17-59) 11/08/19 02:31 ALT 48 U/L (<50) 11/08/19 02:31 Alkaline Phosphatase 215 U/L (38-126) H 11/08/19 02:31 Troponin I 0.032 ng/mL 11/08/19 02:31 NT-Pro-B Natriuret Pep 8420 pg/mL (<125) H 11/07/19 14:10 Total Protein 7.2 g/dL (6.3-8.2) 11/08/19 02:31 Albumin 3.6 g/dL (3.5-5.0) 11/08/19 02:31 11/07/19 11/07/19 11/08/19 14:10 17:06 02:31 Troponin I 0.034 0.029 0.032 NT-Pro-B Natriuret Pep 8420 H Impressions: Chest X-Ray 11/07/19 13:55 IMPRESSION: No acute cardiopulmonary process. Plan Time Spent: Greater than 30 Minutes Stroke Is this a Stroke Patient?: No Acute Heart Failure - Is this a Heart Failure Patient?: No
== END 2019-11-09 11:40 | disposition home or self-care (01) ==
LOC: ER 13:06 → EH 18:25 → 5 20:12
PROVIDERS: ADMIT Internal Medicine; ATTEND Internal Medicine
DX: I13.0 Hypertensive heart and chronic kidney disease with heart failure and stage 1 through stage 4 chronic kidney disease, or unspecified chronic kidney disease (principal); N18.3 Chronic kidney disease, stage 3 (moderate); I50.21 Acute systolic (congestive) heart failure; N17.9 Acute kidney failure, unspecified; I25.810 Atherosclerosis of coronary artery bypass graft(s) without angina pectoris; J44.1 Chronic obstructive pulmonary disease with (acute) exacerbation; E78.5 Hyperlipidemia, unspecified; R79.89 Other specified abnormal findings of blood chemistry; E87.70 Fluid overload, unspecified; I45.10 Unspecified right bundle-branch block; I25.2 Old myocardial infarction; Z79.82 Long term (current) use of aspirin; Z79.899 Other long term (current) drug therapy; Z87.891 Personal history of nicotine dependence; Z82.49 Family history of ischemic heart disease and other diseases of the circulatory system; Z79.51 Long term (current) use of inhaled steroids; Z95.1 Presence of aortocoronary bypass graft
CPT/HCPCS: 93005; 99285; 96374; 36415 ×3; 83735; 85025 ×2; 80048; 80053 ×2; 84484 ×2; 83880; 71045; 93010; 94640 ×3; G0378 ×4; J1644 ×3; J1940 ×3; J2930 ×2; J7620 ×3; J3490

== ENCOUNTER 2019-12-06 02:13 | Emergency (ER) | payer OTHER, MEDICARE ==
[2019-12-06] MEDS ORDERED: IPRATROPIUM/ALBUTEROL 0.5-2.5 MG/3 ML AMPUL NEB ONE (02:40)
[2019-12-06] MEDS ORDERED: FENTANYL CITRATE INJ/PF 100 MCG/2 ML AMPUL IV ONE (02:41)
--- NOTE | 2019-12-06 02:41 | ER Document Report ---
ED Extremity Problem, Upper <VELMA RAM - Last Filed: 12/06/19 03:00> - General TRAVEL OUTSIDE OF THE [place] IN LAST 30 DAYS: No <ASHLEY LUGO - Last Filed: 12/06/19 04:26> - General Chief Complaint: Arm Pain Stated Complaint: LEFT ARM PAIN Time Seen by Provider: 12/06/19 02:32 [facility] Provider: [facility] [[facility]] - Follow up as needed Notes: Patient is a 64-year-old male that comes to the emergency department for chief complaint of left arm pain for the past 3 days. He states that it feels like he is having sharp pulling pain in the back of his shoulder, he states he can barely move his left arm because of the sharp pain. He states he has known bad arthritis in his left arm/shoulder already, he states he has a follow-up with the [place] [facility] scheduled in about 2 weeks. He states that he could not sleep and the pain was unbearable, he was brought here by his roommate tonight. Patient denies chest pain, shortness of breath, cough, fever, injury, numbness, or surgery on the neck or extremity. He denies any other complaints. He does have complicated medical history including COPD, CHF, CABG, hypertension. (ASHLEY LUGO) - Related Data Allergies/Adverse Reactions: No Known Allergies Allergy (Verified 11/07/19 13:44) Past Medical History - General Information source: Patient - Social History Smoking Status: Current Every Day Smoker Frequency of alcohol use: None Drug Abuse: None Lives with: Friend Family History: Hypertension, Malignancy - Father with unknown cancer. Patient has suicidal ideation: No Patient has homicidal ideation: No - Past Medical History Cardiac Medical History: Reports: Hx Congestive Heart Failure, Hx Heart Attack, Hx Hypertension Pulmonary Medical History: Reports: Hx COPD, Hx Pneumonia Endocrine Medical History: Reports: Hx Hypothyroidism Renal/ Medical History: Denies: Hx Peritoneal Dialysis Skin Medical History: Reports Hx Cellulitis, Reports Hx MRSA Psychiatric Medical History: Denies: Hx Depression Infectious Medical History: Reports: Hx MRSA Past Surgical History: Reports: Hx Cardiac Surgery - cabg, Hx Cholecystectomy - gallstone. Patient describes what sounds like an ERCP, Hx Coronary Artery Bypass Graft - Immunizations Hx Diphtheria, Pertussis, Tetanus Vaccination: - unknown Hx Pneumococcal Vaccination: 09/07/18 <ASHLEY LUGO - Last Filed: 12/06/19 04:26> Review of Systems - Review of Systems Constitutional: No symptoms reported EENT: No symptoms reported Cardiovascular: No symptoms reported Respiratory: No symptoms reported Gastrointestinal: No symptoms reported Genitourinary: No symptoms reported Male Genitourinary: No symptoms reported Musculoskeletal: See HPI Skin: No symptoms reported Hematologic/Lymphatic: No symptoms reported Neurological/Psychological: No symptoms reported <CANDIDOJOSIANEASHLEY - Last Filed: 12/06/19 04:26> Physical Exam <TRIPP LUGOAN - Last Filed: 12/06/19 04:26> - Vital signs Vitals: Temp Pulse Resp BP Pulse Ox 97.6 F 48 L 21 H 149/113 H 96 12/06/19 02:18 12/06/19 02:18 12/06/19 02:18 12/06/19 02:18 12/06/19 02:18 - Notes Notes: GENERAL: Alert, interacts well. Holding his left arm and massaging it with his right hand at the shoulder. Appears somewhat uncomfortable. HEAD: Normocephalic, atraumatic. EYES: Pupils equal, round, and reactive to light. Extraocular movements intact. ENT: Oral mucosa moist, tongue midline. Oropharynx unremarkable. Airway patent. Nares patent, sinuses non-tender NECK: Full range of motion. Supple. Trachea midline. No lymphadenopathy. LUNGS: Faint expiratory wheezes in the upper lobes, no rales or rhonchi. No respiratory distress. Non-tender chest wall. HEART: Regular rate and rhythm. No murmur ABDOMEN: Soft, non-tender. Non-distended. Bowel sounds present in all 4 quadrants. GENITOURINARY: Deferred EXTREMITIES: Tender in the left trapezius muscle, left supraspinatus, and over the left deltoid. 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 No signs of trauma. Unable to lift the left arm over the head. Unremarkable otherwise. No edema. BACK: no cervical, thoracic, lumbar midline tenderness. No saddle anesthesia, normal distal neurovascular exam. Moves all extremities in full range of motion. NEUROLOGICAL: Alert and oriented x3. Normal speech. Cranial nerves II through XII grossly intact. Strength 5/5 in all extremities. PSYCH: Normal affect, normal mood. (ASHLEY LUGO) Course - Laboratory Result Diagrams: 12/06/19 02:45 12/06/19 02:45 - EKG Interpretation by Me EKG shows normal: Sinus rhythm, Intervals Rate: Normal Palm/QRS: RBBB When compared to previous EKG there are: No significant change <VELMA RAM - Last Filed: 12/06/19 03:00> - Laboratory Result Diagrams: 12/06/19 02:45 12/06/19 02:45 <ASHLEY LUGO - Last Filed: 12/06/19 04:26> - Re-evaluation Re-evalutation: Back and chest exam are normal. Patient does have pain with palpation over the left supraspinatus, left trapezius, left deltoid, limited range of motion, symptoms are significantly worsened with attempted movement. Patient states this has been worsening for 3 days, he has a history of similar in the past, he has known bad arthritis, he denies recent injury. He has had no surgery on the neck, shoulder, denies fever, has no neurovascular deficit. He has some wheezin g on exam but he states this is actually his baseline and he is due for treatment. He denies any respiratory or cardiac symptoms. EKG without significant change from prior, chest x-ray unremarkable, left shoulder showing multiple degenerative change and possible intra-articular loose body. Very low suspicion of intrathoracic source, appears to be musculoskeletal only. Patient does have orthopedic follow-up scheduled. Patient has been trying [id number] medications and cannot sleep. Was much more comfortable after his pain medication. He states he has taken oxycodone without any bad side effects in the past, I did look him up on MACHIN[employer]PRENT[employer] aware and there are no recent prescriptions, he was given this along with stool softener, recommendations to use [id number] stuff if possible, provided with sling, discussed precautions at length. Discussed follow-up and return precautions. Patient states appreciation and agreement. (ASHLEY LUGO) - Vital Signs Vital signs: Temp Pulse Resp BP Pulse Ox 97.3 F 48 L 22 H 149/129 H 92 12/06/19 04:14 12/06/19 02:18 12/06/19 04:14 12/06/19 04:14 12/06/19 04:14 - Laboratory Laboratory results interpreted by me: 12/06/19 12/06/19 02:45 02:45 WBC 13.1 H RBC 6.17 H Hgb 17.5 H RDW 18.3 H Absolute Neuts (auto) 9.7 H Potassium 3.5 L Chloride 97 L Carbon Dioxide 32 H BUN 37 H Creatinine 1.69 H Est GFR ( Amer) 49 L Est GFR (MDRD) Non-Af 41 L Glucose 121 H - EKG Interpretation by Me Additional EKG results interpreted by me: 12/06/19 03:02 Atrial Premature Complexes, T wave inversions in aVR, V1 (VELMA RAM) Procedures - Immobilization Left shoulder Pre-Proc Neuro Vasc Exam: Normal Immobilizer type: Sling Performed by: PCT Post-Proc Neuro Vasc Exam: Normal Alignment checked and good: Yes <ASHLEY LUGO - Last Filed: 12/06/19 04:26> Discharge <VELMA RAM - Last Filed: 12/06/19 03:00> <ASHLEY LUGO - Last Filed: 12/06/19 04:26> - Discharge Clinical Impression: Left shoulder pain Qualifiers: Chronicity: acute Qualified Code(s): M25.512 - Pain in left shoulder Condition: Stable Disposition: HOME, SELF-CARE Instructions: Oral Narcotic Medication ([facility]) Additional Instructions: You did have a considerable amount of degenerative changes in your left shoulder. Please follow-up closely with your orthopedics appointment for a dditional management. Take Tylenol for pain, apply ice to your shoulder and heat to your upper back, wear the sling for comfort if needed but remember to take your arm out of the sling multiple times a day to perform range of motion to avoid a stiffening shoulder. Only take the stronger pain medication if needed, use with caution, this can be sedating which is dangerous with your COPD history. Return if you worsen including swelling, fever, numbness, chest pain, shortness of breath, or any other concerning symptoms. Prescriptions: Polyethylene Glycol 3350 [Miralax Powder 17 gm/Packet] 1 packet PO DAILY PRN #1 pkg PRN Reason: Oxycodone HCl/Acetaminophen [Percocet 5-325 mg Tablet] 1 - 2 tab PO TID PRN #12 tablet PRN Reason: Referrals: [facility] [Primary [facility]] - Follow up as needed
[2019-12-06 03:19] LABS: ABSOLUTE BASOPHILS # (AUTO) 0.1 10^3/uL (0.0-0.2); ABSOLUTE EOSINOPHILS # (AUTO) 0.5 10^3/uL (0.0-0.6); ABSOLUTE LYMPHOCYTES (AUTO) 1.8 10^3/uL (0.5-4.7); ABSOLUTE MONOCYTES (AUTO) 1.1 10^3/uL (0.1-1.4); ABSOLUTE NEUT (AUTO) 9.7 10^3/uL (1.7-8.2); BASOPHILS % (AUTO) 0.9 % (0-2); EOSINOPHILS % (AUTO) 3.6 % (0-6); HEMATOCRIT 50.9 % (37.9-51.0); HEMOGLOBIN 17.5 g/dL (13.5-17.0); LYMPHOCYTES % (AUTO) 13.6 % (13-45); MEAN CORPUSCULAR HEMOGLOBIN 28.3 pg (27.0-33.4); MEAN CORPUSCULAR HGB CONC 34.3 g/dL (32.0-36.0); MEAN CORPUSCULAR VOLUME 83 fl (80-97); PLATELET COUNT 273 10^3/uL (150-450); RED BLOOD COUNT 6.17 10^6/uL (4.35-5.55); RED CELL DISTRIBUTION WIDTH 18.3 % (11.5-14.0); SEGMENTED NEUTROPHILS % (AUTO) 73.9 % (42-78); TOTAL CELLS COUNTED % (AUTO) 100 %; WHITE BLOOD COUNT 13.1 10^3/uL (4.0-10.5)
--- NOTE | 2019-12-06 03:33 | RADIOLOGY REPORT (SQ) ---
EXAM DESCRIPTION: XR CHEST 1 VIEW COMPLETED DATE/TME: 12/06/2019 02:40 CLINICAL HISTORY: left shoulder pain COMPARISON: 11/07/2019 FINDINGS: Single frontal view of the chest. Cardiomediastinal silhouette: Prior median sternotomy. Heart is not enlarged. Likely calcified mediastinal lymph node. Leads overlie the chest. Lungs: No consolidation, pneumothorax, or pleural effusion. Bones: No acute osseous abnormality. Upper abdomen: No abnormality identified. IMPRESSION: 1. No acute pulmonary process identified.
--- NOTE | 2019-12-06 03:34 | RADIOLOGY REPORT (SQ) ---
EXAM DESCRIPTION: XR SHOULDER 2 OR MORE VIEWS COMPLETED DATE/TME: 12/06/2019 02:39 CLINICAL HISTORY: 64 years, Male, sharp pain COMPARISON: 10/29/2019 FINDINGS: 3 views of the left shoulder. No acute fracture or dislocation. Normal osseous mineralization. No acute abnormalities of visualized left hemithorax. Degenerative joint space narrowing and marginal osteophytosis of the glenohumeral joint. Subchondral erosions. Possible intra-articular loose body. IMPRESSION: 1. No acute fracture. 2. Stable arthritic change of the left shoulder. copyright 2010 [employer]- All Rights Reserved
[2019-12-06 03:40] LABS: ANION GAP 8 (5-19); BLOOD UREA NITROGEN 37 mg/dL (7-20); CALCIUM 8.8 mg/dL (8.4-10.2); CARBON DIOXIDE 32 mmol/L (22-30); CHLORIDE 97 mmol/L (98-107); GLUCOSE 121 mg/dL (75-110); POTASSIUM 3.5 mmol/L (3.6-5.0)
[2019-12-06] MEDS ORDERED: HYDROCODONE/ACETAMINOPHEN 5-325 MG (6 TAB/ER DISP) PO PRN (03:59)
[2019-12-06] MEDS ORDERED: OXYCODONE-ACETAMINOPHEN 5-325 MG TABLET PO ONE (03:59)
[2019-12-06 04:18] VITALS: BP 149/129
--- NOTE | 2019-12-06 09:25 | EKG REPORT ---
SEVERITY:- ABNORMAL ECG - SINUS RHYTHM ATRIAL PREMATURE COMPLEX RIGHT BUNDLE BRANCH BLOCK : Confirmed by: Kinza Meza 06-Dec-2019 09:24:33
== END 2019-12-06 04:22 | disposition home or self-care (01) ==
LOC: ER 02:13
DX: M19.012 Primary osteoarthritis, left shoulder (principal); M79.18 Myalgia, other site; I10 Essential (primary) hypertension; J44.9 Chronic obstructive pulmonary disease, unspecified
CPT/HCPCS: 93005; 94640; 99284; 96374; 36415; 85025; 80048; 84484; 71045; 73030; 93010; J3010; J7620

== ENCOUNTER 2019-12-07 21:27 | Emergency (ER) | payer OTHER, MEDICARE ==
[2019-12-07 22:51] LABS: ABSOLUTE BASOPHILS # (AUTO) 0.1 10^3/uL (0.0-0.2); ABSOLUTE EOSINOPHILS # (AUTO) 0.3 10^3/uL (0.0-0.6); ABSOLUTE LYMPHOCYTES (AUTO) 1.4 10^3/uL (0.5-4.7); ABSOLUTE MONOCYTES (AUTO) 0.8 10^3/uL (0.1-1.4); ABSOLUTE NEUT (AUTO) 6.7 10^3/uL (1.7-8.2); BASOPHILS % (AUTO) 0.9 % (0-2); EOSINOPHILS % (AUTO) 3.6 % (0-6); HEMATOCRIT 47.7 % (37.9-51.0); HEMOGLOBIN 16.3 g/dL (13.5-17.0); LYMPHOCYTES % (AUTO) 14.9 % (13-45); MEAN CORPUSCULAR HEMOGLOBIN 28.5 pg (27.0-33.4); MEAN CORPUSCULAR HGB CONC 34.3 g/dL (32.0-36.0); MEAN CORPUSCULAR VOLUME 83 fl (80-97); MONOCYTES % (AUTO) 8.3 % (3-13); PLATELET COUNT 248 10^3/uL (150-450); RED BLOOD COUNT 5.73 10^6/uL (4.35-5.55); RED CELL DISTRIBUTION WIDTH 18.5 % (11.5-14.0); SEGMENTED NEUTROPHILS % (AUTO) 72.3 % (42-78); TOTAL CELLS COUNTED % (AUTO) 100 %; WHITE BLOOD COUNT 9.3 10^3/uL (4.0-10.5)
[2019-12-07 22:54] LABS: ALBUMIN 3.4 g/dL (3.5-5.0); ALKALINE PHOSPHATASE 173 U/L (38-126); ANION GAP 7 (5-19); ASPARTATE AMINO TRANSFERASE 33 U/L (17-59); BILIRUBIN,DIRECT 0.2 mg/dL (0.0-0.4); BILIRUBIN,TOTAL 0.7 mg/dL (0.2-1.3); BLOOD UREA NITROGEN 23 mg/dL (7-20); CALCIUM 8.4 mg/dL (8.4-10.2); CARBON DIOXIDE 28 mmol/L (22-30); CHLORIDE 100 mmol/L (98-107); CREATINE KINASE 132 U/L (55-170); GLUCOSE 113 mg/dL (75-110); POTASSIUM 3.3 mmol/L (3.6-5.0); TOTAL PROTEIN 6.8 g/dL (6.3-8.2)
[2019-12-07 23:06] LABS: CREATINE KINASE MB 5.2 ng/mL (<4.55); TROPONIN I 0.061 ng/mL
[2019-12-07] MEDS ORDERED: ASPIRIN 81 MG TABLET, CHEWABLE PO ONE (23:26)
[2019-12-07] MEDS ORDERED: NITROGLYCERIN 0.4 MG/TAB 25 TAB/BOTTLE SL PRN (23:27)
--- NOTE | 2019-12-07 23:31 | ER Document Report ---
ED General - General Chief Complaint: Abdominal Pain Stated Complaint: CHEST PAIN Time Seen by Provider: 12/07/19 22:17 Primary Care Provider: [facility] [Primary Care Provider] - Follow up as needed Mode of Arrival: Ambulatory Information source: Patient Notes: 64-year-old male presents to the emergency department with a complaint of feeling flushed at home, complaining of abdominal discomfort with chest pain, back pain and fatigue. He has a history of congestive heart failure, hypertension, CAD, COPD, and pneumonia. He also has a prior history of coronary artery bypass graft surgery and cholecystectomy. TRAVEL OUTSIDE OF THE [place] IN LAST 30 DAYS: No - Related Data Allergies/Adverse Reactions: No Known Allergies Allergy (Verified 11/07/19 13:44) Home Medications: ASA. potassium chloride. carvedilol. atorvastatin. furosemide. levothyroxine Past Medical History - Social History Smoking Status: Current Every Day Smoker Chew tobacco use (# tins/day): No Frequency of alcohol use: Rare Drug Abuse: None Family History: Hypertension, Malignancy - Father with unknown cancer. Patient has suicidal ideation: No Patient has homicidal ideation: No - Past Medical History Cardiac Medical History: Reports: Hx Congestive Heart Failure, Hx Heart Attack, Hx Hypertension Pulmonary Medical History: Reports: Hx COPD, Hx Pneumonia Endocrine Medical History: Reports: Hx Hypothyroidism Renal/ Medical History: Denies: Hx Peritoneal Dialysis Skin Medical History: Reports Hx Cellulitis, Reports Hx MRSA Psychiatric Medical History: Denies: Hx Depression Infectious Medical History: Reports: Hx MRSA Past Surgical History: Reports: Hx Cardiac Surgery - cabg, Hx Cholecystectomy - gallstone. Patient describes what sounds like an ERCP, Hx Coronary Artery Bypass Graft - Immunizations Hx Diphtheria, Pertussis, Tetanus Vaccination: - unknown Hx Pneumococcal Vaccination: 09/07/18 Review of Systems - Review of Systems Notes: Constitutional: Negative for fever. HENT: Negative for sore throat. Eyes: Negative for visual changes. Cardiovascular: + Chest pain. Respiratory: Negative for shortness of breath. Gastrointestinal: + Abdominal pain, no vomiting or diarrhea. Genitourinary: Negative for dysuria. Musculoskeletal: Negative for back pain. Skin: Negative for rash. Neurological: Negative for headaches, weakness or numbness. 10 point ROS negative except as marked above and in HPI. Physical Exam - Vital signs Vitals: Temp Pulse Resp BP Pulse Ox 97.5 F 108 H 24 H 149/108 H 97 04/01/20 21:37 12/07/19 21:37 12/07/19 21:37 12/07/19 21:37 12/07/19 21:37 - Notes Notes: PHYSICAL EXAMINATION: Physical Exam: General: Well-nourished well-developed 64-year-old man in no acute distress HEENT: NC/AT, pupils equal round and reactive to light, MM moist,nares clear, oropharynx clear, airway patent Neck: supple, no adenopathy, no masses. Good range of motion Lungs: clear, no wheezing, no rales no rhonchi CVS: Regular rate and rhythm no murmur gallop or rub Abdomen: Soft, active, nontender, no masses, no hepatosplenomegaly Ext/MSK: + Left shoulder tenderness, + back pain Neuro: Alert and responsive, moving all 4 extremities on command, cranial nerves intact, no focal findings Skin: Intact no open lesions, no rash PSYCH: Normal mood, normal affect. Course - Re-evaluation Re-evalutation: 12/08/19 00:57 Patient found to be in no acute distress, initial troponin noted to be 0.061. His EKG reveals sinus tachycardia with a rate of 102, multiple atrial premature contractions, left atrial abnormality with a right bundle branch block. 12/08/19 03:03 Repeat troponin was performed and value was decreased 0.056, patient is sitting up at the bedside stating he is ready to go home he would like to have something for pain for his left shoulder. I have given him 1 dose of hydrocodone he says he has medications at home that he can continue to take. I have asked him to follow-up with his primary care doctor as needed or return to the emergency department if his symptoms are worsening. - Vital Signs Vital signs: Temp Pulse Resp BP Pulse Ox 97.7 F 64 19 145/85 H 96 12/08/19 00:28 12/08/19 00:28 12/08/19 00:28 12/08/19 00:28 12/08/19 00:28 - Laboratory Result Diagrams: 12/07/19 22:22 12/07/19 22:22 Laboratory results interpreted by me: 12/07/19 12/07/19 12/07/19 22:22 22:22 22:22 RBC 5.73 H RDW 18.5 H Sodium 134.5 L Potassium 3.3 L BUN 23 H Est GFR (MDRD) Non-Af 58 L Glucose 113 H Alkaline Phosphatase 173 H CK-MB (CK-2) 5.20 H Albumin 3.4 L - EKG Interpretation by Me Rate: Tachycardia - Sinus tachycardia, [place] atrial premature contractions, proba ble left atrial abnormality, right bundle branch block, rate of 101. Discharge - Discharge Clinical Impression: Tachycardia, Elevated brain natriuretic peptide (BNP) level Left shoulder pain Qualifiers: Chronicity: unspecified Qualified Code(s): M25.512 - Pain in left shoulder Condition: Good Disposition: HOME, SELF-CARE Additional Instructions: Please continue your usual medications, potassium supplement, pain medication, antihypertensive medications and medicines for congestive heart failure. Please follow-up with your primary care doctor as needed. If your symptoms are worsening or if you have other concerns you may return to the emergency department. HOME CARE INSTRUCTIONS & INFORMATION: Thank you for choosing us for your medical needs. We hope you're satisfied with the care you received. After you leave, you must properly care for your problem and, at the same time, observe its progress. Any condition can change. Some illnesses can change rapidly over hours or days. If your condition worsens, return to the Emergency Department or see your physician promptly. ABOUT YOUR X-RAYS AND EKG'S: If you had an EKG or X-rays taken, they have been read by the Emergency Physician. The X-rays and EKG's will also be read by a Radiologist or Promotions Director within 24 hours. If discrepancies are noted, you will be notified by telephone. Please be certain the ED has a correct telephone number & address where you can be reached. Also, realize that some fractures or abnormalities do not show up on initial X-rays. If your symptoms continue, see your physician. ABOUT YOUR LABORATORY TEST: If you had laboratory tests, the results have been reviewed by the Emergency Physician. Some test results (for example cultures) may not be available for several days. You will be contacted if any test result shows you need additional treatment. Please be certain the ED has a correct telephone number and address where you can be reached. ABOUT YOUR MEDICATIONS: You will receive instructions on how to take your medicine on the prescription label you receive. Additional information may be provided by the Pharmacy. If you have questions afterwards, call the ED for clarification or further instructions. Some prescribed medications may cause drowsiness. Do not perform tasks such as driving a car or operating machinery without consulting your Pharmacist. If you feel you need a refill of pain medication, your condition will need re-evaluation. Please do not call for a refill of any medication. ABOUT YOUR SIGNATURE: Signature of this document acknowledges to followin. Understanding that you received emergency treatment and that you may be released before al medical problems are known or treated. Please be certain the ED has a correct phone number & address where you can be reached. 2. Acknowledgement that you will arrange for follow-up care as recommended. 3. Authorization for the Emergency Physician to provide information to your follow-up Physician in order to maximize your care. AT ANY TIME, IF YOUR SYMPTOMS CHANGE SIGNIFICANTLY OR WORSEN OR YOU DEVELOP NEW SYMPTOMS, RETURN TO THE EMERGENCY DEPARTMENT IMMEDIATELY FOR RE-EVALUATION. OUR GOAL IS TO PROVIDE EXCELLENT MEDICAL CARE! WE HOPE THAT WE HAVE MET YOUR EXPECTATIONS DURING YOUR EMERGENCY DEPARTMENT VISIT AND THAT YOU FEEL YOU HAVE RECEIVED EXCELLENT CARE! Referrals: [facility] [Primary [facility]] - Follow up as needed
--- NOTE | 2019-12-08 00:25 | RADIOLOGY REPORT (SQ) ---
EXAM DESCRIPTION: XR CHEST 1 VIEW COMPLETED DATE/TME: 12/07/2019 23:30 CLINICAL HISTORY: 64 years, Male, Chest pain COMPARISON: 12/06/2019 chest NUMBER OF VIEWS: 1 TECHNIQUE: Portable chest LIMITATIONS: None. FINDINGS: The heart size is normal. Stable postsurgical change. Calcified mediastinal lymph node. Calcified granuloma right upper lobe. Lungs otherwise clear. No pneumothorax IMPRESSION: No acute cardiopulmonary process copyright 2010 [employer]- All Rights Reserved
[2019-12-08] MEDS ORDERED: HYDROCODONE/ACETAMINOPHEN 5-325 MG TABLET PO ONE (03:01)
[2019-12-08 03:32] VITALS: BP 152/88
--- NOTE | 2019-12-08 09:32 | EKG REPORT ---
SEVERITY:- ABNORMAL ECG - SINUS TACHYCARDIA MULTIPLE ATRIAL PREMATURE COMPLEXES PROBABLE LEFT ATRIAL ABNORMALITY RIGHT BUNDLE BRANCH BLOCK : Confirmed by: Kinza Meza 08-Dec-2019 09:30:59
--- NOTE | 2019-12-08 09:32 | EKG REPORT ---
SEVERITY:- ABNORMAL ECG - SINUS TACHYCARDIA MULTIPLE ATRIAL PREMATURE COMPLEXES LEFT ATRIAL ABNORMALITY RIGHT BUNDLE BRANCH BLOCK : Confirmed by: Kinza Meza 08-Dec-2019 09:31:21
== END 2019-12-08 04:00 | disposition home or self-care (01) ==
LOC: ER 21:27
DX: M25.512 Pain in left shoulder (principal); R00.0 Tachycardia, unspecified; I11.0 Hypertensive heart disease with heart failure; I50.9 Heart failure, unspecified; R10.9 Unspecified abdominal pain; R07.9 Chest pain, unspecified; M54.9 Dorsalgia, unspecified; R53.83 Other fatigue; I49.1 Atrial premature depolarization; I45.10 Unspecified right bundle-branch block; I25.10 Atherosclerotic heart disease of native coronary artery without angina pectoris; J44.9 Chronic obstructive pulmonary disease, unspecified; I25.2 Old myocardial infarction; E03.9 Hypothyroidism, unspecified; F17.200 Nicotine dependence, unspecified, uncomplicated; Z79.82 Long term (current) use of aspirin; Z79.899 Other long term (current) drug therapy; Z87.01 Personal history of pneumonia (recurrent); Z95.1 Presence of aortocoronary bypass graft; Z90.49 Acquired absence of other specified parts of digestive tract; R79.89 Other specified abnormal findings of blood chemistry
CPT/HCPCS: 36415; 71045; 80053; 82550; 82553; 84484; 85025; 93005; 93010; 99285

== ENCOUNTER 2020-04-24 13:31 | Emergency (ER) | payer OTHER, MEDICARE ==
[2020-04-24 13:41] VITALS: BP 130/96
--- NOTE | 2020-04-24 15:56 | ER Document Report ---
HPI - HPI Time Seen by Provider: 04/24/20 15:38 Pain Level: Denies Notes: 64-year-old male with a history of CAD, type 2 diabetes, hypertension, CHF presents emergency room for a decubitus ulcer to his left elbow, he states he came to the emergency room because he thought maybe he could get some wound care since he goes to the [facility]. patient states he was newly diagnosed with diabetes yesterday, his wound was addressed yesterday as well. Patient states his next appointment is July with the PA and wanted to get set up with wound care. Patient was not sure how he should start the wound clinic process. Denies fevers, chills, chest pain,palpitations, shortness of breath, dyspnea, nausea, vomiting, diarrhea, abdominal pain, hematuria,blurred vision, double vision, loss of vision, speech changes, LH, dizziness, syncope, headaches, wheezing, ST, URI, neck pain, weakness, bowel or bladder dysfunction, saddle anesthesia, numbness or tingling in bilateral upper or lower extremities equally, muscle paralysis, weakness in bilateral upper or lower extremities equally or rash. Denies IV drug use. MEDICATIONS: I agree with the patient medications as charted by the RN. ALLERGIES: I agree with the allergies as charted by the RN. PAST MEDICAL HISTORY/PAST SURGICAL HISTORY: Reviewed and agree as charted by RN. SOCIAL HISTORY: Reviewed and agree as charted by RN. FAMILY HISTORY: No significant familial comorbid conditions directly related to patient complaint EXAM: Reviewed vital signs as charted by RN. REVIEW OF SYSTEMS:reviewed vital signs by RN CONSTITUTIONAL : Denies fever, chills, or sweats. Denies recent illness. EENT: Denies eye, ear, throat, or mouth pain or symptoms. Denies nasal or sinus congestion or discharge. Denies throat, tongue, or mouth swelling or difficulty swallowing. CARDIOVASCULAR: Denies chest pain. Denies palpitations or racing or irregular heart beat. Denies ankle edema. RESPIRATORY: Denies cough, cold, or chest congestion. Denies shortness of breath, difficulty breathing, or wheezing. GASTROINTESTINAL: Denies abdominal pain or distention. Denies nausea, vomiting, or diarrhea. Denies blood in vomitus, stools, or per rectum. Denies black, tarry stools. Denies constipation. GENITOURINARY: Denies difficulty urinating, painful urination, burning, frequency, blood in urine, or discharge. MUSCULOSKELETAL: Denies back or neck pain or stiffness. Denies joint pain or swelling. SKIN: Denies rash, lesions or sores. HEMATOLOGIC : Denies easy bruising or bleeding. LYMPHATIC: Denies swollen, enlarged glands. NEUROLOGICAL: Denies confusion or altered mental status. Denies passing out or loss of consciousness. Denies dizziness or lightheadedness. Denies headache. Denies weakness or paralysis or loss of use of either side. Denies problems with gait or speech. Denies sensory loss, numbness, or tingling. Denies seizures. PSYCHIATRIC: Denies anxiety or stress. Denies depression, suicidal ideation, or homicidal ideation. ALL OTHER SYSTEMS REVIEWED AND NEGATIVE. Dictation was performed using [employer] recognition software PHYSICAL EXAMINATION: GENERAL: Well-appearing, well-nourished and in no acute distress. HEAD: Atraumatic, normocephalic. EYES: Pupils equal round and reactive to light, extraocular movements intact, sclera anicteric, conjunctiva are normal. ENT: Nares patent, oropharynx clear without exudates. Moist mucous membranes. NECK: Normal range of motion, supple without lymphadenopathy LUNGS: Breath sounds clear to auscultation bilaterally and equal. No wheezes rales or rhonchi. HEART: Regular rate and rhythm without murmurs ABDOMEN: Soft, nontender, nondistended abdomen. No guarding, no rebound. No masses appreciated. Musculoskeletal: Normal range of motion, no pitting or edema. No cyanosis. normal left and right elbow movement with abduction, flexion, extension, supination and pronation. negative , Housekeeping Room Attendant + 2 BUE equally. APROM in shoulder. DTR +2 in BUE equally. Noted crepitus with APROM in elbow. negative drop arm, neer sign, vela test, Full motor and sensory function in BUE. No vascular compromise. No noted swelling, abrasions, ecchymosis, lacerations, scars of recent trauma. No erythema or induration noted to area. Intact median, ulnar and radial nerves bilaterally and equally. muscle strength 5/5 NEUROLOGICAL: Cranial nerves grossly intact. Normal speech, normal gait. Normal sensory, motor exams PSYCH: Normal mood, normal affect. SKIN: Warm, Dry, normal turgor, no rashes or lesions noted. 7 cm x 3 cm decubitus ulcer to anterior aspect of left elbow, no surrounding erythema induration or warmth to touch. No exudates, wound well debrided. Radial pulses +2 bilaterally equally. Housekeeping Room Attendant +2 in bilateral upper extremities equally. - REPRODUCTIVE Reproductive: DENIES: : Past Medical History - Social History Smoking Status: Former Smoker Chew tobacco use (# tins/day): No Frequency of alcohol use: None Drug Abuse: None Family History: Hypertension, Malignancy - Father with unknown cancer. Patient has homicidal ideation: No - Past Medical History Cardiac Medical History: Reports: Hx Congestive Heart Failure, Hx Heart Attack, Hx Hypertension Pulmonary Medical History: Reports: Hx COPD, Hx Pneumonia Endocrine Medical History: Reports: Hx Hypothyroidism Renal/ Medical History: Denies: Hx Peritoneal Dialysis Skin Medical History: Reports Hx Cellulitis, Reports Hx MRSA Psychiatric Medical History: Denies: Hx Depression Infectious Medical History: Reports: Hx MRSA Past Surgical History: Reports: Hx Cardiac Surgery - cabg, Hx Cholecystectomy - gallstone. Patient describes what sounds like an ERCP, Hx Coronary Artery Bypass Graft - Immunizations Hx Diphtheria, Pertussis, Tetanus Vaccination: - unknown Hx Pneumococcal Vaccination: 09/07/18 Vertical Provider Document - CONSTITUTIONAL Agree With Documented VS: Yes Exam Limitations: No Limitations General Appearance: WD/WN - INFECTION CONTROL TRAVEL OUTSIDE OF THE [place] IN LAST 30 DAYS: No Course - Re-evaluation Re-evalutation: 04/24/20 17:23 Afebrile vital stable no distress. Nurses notes reviewed. Consulted with the social work assistant for the emergency room, Cipriano Oswald RN to coordinate care for patient to get wound care or home health visits for wound changing to his decubitus ulcer on his left elbow. As of right now there is no indication of any cellulitis infection, wound is healthy and looks to be healing. No need for prophylactic antibiotics or any antibiotic therapy. Patient's vaccinations are up-to-date for his age. Patient is not complaining of any other issues at this time, no chest pain shortness of breath nausea, vomiting, diarrhea, abdominal pain, dyspnea, pedal edema. soaker soda worker, Cipriano Oswald was able to get in touch with some outside facilities to help coordinate and accommodate patient for home health services [facility]. Advised to follow-up with his primary care provider within 2 days for a recheck of his wound. After performing a Medical Screening Examination, I estimate there is LOW risk for OPEN FRACTURE, COMPARTMENT SYNDROME, TENDON RUPTURE, ACUTE NEUROVASCULAR INJURY, or RETAINED FOREIGN BODY, thus I consider the discharge disposition reasonable. Also, there is no evidence or peritonitis, sepsis, or toxicity. I have re evaluated this patient multiple times and no significant life threatening changes are noted. The patient and I have discussed the diagnosis and risks, and we agree with discharging home with close follow-up with the understanding that symptoms and presentations can change. We also discussed returning to the Emergency Department immediately if new or worsening symptoms occur. We have discussed the symptoms which are most concerning (e.g., changing or worsening pain, fever, numbness, weakness, cool or painful digits) that necessitate immediate return. - Vital Signs Vital signs: Temp Pulse Resp BP Pulse Ox 97.9 F 99 18 130/96 H 95 04/24/20 13:39 04/24/20 13:39 04/24/20 13:39 04/24/20 13:39 04/24/20 13:39 - Laboratory Laboratory results interpreted by me: 04/24/20 14:25 POC Glucose 115 H Discharge - Discharge Clinical Impression: Decubitus ulcer of left elbow Condition: Stable Disposition: HOME, SELF-CARE Instructions: Decubitus Ulcer ([facility]), Dressing Instructions for Open Wounds ([facility]) Additional Instructions: Cipriano Oswald, social work assistant, is working on getting you set up wound clinic for dressing changes. As well as having you be followed up with a medical provider for medical evaluation. Your wound was redressed today. Follow-up with your doctor within the next 24 to 48 hours as needed Return immediately for any new or worsening symptoms. Follow up with primary care provider, call tomorrow to make followup appointment. Referrals: [facility] [Primary [facility] Provider] - Follow up as needed CIPRIANO OSWALD, RN [REGISTERED NURSE-CASE MANGER] - Follow up as needed
== END 2020-04-24 18:36 | disposition home or self-care (01) ==
LOC: ER 13:31
DX: L89.029 Pressure ulcer of left elbow, unspecified stage (principal); E11.9 Type 2 diabetes mellitus without complications; I25.10 Atherosclerotic heart disease of native coronary artery without angina pectoris; I10 Essential (primary) hypertension; I25.2 Old myocardial infarction; Z87.891 Personal history of nicotine dependence; Z86.14 Personal history of Methicillin resistant Staphylococcus aureus infection; Z95.5 Presence of coronary angioplasty implant and graft
CPT/HCPCS: 82962; 99282